=== PATIENT | female | born 2000 | race Caucasian/White ===

== ENCOUNTER → 2020-03-26 | Outpatient (CLI) | payer SELFPAY ==
[2020-03-26 10:57] VITALS: BMI 20.5
[2020-03-26 14:07] LABS: Amphetamine Urine VISTA NEGATIVE (<1000 ng/mL); Barbiturate Urine VISTA NEGATIVE (< 200 ng/mL); Benzodiazepine Urine VISTA NEGATIVE (< 200 ng/mL); Cocaine Urine VISTA NEGATIVE (< 300 ng/mL); Ecstacy Urine VISTA NEGATIVE (< 500 ng/mL); Methadone Urine VISTA NEGATIVE (< 300 ng/mL); PCP Urine VISTA NEGATIVE (< 25 ng/mL); THC Urine VISTA NEGATIVE (< 50 ng/mL); Vista UDS pH Range 6
[2020-03-28 04:09] LABS: Chlamydia By Nucleic Acid AMP Negative (Negative)
[2020-03-28 04:40] LABS: Gonococcus By Nucleic Acid AMP Negative (Negative)
== END | disposition home or self-care (01) ==
PROVIDERS: Visit Provider Obstetrics & Gynecology
DX: Z34.90 Encounter for supervision of normal pregnancy, unspecified, unspecified trimester (principal)
CPT/HCPCS: 80307; 87086; 87491; 87591

== ENCOUNTER → 2020-04-27 10:29 | Outpatient (CLI) | payer SELFPAY ==
[2020-04-23 10:18] VITALS: BMI 22.4
[2020-04-27 11:02] LABS: Absolute Lymphocyte Count 1.37 X10^3/uL (0.83-4.51); Absolute Neutrophil Count 6.3 X10^3/uL (2.0-7.7); Basophil# 0.04 X10^3/uL; Basophil% 0.5 % (0-1); Eosinophil# 0.06 X10^3/uL; Eosinophils% 0.7 % (0-5); Hematocrit 38.6 % (37-47); Lymphocyte # 1.37 X10^3/ul (4.0); Lymphocyte % 16.2 % (19-41); Mean Corp Hgb Conc 33.7 g/dL (32-36); Mean Corpuscular Hgb 29.6 pg (27.0-32.0); Mean Corpuscular Volume 87.9 fL (81-99); Mean Platelet Vol. 10.4 fl (6.2-12.0); Monocyte# 0.59 X10^3/uL; NRBC Flagged by Analyzer 0 % (0-5); Neutrophil # 6.34 X10^3/uL (2.7-7.7); Neutrophil % 75.1 % (47-70); Platelet Count 290 K/mm3 (150-450); RBC Distribution Width CV 13.1 % (11.6-14.6); RBC Distribution Width SD 41.9 fl (35.1-43.9); Red Blood Count 4.39 M/mm3 (4.2-5.4); White Blood Count 8.4 K/mm3 (4.4-11.0)
[2020-04-27 11:55] LABS: HIV - WCH Non-Reactive (Nonreactive); Hepatitis B Surface Antigen Non-Reactive (Nonreactive); Hepatitis C Antibody Non-Reactive (Nonreactive)
[2020-05-03 02:50] LABS: Rapid Plasmin Reagin (RPR) NONREACTIVE (NONREACTIVE)
== END ==
PROVIDERS: Referring Provider Obstetrics & Gynecology; Visit Provider Obstetrics & Gynecology
DX: Z34.81 Encounter for supervision of other normal pregnancy, first trimester (principal)
CPT/HCPCS: 36415; 85025; 86592; 86703; 86803; 86850; 86900; 86901; 87340

== ENCOUNTER → 2020-06-22 18:26 | Outpatient (CLI) | payer SELFPAY ==
[2020-05-25 10:14] VITALS: BMI 22.8
[2020-06-20 10:37] VITALS: BMI 23.6
--- NOTE | 2020-06-22 18:27 | US_ITS ---
STUDY: SECOND AND THIRD TRIMESTER OBSTETRICAL ULTRASOUND REASON FOR EXAM: Female, 19 years old ANATOMY LMP: 01/31/2020 TECHNIQUE: Transabdominal TECHNICAL QUALITY: Adequate. PRIOR ULTRASOUND: None. FINDINGS: There is a single intrauterine fetus. The fetus is in a cephalic presentation. There is demonstrated cardiac activity with a heart rate of 173 bpm. There is a normal amniotic fluid volume. The largest amniotic fluid pocket measures 5.3 cm. The amniotic fluid index (TRACY) is cm. The placenta is anterior in location and is not low lying. There are Grade 1 placental changes. The cervix measures 3.8 cm in length. The adnexal regions are not visualized. BIOMETRY: BPD: 4.7 cm: 20 weeks, 2 days HC: 18.2 cm: 20 weeks, 4 days AC: 15.5 cm: 20 weeks, 4 days FL: 3.3 cm: 20 weeks, 2 days CI: FL/BPD: 70.20 FL/HC: 18.22 FL/AC: 21.41 HC/AC: 1.18 age by current US: 20 weeks, 0 days. BRIGIDA by current US: 11/09/2020. Estimated weight: 361 grams, +/- 54 grams, 50 %. Age by LMP: 20 weeks, 3 days. BRIGIDA by LMP: 11/06/2020. ANATOMY: Gender: Female Cranium: Normal lateral ventricles. Normal choroid plexus. Normal cerebellum. Normal cisterna magna. Normal face, nose and lips. Chest: Normal 4-chamber heart. Abdomen/Pelvis: Normal diaphragm. Normal stomach. Normal abdominal wall. Normal cord insertion. Normal 3 vessel cord. Normal kidneys. Normal bladder. Spine: Normal cervical spine. Normal thoracic spine. Normal lumbar spine. Normal sacrum. Extremities: Normal bilateral upper extremities. Normal bilateral lower extremities. US/OB Anatomy Scan IMPRESSION: Living intrauterine of 20 weeks 0 days as described above. Electronically Signed: Brendan Kim MD at 8:37 EST Tel , Service support ,
== END ==
PROVIDERS: Referring Provider Obstetrics & Gynecology; Visit Provider Obstetrics & Gynecology
DX: Z34.00 Encounter for supervision of normal first pregnancy, unspecified trimester (principal)
CPT/HCPCS: 76805

== ENCOUNTER → 2020-08-15 09:17 | Outpatient (CLI) | payer SELFPAY ==
[2020-06-20 10:37] VITALS: BMI 23.6
[2020-08-15 09:29] LABS: Absolute Lymphocyte Count 1.19 X10^3/uL (0.83-4.51); Absolute Neutrophil Count 6.6 X10^3/uL (2.0-7.7); Basophil# 0.06 X10^3/uL; Basophil% 0.7 % (0-1); Eosinophil# 0.03 X10^3/uL; Eosinophils% 0.3 % (0-5); Hematocrit 34.9 % (37-47); Hemoglobin 11.8 g/dL (12.0-15.0); Lymphocyte # 1.19 X10^3/ul (4.0); Lymphocyte % 13.7 % (19-41); Mean Corp Hgb Conc 33.8 g/dL (32-36); Mean Corpuscular Hgb 30.3 pg (27.0-32.0); Mean Corpuscular Volume 89.5 fL (81-99); Mean Platelet Vol. 10.2 fl (6.2-12.0); Monocyte# 0.65 X10^3/uL; Monocyte% 7.5 % (0-10); NRBC Flagged by Analyzer 0 % (0-5); Neutrophil # 6.61 X10^3/uL (2.7-7.7); Neutrophil % 75.8 % (47-70); Platelet Count 254 K/mm3 (150-450); RBC Distribution Width CV 12.2 % (11.6-14.6); RBC Distribution Width SD 39.7 fl (35.1-43.9); White Blood Count 8.7 K/mm3 (4.4-11.0)
[2020-08-15 09:48] LABS: Glucose Challenge Gest 1H 50g 86 mg/dL (70-140)
[2020-08-15 10:01] LABS: Rubella IgG Reactive (Nonreactive)
== END ==
PROVIDERS: Referring Provider Obstetrics & Gynecology; Visit Provider Obstetrics & Gynecology
DX: Z34.90 Encounter for supervision of normal pregnancy, unspecified, unspecified trimester (principal)
CPT/HCPCS: 36415; 82950; 85025; 86762

== ENCOUNTER → 2020-10-10 | Outpatient (CLI) | payer SELFPAY ==
[2020-10-10 09:59] VITALS: BMI 26.2
== END | disposition home or self-care (01) ==
LOC: LABSPEC 12:06
PROVIDERS: Referring Provider Obstetrics & Gynecology; Visit Provider Obstetrics & Gynecology
DX: Z34.03 Encounter for supervision of normal first pregnancy, third trimester (principal)
CPT/HCPCS: 87081

== ENCOUNTER → 2020-10-26 10:28 | Outpatient (CLI) | payer SELFPAY ==
[2020-10-26 09:40] VITALS: BMI 26.2
--- NOTE | 2020-10-26 10:36 | US_ITS ---
STUDY: SECOND AND THIRD TRIMESTER OBSTETRICAL ULTRASOUND REASON FOR EXAM: Female, 20 years old uterine date size discrepancy LMP: 01/31/2020. TECHNIQUE: Transabdominal TECHNICAL QUALITY: Adequate. PRIOR ULTRASOUND: Comparison is made with prior examination dated 06/22/2020. FINDINGS: There is a single intrauterine fetus. The fetus is in a cephalic presentation. There is demonstrated cardiac activity with a heart rate of 138 bpm. There is a normal amniotic fluid volume. The largest amniotic fluid pocket measures 4.5 cm. The amniotic fluid index (TRACY) is 8.1 cm. The placenta is anterior in location and is not low lying. There are Grade 2 placental changes. The cervix was not visualized due to the head position. The adnexal regions are not visualized. BIOMETRY: BPD: 9.28 cm: 37 weeks, 5 days HC: 33.32 cm: 38 weeks, 0 days AC: 34.07 cm: 37 weeks, 6 days FL: 7.4 cm: 37 weeks, 5 days CI: 82% FL/BPD: 80% FL/HC: FL/AC: 22% HC/AC: 0.98 age by current US: 38 weeks, 0 days. BRIGIDA by current US: 11/09/2020. Estimated weight: 3381 grams, +/- 507 grams, 55 %. age by prior US: 38 weeks, 0 days. BRIGIDA by prior US: 11/09/2020. Age by LMP: 38 weeks, 3 days. BRIGIDA by LMP: 11/06/2020. US/OB Limited With Biometrics IMPRESSION: Single live intrauterine gestation with a mean gestational age of 38 weeks. There has been good interval growth since prior study. Electronically Signed: Ethan Ortiz MD at 12:33 EDT , Service support ,
== END ==
PROVIDERS: Referring Provider Obstetrics & Gynecology; Visit Provider Obstetrics & Gynecology
DX: O26.849 Uterine size-date discrepancy, unspecified trimester (principal)
CPT/HCPCS: 76816

== ENCOUNTER → 2020-11-01 | Outpatient (CLI) | payer SELFPAY ==
[2020-11-01 09:15] VITALS: BMI 26.8
[2020-11-01 10:19] LABS: ROM Internal Control Test YES-OK TO RESULT pt. (Internal QC); ROM Patient Test Negative (Negative)
== END | disposition home or self-care (01) ==
PROVIDERS: Referring Provider Obstetrics & Gynecology; Visit Provider Obstetrics & Gynecology
DX: O26.899 Other specified pregnancy related conditions, unspecified trimester (principal); N89.8 Other specified noninflammatory disorders of vagina; Z3A.00 Weeks of gestation of pregnancy not specified
CPT/HCPCS: 84112

== ENCOUNTER 2020-11-13 02:00 | Outpatient (CLI) | payer SELFPAY ==
[2020-11-08 11:29] VITALS: BMI 26.8
[2020-11-13 02:13] VITALS: BMI 26.7
[2020-11-13 02:25] VITALS: BP 129/79; PULSE 83; TEMP 36.7; O2SAT 99
--- NOTE | 2021-01-10 13:02 | OB.TRI.PN ---
Progress Notes Date of Service: 11/13/20 Progress Note: Patient presents for triage evaluation secondary to contractions. Did not make cervical change. Discharged in stable condition FHT: Moderate variability reactive no decelerations category I tracing [place]: Irregular Contractions Assessment and plan: Reactive NST, reassuring maternal and status patient discharged to home to follow-up next scheduled visit. See problem list details for additional plan information. Charges/Coding Procedures Urinary/Genital 52xxx-59xxx: [id number] non-stress test Interp
== END 2020-11-13 04:30 | disposition home health service (06) ==
LOC: WPOUT 02:08 → WP 02:09
PROVIDERS: Referring Provider Obstetrics & Gynecology; Visit Provider Obstetrics & Gynecology
DX: Z34.90 Encounter for supervision of normal pregnancy, unspecified, unspecified trimester (principal)
CPT/HCPCS: 59025; 59050; 99218; G0378

== ENCOUNTER → 2020-11-13 14:01 | Outpatient (CLI) | payer SELFPAY ==
[2020-11-08 09:09] VITALS: BMI 26.8
[2020-11-13 02:13] VITALS: BMI 26.7
--- NOTE | 2020-11-13 14:07 | US_ITS ---
STUDY: SECOND AND THIRD TRIMESTER OBSTETRICAL ULTRASOUND - LIMITED REASON FOR EXAM: Female, 20 years old post dates. Amniotic fluid measurement. LMP: 01/31/2020. PRIOR ULTRASOUND: Comparison is made with prior study dated 10/26/2020. TECHNIQUE: Transabdominal TECHNICAL QUALITY: Adequate. FINDINGS: There is a single intrauterine fetus. The fetus is in a cephalic presentation. There is demonstrated cardiac activity with a heart rate of 144 bpm. There is a normal amniotic fluid volume. The largest amniotic fluid pocket measures 1.9 cm x 4.6 cm. The amniotic fluid index (TRACY) is 6.9 cm. The placenta is anterior in location and is not low lying. There are Grade 2 placental changes. US/OB Limited (No Biometrics) IMPRESSION: The largest amniotic fluid pocket measures 1.9 sinus by 4.6 cm. The amniotic fluid index measures 6.9 cm. Electronically Signed: Ethan Ortiz MD at 15:03 EDT , Service support ,
== END ==
PROVIDERS: Referring Provider Obstetrics & Gynecology; Visit Provider Obstetrics & Gynecology
DX: O48.0 Post-term pregnancy (principal)
CPT/HCPCS: 76815

== ENCOUNTER 2020-11-13 15:10 | Inpatient (IN) | payer SELFPAY ==
[2020-06-20 10:37] VITALS: BMI 23.6
[2020-11-13] VITALS (29 sets, daily range): BP systolic 97–133; BP diastolic 54–89; PULSE 70–124; TEMP 36.6–37; O2SAT 81–100; BMI 26.7; BMI 26.4
[2020-11-13] MEDS: Lactated Ringers 1,000 ML 50 ML IV (15:27)
[2020-11-13 15:59] LABS: Absolute Lymphocyte Count 1.64 X10^3/uL (0.83-4.51); Basophil# 0.04 X10^3/uL; Basophil% 0.4 % (0-1); Eosinophil# 0.03 X10^3/uL; Eosinophils% 0.3 % (0-5); Hematocrit 35.5 % (37-47); Hemoglobin 11.7 g/dL (12.0-15.0); Lymphocyte # 1.64 X10^3/ul (0.83-4.51); Lymphocyte % 16.6 % (19-41); Mean Corpuscular Hgb 27.4 pg (27.0-32.0); Mean Corpuscular Volume 83.1 fL (81-99); Mean Platelet Vol. 12.3 fl (6.2-12.0); Monocyte# 1.03 X10^3/uL; Monocyte% 10.4 % (0-10); NRBC Flagged by Analyzer 0 % (0-5); Neutrophil # 7.01 X10^3/uL (2.7-7.7); Platelet Count 297 K/mm3 (150-450); RBC Distribution Width CV 14.3 % (11.6-14.6); RBC Distribution Width SD 42.7 fl (35.1-43.9); Red Blood Count 4.27 M/mm3 (4.2-5.4); White Blood Count 9.9 K/mm3 (4.4-11.0)
[2020-11-13] MEDS: Lactated Ringers 500 ML 999 ML IV ×3 (16:20→21:40)
--- NOTE | 2020-11-13 16:20 | HP.PCM.OB_ITS ---
HPI - General General Date of Admission: 11/13/20 HPI Narrative KATERINE CH, is a 20 F at 41 weeks who presents for induction of labor for late term. Maternal Data Information BRIGIDA Calculator Estimated Delivery Date Method Current WG Current Estimate 11/06/20 Ultrasound #1 41w 0d Other Estimates 10/28/20 LMP (Certain) 42w 2d [facility] Medical History (Updated 11/13/20 @ 16:[address] Afsaneh Vee MD) Adopted Anxiety No significant medical problems Oligohydramnios Home Medications multivitamin no.47-iron fum 27 mg-folate no.1 1 mg-dha 300 mg capsule 1 cap PO DAILY 03/19/20 [History Last Taken 11/12/20 08:00] Allergy/AdvReac Type Severity Reaction Status Date / Time No Known Allergies Allergy Verified 11/13/20 15:16 Surgical History (Updated 11/13/20 @ 15:52 by Jorge Jasso) History of surgery No significant past surgical history Social History adopted: Yes household members: spouse housing: house number of children: 0 current occupational status: employed current occupation: Smoking Status: Never smoker second hand exposure: No alcohol intake: never substance use type: does not use seatbelt use: always do you feel safe at home: Yes 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 History 1 Elective abortions Hx Para 0 Spontaneous abortions Hx # Term Pregnancies Ectopic pregnancies Hx # Pregnancies Multiple births # of living children Visit Details Expected Delivery Route/Plan IOL by 42 Labor Preferences- CB/BF classes: Did online classes labor support person: Davey labor intervention preferences: none pain management options preferred: epidural cut cord/dad catch: cord : yes PP control planned: IUD discussed possible routes of delivery and associated risks: [] special requests: [] Plans flu vaccine: given tdap vaccine: decline rhogam: na LARC form signed: yes movement and labor precautions reviewed. Problem list reviewed and updated with the most current plan of care details and appropriate orders placed. Relevant counseling for the gestational age provided. Continue routine care and follow up unless otherwise noted in visit notes/problem list details OB Flowsheet Initial Weight: 125 lb Date -?-?-?-?-?-?-?-?-?-?-?-?- EGA Weight BP Urine Prot -?-?-?-?-?-?-?-?-?-?-?-?- Glucose FHR FuHt Pres Dilation -?-?-?-?-?-?-?-?-?-?-?-?- Effaced St Visit Note 03/26/20 -?-?-?-?-?-?-?-?-?-?-?-?- 7w 6d 125 lb (+0 oz) 110/68 -?-?-?-?-?-?-?-?-?-?-?-?- 170 -?-?-?-?-?-?-?-?-?-?-?-?- SM- CRL 14mm not consistent with LMP recommend BRIGIDA change to 11/06/20 04/23/20 -?-?-?-?-?-?-?-?-?-?-?-?- 11w 6d 127 lb (+2 lb) 114/68 Negative -?-?-?-?-?-?-?-?-?-?-?-?- Negative 150 -?-?-?-?-?-?-?-?-?-?-?-?- SM- no vb crampi ng 05/25/20 -?-?-?-?-?-?-?-?-?-?-?-?- 16w 3d 129 lb (+4 lb) -?-?-?-?-?-?-?-?-?-?-?-?- 150 -?-?-?-?-?-?-?-?-?-?-?-?- Sm- no vb crampi ng 06/20/20 -?-?-?-?-?-?-?-?-?-?-?-?- 20w 1d 133 lb 4 oz (+8 lb 4 oz) 122/72 Negative -?-?-?-?-?-?-?-?-?-?-?-?- Negative 150 -?-?-?-?-?-?-?-?-?-?-?-?- GP - no ctx, LOF , VB. +FM. Still feeling nauseous, but phenergan very sedating. Script given for maryjo. 07/20/20 -?-?-?-?-?-?-?-?-?-?-?-?- 24w 3d 122/64 Negative -?-?-?-?-?-?-?-?-?-?-?-?- Negative 145 24 -?-?-?-?-?-?-?-?-?-?--?-?- SM- no vb lof go od fm nor egular ctx better nausea 08/15/20 -?-?-?-?-?-?-?-?-?-?-?-?- 28w 1d 142 lb 2 oz (+17 lb 2 oz) 118/66 Negative -?-?-?-?-?-?-?-?-?-?-?-?- Negative 159 28 -?-?-?-?-?-?-?-?-?-?-?-?- MH-No VB, LOF. G ood FM. 28 wk labs, [facility]. Wants to do tdap next visit. 09/03/20 -?-?-?-?-?-?-?-?-?-?-?-?- 30w 6d 143 lb 6 oz (+18 lb 6 oz) 122/72 Negative -?-?-?-?-?-?-?-?-?-?-?-?- Negative 140 30 -?-?-?-?-?-?-?-?-?-?-?-?- GP -no LOF, VB, DFM, ctx. Doing online CB classes. Painting baby's room with neutrals. 09/12/20 -?-?-?-?-?-?-?-?-?-?-?-?- 32w 1d 147 lb (+22 lb) 124/62 Negative -?-?-?-?-?-?-?-?-?-?-?-?- Negative 145 32 -?-?-?-?-?-?-?-?-?-?-?-?- GP - no LOF, VB, DFM, ctx. Denies complaints. 10/02/20 -?-?-?-?-?-?-?-?-?-?-?-?- 35w 0d 148 lb 6 oz (+23 lb 6 oz) 112/68 Negative -?-?-?-?-?-?-?-?-?-?-?-?- Negative 149 35 -?-?-?-?-?-?-?-?-?-?-?-?- MH-NO VB, LOF. G ood FM. No CTX 10/10/20 -?-?-?-?-?-?-?-?-?-?-?-?- 36w 1d 148 lb 6 oz (+23 lb 6 oz) 118/80 Negative -?-?-?-?-?-?-?-?-?-?-?-?- Negative 135 36 Cephalic 0 .5 -?-?-?-?-?-?-?-?-?-?-?-?- 50 -3 GP - no LO F, VB, DFM, ctx. GBS done today. 10/19/20 -?-?-?-?-?-?-?-?-?-?-?-?- 37w 3d 149 lb (+24 lb) 122/84 Negative -?-?-?-?-?-?-?-?-?-?-?-?- Negative 130 37 Cephalic 0 .5 -?-?-?-?-?-?-?-?-?-?-?-?- SM- no vb lof go od fm no regular ctx discussed delivery options and interventions 10/26/20 -?-?-?-?-?-?-?-?-?-?-?--?- 38w 3d 153 lb (+28 lb) 118/80 Negative -?-?-?-?-?-?-?-?-?-?-?-?- Negative 130 37 36 Cephalic 0.5 -?-?-?-?-?-?-?-?-?-?-?-?- SM- no vb lof go od fm no regular ctx SM- no vb lof good fm no reg ular ctx, low FH recommend growth US 11/01/20 -?-?-?-?-?-?-?-?-?-?-?-?- 39w 2d 151 lb 4 oz (+26 lb 4 oz) 130/82 Negative -?-?-?-?-?-?-?-?-?-?-?-?- Negative 130 37 Cephalic 1 -?-?-?-?-?-?-?-?-?-?-?-?- 40 -3 GP - no VB , DFM, regular ctx. Trickling clear fluid this am. Negative pooling. ROM sent. 11/08/20 -?-?-?-?-?-?-?-?-?-?-?-?- 40w 2d 151 lb 8 oz (+26 lb 8 oz) 138/76 Negative -?-?-?-?-?-?-?-?-?-?-?-?- Negative 130 38 Cephalic 1 -?-?-?-?-?-?-?-?-?-?-?-?- 40 -3 SM- no vb lof good fm no regular ctx, discussed 41-42 week management, patient prefers 42 if reassuring testing. bedside tracy 8 cm 11/13/20 -?-?-?-?-?-?-?-?-?-?-?-?- 41w 0d 151 lb (+26 lb) 120/82 Negative -?-?-?-?-?-?-?-?-?-?-?-?- Negative -?-?-?-?-?-?-?-?-?-?-?-?- Post dates with 1.9cm pocket of fluid. Consult with GP and to WP for induction. 11/13/20 -?-?-?-?-?-?-?-?-?-?-?-?- 41w 0d 149 lb 4.047 oz (+24 lb 4.047 oz) 149 lb 4.047 oz (+24 lb 4.047 oz) 119/59 -?-?-?-?-?-?-?-?-?-?-?-?- -?-?-?-?-?-?-?-?-?-?-?-?- NST FHR Rate Baby A Baseline: 150 Variability:: Moderate Accelerations:: 15 x 15 Decelerations:: Variable (2 variable decels since on monitor) FHR Category:: Category II Uterine Activity:: q2-5min ROS Eyes Eyes: Reports systems reviewed and no addt'l complaints, except as documented ENT HEENT: Reports systems reviewed and no addt'l complaints, except as documented Cardiovascular Cardiovascular: Reports systems reviewed and no addt'l complaints, except as doc umented Respiratory/Chest Respiratory/Chest: Reports systems reviewed and no addt'l complaints, except as documented Gastrointestinal Gastrointestinal: Reports systems reviewed and no addt'l complaints, except as documented Genitourinary Genitourinary: Reports systems reviewed and no addt'l complaints, except as documented Musculoskeletal Musculoskeletal: Reports systems reviewed and no addt'l complaints, except as documented Integumentary Integumentary: Reports systems reviewed and no addt'l complaints, except as documented Neurologic Neurologic: Reports systems reviewed and no addt'l complaints, except as documented Psychiatric Psychiatric: Reports systems reviewed and no addt'l complaints, except as documented Endocrine Endocrinology: Reports systems reviewed and no addt'l complaints, except as documented Hematologic/Lymphatic Hematologic/Lymphatic: Reports systems reviewed and no addt'l complaints, except as documented Allergic/Immunologic Allergic/Immunologic: Reports systems reviewed and no addt'l complaints, except as documented Vital Signs Vital Signs Vital Signs: 11/13/20 15:24 11/13/20 15:29 Temperature 98.5 F Temperature Source Temporal Pulse Rate 88 Blood Pressure 119/59 L BP Systolic 119 BP Diastolic 59 Pulse Ox 98 Weight Weight: 149 lb 4.047 oz Body Mass Index (BMI) 26.4 Physical Exam Const alert, oriented x3, no apparent distress, average body habitus, healthy appearing and well nourished HEENT normocephalic and moist oral mucous membranes Head and Scalp: atraumatic Eyes PERRL and EOMs intact bilaterally Neck full ROM Resp normal respiratory effort, no retractions and no use of accessory muscles Cardio regular rate and regular rhythm GI soft to palpation, non-tender and non-distended Extremity normal to inspection and full ROM Skin no rashes or lesions noted Neuro no focal motor deficits and no sensory deficits noted Psych mental status grossly normal, affect normal, speech normal and activity/motor behavior normal Labs Labs Labs: Blood Type O POSITIVE Antibody Screen NEGATIVE Hct 35.5 % (37-47) L Hgb 11.7 g/dL (12.0-15.0) L Obstetrics US Rubella IgG Antibody Reactive (Nonreactive) Hep Bs Antigen Non-Reactive (Nonreactive) Neisseria gonorrhoeae DNA ([place]) Negative (Negative) HIV 1&2 Antibody Non-Reactive (Nonreactive) Glucose 1 Hr 50 gm 86 mg/dL (70-140) Miscellaneous Test Assessment & Plan (1) Encounter for induction of labor: PLAN: Patient presents IOL, plan management for with castellanos bulb/pitocin. Pain management: plans epidural. GBS negative. Management of any complications: none I have reviewed the [facility] and made any clinically relevant updates. (2) Post term over 40 weeks: COMMENT: nl growth 10/29, tracy 11/08 8 cm, repeat tracy thursday/nst, visit/nst 11/16. plan IOL 42 PLAN: Repeat TRACY 6.8 (previously 8) with no 2x2cm pocket Recommended IOL for late term (3) Supervision of normal first : QUALIFIERS: Trimester: third trimester Qualified Code(s): Z34.03 - Encounter for supervision of normal first , third trimester COMMENT: PRR BRIGIDA 11/06/2020, girl, [place] Spouse: Davey (4) : QUALIFIERS: Weeks of gestation: 41 weeks Qualified Code(s): Z3A.41 - 41 weeks gestation of COMMENT: declines carrier and NTD, genetics low risk; NL anatomy; negative GBS. plan covid test at delivery US 10/26/20 - nl growth, borderline TRACY - recomend bedside TRACY at next visit
--- NOTE | 2020-11-13 16:20 | PCM.HP.OB ---
HPI - General General Date of Admission: 11/13/20 HPI Narrative KATERINE CH, is a 20 F at 41 weeks who presents for induction of labor for late term. Maternal Data Information BRIGIDA Calculator Estimated Delivery Date Method Current WG Current Estimate 11/06/20 Ultrasound #1 41w 0d Other Estimates 10/28/20 LMP (Certain) 42w 2d [facility] Medical History (Updated 11/13/20 @ 16:[address] Afsaneh Vee MD) Adopted Anxiety No significant medical problems Oligohydramnios Home Medications multivitamin no.47-iron fum 27 mg-folate no.1 1 mg-dha 300 mg capsule 1 cap PO DAILY 03/19/20 [History Last Taken 11/12/20 08:00] Allergy/AdvReac Type Severity Reaction Status Date / Time No Known Allergies Allergy Verified 11/13/20 15:16 Surgical History (Updated 11/13/20 @ 15:52 by Jorge Jasso) History of surgery No significant past surgical history Social History adopted: Yes household members: spouse housing: house number of children: 0 current occupational status: employed current occupation: Smoking Status: Never smoker second hand exposure: No alcohol intake: never substance use type: does not use seatbelt use: always do you feel safe at home: Yes 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 History 1 Elective abortions Hx Para 0 Spontaneous abortions Hx # Term Pregnancies Ectopic pregnancies Hx # Pregnancies Multiple births # of living children Visit Details Expected Delivery Route/Plan IOL by 42 Labor Preferences- CB/BF classes: Did online classes labor support person: Davey labor intervention preferences: none pain management options preferred: epidural cut cord/dad catch: cord : yes PP control planned: IUD discussed possible routes of delivery and associated risks: [] special requests: [] Plans flu vaccine: given tdap vaccine: decline rhogam: na LARC form signed: yes movement and labor precautions reviewed. Problem list reviewed and updated with the most current plan of care details and appropriate orders placed. Relevant counseling for the gestational age provided. Continue routine care and follow up unless otherwise noted in visit notes/problem list details OB Flowsheet Initial Weight: 125 lb Date <del>?</del> EGA Weight BP Urine Prot <del>?</del> Glucose FHR FuHt Pres Dilation <del>?</del> Effaced St Visit Note 03/26/20 <del>?</del> 7w 6d 125 lb (+0 oz) 110/68 <del>?</del> 170 <del>?</del> SM- CRL 14mm not consistent with LMP recommend BRIGIDA change to 11/06/20 04/23/20 <del>?</del> 11w 6d 127 lb (+2 lb) 114/68 Negative <del>?</del> Negative 150 <del>?</del> SM- no vb cramping 05/25/20 <del>?</del> 16w 3d 129 lb (+4 lb) <del>?</del> 150 <del>?</del> Sm- no vb cramping 06/20/20 <del>?</del> 20w 1d 133 lb 4 oz (+8 lb 4 oz) 122/72 Negative <del>?</del> Negative 150 <del>?</del> GP - no ctx, LOF, VB. +FM. Still feeling nauseous, but phenergan very sedating. Script given for zofran. 07/20/20 <del>?</del> 24w 3d 122/64 Negative <del>?</del> Negative 145 24 <del>?</del> SM- no vb lof good fm nor egular ctx better nausea 08/15/20 <del>?</del> 28w 1d 142 lb 2 oz (+17 lb 2 oz) 118/66 Negative <del>?</del> Negative 159 28 <del>?</del> MH-No VB, LOF. Good FM. 28 wk labs, [facility]. Wants to do tdap next visit. 09/03/20 <del>?</del> 30w 6d 143 lb 6 oz (+18 lb 6 oz) 122/72 Negative <del>?</del> Negative 140 30 <del>?</del> GP -no LOF, VB, DFM, ctx. Doing online CB classes. Painting baby's room with neutrals. 09/12/20 <del>?</del> 32w 1d 147 lb (+22 lb) 124/62 Negative <del>?</del> Negative 145 32 <del>?</del> GP - no LOF, VB, DFM, ctx. Denies complaints. 10/02/20 <del>?</del> 35w 0d 148 lb 6 oz (+23 lb 6 oz) 112/68 Negative <del>?</del> Negative 149 35 <del>?</del> MH-NO VB, LOF. Good FM. No CTX 10/10/20 <del>?</del> 36w 1d 148 lb 6 oz (+23 lb 6 oz) 118/80 Negative <del>?</del> Negative 135 36 Cephalic 0.5 <del>?</del> 50 -3 GP - no LOF, VB, DFM, ctx. GBS done today. 10/19/20 <del>?</del> 37w 3d 149 lb (+24 lb) 122/84 Negative <del>?</del> Negative 130 37 Cephalic 0.5 <del>?</del> SM- no vb lof good fm no regular ctx discussed delivery options and interventions 10/26/20 <del>?</del> 38w 3d 153 lb (+28 lb) 118/80 Negative <del>?</del> Negative 130 37 36 Cephalic 0.5 <del>?</del> SM- no vb lof good fm no regular ctx SM- no vb lof good fm no regular ctx, low FH recommend growth US 11/01/20 <del>?</del> 39w 2d 151 lb 4 oz (+26 lb 4 oz) 130/82 Negative <del>?</del> Negative 130 37 Cephalic 1 <del>?</del> 40 -3 GP - no VB, DFM, regular ctx. Trickling clear fluid this am. Negative pooling. ROM sent. 11/08/20 <del>?</del> 40w 2d 151 lb 8 oz (+26 lb 8 oz) 138/76 Negative <del>?</del> Negative 130 38 Cephalic 1 <del>?</del> 40 -3 SM- no vb lof good fm no regular ctx, discussed 41-42 week management, patient prefers 42 if reassuring testing. bedside tracy 8 cm 11/13/20 <del>?</del> 41w 0d 151 lb (+26 lb) 120/82 Negative <del>?</del> Negative <del>?</del> Post dates with 1.9cm pocket of fluid. Consult with GP and to WP for induction. 11/13/20 <del>?</del> 41w 0d 149 lb 4.047 oz (+24 lb 4.047 oz) 149 lb 4.047 oz (+24 lb 4.047 oz) 119/59 <del>?</del> <del>?</del> NST FHR Rate Baby A Baseline: 150 Variability:: Moderate Accelerations:: 15 x 15 Decelerations:: Variable (2 variable decels since on monitor) FHR Category:: Category II Uterine Activity:: q2-5min ROS Eyes Eyes: Reports systems reviewed and no addt'l complaints, except as documented ENT HEENT: Reports systems reviewed and no addt'l complaints, except as documented Cardiovascular Cardiovascular: Reports systems reviewed and no addt'l complaints, except as documented Respiratory/Chest Respiratory/Chest: Reports systems reviewed and no addt'l complaints, except as documented Gastrointestinal Gastrointestinal: Reports systems reviewed and no addt'l complaints, except as documented Genitourinary Genitourinary: Reports systems reviewed and no addt'l complaints, except as documented Musculoskeletal Musculoskeletal: Reports systems reviewed and no addt'l complaints, except as documented Integumentary Integumentary: Reports systems reviewed and no addt'l complaints, except as documented Neurologic Neurologic: Reports systems reviewed and no addt'l complaints, except as documented Psychiatric Psychiatric: Reports systems reviewed and no addt'l complaints, except as documented Endocrine Endocrinology: Reports systems reviewed and no addt'l complaints, except as documented Hematologic/Lymphatic Hematologic/Lymphatic: Reports systems reviewed and no addt'l complaints, except as documented Allergic/Immunologic Allergic/Immunologic: Reports systems reviewed and no addt'l complaints, except as documented Vital Signs Vital Signs Vital Signs: 11/13/20 15:24 11/13/20 15:29 Temperature 98.5 F Temperature Source Temporal Pulse Rate 88 Blood Pressure 119/59 L BP Systolic 119 BP Diastolic 59 Pulse Ox 98 Weight Weight: 149 lb 4.047 oz Body Mass Index (BMI) 26.4 Physical Exam Const alert, oriented x3, no apparent distress, average body habitus, healthy appearing and well nourished HEENT normocephalic and moist oral mucous membranes Head and Scalp: atraumatic Eyes PERRL and EOMs intact bilaterally Neck full ROM Resp normal respiratory effort, no retractions and no use of accessory muscles Cardio regular rate and regular rhythm GI soft to palpation, non-tender and non-distended Extremity normal to inspection and full ROM Skin no rashes or lesions noted Neuro no focal motor deficits and no sensory deficits noted Psych mental status grossly normal, affect normal, speech normal and activity/motor behavior normal Labs Labs Labs: Blood Type O POSITIVE Antibody Screen NEGATIVE Hct 35.5 % (37-47) L Hgb 11.7 g/dL (12.0-15.0) L Obstetrics US Rubella IgG Antibody Reactive (Nonreactive) Hep Bs Antigen Non-Reactive (Nonreactive) Neisseria gonorrhoeae DNA ([place]) Negative (Negative) HIV 1&2 Antibody Non-Reactive (Nonreactive) Glucose 1 Hr 50 gm 86 mg/dL (70-140) Miscellaneous Test Assessment & Plan (1) Encounter for induction of labor: PLAN: Patient presents IOL, plan management for with castellanos bulb/pitocin. Pain management: plans epidural. GBS negative. Management of any complications: none I have reviewed the [facility] and made any clinically relevant updates. (2) Post term over 40 weeks: COMMENT: nl growth 10/29, tracy 11/08 8 cm, repeat tracy thursday/nst, visit/nst 11/16. plan IOL 42 PLAN: Repeat TRACY 6.8 (previously 8) with no 2x2cm pocket Recommended IOL for late term (3) Supervision of normal first : QUALIFIERS: Trimester: third trimester Qualified Code(s): Z34.03 - Encounter for supervision of normal first , third trimester COMMENT: PRR BRIGIDA 11/06/2020, girl, [place] Spouse: Davey (4) : QUALIFIERS: Weeks of gestation: 41 weeks Qualified Code(s): Z3A.41 - 41 weeks gestation of COMMENT: declines carrier and NTD, genetics low risk; NL anatomy; negative GBS. plan covid test at delivery 10/26/20 - nl growth, borderline TRACY - recomend bedside TRACY at next visit
[2020-11-13] MEDS: 0.9% Normal Saline Single 100 ML IV.SOLN. INTRA-UTER (16:23)
[2020-11-13] MEDS: fentaNYL-bupivacaine (epidural) 100 ML BAG EPIDURAL ×2 (18:52→23:37)
[2020-11-13] MEDS: Ondansetron 4 MG/2 ML Vial IV (20:09)
[2020-11-13] MEDS: 0.9% Saline Lock 10 ML Syringe IV (20:09)
[2020-11-13] MEDS: Lactated Ringers 1,000 ML 200 ML IV (21:41)
[2020-11-14] VITALS (20 sets, daily range): BP systolic 101–140; BP diastolic 50–101; PULSE 66–123; RESP 12–23; TEMP 36.1–37.7; O2SAT 96–99
[2020-11-14] MEDS: Lactated Ringers 500 ML 999 ML IV (01:46)
[2020-11-14] MEDS: Lactated Ringers 1,000 ML 200 ML IV (02:06)
[2020-11-14] MEDS: Sodium Citrate/Citric Acid 30 ML UDC PO (02:25)
--- NOTE | 2020-11-14 02:32 | PCM.PN.BLA ---
Progress Note Notified by RN of persistent minimal variability for the past 45 minutes with intermittent late decelerations. On attempt to obtain scalp stim, baby had had a 3-minute deceleration. Cervix remains unchanged. Have not been able to start Pitocin for augmentation. Discussed with patient that given that she is remote and unable to obtain scalp stim, unable to reliably determine wellbeing and recommend proceeding with a primary . The risks, benefits, indications, and alternatives to the procedure were discussed with the patient being bleeding, infection, and visceral or vascular injury. Patient was understanding and agreed to proceed.
[2020-11-14] MEDS: Cefazolin 2 GM in 0.9% Normal Saline 100 ML IV (02:35)
--- NOTE | 2020-11-14 03:33 | OP.PCM_ITS ---
Assessment & Plan (1) delivery delivered: (2) Encounter for induction of labor: (3) : QUALIFIERS: Weeks of gestation: 41 weeks Qualified Code(s): Z3A.41 - 41 weeks gestation of COMMENT: declines carrier and NTD, genetics low risk; NL anatomy; negative GBS. plan covid test at delivery US 10/26/20 - nl growth, borderline TRACY - recomend bedside TRACY at next visit (4) Supervision of normal first : QUALIFIERS: Trimester: third trimester Qualified Code(s): Z34.03 - Encounter for supervision of normal first , third trimester COMMENT: PRR BRIGIDA 11/06/2020, girl, [place] Spouse: Davey (5) Post term over 40 weeks: COMMENT: nl growth 10/29, tracy 11/08 8 cm, repeat tracy thursday/nst, visit/nst 11/16. plan IOL 42 Maternal Data Information BRIGIDA Calculator Estimated Delivery Date Method Current WG Current Estimate 11/06/20 Ultrasound #1 41w 1d Other Estimates 10/28/20 LMP (Certain) 42w 3d Details Operative Information Date of Procedure: 11/14/20 Pre-Operative Diagnosis: Term , induction for late term, category 2 heart rate tracing remote from delivery, unable to augment Post-Operative Diagnosis: Same Indications for : Distress (No scalp stim) Indications Narrative: 20-year-old G1, P0 at 41 weeks gestation admitted for induction of labor for late term after TRACY was found to decrease from 8 to 6. On arrival, patient had a period of recurrent late decelerations that resolved with conservative interventions. She was induced with Spencer bulb followed by AROM. Pitocin was never able to be started due to intermittent category 2 heart rate tracing. Patient may change to 6 cm at midnight. At approximately 0115 patient began having persistent minimal variability that was not responsive to conservative measures with intermittent late decelerations. An attempt was made to obtain scalp stim, however patient had a 3-minute deceleration following scalp stim. Patient remained 6 cm at that time. Pitocin was never able to be started due to category 2 heart rate tracing. Decision was made to proceed with primary for category 2 heart rate tracing remote from delivery and inability to augment. Classification: KAYLENE Procedure Type: low transverse slot machine key person #1: Harsh Fofana Type of Anesthesia: Epidural Antibiotic Given: Ancef 2 grams IV x1 and Zithromax 500 mg/5 mL X1 Drain: Spencer to straight drain Estimated Blood Loss: 500 Fluids Replaced: 1000 Findings Description of Procedure: The patient is a G1, P0 at 41 weeks gestation who presented for primary . Spinal anesthesia was placed without difficulty. Spencer catheter was placed. The patient was placed in the dorsal supine position with leftward tilt. Patient was prepped and draped in the normal sterile fashion. Pfannenstiel skin incision was made with the scalpel and carried through to the underlying layer of fascia with the scalpel. Fascia was nicked in the midline and the incision extended laterally. The rectus bellies were dissected off superiorly and inferiorly with out complication both sharply and bluntly. The peritoneum was entered digitally. The incision was stretched and a low transverse uterine incision was made with the scalpel. The infant's head was delivered atraumatically followed by the anterior and posterio r shoulders without complication the rest of the infant delivered. The cord was clamped and cut and the was handed off to awaiting nurse. The placenta was delivered spontaneously immediately following and was noted to be intact and have a three-vessel cord. The uterus was exteriorized cleared of all clots and debris, and the incision was closed in a double layer closure using #1 Monocryl. The ovaries and fallopian tubes were noted to be within normal limits. The uterus was returned to the maternal abdomen and gutters were cleared of all clots and debris. The peritoneum was closed with 3-0 Monocryl in a running fashion. Gloves were changed prior to fascial closure. Fascia was closed with 0 PDS in a running fashion. Subcutaneous tissue was copiously irrigated and the skin was closed with 3-0 Monocryl in a subcuticular fashion. Mepilex dressing was applied without complication. Patient was taken to recovery in stable condition. It was discussed with the patient that based on the clinical information obtained during this encounter, combined with her history, at this time I feel that she would be a candidate for a vaginal delivery in the future if further pregnancies are desired. Presentation: Positive for Vertex Amniotic Membrane Rupture Type: Artificial Amniotic Fluid Description: Moderate meconium Placental Delivery Description: Expressed Placenta Disposition: [facility] Cord Vessel Description: 3 Vessels Cord Entanglement: None Cord Gases: ABG and VBG Infant A Gender: Female (1 minute): 2 (5 minute): 5 Delayed Cord Clamping: No Complications Risks of Surgery Discussed w/Patient: Bleeding, Anesthesia Risks, Infection and Injury to surrounding structure(s) including bowel and bladder Complications: None apparent Procedures Urinary/Genital [id number]: [id number] Delivery [facility]
--- NOTE | 2020-11-14 03:39 | PCM.DC ---
Discharge Instructions Diet Discharge Diet: No restrictions Activity Discharge Activity: May Not Drive (for 2 weeks or while taking narcotic pain meds.), May Shower and May Take a Tub Bath (in 7 days) May resume sexual activity in: 4-6 weeks Lifting Restrictions: 20 lbs Additional Activity Instructions:: Nothing in the vagina for 4-6 weeks. You may return to work/school in 6 weeks. Dressing / Incision Call your doctor if your incision/area has: Continuous Slow Oozing, Sudden Increased Bleeding, Increased Pain/ Swelling, Increased Redness and Foul Smelling Discharge Call your doctor if you observe: Fever of 101 or Higher Suture Line Care: Avoid Pulling/Pushing and Avoid Pinching/Bending Follow Up Care When: Call to make an appointment with your doctor for an incision check in 1-2 weeks. You will also need a 6 week post- follow up appointment. Test Results: Test results from this visit will be discussed in further detail at your follow-up appointment, if applicable. Discharge Plan Admission Admit Date/Time: 11/13/20 15:10 Attending Provider: Afsaneh Vee Primary Care Provider: Care Physician,Aleksandra Primary Discharge Orders/Prescriptions Prescriptions: No Action PNV-DHA 27 mg iron-1 mg -300 mg capsule 1 cap PO DAILY RF: 0
[2020-11-14] MEDS: Ketorolac 30 MG/ML Syringe IV ×4 (03:44→21:05)
[2020-11-14] MEDS: Ondansetron 4 MG/2 ML Vial IV (03:46)
[2020-11-14] MEDS: 0.9% Saline Lock 10 ML Syringe IV ×3 (03:48→21:05)
[2020-11-14] MEDS: Acetaminophen 500 MG Tablet 1000 MG PO ×4 (04:19→21:05)
[2020-11-14] MEDS: Oxytocin 30 units/NS 500 ml 30 UNITS/500 ML IV.SOLN 167 UNITS IV (04:30)
--- NOTE | 2020-11-14 05:34 | NURSING ---
epidural catheter removed per this RN. Blue tip intact.
[2020-11-14] MEDS: Lactated Ringers 1,000 ML 100 ML IV (07:31)
[2020-11-14] MEDS: Senna/Docusate Sodium 1 Tablet PO (14:54)
[2020-11-15 00:55] VITALS: BP 116/65; PULSE 81; RESP 16; TEMP 36.2
[2020-11-15 04:06] VITALS: BP 108/68; PULSE 84; RESP 16
[2020-11-15] MEDS: Naproxen 250 MG Tablet 500 MG PO ×2 (04:10→13:30)
[2020-11-15] MEDS: Acetaminophen 500 MG Tablet 1000 MG PO ×2 (04:11→10:34)
[2020-11-15 04:23] LABS: Hemoglobin 9.1 g/dL (12.0-15.0); Mean Corp Hgb Conc 31.4 g/dL (32-36); Mean Corpuscular Hgb 26.5 pg (27.0-32.0); Mean Corpuscular Volume 84.3 fL (81-99); Mean Platelet Vol. 11.3 fl (6.2-12.0); Platelet Count 222 K/mm3 (150-450); RBC Distribution Width CV 14.4 % (11.6-14.6); RBC Distribution Width SD 43.8 fl (35.1-43.9); Red Blood Count 3.44 M/mm3 (4.2-5.4); White Blood Count 15.9 K/mm3 (4.4-11.0)
--- NOTE | 2020-11-15 07:12 | PCM.PN.OB ---
Subjective Subjective Patient doing well without complaints. Tolerating PO. Ambulating and voiding without difficulty. Breast feeding well. Denies chest pain, shortness of breath, calf pain/swelling, fevers, chills, lightheadedness. Objective Data Objective Data Vital Signs: Vital Signs Temp Pulse Resp BP Pulse Ox 97.2 F L 84 16 108/68 96 11/15/20 00:55 11/15/20 04:06 11/15/20 04:06 11/15/20 04:06 11/14/20 20:59 Oxygen Delivery Method Room Air Weight: 149 lb 4.047 oz Body Mass Index (BMI) 26.4 Intake & Output: Intake and Output for Last 24 Hours 11/13/20 11/14/20 11/15/20 23:59 23:59 23:59 Intake Total 2337.00 / 2337.00 3245 / 3245 Output Total 100 / 100 2650 / 2650 Balance 2237.00 / 2237.00 595 / 595 Lab / Micro Data Result Diagrams: 11/15/20 04:15 Labs: Laboratory Results - last 24 hr 11/15/20 04:15 WBC 15.9 H RBC 3.44 L Hgb 9.1 L Hct 29.0 L MCV 84.3 MCH 26.5 L MCHC 31.4 L RDW Std Deviation 43.8 RDW Coeff of April 14.4 Plt Count 222 MPV 11.3 Micro: Microbiology 11/13/20 15:25 Mucosa - Nose SARS-CoV-2 Antigen (Rapid) - Final ROS Constitutional Constitutional: Denies fever(s) Cardiovascular Cardiovascular: Denies chest pain, dyspnea or lightheadedness Gastrointestinal Gastrointestinal: Reports abdominal pain; Denies constipation or diarrhea Neurologic Neurologic: Denies dizziness or headache(s) Physical Exam Const alert, oriented x3, no apparent distress, average body habitus, healthy appearing and well nourished HEENT normocephalic Head and Scalp: atraumatic Eyes PERRL and EOMs intact bilaterally Neck full ROM Lymph Lymphatic: no lymphadenopathy noted Resp normal respiratory effort, no retractions and no use of accessory muscles Cardio regular rate GI soft to palpation, non-tender and non-distended Inspection: incision intact and other (dressing in place) Palpation: other Other Details: fundus firm Extremity normal to inspection and no clubbing, cyanosis or edema Skin no rashes or lesions noted Neuro no focal motor deficits and no sensory deficits noted Psych mental status grossly normal, affect normal and speech normal Assessment & Plan (1) Delivery by section: COMMENT: primary for category 2 FHT PLAN: s/p LTCS PPD # 1 1. routine post care 2. breast feeding- support given 3. rh positive 4. rubella immune
[2020-11-15 08:09] VITALS: BP 109/58; PULSE 88; RESP 16; TEMP 36.4
[2020-11-15 12:00] VITALS: BP 108/62; PULSE 82; RESP 18; TEMP 36.6
[2020-11-15] MEDS: Senna/Docusate Sodium 1 Tablet PO (13:30)
== END 2020-11-15 13:55 | disposition home or self-care (01) | DRG 788 ==
PROVIDERS: Admitting Provider Obstetrics & Gynecology; Visit Provider Obstetrics & Gynecology
DX: O76 Abnormality in fetal heart rate and rhythm complicating labor and delivery (principal); O61.1 Failed instrumental induction of labor; O48.0 Post-term pregnancy; Z3A.41 41 weeks gestation of pregnancy; O77.0 Labor and delivery complicated by meconium in amniotic fluid; Z37.0 Single live birth
CPT/HCPCS: 59025; 59050; 85025; 85027; 86850; 86900; 86901; 87426; 99218; J7120; A4216; G0378; J2405

== ENCOUNTER → 2020-12-26 | Outpatient (CLI) | payer SELFPAY ==
[2020-12-26 11:11] VITALS: BMI 26.4
[2021-01-01 16:10] LABS: HPV Reflexed? NOT INDICATED
== END | disposition home or self-care (01) ==
LOC: LABSPEC 12:46
PROVIDERS: Visit Provider Obstetrics & Gynecology
DX: Z12.4 Encounter for screening for malignant neoplasm of cervix (principal)
CPT/HCPCS: 88175; G0145

== ENCOUNTER → 2021-12-27 | Outpatient (CLI) | payer SELFPAY ==
[2021-12-27 16:39] LABS: Absolute Lymphocyte Count 1.99 X10^3/uL (0.83-4.51); Absolute Neutrophil Count 6.1 X10^3/uL (2.0-7.7); Basophil# 0.02 X10^3/uL; Basophil% 0.2 % (0-1); Eosinophils% 1.1 % (0-5); Hematocrit 37.5 % (37-47); Hemoglobin 12.6 g/dL (12.0-15.0); Lymphocyte # 1.99 X10^3/ul (0.83-4.51); Lymphocyte % 22.4 % (19-41); Mean Corp Hgb Conc 33.6 g/dL (32-36); Mean Corpuscular Hgb 29.1 pg (27.0-32.0); Mean Corpuscular Volume 86.6 fL (81-99); Mean Platelet Vol. 10.4 fl (6.2-12.0); Monocyte# 0.59 X10^3/uL; Monocyte% 6.6 % (0-10); NRBC Flagged by Analyzer 0 % (0-5); Neutrophil # 6.14 X10^3/uL (2.7-7.7); Neutrophil % 69.2 % (47-70); Platelet Count 313 K/mm3 (150-450); RBC Distribution Width CV 12.8 % (11.6-14.6); RBC Distribution Width SD 39.7 fl (35.1-43.9); Red Blood Count 4.33 M/mm3 (4.2-5.4); White Blood Count 8.9 K/mm3 (4.4-11.0)
[2021-12-27 16:52] LABS: NATERA MAILED SPECIMEN
[2021-12-27 18:04] LABS: Amphetamine Urine VISTA NEGATIVE (<1000 ng/mL); Barbiturate Urine VISTA NEGATIVE (< 200 ng/mL); Benzodiazepine Urine VISTA NEGATIVE (< 200 ng/mL); Cocaine Urine VISTA NEGATIVE (< 300 ng/mL); Ecstacy Urine VISTA NEGATIVE (< 500 ng/mL); HIV - WCH Non-Reactive (Nonreactive); Hepatitis B Surface Antigen Non-Reactive (Nonreactive); Hepatitis C Antibody Non-Reactive (Nonreactive); Methadone Urine VISTA NEGATIVE (< 300 ng/mL); PCP Urine VISTA NEGATIVE (< 25 ng/mL); Rubella IgG Reactive (Nonreactive); Syphilis Antibodies Non-reactive; THC Urine VISTA NEGATIVE (< 50 ng/mL); Vista UDS pH Range 6
[2021-12-30 21:07] LABS: Chlamydia By Nucleic Acid AMP Negative (Negative)
[2021-12-31 13:54] LABS: Gonococcus By Nucleic Acid AMP Negative (Negative)
== END | disposition home or self-care (01) ==
PROVIDERS: Referring Provider Obstetrics & Gynecology; Visit Provider Obstetrics & Gynecology
DX: Z34.90 Encounter for supervision of normal pregnancy, unspecified, unspecified trimester (principal)
CPT/HCPCS: 36415; 80307; 85025; 86703; 86762; 86780; 86803; 86850; 86900; 86901; 87086; 87340; 87491; 87591

== ENCOUNTER → 2022-03-04 | Outpatient (CLI) | payer SELFPAY ==
--- NOTE | 2022-03-04 13:32 | US_ITS ---
STUDY: SECOND AND THIRD TRIMESTER OBSTETRICAL ULTRASOUND REASON FOR EXAM: Female, 21 years old. Anatomy LMP: Provided BRIGIDA of 07/20/2022. TECHNIQUE: Transabdominal and Transvaginal TECHNICAL QUALITY: Adequate. PRIOR ULTRASOUND: None. FINDINGS: There is a single intrauterine fetus. The fetus is in a breech presentation. There is demonstrated cardiac activity with a heart rate of 150 bpm. There is a normal amniotic fluid volume. The largest amniotic fluid pocket measures 3.38 cm. The placenta is anterior in location and is not low lying. There are Grade 0 placental changes. The cervix measures 4.32 cm in length. The adnexal regions are not visualized. BIOMETRY: BPD: 4.57 cm: 19 weeks, 6 days HC: 18.38 cm: 20 weeks, 5 days AC: 16.21 cm: 21 weeks, 2 days FL: 3.36 cm: 20 weeks, 4 days CI: 71.81 FL/BPD: 73.56 FL/HC: 18.3 FL/AC: 20.76 HC/AC: 1.13 age by current US: 20 weeks, 3 days. BRIGIDA by current US: 07/19/2022. Estimated weight: 381 grams, +/- 57 grams, 74 %. Age by LMP: 20 weeks, 2 days. BRIGIDA by LMP: 07/20/2022. ANATOMY: Gender: Female Cranium: Normal lateral ventricles. Normal choroid plexus. Normal cerebellum. Normal cisterna magna. Normal face, nose and lips. Chest: Normal 4-chamber heart. Abdomen/Pelvis: Normal diaphragm. Normal stomach. Normal abdominal wall. Normal cord insertion. Normal 3 vessel cord. Normal kidneys. Normal bladder. Spine: Normal cervical spine. Normal thoracic spine. Normal lumbar spine. Normal sacrum. Extremities: Normal bilateral upper extremities. Normal bilateral lower extremities. US/OB Anatomy Scan IMPRESSION: 1. Live single intrauterine at 20 weeks, 3 days. BRIGIDA is 07/19/2022. 2. EFW of 381 g. 3. Adequate fluid. 4. Anterior grade 0 placenta. 5. Breech presentation. 6. No visualized anatomic abnormality. Electronically Signed: Ac Ames DO at 15:52 EDT Reading Location ID and State: [address] [place] [address] Tel [phone], Service support ,
== END | disposition home or self-care (01) ==
PROVIDERS: Visit Provider Obstetrics & Gynecology
DX: Z34.92 Encounter for supervision of normal pregnancy, unspecified, second trimester (principal); Z3A.20 20 weeks gestation of pregnancy
CPT/HCPCS: 76805; 76817

== ENCOUNTER → 2022-04-14 | Outpatient (CLI) | payer SELFPAY ==
[2022-04-14 09:40] LABS: Absolute Lymphocyte Count 2.09 X10^3/uL (0.83-4.51); Absolute Neutrophil Count 7.2 X10^3/uL (2.0-7.7); Basophil# 0.04 X10^3/uL; Basophil% 0.4 % (0-1); Eosinophil# 0.07 X10^3/uL; Eosinophils% 0.7 % (0-5); Hematocrit 33.9 % (37-47); Hemoglobin 11.7 g/dL (12.0-15.0); Lymphocyte # 2.09 X10^3/ul (0.83-4.51); Lymphocyte % 20.5 % (19-41); Mean Corp Hgb Conc 34.5 g/dL (32-36); Mean Corpuscular Hgb 31.8 pg (27.0-32.0); Mean Corpuscular Volume 92.1 fL (81-99); Mean Platelet Vol. 10.3 fl (6.2-12.0); Monocyte# 0.68 X10^3/uL; Monocyte% 6.7 % (0-10); NRBC Flagged by Analyzer 0 % (0-5); Neutrophil # 7.22 X10^3/uL (2.7-7.7); Neutrophil % 70.8 % (47-70); Platelet Count 243 K/mm3 (150-450); RBC Distribution Width SD 43.6 fl (35.1-43.9); Red Blood Count 3.68 M/mm3 (4.2-5.4); White Blood Count 10.2 K/mm3 (4.4-11.0)
[2022-04-14 09:49] LABS: Glucose Challenge Gest 1H 50g 106 mg/dL (70-140)
== END | disposition home or self-care (01) ==
LOC: PAVLAB 09:24
PROVIDERS: Referring Provider Obstetrics & Gynecology; Visit Provider Obstetrics & Gynecology
DX: Z34.90 Encounter for supervision of normal pregnancy, unspecified, unspecified trimester (principal)
CPT/HCPCS: 36415; 82950; 85025

== ENCOUNTER → 2022-06-24 | Outpatient (CLI) | payer OTHER, SELFPAY | END | disposition home or self-care (01) | LOC: LABSPEC 13:15 | PROVIDERS: Visit Provider Obstetrics & Gynecology | DX: Z34.90 Encounter for supervision of normal pregnancy, unspecified, unspecified trimester (principal) | CPT/HCPCS: 87081 ==

== ENCOUNTER → 2022-06-26 | Outpatient (CLI) | payer OTHER, SELFPAY ==
--- NOTE | 2022-06-26 16:52 | US_ITS ---
STUDY: SECOND AND THIRD TRIMESTER OBSTETRICAL ULTRASOUND - LIMITED REASON FOR EXAM: Female, 21 years old growth LMP: Unknown. PRIOR ULTRASOUND: March 04, 2022 TECHNIQUE: Transabdominal TECHNICAL QUALITY: Adequate. FINDINGS: There is a single intrauterine fetus. The fetus is in a cephalic presentation. There is demonstrated cardiac activity with a heart rate of 135 bpm. There is a normal amniotic fluid volume. The largest amniotic fluid pocket measures 4.6 cm. The amniotic fluid index (TRACY) is 10.4 cm. The placenta is anterior in location and is not low lying. There are Grade 2 placental changes. The cervix measures 3.0 cm cm in length. BIOMETRY: BPD: 8.7 cm: 35 weeks, 1 days HC: 33.8 cm: 38 weeks, 6 days AC: 33.7 cm: 37 weeks, 4 days FL: 7.1 cm: 36 weeks, 2 days age by prior US: 36 weeks, 4 days. BRIGIDA by prior US: July 20, 2022. age by current US: 36 weeks, 6 days. BRIGIDA by current US: July 18, 2022. Estimated weight: 3066 grams, +/- 60 grams US/OB Limited With Biometrics IMPRESSION: Single intrauterine gestation 36 weeks 6 days with estimated due date July 18, 2022. Estimated weight 3066 g. Electronically Signed: Elmer Short MD at 18:13 [facility] ,
== END | disposition home or self-care (01) ==
LOC: US 16:52
PROVIDERS: Referring Provider Obstetrics & Gynecology; Visit Provider Obstetrics & Gynecology
DX: Z87.59 Personal history of other complications of pregnancy, childbirth and the puerperium (principal); Z3A.36 36 weeks gestation of pregnancy
CPT/HCPCS: 76816

== ENCOUNTER 2022-07-16 05:07 | Inpatient (IN) | payer OTHER, SELFPAY ==
--- NOTE | 2022-07-15 23:14 | HP.PCM.OB_ITS ---
HPI - General General Date of Admission: 07/16/22 HPI Narrative KATERINE CH, is a 21 y/o @ 39 weeks 3 days who presents to L&D for a repeat section Maternal Data Information BRIGIDA Calculator Estimated Delivery Date Method Current WG Current Estimate 07/20/22 LMP (Certain) 39w 2d PFSH PFS Medical History Adopted Anxiety delivery delivered No significant medical problems Oligohydramnios Supervision of normal Home Medications multivitamin no.47-iron fum 27 mg-folate no.1 1 mg-dha 300 mg capsule (PNV-DHA) 1 cap PO DAILY 03/19/20 [History Last Taken 11/12/20 08:00] Allergy/AdvReac Type Severity Reaction Status Date / Time No Known Allergies Allergy Verified 07/08/22 11:53 Surgical History delivery delivered History of surgery No significant past surgical history Social History adopted: Yes household members: spouse housing: house number of children: 1 current occupational status: employed Smoking Status: Never smoker second hand exposure: No alcohol intake: never substance use type: does not use seatbelt use: always do you feel safe at home: Yes 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 Date Name GA/Weeks Outcome Route Bth Weight Gen Labor Lgth Anesthesia Del Locatn Provider FOB 11/14/20 [place] 41 live - full term Female [facility] Mariusz Delivery Date: 11/14/20 Last Updated by: Chloé Lovelace primary c=section for catagory 2 FHT Visit Details Expected Delivery Route/Plan RLTCS possible TOLAC cs schedule 07/16 Labor Preferences- CB/BF classes:no labor support person: Davey labor intervention preferences: [] pain management options preferred: epidural if needed cut cord/dad catch: yes : yes PP control planned: discussed discussed possible routes of delivery and associated risks: [] special requests: if needs a c/s please provided antiemetic medications, got really sick during first c/s. Plans Covid status: discussed Flu vaccine: discussed Tdap vaccine: [] Rhogam: na LARC form signed: yes Problem list reviewed and updated with the most current plan of care details and appropriate orders placed. Relevant counseling for the gestational age provided. Continue routine care and follow up unless otherwise noted in visit notes/problem list details OB Flowsheet Initial Weight: Not Recorded Date -?-?-?-?-?-?-?-?-?-?-?-?- EGA Weight BP Urine Prot -?-?-?-?-?-?-?-?-?-?-?-?- Glucose FHR FuHt Pres Dilation -?-?-?-?-?-?-?-?-?-?-?-?- Effaced St Visit Note 12/27/21 -?-?-?-?-?-?-?-?-?-?-?-?- 10w 5d 112 lb 102/80 -?-?-?-?-?-?-?-?-?-?-?-?- 170 -?-?-?-?-?-?-?-?-?-?-?-?- SM- CRL cons wit h LMP SM- CRL 4.3cm cons with LMP 01/20/22 -?-?-?-?-?-?-?-?-?-?-?-?- 14w 1d 113 lb 4 oz 108/60 Nega tive -?-?-?-?-?-?-?-?-?-?-?-?- Negative 154 -?-?-?-?-?-?-?-?-?-?-?-?- MH-No VB or cram ping. Nausea much improved. Brief US to confirm FHT 02/19/22 -?-?-?-?-?-?-?-?-?-?-?-?- 18w 3d 121 lb 8 oz 128/73 Nega tive -?-?-?-?-?-?-?-?-?-?-?-?- Negative 145 -?-?-?-?-?-?-?-?-?-?-?-?- JV- no lod, vagi nal bleeding, or cramping. needs follow up us on 03/04 wc. 03/21/22 -?-?-?-?-?-?-?-?-?-?-?-?- 22w 5d 128 lb 6 oz 106/69 Nega tive -?-?-?-?-?-?-?-?-?-?-?-?- Negative 144 20 -?-?-?-?-?-?-?-?-?-?-?-?- JV-pt is worried about placenta calcifications at end of and does not want to if there are calcifications in the placenta or low fluid based on what happened with her recent last . 04/14/22 -?-?-?-?-?-?-?-?-?-?-?--?- 26w 1d 133 lb 4 oz 110/76 Nega tive -?-?-?-?-?-?-?-?-?-?-?-?- Negative 142 26 -?-?-?-?-?-?-?-?-?-?-?-?- MH-No VB, LOF. G ood FM. Nl 28 wk labs. Declines tdap. Larc. 04/30/22 -?-?-?-?-?-?-?-?-?-?-?-?- 28w 3d 139 lb 8 oz 106/68 Nega tive -?-?-?-?-?-?-?-?-?-?-?-?- Negative 144 28 -?-?-?-?-?-?-?-?-?-?-?-?- JV- no complaint s today. wants to try water labor () if possible. will check with hosptial policy. 05/26/22 -?-?-?-?-?-?-?-?-?-?-?-?- 32w 1d 139 lb 102/62 Negative -?-?-?-?-?-?-?-?-?-?-?-?- Negative 140 33 -?-?-?-?-?-?-?-?-?-?-?-?- SM- no vb lof go od fm no regular ctx 06/17/22 -?-?-?-?-?-?-?-?-?-?-?-?- 35w 2d 137 lb 4 oz 113/67 Nega tive -?-?-?-?-?-?-?-?-?-?-?-?- Negative 135 35 -?-?-?-?-?-?-?-?-?-?-?-?- JV- no lof, vagi nal bleeding, or dec fm. consent signed. plan for induction only if gets passed 40 weeks. growth scan in next 1-2 weeks to determine size. pt does not want to if baby will be larger or same size as last baby. 06/24/22 -?-?-?-?-?-?-?-?-?-?-?-?- 36w 2d 138 lb 8 oz 135/83 Nega tive -?-?-?-?-?-?-?-?-?-?-?-?- Negative 140 35 Cephalic 0 .5 -?-?-?-?-?-?-?-?-?-?-?-?- 30 -2 JV- no lof , vaginal bleeding, or dec fm. gbs collected. growth scan ordered. 06/30/22 -?-?-?-?-?-?-?-?-?-?-?-?- 37w 1d 139 lb 12.8 oz 122/73 N egative -?-?-?-?-?-?-?-?-?-?-?-?- Negative 130 36 Cephalic -?-?-?-?-?-?-?-?-?-?-?-?- LC- no lof/vb/ct x. good fm. normal growth scan. 07/08/22 -?-?-?-?-?-?-?-?-?-?-?-?- 38w 2d 141 lb 8 oz 133/83 Nega tive -?-?-?-?-?-?-?-?-?-?-?-?- Negative 145 37 Cephalic 1 -?-?-?-?-?-?-?-?-?-?-?-?- 50 -2 JV- pt now wants rpt section on07/17/22 if no labor by that time. if membranes rupture but no labor she wants a repeat. does not want to have to use pitocin. 07/14/22 -?-?-?-?-?-?-?-?-?-?-?-?- 39w 1d 141 lb 3 oz 120/76 Nega tive -?-?-?-?-?-?-?-?-?-?-?-?- Negative 145 39 Cephalic -?-?-?-?-?-?-?-?-?-?-?-?- SM- no vb lof go od fm no regular ctx cs scheduled thursday ROS Constitutional Constitutional: Denies change in weight, fatigue, fever(s), headache(s), poor appetite or weakness Eyes Eyes: Denies blurry vision, change in vision, seeing flashes or spots in vision ENT HEENT: Denies dizziness, headache(s), loss taste/smell or sore throat Cardiovascular Cardiovascular: Denies chest pain, dizziness, dyspnea, irregular heart rhythm, leg edema, palpitations, rapid heart rate or vomiting Respiratory/Chest Respiratory/Chest: Denies chest tightness, cough, dyspnea or breast pain Gastrointestinal Gastrointestinal: Denies abdominal pain, anorexia, constipation, cramping, diarrhea, hemorrhoids, vomiting or weight changes Genitourinary Genitourinary: Denies dysuria, flank pain, genital lesions, genital pain, urinary frequency or urinary urgency Musculoskeletal Musculoskeletal: Denies back pain, difficulty walking, joint pain, limited range of motion, muscle cramps or numbness Integumentary Integumentary: Denies lesions or unusual bruising Neurologic Neurologic: Denies abnormal movements, abnormal speech, dizziness, numbness, seizure-like activity or syncope Psychiatric Psychiatric: Denies anxiety, behavioral changes, change in appetite, change in libido, cognitive impairment, confusion, depression, difficulty concentrating, hallucinations or suicidal thoughts Endocrine Endocrinology: Denies excessive sweating, polydipsia or polyuria Hematologic/Lymphatic Hematologic/Lymphatic: Denies easy bleeding, easy bruising or lymphadenopathy Allergic/Immunologic Allergic/Immunologic: Denies itchy eyes, lip swelling, seasonal rhinorrhea, rhinitis, throat swelling, tongue swelling, eczemia, wheezing or asthma Physical Exam Const alert, oriented x3, no apparent distress and healthy appearing General Appearance: cooperative; Negative for anxious HEENT normocephalic Face and Sinus: normal facial exam Eyes EOMs intact bilaterally and no scleral icterus General Eye: normal appearance of both eyes Neck full ROM and supple Lymph Lymphatic: no lymphadenopathy noted Chest Chest: abnormal inspection of the chest Resp normal respiratory effort Effort and Inspection: able to speak in complete sentences Cardio regular rate GI soft to palpation and non-tender Inspection: gravid Palpation: soft; Negative for tender external exam normal Amniotic Fluid: ROM+plus Back/Spine no CVA tenderness Extremity normal to inspection, full ROM and no clubbing, cyanosis or edema General Extremity: Negative for calf tenderness or edema Skin Lesions: no lesions Rashes: no rashes Psych mental status grossly normal Labs Labs Labs: Blood Type O POSITIVE Antibody Screen NEGATIVE Hct 33.9 % (37-47) L Hgb 11.7 g/dL (12.0-15.0) L Obstetrics US Syphilis Total Ab Non-reactive Rubella IgG Antibody Reactive (Nonreactive) Hep Bs Antigen Non-Reactive (Nonreactive) Chlamydia DNA ([place]) Negative (Negative) Neisseria gonorrhoeae DNA ([place]) Negative (Negative) HIV 1&2 Antibody Non-Reactive (Nonreactive) Glucose 1 Hr 50 gm 106 mg/dL (70-140) Rhogam given: No Miscellaneous Test Assessment & Plan (1) History of oligohydramnios: COMMENT: growth us at 36 weeks. TRACY 10, normal fluid volume.06/30 nl growth EFW 3066+/- 60gms (2) History of section: COMMENT: previous for NRFHTs, considering TOLAC- consent signed 06/17/22 GBS negative plan rpt section 07/16/22 @ 7:10 with JV if no active labor by then. (3) Supervision of normal : COMMENT: PRR BRIGIDA 07/14/22 surpise PC [place] Davey (4) : QUALIFIERS: Weeks of gestation: 39 weeks Qualified Code(s): Z3A.39 - 39 weeks gestation of COMMENT: NIPT low risk, carrier and genetic screening discussed. PLAN: Plan plan for repeat section ERAS protocol ordered
[2022-07-16] VITALS (19 sets, daily range): BP systolic 92–114; BP diastolic 53–68; PULSE 66–97; RESP 16–18; TEMP 36.1–36.7; O2SAT 97–99; BMI 24.8
[2022-07-16] MEDS: Lactated Ringers 1,000 ML 999 ML IV (05:33)
[2022-07-16 05:45] LABS: Absolute Lymphocyte Count 1.58 X10^3/uL (0.83-4.51); Absolute Neutrophil Count 8.8 X10^3/uL (2.0-7.7); Basophil# 0.05 X10^3/uL; Basophil% 0.4 % (0-1); Eosinophil# 0.05 X10^3/uL; Eosinophils% 0.4 % (0-5); Hematocrit 36.2 % (37-47); Hemoglobin 11.5 g/dL (12.0-15.0); Lymphocyte # 1.58 X10^3/ul (0.83-4.51); Mean Corp Hgb Conc 31.8 g/dL (32-36); Mean Corpuscular Hgb 27.9 pg (27.0-32.0); Mean Corpuscular Volume 87.9 fL (81-99); Mean Platelet Vol. 12.3 fl (6.2-12.0); Monocyte# 0.66 X10^3/uL; Monocyte% 5.9 % (0-10); NRBC Flagged by Analyzer 0 % (0-5); Neutrophil # 8.84 X10^3/uL (2.7-7.7); Neutrophil % 78.5 % (47-70); Platelet Count 225 K/mm3 (150-450); RBC Distribution Width CV 15.5 % (11.6-14.6); RBC Distribution Width SD 49.3 fl (35.1-43.9); Red Blood Count 4.12 M/mm3 (4.2-5.4); White Blood Count 11.3 K/mm3 (4.4-11.0)
[2022-07-16] MEDS: Acetaminophen 500 MG Tablet 1000 MG PO ×3 (06:24→18:26)
[2022-07-16] MEDS: Sodium Citrate/Citric Acid 30 ML UDC PO (06:24)
[2022-07-16] MEDS: Lactated Ringers 1,000 ML 150 ML IV (06:47)
--- NOTE | 2022-07-16 07:15 | DCINST_ITS ---
Discharge Instructions Diet Discharge Diet: No restrictions Activity Discharge Activity: May Not Drive (for 2 weeks or while taking narcotic pain medications.), May Shower and May Take a Tub Bath (in 7 days.) May resume sexual activity in: 4-6 weeks Weight Bearing Status: Full weight bearing Lifting Restrictions: 20 pounds Dressing / Incision Call your doctor if your incision/area has: Continuous Slow Oozing, Sudden Increased Bleeding, Increased Pain/ Swelling, Increased Redness and Foul Smelling Discharge Call your doctor if you observe: Fever of 101 or Higher and Using more than 1 pad per hour Suture Line Care: Avoid Pulling/Pushing and Avoid Pinching/Bending Cleanse incision/area with: Soap & Water and Keep Dressing Clean & Dry Follow Up Care Please Follow Up With: Sejal Romero DO When: Call [phone] to make an appointment for an incision check in 1-2 weeks. Test Results: Test results from this visit will be discussed in further detail at your follow- up appointment, if applicable. Discharge Plan Admission Admit Date/Time: 07/16/22 05:07 Primary Reason for Your Visit: section Attending Provider: Sejal Romero Primary Care Provider: Aleksandra Boykin Primary Discharge Orders/Prescriptions Prescriptions: New oxycodone-acetaminophen [Percocet] 5-325 mg tablet 1 tab PO Q4H PRN (Reason: pain) 7 Days Qty: 30 0RF Rx Instructions: 1-2 tabs q 4 hrs as needed for pain naproxen 500 mg tablet 500 mg PO BID PRN (Reason: pain) Qty: 30 0RF Continued PNV-DHA 27 mg iron-1 mg -300 mg capsule 1 cap PO DAILY Referrals / Follow Up: Care PhysicianAleksandra Primary [Primary Care Provider] - Disposition Disposition (needs filled in before D/C Order can be placed): Home, Self Care
--- NOTE | 2022-07-16 07:19 | OP.PCM_ITS ---
Assessment & Plan (1) History of oligohydramnios: COMMENT: growth us at 36 weeks. TRACY 10, normal fluid volume.06/30 nl growth EFW 3066+/- 60gms (2) History of section: COMMENT: previous for NRFHTs, considering TOLAC- consent signed 06/17/22 GBS negative plan rpt section 07/16/22 @ 7:10 with JV if no active labor by then. (3) Supervision of normal : COMMENT: PRR BRIGIDA 07/14/22 surpise PC Haven Davey (4) : QUALIFIERS: Weeks of gestation: 39 weeks Qualified Code(s): Z3A.39 - 39 weeks gestation of COMMENT: NIPT low risk, carrier and genetic screening discussed. Maternal Data Information BRIGIDA Calculator Estimated Delivery Date Method Current WG Current Estimate 07/20/22 LMP (Certain) 39w 3d Final BRIGIDA: 07/20/22 Final BRIGIDA Source: LMP Gestational age: 39 weeks 3 days Details Operative Information Date of Procedure: 07/16/22 Pre-Operative Diagnosis: @ 39 weeks 3 days, prior section, declines Post-Operative Diagnosis: @ 39 weeks 3 days, prior section, declines Indications for : Repeat Elective Classification: Scheduled Procedure Type: low transverse barge engineer #1: Nichole Rowley Type of Anesthesia: Spinal Antibiotic Given: Ancef 2 grams IV x1 Estimated Blood Loss: 300cc Findings Description of Procedure: The patient is a 21 y/o @ 39 weeks 3 days presented for repeat . Spinal anesthesia was placed without difficulty. Spencer catheter was placed. The patient was placed in the dorsal supine position with leftward tilt. Patient was prepped and draped in the normal sterile fashion. Pfannenstiel skin incision was made with the scalpel and carried through to the underlying layer of fascia with the scalpel. Fascia was nicked in the midline and the incision extended laterally. The rectus bellies were dissected off superiorly and inferiorly with out complication both sharply and bluntly. The peritoneum was entered digitally. The incision was stretched and a low transverse uterine incision was made with the scalpel. The infant's head was delivered atraumatically followed by the anterior and posterior shoulders without complication the rest of the delivered. The cord was clamped and cut and the infant was handed off to awaiting nurse. The placenta was delivered spontaneously immediately following and was noted to be intact and have a three- vessel cord. The uterus was exteriorized cleared of all clots and debris, and the incision was closed in a double layer closure using #1 Vicryl. The ovaries and fallopian tubes were noted to be within normal limits. The uterus was returned to the maternal abdomen and gutters were cleared of all clots and debris. The peritoneum was closed with 3-0 Monocryl in a running fashion. Fascia was closed with 0 PDS in a running fashion. Subcutaneous tissue was copiously irrigated and the skin was closed with 3-0 Monocryl in a subcuticular fashion. Mepilex dressing was applied without complication. Patient was taken to recovery in stable condition. It was discussed with the patient that based on the clinical information obtained during this encounter, combined with her history, at this time I would recommend either or repeat for future deliveries if further pregnancies are desired. baby girl Pattie wt: 8lbs 3 oz Presentation: Positive for Vertex Amniotic Membrane Rupture Type: Artificial Amniotic Fluid Description: Clear and Lightly stained meconium Placental Delivery Description: Manual Removal Placenta Disposition: [facility] Cord Vessel Description: 3 Vessels Cord Entanglement: None Infant A Gender: Female (1 minute): 8 (5 minute): 9 Delayed Cord Clamping: Yes Complications Risks of Surgery Discussed w/Patient: Bleeding, Anesthesia Risks, Need for Future C-Sections and Injury to surrounding structure(s) including bowel and bladder Multi Select Codes Urinary/Genital Urinary/Genital CPT Codes: 52838 Delivery [facility]
[2022-07-16] MEDS: Cefazolin 2 GM in 0.9% Normal Saline 100 ML IV (07:20)
[2022-07-16] MEDS: Triamcinolone Acetonide 40 MG/ML Vial IM (07:50)
[2022-07-16] MEDS: Oxytocin 15 Units/NS 250ml 15 UNITS/250 ML IV.SOLN 83 UNITS IV (08:25)
[2022-07-16] MEDS: Ketorolac 30 MG/ML Syringe IV ×3 (08:59→20:47)
[2022-07-16] MEDS: Lactated Ringers 1,000 ML 100 ML IV (11:36)
[2022-07-16] MEDS: Prenatal Vits Tablet 1 TABLET PO (13:14)
[2022-07-16] MEDS: Senna/Docusate Sodium 1 Tablet PO (13:15)
[2022-07-16] MEDS: 0.9% Saline Lock 10 ML Syringe IV (20:48)
[2022-07-17] MEDS: Acetaminophen 500 MG Tablet 1000 MG PO ×2 (00:34→06:49)
[2022-07-17] MEDS: Ketorolac 30 MG/ML Syringe IV (02:59)
[2022-07-17] MEDS: 0.9% Saline Lock 10 ML Syringe IV (02:59)
[2022-07-17 03:05] VITALS: BP 105/63; PULSE 74; RESP 16; TEMP 36.6
[2022-07-17 06:26] LABS: Hematocrit 31.6 % (37-47); Hemoglobin 10.1 g/dL (12.0-15.0); Mean Corpuscular Hgb 28.5 pg (27.0-32.0); Mean Platelet Vol. 11.3 fl (6.2-12.0); Platelet Count 187 K/mm3 (150-450); RBC Distribution Width CV 15.6 % (11.6-14.6); RBC Distribution Width SD 51.1 fl (35.1-43.9); Red Blood Count 3.55 M/mm3 (4.2-5.4); White Blood Count 9.9 K/mm3 (4.4-11.0)
--- NOTE | 2022-07-17 07:45 | PCM.PN.OB ---
Subjective Subjective Patient doing well without complaints. Tolerating PO. Ambulating and voiding without difficulty. feeding well. Denies chest pain, shortness of breath, calf pain/swelling, fevers, chills, lightheadedness. Objective Data Objective Data Vital Signs: Vital Signs Temp Pulse Resp BP Pulse Ox O2 Del Method 97.8 F 74 16 105/63 99 Room Air 07/17/22 03:05 07/17/22 03:05 07/17/22 03:05 07/17/22 03:05 07/16/22 18:40 07/16/22 18:40 Oxygen Delivery Method Room Air Weight: 140 lb 6 oz Body Mass Index (BMI) 24.8 Intake & Output: Intake and Output for Last 24 Hours 07/15/22 07/16/22 07/17/22 23:59 23:59 23:59 Intake Total 1920 / 1920 Output Total 2575 / 2575 Balance -655 / -655 Lab / Micro Data Result Diagrams: 07/17/22 06:20 Labs: Laboratory Results - last 24 hr 07/17/22 06:20: WBC 9.9, RBC 3.55 L, Hgb 10.1 L, Hct 31.6 L, MCV 89.0, MCH 28.5, MCHC 32.0, RDW Std Deviation 51.1 H, RDW Coeff of April 15.6 H, Plt Count 187, MPV 11.3 ROS Constitutional Constitutional: Reports systems reviewed and no addt'l complaints, except as documented Cardiovascular Cardiovascular: Reports systems reviewed and no addt'l complaints, except as documented Respiratory/Chest Respiratory/Chest: Reports systems reviewed and no addt'l complaints, except as documented Gastrointestinal Gastrointestinal: Reports systems reviewed and no addt'l complaints, except as documented Physical Exam Const alert, oriented x3 and no apparent distress HEENT Head and Scalp: atraumatic Resp normal respiratory effort GI soft to palpation and non-tender Inspection: incision intact, healing well and drainage (none) Bimanual Exam - Vag & Uterus: uterus non-tender Uterus Palpation: uterus fundus firm (below Umbilicus) Assessment & Plan (1) Status post section: COMMENT: repeat c/s 07/16/22-JV PLAN: Plan s/p LTCS PPD # 1 1. routine post care 2. breast feeding- support given 3. rh positive 4. rubella immune
[2022-07-17 08:30] VITALS: BP 110/74; PULSE 68; RESP 18
[2022-07-17 08:35] VITALS: PULSE 68; RESP 14; O2SAT 99
[2022-07-17 08:36] VITALS: BP 110/74; PULSE 68; RESP 14; TEMP 36.4; O2SAT 99
[2022-07-17] MEDS: Prenatal Vits Tablet 1 TABLET PO (10:24)
[2022-07-17] MEDS: Naproxen 500 MG Tablet PO (10:24)
[2022-07-17] MEDS: Senna/Docusate Sodium 1 Tablet PO (10:25)
[2022-07-17 12:13] VITALS: BP 111/70; PULSE 80; RESP 16; TEMP 36.6; O2SAT 98
--- NOTE | 2022-07-17 12:24 | NURSING ---
This nursing clinical director reviewed the documentation completed by Neftaly Wright student nurse and was present for medication administration.
--- NOTE | 2022-07-21 15:35 | NURSING ---
07/21/22 @ 6674: Follow up phone call. Pt. is feeling well, lochia minimal, no s+s to report. has been going good. Pt. satisfied with hospital stay and denies questions or concerns.
== END 2022-07-17 12:55 | disposition home or self-care (01) | DRG 788 ==
PROVIDERS: Admitting Provider Obstetrics & Gynecology; Visit Provider Obstetrics & Gynecology
PROC: 10D00Z1 Extraction of Products of Conception, Low, Open Approach (ICD-10-PCS; CPT 59514; principal; 2022-07-16 06:55)
DX: O34.219 Maternal care for unspecified type scar from previous cesarean delivery (principal); O77.0 Labor and delivery complicated by meconium in amniotic fluid; Z3A.39 39 weeks gestation of pregnancy; Z37.0 Single live birth
CPT/HCPCS: 59050; 85025; 85027; 86850; 86900; 86901; 99221; 99252; J7120; A4216; G0378; G0463; J2405

== ENCOUNTER → 2024-10-25 | Outpatient (CLI) | payer SELFPAY ==
[2024-10-28 06:08] LABS: Chlamydia By Nucleic Acid AMP Negative (Negative); Gonococcus By Nucleic Acid AMP Negative (Negative)
== END | disposition home or self-care (01) ==
LOC: LABSPEC 15:39
PROVIDERS: Referring Provider Advanced Practice Midwife; Visit Provider Advanced Practice Midwife
DX: O09.90 Supervision of high risk pregnancy, unspecified, unspecified trimester (principal); Z82.79 Family history of other congenital malformations, deformations and chromosomal abnormalities; Z3A.00 Weeks of gestation of pregnancy not specified
CPT/HCPCS: 87086; 87491; 87591; 88175; G0145

== ENCOUNTER → 2024-11-21 | Outpatient (CLI) | payer SELFPAY ==
[2024-11-21 12:14] LABS: Absolute Lymphocyte Count 1.67 X10^3/uL (0.83-4.51); Absolute Neutrophil Count 6.8 X10^3/uL (2.0-7.7); Basophil# 0.05 X10^3/uL; Basophil% 0.5 % (0-1); Eosinophils% 1.1 % (0-5); Hematocrit 40.2 % (37-47); Hemoglobin 13.7 g/dL (12.0-15.0); Lymphocyte # 1.67 X10^3/ul (0.83-4.51); Lymphocyte % 18.2 % (19-41); Mean Corp Hgb Conc 34.1 g/dL (32-36); Mean Platelet Vol. 10.7 fl (6.2-12.0); Monocyte# 0.44 X10^3/uL; Monocyte% 4.8 % (0-10); NRBC Flagged by Analyzer 0 % (0-5); Neutrophil # 6.84 X10^3/uL (2.7-7.7); Neutrophil % 74.7 % (47-70); Platelet Count 283 K/mm3 (150-450); RBC Distribution Width CV 12.7 % (11.6-14.6); RBC Distribution Width SD 39.9 fl (35.1-43.9); Red Blood Count 4.57 M/mm3 (4.2-5.4); White Blood Count 9.2 K/mm3 (4.4-11.0)
[2024-11-21 13:09] LABS: HIV Nonreactive (Nonreactive); Hepatitis B Surface Antigen Nonreactive (Nonreactive); Hepatitis C Antibody Nonreactive (Nonreactive); Rubella IgG REAC (Nonreactive); Syphilis Antibodies Nonreactive (Nonreactive)
--- OUTSIDE RECORDS SUMMARY | 2024-11-21 22:18 | XMS RPT_ITS | CCD ---
Author Organization [facility] Care Team Providers Care Anesthesiology Physician Assistant Name Role Phone KARIME HOLLOWAY (FULL TIME) Unavailable Unavailable LINDSEY VALDES Unavailable Unavailable LINDSEY VALDES Unavailable Unavailable Care Physician, No Primary Primary Care Provider Unavailable Care Physician, No Primary Referring Provider Un available Dr. Pricilla Alfaro Attending Provider [phone] Marie CLINICAL OPERATIONS CONSULTANT, CLINICAL OPERATIONS CONSULTANT-C Brenda Attending Provider [phone] Dr. Sejal Romero Attending Provider [phone] Care Physician, No Primary Primary Care Provider Unavailable Care Physician, No Primary Referring Provider Un available Dr. Pricilla Alfaro Attending Provider [phone] Marie CLINICAL OPERATIONS CONSULTANT, JOSHUA-Micaela Gutierrez Attending Provider [phone] Sejal Romero Attending Provider [phone] Care Physician, No Primary Primary Care Provider Unavailable Care Physician, No Primary Referring Provider Un available Dr. Sejal Romero Attending Provider [phone] Marie CLINICAL OPERATIONS CONSULTANT, CLINICAL OPERATIONS CONSULTANT-C Brenda Attending Provider [phone] Dr. Pricilla Alfaro Attending Provider [phone] VICKIE Richey Attending Provider [phone] HOMERO SMALL, HIREN Iraheta Consulting Va GORDON MD, MELINDA Attending Marisa LEON MD, DR CHUY Clemons Admitting Renata CABRAL MD, DR HEMALATHA Cordova Consulting Unavailable EWA SMALL, DR INGRID ROSS Consulting Sherice SHELTON MD, DR ALEXANDER Attending Va LEON MD, DR CHUY Clemons Consulting Unavailable Care Physician, No Primary Primary Care Provider Unavailable Care Physician, No Primary Referring Provider Un available Dr. Sejal Romero DO Attending Provider Irma Quinn CNM Attending Provider [phone] Irma Quinn CNM Referring Provider [phone] Care Physician, No Primary Primary Care Unava ilable Care Physician, No Primary Referring Unava ilable Sejal Romero Attending Unavailabl e Care Physician, No Primary Primary Care Unava ilable Care Physician, No Primary Referring Unava ilable Irma Quinn Attending Unavailable Care Physician, No Primary Primary Care Unava ilable Irma Quinn Attending Unavailable Irma Quinn Referring Unavailable Care Physician, No Primary Primary Care Provider Unavailable Care Physician, No Primary Referring Provider Un available Allergies Allergy Classification Reported Allergen(s) Allergy Type Date of Onset Reaction(s) Facility (1 source) OTHER; Translations: [OTHER] Propensity to adverse reactions (disorder) 6 [facility] Repository Medications Current Medications Medication Drug Class(es) Dates Sig (Normalized) Sig (Original) Iron (3 sources) Start: 10-13-2024 [id number]- Abq-Ahd-Gwru (Natavi Pnv) 13.5 mg iron- 0.5 mg-150 mg capsule Active NMA PO October 13, 2024 12:00am ondansetron 4 mg oral tablet (3 sources) Serotonin-3 Receptor Antagonist Start: 10-07-2024 take 1 tablet by mouth every six hours as needed for nausea and vomiting Ondansetron Hcl 4 mg tablet Active 4 mg PO EVERY 6 HOURS as needed for nausea and vomiting 60 October 07, 2024 12:00am Completed/Discontinued Medications Medication Drug Class(es) Dates Sig (Normalized) Sig (Original) acetaminophen 325 mg / oxyCODONE hydrochloride 5 mg oral tablet (3 sources) Opioid Agonist Start: 07-16-2022 End: 07-29-2022 take 1-2 tablets by mouth every four hours as needed for pain Oxycodone-Acetamino phen (Percocet) 5-325 mg tablet Discontinued 1 {tbl} PO Q4H as needed for pain 11 01July 16, 2022 July 29, 2022 4:08pm 1-2 tabs q 4 hrs as needed for pain ascorbic acid 500 mg oral capsule (3 sources) Vitamin C Start: 07-15-2024 End: 10-13-2024 Ascorbic Acid (Vitamin C) 500 mg capsule Discontinued mg PO July 15, 2024 1:00am October 13, 2024 8:22am Multivit 27-Jbzu-Rgqsfn 1-Dha (Pnv-Dha) 27 mg iron-1 mg -300 mg capsule (8 sources) Start: 03-19-2020 End: 07-15-2024 Multivit 28-Xawk-Dyzdje 1-Dha (Pnv-Dha) 27 mg iron-1 mg -300 mg capsule Discontinued 1 NMA PO DAILY March 19, 2020 12:00am July 15, 2024 9:52am Start: 03-19-2020 take 1 capsule by [facility] once daily Multivit 70-Tqqw-Sqtexs 1-Dha (Pnv-Dha) 27 mg iron-1 mg -300 mg capsule Active 1 CAP PO DAILY March 18, 2020 11:00pm Start: 03-19-2020 take 1 capsule by [facility] once daily Multivit 26-Lcca-Pinadk 1-Dha (Pnv-Dha) 27 mg iron-1 mg -300 mg capsule Active 1 CAP PO DAILY March 19, 2020 12:00am Multivitamin tablet (3 sources) Start: 07-15-2024 End: 10-13-2024 Multivitamin tablet Discontinued 1 {tbl} PO daily July 15, 2024 1:00am October 13, 2024 8:22am naproxen 500 mg oral tablet (11 sources) Nonsteroidal Anti-inflammatory Drug Start: 07-16-2022 End: 07-29-2022 take 1 tablet by mouth twice daily as needed for pain Naproxen 500 mg tablet Discontinued 500 mg PO TWICE A DAY as needed for pain July 16, 2022 1:00am July 29, 2022 4:08pm Start: 11-14-2020 End: 11-28-2020 take 250-500 mg by mouth every eight hours as needed for pain Naproxen 250 MG tablet Discontinued 250 - 500 mg PO EVERY 8 HOURS NEEDED as needed for MILD PAIN November 14, 2020 12:00am November 28, 2020 11:24am oxyCODONE hydrochloride 5 mg oral capsule (8 sources) Opioid Agonist Start: 11-14-2020 End: 11-28-2020 take 1 capsule by mouth every six hours as needed for pain Oxycodone 5 mg capsule Discontinued 5 mg PO EVERY 6 HOURS as needed for pain 15 7 Renee 2nd, 2021 Renee 16th, 2021 11:24am promethazine hydrochloride 12.5 mg oral tablet (8 sources) Phenothiazine Start: 03-21-2020 End: 05-07-2020 take 1 tablet by mouth three times daily Promethazine 12.5 mg tablet Discontinued 12.5 mg PO THREE TIMES A DAY 60 March 21, 2020 12:00am May 07, 2020 11:39am Problems Active Problems Problem Classification Problem Date Documented Date Episodic/Chronic Administrative/social admission (1 source) Encounter for adoption services; Translations: [Encounter for adoption services] Onset: 10-25-2024 Episodic Contraceptive and procreative management (11 sources) Intrauterine contraceptive device in situ; Translations: [Encounter for routine checking of intrauterine contraceptive device] 10-13-2024 Episodic Comment on above: No PA needed. Ref#23 [id number]/06/06-strings present Other complications of (8 sources) Uterine size for dates discrepancy; Translations: [Uterine size-date discrepancy, third trimester] 11-08-2020 Episodic Comment on above: growth us ordered Other complications of (7 sources) High risk ; Translations: [Supervision of high risk , unspecified, unspecified trimester] 10-13-2024 Episodic Comment on above: , BRIGIDA 05/29 PC: Pattie Suarez : Davey Other complications of (1 source) Supervision of high risk , unspecified, unspecified trimester; Translations: [Supervision of high risk , unspecified, unspecified trimester] Onset: 11-02-2024 Episodic Other and delivery including normal (20 sources) Normal ; Translations: [Encounter for supervision of normal , unspecified, unspecified trimester] Onset: 10-25-2024 Episodic Comment on above: PRR BRIGIDA 07/14/22 surpise PC [facility] Davey NIPT w/ gender & car rier- elects NIPT low risk, george er and genetic screening discussed. Other skin disorders (5 sources) Peeling of skin; Translations: [Changes in skin texture] 10-13-2024 Episodic Previous (8 sources) Maternal request for obstetric intervention; Translations: [Maternal care for unspecified type scar from previous delivery] Onset: 10-25-2024 10-13-2024 Episodic Residual codes; unclassified (8 sources) H/O: Disorder; Translations: [Personal history of other complications of , childbirth and the puerperium] 06-30-2022 Episodic Comment on above: growth us at 36 week s. TRACY 10, normal fluid volume.06/30 nl growth EFW 3066+/- 60gms Residual codes; unclassified (8 sources) Tetanus diphtheria and acellular pertussis vaccination declined; Translations: [Immunization not carried out because of patient refusal] 10-26-2020 Episodic Residual codes; unclassified (20 sources) History of uterine scar from previous surgery; Translations: [Other postprocedural status] Onset: 10-25-2024 Episodic Residual codes; unclassified (20 sources) Personal history of other complications of , childbirth and the puerperium; Translations: [Personal history of other genital system and obstetric disorders] Episodic Residual codes; unclassified (7 sources) Adopted; Translations: [Other specified health status] 10-13-2024 Episodic Residual codes; unclassified (7 sources) Family history of cleft palate; Translations: [Family history of other congenital malformations, deformations and chromosomal abnormalities] 10-13-2024 Episodic Comment on above: Pt's niece- club jim t, cleft palate Residual codes; unclassified (1 source) Family history of other congenital malformations, deformations and chromosomal abnormalities; Translations: [Family history of other congenital malformations, deformations and chromosomal abnormalities] Onset: 10-25-2024 Episodic Residual codes; unclassified (1 source) 9 weeks gestation of ; Translations: [9 weeks gestation of ] Onset: 10-25-2024 Episodic Unclassified (1 source) Unknown / UNK(Unknown) Onset: 08-24-2017 Unclassified (4 sources) Abnormal desquamation of epithelium; Translations: [R23.4 - Changes in skin texture] Past or Other Problems Problem Classification Problem Date Documented Date Episodic/Chronic Intestinal infection (2 sources) Infectious gastroenteritis and colitis, unspecified; Translations: [Infectious gastroenteritis and colitis, unspecified] Onset: 01-05-2023 Episodic Mycoses (1 source) Candidal stomatitis; Translations: [Candidal stomatitis] Onset: 01-04-2018 Episodic Results Test Name Value Interpretation Reference Range Facility PAP I-G w/rfx hrHPV-Aptimaon 11-01-2024 ADEQ Comment Normal . [facility] Comment on above: Order Comment: Speci men Comment: [id number] Specimen Comment: No. of containers..01 ThinPrep Vial Result Comment: Sati sfactory for evaluation. No endocervical component is identified. Performed By: #### L 7400.0353, L7000.1800, M100.2200 #### [facility] [address] [place], [address] COMM . Normal . [facility] Comment on above: Order Comment: Speci men Comment: [id number] Specimen Comment: No. of containers..01 ThinPrep Vial Performed By: #### L 7400.0353, L7000.1800, M100.2200 #### [facility] [address] [place], [address] COMMENT Comment Normal . [facility] Comment on above: Order Comment: Speci men Comment: [id number] Specimen Comment: No. of containers..01 ThinPrep Vial Result Comment: This liquid based ThinPrep(R) pap test was screened with the use of an image guided system. Performed By: #### L 7400.0353, L7000.1800, M100.2200 #### [facility] [address] [place], [address] DIAG Comment Normal . [facility] Comment on above: Order Comment: Speci men Comment: [id number] Specimen Comment: No. of containers..01 ThinPrep Vial Result Comment: NEGA TIVE FOR INTRAEPITHELIAL LESION OR MALIGNANCY. Performed By: #### L 7400.0353, L7000.1800, M100.2200 #### [facility] [address] [place], [address] HPV RFLX Comment Normal . [facility] Comment on above: Order Comment: Speci men Comment: [id number] Specimen Comment: No. of containers..01 ThinPrep Vial Result Comment: The HPV DNA reflex criteria were not met with this specimen result therefore, no HPV testing was performed. Performed at: [address] [id number] Job Change Crew Member: Melba Britton PhD, Phone: [phone] Performed at: [facility] [id number] Job Change Crew Member: Beth España MD, Phone: [phone] Performed By: #### L 7400.0353, L7000.1800, M100.2200 #### [facility] [address] [place], [address] PAPSMR Comment Normal . [facility] Comment on above: Order Comment: Speci men Comment: [id number] Specimen Comment: No. of containers..01 ThinPrep Vial Result Comment: The Pap smear is a screening test designed to aid in the detection of premalignant and malignant conditions of the uterine cervix. It is not a diagnostic procedure and should not be used as the sole means of detecting cervical cancer. Both false-positive and false-negative reports do occur. Performed By: #### L 7400.0353, L7000.1800, M100.2200 #### [facility] [address] [place], [address] PERFORM Comment Normal . [facility] Comment on above: Order Comment: Speci men Comment: [id number] Specimen Comment: No. of containers..01 ThinPrep Vial Result Comment: Josy Leavitt, Editor Managing Newspaper (ASCP) Performed By: #### L 7400.0353, L7000.1800, M100.2200 #### [facility] [address] [place], [address] Chlamydia/GC KY aptimaon CHLAMY,NUC ACID Negative Normal Negative [facility] Comment on above: Performed By: #### L 7400.0353, L7000.1800, M100.2200 #### [facility] [address] [place], [address] GC BY NUC ACID Negative Normal Negative [facility] Comment on above: Result Comment: Perf ormed at: =G - [facility] [address] [place] [id number] Job Change Crew Member: Beth España MD, Phone: [phone] Performed By: #### L 7400.0353, L7000.1800, M100.2200 #### [facility] [address] [place], [address] Urine Cultureon 10-26-2024 URC Culture exhibits no growth. Normal [facility] Comment on above: Performed By: #### L 7400.0353, L7000.1800, M100.2200 #### [facility] [address] [place], [address] Cervical or vagninal specime n microscopic examination by cytology stain (reported asOrdered By: Irma Quinn on 10-25-2024 Cytology report Cyto stain Doc (Cvx/Vag) Comment . [facility] Comment on above: The Pap smear is a s creening test designed to aid in thedetection of premalignant and malignant conditions of theuterine cervix. It is not a diagnostic procedure andshould not be used as the sole means of detecting cervicalcancer. Both false-positive and false-negative reports dooccur. Chlamydia trachomatis rRNA d etection by probe and target amplification methodOrdered By: Irma Quinn on 10-25-2024 C. trachomatis rRNA KY+probe Ql (Unsp spec) Negative Negative [facility] - CytologyOrdered By: Irma Quinn on 10-25-2024 Editor Managing Newspaper Cyto stain Nom (Cvx/Vag) [ID] Comment . [facility] Comment on above: Sarah Leavitt, Editor Managing Newspaper (ASCP) Laboratory - Miscellaneous t estsOrdered By: Irma Quinn on 10-25-2024 Service comment (Unsp spec) [Interp] . . [facility] Neisseria gonorrhoeae nuclei c acid detection by amplified probe techniqueOrdered By: Irma Quinn on 05-13-2025 N. gonorrhoeae DNA KY+probe Ql (Unsp spec) Negative Negative [facility] Comment on above: Performed at: =[facility] [address] [id number] Director: Beth España MD, Phone: [phone] No Panel InformationOrdered By: Irma Quinn on 10-25-2024 Pap Smear Specimen Adequacy Comment . [facility] Comment on above: Satisfactory for melba luation. No endocervical component is identified. Dye Weigher Office Visit Reporton 10-25-2024 Dye Weigher Office Visit Report [facility] [address], [address] [place] [address] OFFICE VISIT Date of Service: 10/25/24 MR#: [id number] Acct: [id number] Name: PEYTON DEVINE Rep #: [id number] : 2000 Provider: VICKIE Tavares ams Age/Sex: 24/F [place] [facility] [place]: [place]igned Intake Vital Signs 07/15/24 08:50 10/25/24 13:03 Height 5 ft 3 in 5 ft 3 in Weight: 119 lb 8 oz BMI 21.2 BP 135/75 H Intake Visit Reasons: NOB: LMP 08/22, BRIGIDA 05/29 Chief Complaint: New OB Dials Supervisor Required: No Is patient in pain?: No Allergies No Known Allergies Allergy (Verified 10/25/24 13:05) Medications ???Medication ???Instructions ???Recorded ???Confirmed ???Type ondansetron HCl 4 mg tablet 4 mg PO Q6H PRN nausea and 10/07/2 5 10/25/24 Rx vomiting #60 tabs PNV 158-iron 13.5 mg-folic 0.5 cap PO 10/13/24 10/25/24 History mg-omega 3-dha 150 mg-epa-fish capsule (Natavi PNV) Last Menstrual Period: 08/22/24 : No PFSH PFSH Medical History Desquamated skin IUD check up Encounter for IUD removal Contraceptive management Supervision of normal delivery delivered Oligohydramnios Anxiety Adopted No significant medical problems Surgical History delivery delivered History of surgery No significant past surgical history Social History adopted: Yes household members: spouse and children housing: house number of children: 2 service: No current occupational status: previously employed current occupation: [employer] current occupational exposures/hazards: No pets and animals: Yes pets and animals: dog(s) history of recent travel: Yes ([place] in August) out of state: Yes out of country: No sexually active: Yes Smoking Status: Never smoker second hand exposure: No alcohol intake: never substance use type: does not use caffeine: No what type of physical activity do you participate in: walking How many days of moderate to strenuous exercise, like a brisk walk, did you do in the last 7 days: 3 carmen/baptism: None seatbelt use: always do you feel safe at home: Yes 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 Date Name GA/Weeks Outcome Route Bth Weight Gen Labor Lgth Anesthesia Del Locatn Provider FOB 11/14/20 Haven 41 live - full term Female [facility] Pr okop 07/16/22 Pattie 39 live - full term 8lbs 3oz Female spinal [facility] Dr. Jewell Delivery Date: 11/14/20 Last Updated by: Chloé Lovelace primary c=section for catagory 2 FHT HPI NOB: LMP 08/22, BRIGIDA 05/29 Details: PEYTON CH is a 24 year old who presents for New OB visit. OB Visit BRIGIDA Calculator Estimated Delivery Date Method Current WG Current Estimate 05/29/25 LMP (Certain) 9w 1d Other Estimates 05/28/25 Ultrasound #1 9w 2d Comments: HIV: Urine Culture: Sequential Screen: NIPT Screen: Estimated Due Date: 05/29/25 Expected Delivery Route/Plan patient counseled regarding risks/benefits of trial of labor versus repeat . ACOG/uptodate education given to patient. 75.7 % likelihood of success per calculator TOLAC consent form signed: [] Labor Preferences- CB/BF classes: [] labor support person: [] labor intervention preferences: [] pain management options preferred: [] cut cord/dad catch: [] : [] PP control planned: [] discussed possible routes of delivery and associated risks: [] special requests: [] Specific Issue/Plans Covid status: [] Flu vaccine: [] Tdap vaccine: [] Rhogam: [] LARC form signed: [] Problem list reviewed and updated with the most current plan of care details and appropriate orders placed. Relevant counseling for the gestational age provided. Continue routine care and follow up unless otherwise noted in visit notes/problem list details Initial Weight: 119 lb Date -???-???-???-???-???-??? -???-???-???-???-???-??? - EGA Weight BP Urine Prot -???-???-???-???-???-??? -???-???-???-???-???-??? - Glucose FHR FuHt Pres Dilation -???-???-???-???-???-??? -???-???-???-???-???-??? - Effaced St Visit Note 10/25/24 -???-???-???-???-???-??? -???-???-???-???-???-??? - 9w 1d 119 lb 8 oz (+8 oz) 135/75 -???-???-???-???-???-??? -???-???-???-???-???-??? - 179 -???-???-???-???-???-??? -???-???-???-???-???-??? - (more content not included)... Normal [facility] Urine cultureOrdered By: Capo Quinn on 10-25-2024 Bacteria identified Cx Nom (U) Culture exhibits no growth. [facility] Dye Weigher Office Visit Reporton 07-15-2024 Dye Weigher Office Visit Report [facility] [address], [address] [place] [address] OFFICE VISIT Date of Service: 07/15/24 MR#: [id number] Acct: [id number] Name: PEYTON CH GLENROY Rep #: [id number] : 2000 Provider: Dr. Sejal Rascon DO Age/Sex: 23/F [place] [facility] [place]: Signed Intake Vital Signs 09/24/22 12:06 07/15/24 08:48 07/15/24 08:50 Height 5 ft 3 in 5 ft 3 in 5 ft 3 in Weight: 122 lb 4 oz BMI 21.7 BP 126/81 H Intake Visit Reasons: IUD REMOVAL Dials Supervisor Required: No Is patient in pain?: No Allergies No Known Allergies Allergy (Verified 07/15/24 08:48) Medications ???Medication ???Instructions ???Recorded ???Confirmed ???Type ascorbic acid (vitamin C) 500 mg mg PO 07/15/24 07/15/24 History capsule multivitamin 1 tab PO QDAY 07/15/24 07/15/24 Hi story Post menopausal: No Patient : No : No PFSH Medical History Contraceptive management Supervision of normal delivery delivered Oligohydramnios Anxiety Adopted No significant medical problems Surgical History delivery delivered History of surgery No significant past surgical history Social History adopted: Yes household members: spouse housing: house number of children: 2 current occupational status: employed Smoking Status: Never smoker second hand exposure: No alcohol intake: never substance use type: does not use seatbelt use: always do you feel safe at home: Yes 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 She thinks this is due to the progesterone in the IUD because it happened when she was on control in the past. Her teller head was not helpful to her. History 2 Elective abortions Hx Para 2 Spontaneous abortions Hx # Term Pregnancies 2 Ectopic pregnancies Hx # Pregnancies Multiple births # of living children 2 Past Pregnancies Del. Date Name GA/Weeks Outcome Route Bth Weight Infant Gen Labor Lgth Anesthesia Del Locatn Provider FOB 11/14/20 Haven 41 live - full term Female [facility] Pr okop 07/16/22 Pattie 39 live - full term 8lbs 3oz Female spinal [facility] Dr. Jewell Delivery Date: 11/14/20 Last Updated by: Chloé Lovelace primary c=section for catagory 2 FHT ROS Const ROS Unobtainable: All systems reviewed are unremarkable except as noted in H Resp Resp: Reports system reviewed and no additional complaints, except as documented; Denies cough GI GI: Reports as per HPI Psych Psych: Reports system reviewed and no additional complaints, except as documented Exam Const General: cooperative, healthy appearing, comfortable and no acute distress Resp Effort Inspection: normal respiratory effort General: bimanual renal exam normal bilaterally External Female Exam: normal appearance of the urethra Urethra: normal appearance of the urethra Speculum Exam - Vagina: normal appearance of the vagina Speculum Exam - Cervix: normal appearance of the cervix Bimanual Exam- Adnexa, other: normal adnexae and normal Pelvic Support: normal Other: The IUD strings appear normal and adequately placed IUD is suspected based on the exam today. Skin General: no rashes or lesions noted Psych Appearance: grossly normal Speech and Movement: speech and movement normal Coding Level of Care Code Attention Charge Lpn Diagnoses Encounter for IUD removal Z30.432 Desquamated skin R23.4 Assessment and Plan Assessment and Plan (1) Encounter for IUD removal: Status: Acute (2) Desquamated skin: Status: Acute Orders: Orders IUD Removal Today Z30.432 - Encounter for removal of intrauterine contraceptive device Plan IUD removed. referring to dermatology for abnormal skin of palms. Patient believe is a side effect of brith control. Will consult with [place] [facility] 07/15/24 0916 Date Sejal Cornellmontez Kenneth Mares Signature: Date (if applicable) CC: Normal [facility] .Auto Diffon 01-06-2023 Basophil, Absolute 0.1 10 3/mcL Normal 0.0-0.3 [facility] [facility] ([place]) Comment on above: Performed By: #### A DIFF, CBC, ANEU ####[address] [address] Basophils/100 WBC (Bld) 1.2 % Normal 0.0-2.5 [facility] ([place]) Comment on above: Performed By: #### A DIFF, CBC, ANEU ####[address] [address] Eosinophil, Absolute 0.2 10 3/mcL Normal 0.0-0.7 [facility] ([place]) Comment on above: Performed By: #### A DIFF, CBC, ANEU ####[address] [address] Eosinophils/100 WBC (Bld) 5.0 % Normal 0.0-6.0 [facility] ([place]) Comment on above: Performed By: #### A DIFF, CBC, ANEU ####[address] [address] Lymphocyte, Absolute 2.0 10 3/mcL Normal 0.9-4.3 [facility] ([place]) Comment on above: Performed By: #### A DIFF, CBC, ANEU ####[address] [address] Lymphocytes/100 WBC (Bld) 40.4 % High 20.0-40.0 [facility] ([place] Comment on above: Performed By: #### A DIFF, CBC, ANEU ####[address] [address] Monocyte, Absolute 0.5 10 3/mcL Normal 0.1-1.4 [facility] ([place]) Comment on above: Performed By: #### A DIFF, CBC, ANEU ####[address] [address] Monocytes/100 WBC (Bld) 9.5 % Normal 2.0-13.0 [facility] ([place] Comment on above: Performed By: #### A DIFF, CBC, ANEU ####[address] [address] Neutrophils/100 WBC (Bld) 43.9 % Low 50.0-75.0 [facility] ([place] Comment on above: Performed By: #### A DIFF, CBC, ANEU ####[address] [address] Basophil, Absolute 0.0 10 3/mcL Normal 0.0-0.3 [facility] ([place] Comment on above: Performed By: #### C BC, ANEU, ADIFF #### [address] [address] Basophils/100 WBC (Bld) 0.7 % Normal 0.0-2.5 [facility] ([place]) Comment on above: Performed By: #### C BC, ANEU, ADIFF #### [address] [address] Eosinophil, Absolute 0.2 10 3/mcL Normal 0.0-0.7 [facility] ([place] Comment on above: Performed By: #### C BC, ANEU, ADIFF #### [address] [address] Eosinophils/100 WBC (Bld) 4.1 % Normal 0.0-6.0 [facility] ([place]) Comment on above: Performed By: #### C BC, ANEU, ADIFF #### [address] [address] Lymphocyte, Absolute 1.7 10 3/mcL Normal 0.9-4.3 [facility] ([place] Comment on above: Performed By: #### C BC, ANEU, ADIFF #### [address] [address] Lymphocytes/100 WBC (Bld) 36.6 % Normal 20.0-40.0 [facility] ([place]) Comment on above: Performed By: #### C ELMIRA DUDLEY, ADIFF #### [address] [address] Monocyte, Absolute 0.6 10 3/mcL Normal 0.1-1.4 [facility] ([place] Comment on above: Performed By: #### C ELMIRA DUDLEY, ADIFF #### [address] [address] Monocytes/100 WBC (Bld) 12.5 % Normal 2.0-13.0 [facility] ([place]) Comment on above: Performed By: #### C ELMIRA DUDLEY, ADIFF #### [address] [address] Neutrophils/100 WBC (Bld) 46.1 % Low 50.0-75.0 [facility] ([place]) Comment on above: Performed By: #### C ELMIRA DUDLEY, ADIFF #### [address] [address] .GFRon 01-06-2023 GFR >60 Normal [facility] ([place]) Comment on above: Result Comment: GFR Population mean for , Non- Americans Ages 20-29 = 116 mL/min/1.73 sq.m. Ages 30-39 = 107 mL/min/1.73 sq.m. Ages 40-49 = 99 mL/min/1.73 sq.m. Ages 50-59 = 93 mL/min/1.73 sq.m. Ages 60-69 = 85 mL/min/1.73 sq.m. Ages 70+ = 75 mL/min/1.73 sq.m. Chronic Kidney Disease: Less than 60 mL/min/1.73 square meters End Stage Renal Disease: Less than 15 mL/min/1.73 square meters Performed By: #### C BC, ANEU, ADIFF #### [address] [address] GFR Non- >60 Normal [facility] ([place]) Comment on above: Result Comment: GFR Population mean for , Non- Americans Ages 20-29 = 116 mL/min/1.73 sq.m. Ages 30-39 = 107 mL/min/1.73 sq.m. Ages 40-49 = 99 mL/min/1.73 sq.m. Ages 50-59 = 93 mL/min/1.73 sq.m. Ages 60-69 = 85 mL/min/1.73 sq.m. Ages 70+ = 75 mL/min/1.73 sq.m. Chronic Kidney Disease: Less than 60 mL/min/1.73 square meters End Stage Renal Disease: Less than 15 mL/min/1.73 square meters Performed By: #### C BC ANEU, ADIFF #### [address] [address] .NEUABSon 01-06-2023 Neutrophil, Absolute 2.1 10 3/mcL Low 2.3-8.1 [facility] ([place] Comment [place] above: Performed By: #### A DIFF, CBC, ANEU ####[place] [address] Neutrophil, Absolute 2.2 10 3/mcL Low 2.3-8.1 [facility] ([place] Comment on above: Performed By: #### C BC ANEU, ADIFF #### [place] [address] CBCon 01-06-2023 Erythrocyte distribution width (RBC) [Ratio] 12.6 % Normal 11.5-15.5 [facility] ([place] Comment on above: Performed By: #### A DIFF, CBC, ANEU ####[place] [address] Hematocrit (Bld) [Volume fraction] 37.3 % Normal 34.0-46.0 [facility] ([place] Comment on above: Performed By: #### A DIFF, CBC, ANEU ####[place] [address] Hgb 12.5 G/dL Normal 12.0-16.0 [facility] ([place] Comment on above: Performed By: #### A DIFF, CBC, ANEU ####[address] [place], [place] [address] MCH (RBC) [Entitic mass] 29.3 pg Normal 27.0-33.0 [facility] ([place] Comment on above: Performed By: #### A DIFF, CBC, ANEU ####[place] [address] MCHC 33.4 G/dL Normal 32.0-36.0 [facility] ([place] Comment on above: Performed By: #### A DIFF, CBC, ANEU ####[place] [address] MCV (RBC) [Entitic vol] 87.8 fL Normal 80.0-99.0 [facility] ([place] Comment on above: Performed By: #### A DIFF, CBC, ANEU ####[place] [address] Platelet 298 10 3/mcL Normal 150-450 [facility] ([place] Comment on above: Performed By: #### A DIFF, CBC, ANEU ####[place] [address] Platelet mean volume (Bld) [Entitic vol] 8.0 fL Normal 6.6-10.5 [facility] ([place] Comment on above: Performed By: #### A DIFF, CBC, ANEU ####[place] [address] RBC 4.25 10 6/mcL Normal 4.10-5.30 [facility] ([place] Comment on above: Performed By: #### A DIFF, CBC, ANEU ####[place] [address] WBC 4.8 10 3/mcL Normal 4.5-10.8 [facility] ([place] Comment on above: Performed By: #### A DIFF, CBC, ANEU ####[place] [address] Erythrocyte distribution width (RBC) [Ratio] 12.9 % Normal 11.5-15.5 [facility] ([place] Comment on above: Performed By: #### C BC, ANEU, ADIFF #### [facility] [address] [place], [place] [address] Hematocrit (Bld) [Volume fraction] 35.5 % Normal 34.0-46.0 [facility] ([place] Comment on above: Performed By: #### C ELMIRA DUDLEY ADIFF #### [place] [address] Hgb 11.8 G/dL Low 12.0-16.0 [facility] ([place] Comment on above: Performed By: #### C ELMIRA DUDLEY, ADIFF #### [place] [address] MCH (RBC) [Entitic mass] 29.3 pg Normal 27.0-33.0 [facility] ([place] Comment on above: Performed By: #### C ELMIRA DUDLEY ADIFF #### [place] [address] MCHC 33.2 G/dL Normal 32.0-36.0 [facility] ([place] Comment on above: Performed By: #### C ELMIRA DUDLEY ADIFF #### [place] [address] MCV (RBC) [Entitic vol] 88.4 fL Normal 80.0-99.0 [facility] ([place] Comment on above: Performed By: #### C ELMIRA DUDLEY ADIFF #### [place] [address] Platelet 282 10 3/mcL Normal 150-450 [facility] ([place] Comment on above: Performed By: #### C ELMIRA DUDLEY, ADIFF #### [place] [id number] Platelet mean volume (Bld) [Entitic vol] 7.9 fL Normal 6.6-10.5 [facility] ([place] Comment on above: Performed By: #### C ELMIRA DUDLEY, ADIFF #### [place] [phone] RBC 4.02 10 6/mcL Low 4.10-5.30 [facility] ([place] Comment on above: Performed By: #### C ELMIRA DUDLEY, ADIFF #### [address] [address] WBC 4.8 10 3/mcL Normal 4.5-10.8 [facility] ([place] Comment on above: Performed By: #### C ELMIRA DUDLEY, ADIFF #### [address] [address] CMPon 01-06-2023 BUN/Creatinine Ratio Unable to Calculate Normal 10.0-2 2.0 [facility] ([place] Comment on above: Result Comment: Unab le to calculate this test result accurately. Results used to calculate this test are outside the reportable range. Performed By: #### C ELMIRA DUDLEY, ADIFF #### [address] [address] Urea nitrogen [Mass/Vol] mg/dL Low 8.0-22.0 [facility] ([place] Comment on above: Performed By: #### C ELMIRA DUDLEY, ADIFF #### [place] [address] Albumin Level 2.9 G/dL Low 3.2-4.8 [facility] ([place] Comment on above: Performed By: #### C ELMIRA DUDLEY, ADIFF #### [place] [address] Albumin/Globulin [Mass ratio] 1.1 {ratio} Normal 0.9-1.6 [facility] ([place] Comment on above: Performed By: #### C OCTAVIA ANEU, ADIFF #### [place] [phone] ALP [Catalytic activity/Vol] 60 U/L Normal 38-126 [facility] ([place]) Comment on above: Performed By: #### C OCTAVIA ANEU, ADIFF #### [address] [address] ALT [Catalytic activity/Vol] 11 U/L Normal 10-49 [facility] ([place]) Comment on above: Performed By: #### C BC, ANEU, ADIFF #### [address] [address] AST [Catalytic activity/Vol] 13 U/L Normal 8-34 [facility] ([place]) Comment on above: Performed By: #### C ELMIRA DUDLEY, ADIFF #### [address] [address] Bili Total 0.30 mg/dL Normal 0.20-1.20 [facility] ([place] Comment on above: Result Comment: Use of this assay is not recommended for patients undergoing treatment with eltrombopag due to the potential for falsely elevated results. Performed By: #### C ELMIRA DUDLEY, ADIFF #### [address] [address] Calcium [Mass/Vol] 8.4 mg/dL Low 8.7-10.4 [facility] ([place]) Comment on above: Performed By: #### C ELMIRA DUDLEY, ADIFF #### [address] [address] Chloride [Moles/Vol] 106 mmol/L Normal 98-110 [facility] ([place] Comment on above: Performed By: #### C ELMIRA DUDLEY, ADIFF #### [place] [phone] CO2 [Moles/Vol] 23 mmol/L Normal 22-32 [facility] ([place] Comment on above: Performed By: #### C ELMIRA DUDLEY, ADIFF #### [address] [address] Creatinine [Mass/Vol] 0.46 mg/dL Low 0.50-1.20 [facility] ([place] Comment on above: Performed By: #### C ELMIRA DUDLEY, ADIFF #### [address] [address] Electrolyte Balance 12.0 mEq/L Normal 4.0-15.0 [facility] ([place] Comment on above: Performed By: #### C ELMIRA DUDLEY, ADIFF #### [address] [address] Globulin 2.7 G/dL Normal 1.5-3.8 [facility] ([place] Comment on above: Performed By: #### C ELMIRA DUDLEY, ADIFF #### [place] [phone] Glucose [Mass/Vol] 65 mg/dL Low 70-110 [facility] ([place] Comment on above: Performed By: #### C ELMIRA DUDLEY, ADIFF #### [address] [address] Potassium [Moles/Vol] 3.5 mmol/L Normal 3.5-5.0 [facility] ([place] Comment on above: Result Comment: Spec imen slightly hemolyzed. Performed By: #### C ELMIRA DUDLEY, ADIFF #### [address] [address] Sodium [Moles/Vol] 141 mmol/L Normal 136-145 [facility] ([place] Comment on above: Performed By: #### C ELMIRA DUDLEY, ADIFF #### [address] [address] Total Protein 5.6 G/dL Low 5.7-8.2 [facility] ([place] Comment on above: Result Comment: No te - New Reference Range in effect 20 Performed By: #### C ELMIRA DUDLEY, ADIFF #### [address] [address] .Auto Diffon 01-05-2023 Basophil, Absolute 0.0 10 3/mcL Normal 0.0-0.3 [facility] ([place] Comment on above: Performed By: #### C ELMIRA DUDLEY, ADIFF #### [address] [address] Basophils/100 WBC (Bld) 0.6 % Normal 0.0-2.5 [facility] ([place] Comment on above: Performed By: #### C ELMIRA DUDLEY, ADIFF #### [address] [address] Eosinophil, Absolute 0.1 10 3/mcL Normal 0.0-0.7 [facility] ([place] Comment on above: Performed By: #### C ELMIRA DUDLEY, ADIFF #### [address] [address] Eosinophils/100 WBC (Bld) 1.0 % Normal 0.0-6.0 [facility] ([place] Comment on above: Performed By: #### C BC, ANEU, ADIFF #### [address] [address] Lymphocyte, Absolute 1.6 10 3/mcL Normal 0.9-4.3 [facility] ([place] Comment on above: Performed By: #### C BC, ANEU, ADIFF #### [address] [address] Lymphocytes/100 WBC (Bld) 21.2 % Normal 20.0-40.0 [facility] ([place]) Comment on above: Performed By: #### C BC, ANEU, ADIFF #### [address] [address] Monocyte, Absolute 0.7 10 3/mcL Normal 0.1-1.4 [facility] ([place] Comment on above: Performed By: #### C BC, ANEU, ADIFF #### [address] [address] Monocytes/100 WBC (Bld) 9.9 % Normal 2.0-13.0 [facility] ([place] Comment on above: Performed By: #### C BC, ANEU, ADIFF #### [address] [address] Neutrophils/100 WBC (Bld) 67.3 % Normal 50.0-75.0 [facility] ([place] Comment on above: Performed By: #### C BC, ANEU, ADIFF #### [address] [address] Basophil, Absolute 0.1 10 3/mcL Normal 0.0-0.2 [facility] ([place] Comment on above: Performed By: #### C BC, ADIFF, ANEU, CMP, LIP, GFR, MDW #### [address] [address] Basophils/100 WBC (Bld) 0.8 % Normal 0.0-2.5 [facility] ([place] Comment on above: Performed By: #### C BC, ADIFF, ANEU, CMP, LIP, GFR, MDW #### [address] [address] Eosinophil, Absolute 0.1 10 3/mcL Normal 0.0-0.4 [facility] ([place] Comment on above: Performed By: #### C BC, ADIFF, ANEU, CMP, LIP, GFR, MDW #### [address] [address] Eosinophils/100 WBC (Bld) 1.3 % Normal 0.0-7.0 [facility] ([place] Comment on above: Performed By: #### C BC, ADIFF, ANEU, CMP, LIP, GFR, MDW #### [address] [address] Lymphocyte, Absolute 1.8 10 3/mcL Normal 0.8-3.9 [facility] ([place] Comment on above: Performed By: #### C BC, ADIFF, ANEU, CMP, LIP, GFR, MDW #### [address] [address] Lymphocytes/100 WBC (Bld) 23.3 % Normal 10.0-50.0 [facility] ([place] Comment on above: Performed By: #### C BC, ADIFF, ANEU, CMP, LIP, GFR, MDW #### [address] [address] Monocyte, Absolute 1.1 10 3/mcL High 0.2-1.0 [facility] ([place] Comment on above: Performed By: #### C BC, ADIFF, ANEU, CMP, LIP, GFR, MDW #### [address] [address] Monocytes/100 WBC (Bld) 15.0 % High 1.7-13.0 [facility] ([place] Comment on above: Performed By: #### C BC, ADIFF, ANEU, CMP, LIP, GFR, MDW #### [address] [address] Neutrophils/100 WBC (Bld) 59.6 % Normal 37.0-80.0 [facility] ([place] Comment on above: Performed By: #### C BC, ADIFF, ANEU, CMP, LIP, GFR, MDW #### [address] [address] .GFRon 01-05-2023 GFR >60 Normal [facility] ([place] Comment on above: Result Comment: GFR Population mean for , Non- Americans Ages 20-29 = 116 mL/min/1.73 sq.m. Ages 30-39 = 107 mL/min/1.73 sq.m. Ages 40-49 = 99 mL/min/1.73 sq.m. Ages 50-59 = 93 mL/min/1.73 sq.m. Ages 60-69 = 85 mL/min/1.73 sq.m. Ages 70+ = 75 mL/min/1.73 sq.m. Chronic Kidney Disease: Less than 60 mL/min/1.73 square meters End Stage Renal Disease: Less than 15 mL/min/1.73 square meters Performed By: #### C BC, ANEU, ADIFF #### [place] [address] GFR Non- >60 Normal [facility] ([place] Comment on above: Result Comment: GFR Population mean for , Non- Americans Ages 20-29 = 116 mL/min/1.73 sq.m. Ages 30-39 = 107 mL/min/1.73 sq.m. Ages 40-49 = 99 mL/min/1.73 sq.m. Ages 50-59 = 93 mL/min/1.73 sq.m. Ages 60-69 = 85 mL/min/1.73 sq.m. Ages 70+ = 75 mL/min/1.73 sq.m. Chronic Kidney Disease: Less than 60 mL/min/1.73 square meters End Stage Renal Disease: Less than 15 mL/min/1.73 square meters Performed By: #### C BC, ANEU, ADIFF #### [address] [address] GFR 135 ml/min/1.73sqm Normal [facility] ([place] Comment on above: Result Comment: GFR Population mean for , Non- Americans Ages 20-29 = 116 mL/min/1.73 sq.m. Ages 30-39 = 107 mL/min/1.73 sq.m. Ages 40-49 = 99 mL/min/1.73 sq.m. Ages 50-59 = 93 mL/min/1.73 sq.m. Ages 60-69 = 85 mL/min/1.73 sq.m. Ages 70+ = 75 mL/min/1.73 sq.m. Chronic Kidney Disease: Less than 60 mL/min/1.73 square meters End Stage Renal Disease: Less than 15 mL/min/1.73 square meters Performed By: #### C BC, ADIFF, ANEU, CMP, LIP, GFR, W ####[address] [place], [place] [address] GFR Non- 111 ml/min/1.73sqm Normal [facility] ([place] Comment on above: Result Comment: GFR Population mean for , Non- Americans Ages 20-29 = 116 mL/min/1.73 sq.m. Ages 30-39 = 107 mL/min/1.73 sq.m. Ages 40-49 = 99 mL/min/1.73 sq.m. Ages 50-59 = 93 mL/min/1.73 sq.m. Ages 60-69 = 85 mL/min/1.73 sq.m. Ages 70+ = 75 mL/min/1.73 sq.m. Chronic Kidney Disease: Less than 60 mL/min/1.73 square meters End Stage Renal Disease: Less than 15 mL/min/1.73 square meters Performed By: #### C BC, ADIFF, ANEU, CMP, LIP, GFR, W ####[address] [place], [place] [address] .MDWon 01-05-2023 Monocyte Distribution Width 22.41 High 0.00-20.00 [facility] ([place] Comment on above: Result Comment: For adults in ED, MDW>20.0 may be associated with a higher risk of sepsis during the first 12hrs of hospital admission Performed By: #### C BC, ADIFF, ANEU, CMP, LIP, GFR, W #### [address] [place] [id number] [place], [place] [address] .NEUABSon 01-05-2023 Neutrophil, Absolute 5.0 10 3/mcL Normal 2.3-8.1 [facility] ([place] Comment on above: Performed By: #### C BC, ANEU, ADIFF #### [facility] [address] [place] [address] Neutrophil, Absolute 4.6 10 3/mcL Normal 2.9-6.2 [facility] ([place] Comment on above: Performed By: #### C BC, ADIFF, ANEU, CMP, LIP, GFR, MDW #### [address] [place], [place] [address] .Urinalysis Microscopic (AO) on 01-05-2023 UA Bacteria 2+ /hpf Abnormal [facility] ([place] Comment on above: Performed By: #### P REGU, UA, UAMICAO ####[address] [place], [place] [address] UA Mucous 3+ /hpf Normal [facility] ([place] Comment on above: Performed By: #### P REGU, UA, UAMICAO ####[address] [place], [place] [address] UA RBC 0-5 Abnormal None Seen [facility] ([place] Comment on above: Performed By: #### P REGU, UA, UAMICAO ####[address] [place], [place] [address] UA Squam Epithelial 5-10 Abnormal None Seen [facility] ([place] Comment on above: Performed By: #### P REGU, UA, UAMICAO ####[address] [place], [place] [address] UA WBC 0-5 Abnormal None Seen [facility] ([place] Comment on above: Performed By: #### P REGU, UA, UAMICAO ####[address] [place], [place] [address] APTTon 01-05-2023 aPTT Coag (Bld) [Time] 29.0 s Normal 25.0-35.0 [facility] ([place] Comment on above: Result Comment: For Heparin anticoagulation therapy, the recommended therapeutic range is: 54-77 seconds (APTT Correlation with Anti-Xa therapeutic range of 0.3-0.7 units/ml). PLEASE REFERENCE THE PHARMACY PROTOCOL FOR DOSING. Performed By: #### C ELMIRA DUDLEY ADIFF #### [place] [address] Heparin dose (APTT) Unknown Normal [facility] ([place] Comment on above: Performed By: #### C ELMIRA DUDLEY ADIFF #### [place] [phone] CBCon 01-05-2023 Erythrocyte distribution width (RBC) [Ratio] 12.7 % Normal 11.5-15.5 [facility] ([place] Comment on above: Performed By: #### C ELMIRA DUDLEY ADIFF #### [place] [address] Hematocrit (Bld) [Volume fraction] 34.9 % Normal 34.0-46.0 [facility] ([place] Comment on above: Performed By: #### C ELMIRA DUDLEY, ADIFF #### [place] [phone] Hgb 11.5 G/dL Low 12.0-16.0 [facility] ([place]) Comment on above: Performed By: #### C ELMIRA DUDLEY, ADIFF #### [place] [phone] MCH (RBC) [Entitic mass] 29.3 pg Normal 27.0-33.0 [facility] ([place] Comment on above: Performed By: #### C ELMIRA DUDLEY, ADIFF #### [place] [id number] MCHC 33.1 G/dL Normal 32.0-36.0 [facility] ([place] Comment on above: Performed By: #### C ELMIRA DUDLEY, ADIFF #### [place] [address] MCV (RBC) [Entitic vol] 88.5 fL Normal 80.0-99.0 [facility] ([place] Comment on above: Performed By: #### C ELMIRA DUDLEY, ADIFF #### [address] [address] Platelet 287 10 3/mcL Normal 150-450 [facility] ([place] Comment on above: Performed By: #### C BCELMIRA, ADIFF #### [address] [address] Platelet mean volume (Bld) [Entitic vol] 8.2 fL Normal 6.6-10.5 [facility] ([place] Comment on above: Performed By: #### C BCELMIRA, ADIFF #### [address] [address] RBC 3.94 10 6/mcL Low 4.10-5.30 [facility] ([place] Comment on above: Performed By: #### C ELMIRA DUDLEY, ADIFF #### [address] [address] WBC 7.4 10 3/mcL Normal 4.5-10.8 [facility] ([place] Comment on above: Performed By: #### C ELMIRA DUDLEY, ADIFF #### [address] [address] Erythrocyte distribution width (RBC) [Ratio] 12.3 % Normal 11.5-14.5 [facility] ([place] Comment on above: Performed By: #### C BC, ADIFF, ANEU, CMP, LIP, GFR, MDW #### [address] [address] Hematocrit (Bld) [Volume fraction] 37.4 % Normal 37.0-47.0 [facility] ([place] Comment on above: Performed By: #### C BC, ADIFF, ANEU, CMP, LIP, GFR, MDW #### [address] [address] Hgb 12.4 G/dL Normal 12.0-16.0 [facility] ([place] Comment on above: Performed By: #### C BC, ADIFF, ANEU, CMP, LIP, GFR, MDW #### [address] [address] MCH (RBC) [Entitic mass] 28.7 pg Normal 27.0-31.2 [facility] ([place] Comment on above: Performed By: #### C BC, ADIFF, ANEU, CMP, LIP, GFR, W #### [address] [address] MCHC 33.2 G/dL Normal 33.0-37.0 [facility] ([place] Comment on above: Performed By: #### C BC, ADIFF, ANEU, CMP, LIP, GFR, MDW #### [address] [address] MCV (RBC) [Entitic vol] 86.4 fL Normal 80.0-94.0 [facility] ([place] Comment on above: Performed By: #### C BC, ADIFF, ANEU, CMP, LIP, GFR, MDW #### [address] [address] Platelet 261 10 3/mcL Normal 130-400 [facility] ([place] Comment on above: Performed By: #### C BC, ADIFF, ANEU, CMP, LIP, GFR, MDW #### [address] [address] Platelet mean volume (Bld) [Entitic vol] 8.2 fL Normal 7.4-10.4 [facility] ([place] Comment on above: Performed By: #### C BC, ADIFF, ANEU, CMP, LIP, GFR, MDW #### [place] [address] RBC 4.32 10 6/mcL Normal 4.20-5.40 [facility] ([place] Comment on above: Performed By: #### C BC, ADIFF, ANEU, CMP, LIP, GFR, W #### [address] [address] WBC 7.7 10 3/mcL Normal 4.6-10.8 [facility] ([place]) Comment on above: Performed By: #### C BC, ADIFF, ANEU, CMP, LIP, GFR, W #### [place] [id number] [facility] 01-05-2023 Albumin Level 2.9 G/dL Low 3.2-4.8 [facility] ([place]) Comment on above: Performed By: #### C ELMIRA DUDLEY, ADIFF #### [facility] [address] [place] [address] Albumin/Globulin [Mass ratio] 1.1 {ratio} Normal 0.9-1.6 [facility] ([place]) Comment on above: Performed By: #### C ELMIRA DUDLEY, ADIFF #### [facility] [address] [place] [address] ALP [Catalytic activity/Vol] 61 U/L Normal 38-126 [facility] ([place]) Comment on above: Performed By: #### C ELMIRA DUDLEY, ADIFF #### [facility] [address] [place] [address] ALT [Catalytic activity/Vol] 11 U/L Normal 10-49 [facility] ([place]) Comment on above: Performed By: #### C ELMIRA DUDLEY, ADIFF #### [facility] [address] [place] [address] AST [Catalytic activity/Vol] 11 U/L Normal 8-34 [facility] ([place]) Comment on above: Performed By: #### C ELMIRA DUDLEY, ADIFF #### [facility] [address] [place] [address] Bili Total 0.30 mg/dL Normal 0.20-1.20 [facility] ([place]) Comment on above: Result Comment: Use of this assay is not recommended for patients undergoing treatment with eltrombopag due to the potential for falsely elevated results. Performed By: #### C ELMIRA DUDLEY, ADIFF #### [facility] [address] [place] [address] BUN/Creatinine Ratio 13.7 ratio Normal 10.0-22.0 [facility] ([place]) Comment on above: Performed By: #### C ELMIRA DUDLEY, ADIFF #### [facility] [address] [place] [address] Calcium [Mass/Vol] 7.9 mg/dL Low 8.7-10.4 [facility] ([place]) Comment on above: Performed By: #### C BC, ANEU, ADIFF #### [address] [address] Chloride [Moles/Vol] 108 mmol/L Normal 98-110 [facility] ([place]) Comment on above: Performed By: #### C BC, ANEU, ADIFF #### [address] [address] CO2 [Moles/Vol] 23 mmol/L Normal 22-32 [facility] ([place] Comment on above: Performed By: #### C BC, ANEU, ADIFF #### [address] [address] Creatinine [Mass/Vol] 0.51 mg/dL Normal 0.50-1.20 [facility] ([place] Comment on above: Performed By: #### C BC, ANEU, ADIFF #### [address] [address] Electrolyte Balance 12.0 mEq/L Normal 4.0-15.0 [facility] ([place]) Comment on above: Performed By: #### C BC, ANEU, ADIFF #### [address] [address] Globulin 2.7 G/dL Normal 1.5-3.8 [facility] ([place] Comment on above: Performed By: #### C BC, ANEU, ADIFF #### [address] [address] Glucose [Mass/Vol] 150 mg/dL High 70-110 [facility] ([place] Comment on above: Performed By: #### C BC, ANEU, ADIFF #### [address] [address] Potassium [Moles/Vol] 3.4 mmol/L Low 3.5-5.0 [facility] ([place] Comment on above: Performed By: #### C BC, ANEU, ADIFF #### [address] [address] Sodium [Moles/Vol] 143 mmol/L Normal 136-145 [facility] ([place] Comment on above: Performed By: #### C BC, ANEU, ADIFF #### [address] [address] Total Protein 5.6 G/dL Low 5.7-8.2 [facility] ([place] Comment on above: Result Comment: No te - New Reference Range in effect 20 Performed By: #### C BC, ANEU, ADIFF #### [address] [address] Urea nitrogen [Mass/Vol] 7.0 mg/dL Low 8.0-22.0 [facility] ([place] Comment on above: Performed By: #### C BC, ANEU, ADIFF #### [address] [address] Albumin Level 3.2 G/dL Low 3.5-5.0 [facility] ([place] Comment on above: Performed By: #### C BC, ADIFF, ANEU, CMP, LIP, GFR, MDW ####[address] [place], [place] [address] Albumin/Globulin [Mass ratio] 1.0 {ratio} Low 1.1-2.5 [facility] ([place] Comment on above: Performed By: #### C BC, ADIFF, ANEU, CMP, LIP, GFR, MDW ####[address] [place], [place] [address] ALP [Catalytic activity/Vol] 73 U/L Normal 40-135 [facility] ([place] Comment on above: Performed By: #### C BC, ADIFF, ANEU, CMP, LIP, GFR, MDW ####[address] [place], [place] [address] ALT [Catalytic activity/Vol] 16 U/L Normal 14-59 [facility] ([place] Comment on above: Performed By: #### C BC, ADIFF, ANEU, CMP, LIP, GFR, MDW ####[address] [place], [place] [address] AST [Catalytic activity/Vol] 15 U/L Normal 10-40 [facility] ([place]) Comment on above: Performed By: #### C BC, ADIFF, ANEU, CMP, LIP, GFR, MDW ####[address] [place], [place] [address] Bili Total 0.2 mg/dL Normal 0.2-1.0 [facility] ([place] Comment on above: Result Comment: Use of this assay is not recommended for patients undergoing treatment with eltrombopag due to the potential for falsely elevated results. Performed By: #### C BC, ADIFF, ANEU, CMP, LIP, GFR, MDW ####[address] [place], [place] [address] BUN/Creatinine Ratio 18 ratio Normal 7-27 [facility] ([place] Comment on above: Performed By: #### C BC, ADIFF, ANEU, CMP, LIP, GFR, MDW ####[address] [place], [place] [address] Calcium [Mass/Vol] 8.6 mg/dL Normal 8.4-10.2 [facility] ([place] Comment on above: Performed By: #### C BC, ADIFF, ANEU, CMP, LIP, GFR, W ####[address] [place], [place] [address] Chloride [Moles/Vol] 106 mmol/L Normal 98-107 [facility] ([place] Comment on above: Performed By: #### C BC, ADIFF, ANEU, CMP, LIP, GFR, MDW ####[address] [place], [place] [address] CO2 [Moles/Vol] 27 mmol/L Normal 22-29 [facility] ([place] Comment on above: Performed By: #### C BC, ADIFF, ANEU, CMP, LIP, GFR, W ####[address] [place], [place] [address] Creatinine [Mass/Vol] 0.66 mg/dL Normal 0.55-1.02 [facility] ([place] Comment on above: Performed By: #### C BC, ADIFF, ANEU, CMP, LIP, GFR, MDW ####[address] [place], [place] [address] Electrolyte Balance 9.0 mEq/L Normal 4.0-15.0 [facility] ([place]) Comment on above: Performed By: #### C BC, ADIFF, ANEU, CMP, LIP, GFR, W ####[address] [place], [place] [address] Globulin 3.2 G/dL Normal [facility] ([place] Comment on above: Performed By: #### C BC, ADIFF, ANEU, CMP, LIP, GFR, W ####[address] [place], [place] [address] Glucose [Mass/Vol] 91 mg/dL Normal 70-105 [facility] ([place] Comment on above: Performed By: #### C BC, ADIFF, ANEU, CMP, LIP, GFR, W ####[address] [place], [place] [address] Potassium [Moles/Vol] 3.7 mmol/L Normal 3.5-5.1 [facility] ([place] Comment on above: Performed By: #### C BC, ADIFF, ANEU, CMP, LIP, GFR, W ####[address] [place], [place] [address] Sodium [Moles/Vol] 142 mmol/L Normal 136-145 [facility] ([place] Comment on above: Performed By: #### C BC, ADIFF, ANEU, CMP, LIP, GFR, W ####[address] [place], [place] [address] Total Protein 6.4 G/dL Normal 6.4-8.2 [facility] ([place] Comment on above: Performed By: #### C BC, ADIFF, ANEU, CMP, LIP, GFR, W ####[address] [place], [place] [address] Urea nitrogen [Mass/Vol] 12 mg/dL Normal 7-18 [facility] ([place] Comment on above: Performed By: #### C BC, ADIFF, ANEU, CMP, LIP, GFR, W ####[address] [place], [place] [address] CT ABD/PELVIS W/ IV CONTRAST ONLYon 01-05-2023 CT ABD/PELVIS W/ IV CONTRAST ONLY ORIGINAL EXAMINATION: CT OF THE ABDOMEN AND PELVIS WITH CONTRAST01/04/2023 11:14 pm TECHNIQUE: CT of the abdomen and pelvis was performed with the administration of intravenous contrast. Multiplanar reformatted images are provided for review. Automated exposure control, iterative reconstruction, and/or weight based adjustment of the mA/kV was utilized to reduce the radiation dose to as low as reasonably achievable. COMPARISON: None HISTORY: ORDERING SYSTEM PROVIDED HISTORY: Reason for Exam: pain FINDINGS: The liver is unremarkable in contour. No suspicious hepatic lesions. Prominent periportal edema. No intrahepatic biliary duct dilation. Enhancement of the gallbladder wall with adjacent free fluid. The pancreas, spleen, and bilateral adrenal glands are unremarkable. The kidneys enhance symmetrically without evidence of hydronephrosis or suspicious lesions. The urinary bladder is without wall thickening or focal mass. Intrauterine device is in place. No suspicious uterine or adnexal lesions. Small volume free fluid within the pelvis, likely physiologic given patient age. Edema and thickening of the colonic wall, ascending through descending colon; this is most pronounced of the ascending colon. No dilated loops of small bowel or small bowel wall thickening. Unremarkable appearance of stomach. No pathologically enlarged or aggressive appearing lymph nodes. Nonaneurysmal aortoiliac arteries. 2 left renal veins. Inferior-most left renal vein is retroaortic No acute osseous abnormality. No aggressive appearing osseous lesions. No acute abnormality within the partially visualized lower thorax. IMPRESSION: Edema and thickening of the ascending through descending colonic wall, most pronounced of the ascending colon. Findings are compatible with infectious or inflammatory colitis, at least moderate in degree. Enhancement of the gallbladder wall with nonspecific adjacent free fluid. If there is clinical concern for cholecystitis, right upper quadrant ultrasound can be obtained. Nonspecific periportal edema and hazy mesenteric infiltrate, presumably systemic in etiology. I have personally reviewed the images of this examination and agree with the resident's findings and interpretation. Interpreted by: Allen Ramirez Preliminary Report By: Dylon Reddy Electronically signed By Allen Ramirez Dictated Date: 01/04/2023 11:18:53 PM Prelim Date: 01/04/2023 11:33:01 PM Sign Date: 01/04/2023 11:49:43 PM Ordering Provider: BENJAMIN SHELTON [facility] ([place]) HGBon 01-05-2023 Hgb 10.6 G/dL Low 12.0-16.0 [facility] ([place]) Comment on above: Performed By: #### H GB #### [address] [address] LIPon 01-05-2023 Lipase Level 35 U/L Normal 16-77 [facility] ([place] Comment on above: Performed By: #### C BC, ADIFF, ANEU, CMP, LIP, GFR, MDW ####[address] [place], [place] [address] MGon 01-05-2023 Magnesium [Mass/Vol] 1.5 mg/dL Low 1.6-2.4 [facility] ([place]) Comment on above: Performed By: #### C BC, ANEU, ADIFF #### [address] [address] PHOSon 01-05-2023 Phosphate [Mass/Vol] 3.1 mg/dL Normal 2.4-5.1 [facility] ([place]) Comment on above: Result Comment: No te - New Reference Range in effect 20 Performed By: #### C BC, ANEU, ADIFF #### [address] [address] PREGUon 01-05-2023 HCG ( test) Ql (U) Negative Normal [facility] ([place]) Comment on above: Performed By: #### P REGU, UA, UAMICAO ####[address] [place], [place] [address] test (u) int Not detected Invalid Interpretation Code [facility] ([place]) Comment on above: Performed By: #### P REGU, UA, UAMICAO ####[address] [place], [place] [address] PROon 01-05-2023 INR Coag (PPP) [Relative time] 1.0 {INR} Normal [facility] ([place]) Comment on above: Result Comment: The [employer] (CHEST, 1991, 102:312S-[id number]) recommended therapeutic range for oral anticoagulant therapy is: LOW RISK: Prophylaxis of venous thrombosis INR: 2.0-3.0 Treatment of pulmonary embolism 2.0-3.0 Prevention of systemic embolism 2.0-3.0 HIGH RISK: Mechanical prosthetic valves 2.5-3.5 Performed By: #### C OCTAVIA, ANEU, ADIFF #### [address] [address] PT Coag (PPP) [Time] 12.2 s Normal 9.0-14.8 [facility] ([place]) Comment on above: Result Comment: Effe ctive 12/28/07, Protime results may be affected by some antibiotics (i.e. Ciprofloxacin, Azithromycin, Bactrim) which may potentiate the action of oral anticoagulants, with further increases in Protime/INR. Performed By: #### C OCTAVIA, ANEU, ADIFF #### [address] [address] UAon 01-05-2023 Color (U) Yellow Normal [facility] ([place] Comment on above: Performed By: #### U A ####[place] [address] Glucose (U) [Mass/Vol] Negative Normal Negative [facility] ([place] Comment on above: Performed By: #### U A ####[place] [address] Ketones Ql (U) 80 mg/dL Abnormal Neg-Trace [facility] ([place] Comment on above: Performed By: #### U A ####[place] [address] UA Appear Clear Normal Clear [facility] ([place] Comment on above: Performed By: #### U A ####[place] [id number] UA Blood Negative Normal Neg-Trace [facility] ([place] Comment on above: Performed By: #### U A ####[address] [address] UA Leuk Est Negative Normal Negative [facility] ([place] Comment on above: Performed By: #### U A ####[place] [address] UA Nitrite Negative Normal Negative [facility] ([place] Comment on above: Performed By: #### U A ####[place] [address] UA pH 5.5 Normal 5.0 - 8.0 [facility] ([place] Comment on above: Performed By: #### U A ####[place] [address] UA Protein Trace Normal Negative [facility] ([place] Comment on above: Performed By: #### U A ####[place] [address] UA Spec Grav 1.020 Normal 1.006-1.029 [facility] ([place] Comment on above: Performed By: #### U A ####[place] [address] UA Specimen Type Clean Catch Normal [facility] ([place] Comment on above: Performed By: #### U A ####[place] [address] UA Urobilinogen 0.2 E.U./dL Normal 0.2-1.0 [facility] ([place] Comment on above: Performed By: #### U A ####[place] [address] Urobilinogen (U) [Mass/Vol] Negative Normal Neg-Trace [facility] ([place] Comment on above: Performed By: #### U A ####[place] [address] Color (U) Yellow Normal [facility] ([place] Comment on above: Performed By: #### P REGU, UA, UAMICAO ####[address] [place], [place] [address] Glucose (U) [Mass/Vol] Negative Normal Negative [facility] ([place] Comment on above: Performed By: #### P REGU, UA, UAMICAO ####[address] [place], [place] [address] Ketones Ql (U) 15 mg/dL Abnormal Negative [facility] ([place] Comment on above: Performed By: #### P REGU, UA, UAMICAO ####[address] [place] [address] UA Appear Slightly Cloudy Abnormal Clear [facility] ([place] Comment on above: Performed By: #### P REGU, UA, UAMICAO ####[address] [place] [address] UA Bili Small Abnormal Negative [facility] ([place] Comment on above: Performed By: #### P REGU, UA, UAMICAO ####[address] [place] [address] UA Blood Negative Normal Negative [facility] ([place] Comment on above: Performed By: #### P REGU, UA, UAMICAO ####[address] [place] [address] UA Leuk Est Negative Normal Negative [facility] ([place] Comment on above: Performed By: #### P REGU, UA, UAMICAO ####[address] [place] [address] UA Nitrite Negative Normal Negative [facility] ([place] Comment on above: Performed By: #### P REGU, UA, UAMICAO ####[address] [place] [address] UA pH 6.0 Normal 5.0 - 8.0 [facility] ([place] Comment on above: Performed By: #### P REGU, UA, UAMICAO ####[address] [place] [address] UA Protein 30 mg/dL Normal Negative [facility] ([place] Comment on above: Performed By: #### P REGU, UA, UAMICAO ####[address] [place] [address] UA Spec Grav >=1.030 Abnormal 1.015-1.025 [facility] ([place] Comment on above: Performed By: #### P REGU, UA, UAMICAO ####[address] [place] [id number] UA Specimen Type Clean Catch Normal [facility] ([place] Comment on above: Performed By: #### P REGU, UA, UAMICAO ####[address] [place], [place] [address] UA Urobilinogen 0.2 E.U./dL Normal 0.2-1.0 [facility] ([place] Comment on above: Performed By: #### P REGU, UA, UAMICAO ####[address] [place], [place] [address] US ABDOMEN LIMITEDon 023 US ABDOMEN LIMITED ORIGINAL EXAMINATION: RIGHT UPPER QUADRANT ULTRASOUND 01/05/2023 1:48 am COMPARISON: None. HISTORY: ORDERING SYSTEM PROVIDED HISTORY: Reason for Exam: RUQ Pain, eval biliary FINDINGS: LIVER: The liver demonstrates normal echogenicity without evidence of intrahepatic biliary ductal dilatation. There is mild periportal edema noted. BILIARY SYSTEM: Gallbladder wall is thickened measuring up to 10 mm in diameter, there is edema within the gallbladder wall. Small quantity of pericholecystic edema is suspected. Common bile duct is within normal limits measuring 4 mm. RIGHT KIDNEY: The right kidney is grossly unremarkable without evidence of hydronephrosis. PANCREAS: Visualized portions of the pancreas are unremarkable. OTHER: No evidence of right upper quadrant ascites. IMPRESSION: Significant gallbladder wall thickening with edema within the gallbladder wall. Findings are suggestive of acute cholecystitis, no gallbladder wall calculus is identified. No intra or extrahepatic biliary ductal dilatation. Periportal edema. Interpreted by: Colby Crenshaw MD Preliminary Report By: Colby Crenshaw MD Electronically signed By Colby Crenshaw MD Dictated Date: 01/05/2023 2:04:56 AM Prelim Date: 01/05/2023 2:13:15 AM Sign Date: 01/05/2023 2:13:15 AM Ordering Provider: BENJAMIN SHELTON Normal [facility] ([place] Laboratory - Chemistry and C hemistry - challengeon 06-30-2022 Glucose Ql (U) Negative [facility] Laboratory - Urinalysison Protein Ql (U) Negative [facility] No Panel InformationOrdered By: Dr. Cooper on 06-26-2022 Group B Streptococcus Culture Group B Beta Streptococcus is not isolated. [facility] Laboratory - Chemistry and C hemistry - challengeon 06-24-2022 Glucose Ql (U) Negative [facility] Laboratory - Urinalysison Protein Ql (U) Negative [facility] Laboratory - Chemistry and C hemistry - challengeon 06-17-2022 Glucose Ql (U) Negative [facility] Laboratory - Urinalysison Protein Ql (U) Negative [facility] Laboratory - Chemistry and C hemistry - challengeon 05-26-2022 Glucose Ql (U) Negative [facility] Laboratory - Urinalysison Protein Ql (U) Negative [facility] Laboratory - Chemistry and C hemistry - challengeon 04-30-2022 Glucose Ql (U) Negative [facility] Laboratory - Urinalysison Protein Ql (U) Negative [facility] Absolute lymphocyte countOrd ered By: Dr. Cooper on 04-14-2022 Lymphocytes Auto (Unsp spec) [#/Vol] 2.09 10*3/uL 0.83-4.51 [facility] Basophil percentageOrdered B y: Dr. Cooper on 04-14-2022 Basophils/100 WBC (Bld) 0.4 % 0-1 [facility] Eosinophils/100 WBC (Bld) 0.7 % 0-5 [facility] Neutrophils (Bld) [#/Vol] 7.2 10*3/uL 2.0-7.7 [facility] Neutrophils/100 WBC (Bld) 70.8 % 47-70 [facility] WBC (Bld) [#/Vol] 10.2 10*3/uL 4.4-11.0 [facility] Blood erythrocytes count (nu mber/volume)Ordered By: Dr. Cooper on 04-14-2022 RBC (Bld) [#/Vol] 3.68 10*6/uL 4.2-5.4 [facility] Blood hemoglobin measurement (mass/volume)Ordered By: Dr. Cooper on 04-14-2022 Hemoglobin (Bld) [Mass/Vol] 11.7 g/dL 12.0-15.0 [facility] Blood lymphocytes/100 leukoc ytesOrdered By: Dr. Cooper on 04-14-2022 Lymphocytes/100 WBC (Bld) 20.5 % 19-41 [facility] Blood monocytes/100 leukocyt esOrdered By: Dr. Cooper on 04-14-2022 Monocytes/100 WBC (Bld) 6.7 % 0-10 [facility] Blood platelet mean volumeOr dered By: Dr. Cooper on 04-14-2022 Platelet mean volume (Bld) [Entitic vol] 10.3 fL 6.2-12.0 [facility] Determination of erythrocyte mean corpuscular volume (MCV)Ordered By: Dr. Cooper on 04-14-2022 MCV (RBC) [Entitic vol] 92.1 fL 81-99 [facility] Gestational diabetes screen 1-hour screen with 50g oral glucose loadOrdered By: Dr. Cooper on 04-14-2022 Glucose 1 Hr post 50 g glucose PO [Mass/Vol] 106 mg/dL 70-140 [facility] Hematocrit Auto (Bld) [Volum e fraction]Ordered By: Dr. Cooper on 04-14-2022 Hematocrit (Bld) [Volume fraction] 33.9 % 37-47 [facility] Laboratory - Chemistry and C hemistry - challengeon 04-14-2022 Glucose Ql (U) Negative [facility] Laboratory - Hematology and Cell countsOrdered By: Dr. Cooper on 04-14-2022 Erythrocyte distribution width (RBC) [Entitic vol] 43.6 fL 35.1-43.9 [facility] Erythrocyte distribution width (RBC) [Ratio] 13.0 % 11.6-14.6 [facility] Immature granulocytes/100 WBC (Bld) 0.900 % 0.0-0.9 [facility] Comment on above: IG% - Immature Granu locytes (promyelocytes, myelocytes and metamyelocytes) > 1% indicates that a LEFT SHIFT is Present. MCH (RBC) [Entitic mass] 31.8 pg 27.0-32.0 [facility] Nucleated RBC/100 WBC (Bld) [Ratio] 0 % 0-5 [facility] Laboratory - Urinalysison Protein Ql (U) Negative [facility] MCHC Auto (RBC) [Mass/Vol]Or dered By: Dr. Cooper on 04-14-2022 MCHC (RBC) [Mass/Vol] 34.5 g/dL 32-36 [facility] Platelets bldOrdered By: Dr. Cooper on 04-14-2022 Platelets (Bld) [#/Vol] 243 10*3/uL 150-450 [facility] Laboratory - Chemistry and C hemistry - challengeon 03-21-2022 Glucose Ql (U) Negative [facility] Laboratory - Urinalysison Protein Ql (U) Negative [facility] Laboratory - Chemistry and C hemistry - challengeon 02-19-2022 Glucose Ql (U) Negative [facility] Work Phone: Laboratory - Urinalysison Protein Ql (U) Negative [facility] Work Phone: Laboratory - Chemistry and C hemistry - challengeon 01-20-2022 Glucose Ql (U) Negative [facility] Work Phone: Laboratory - Urinalysison Protein Ql (U) Negative [facility] Work Phone: Absolute lymphocyte counton 12-27-2021 Lymphocytes Auto (Unsp spec) [#/Vol] 1.99 10*3/uL 0.83-4.51 [facility] Work Phone: Basophil percentageon 2021 Basophils/100 WBC (Bld) 0.2 % 0-1 [facility] Work Phone: Eosinophils/100 WBC (Bld) 1.1 % 0-5 [facility] Work Phone: Neutrophils (Bld) [#/Vol] 6.1 10*3/uL 2.0-7.7 [facility] Work Phone: Neutrophils/100 WBC (Bld) 69.2 % 47-70 [facility] [facility] Work Phone: WBC (Bld) [#/Vol] 8.9 10*3/uL 4.4-11.0 [facility] Work Phone: Blood erythrocytes count (nu mber/volume)on 12-27-2021 RBC (Bld) [#/Vol] 4.33 10*6/uL 4.2-5.4 [facility] Work Phone: [phone] Blood hemoglobin measurement (mass/volume)on 12-27-2021 Hemoglobin (Bld) [Mass/Vol] 12.6 g/dL 12.0-15.0 [facility] Work Phone: [phone] Blood lymphocytes/100 leukoc yteson 12-27-2021 Lymphocytes/100 WBC (Bld) 22.4 % 19-41 [facility] Work Phone: [phone] Blood monocytes/100 leukocyt eson 12-27-2021 Monocytes/100 WBC (Bld) 6.6 % 0-10 [facility] Work Phone: [phone] Blood platelet mean volumeon 12-27-2021 Platelet mean volume (Bld) [Entitic vol] 10.4 fL 6.2-12.0 [facility] Work Phone: [phone] Chlamydia trachomatis rRNA d etection by probe and target amplification methodon 12-27-2021 C. trachomatis rRNA KY+probe Ql (Unsp spec) Negative Negative [facility] Work Phone: [phone] Determination of erythrocyte mean corpuscular volume (MCV)on 12-27-2021 MCV (RBC) [Entitic vol] 86.6 fL 81-99 [facility] Work Phone: [phone] HIV 1 and HIV-2 antibody ass ay with HIV-1 p24 antigen detectionon 12-27-2021 HIV 1+2 Ab+HIV1 p24 Ag IA Ql Non-Reactive Nonreactive [facility] Work Phone: [phone] Hematocrit Auto (Bld) [Volum e fraction]on 12-27-2021 Hematocrit (Bld) [Volume fraction] 37.5 % 37-47 [facility] Work Phone: [phone] Laboratory - Drug toxicology on 12-27-2021 Amphetamines Ql (U) Negative <1000 ng/mL [facility] Work Phone: [phone] Benzodiazepines Ql (U) Negative < 200 ng/mL [facility] Work Phone: [phone] Cannabinoids Screen Ql (U) Negative < 50 ng/mL [facility] Work Phone: [phone] Cocaine Ql (U) Negative < 300 ng/mL [facility] Work Phone: [phone] Opiates Ql (U) Negative < 300 ng/mL [facility] Work Phone: [phone] Laboratory - Hematology and Cell countson 12-27-2021 Erythrocyte distribution width (RBC) [Entitic vol] 39.7 fL 35.1-43.9 [facility] Work Phone: [phone] Erythrocyte distribution width (RBC) [Ratio] 12.8 % 11.6-14.6 [facility] Work Phone: [phone] Immature granulocytes/100 WBC (Bld) 0.500 % 0.0-0.9 [facility] Work Phone: [phone] Comment on above: IG% - Immature Granu locytes (promyelocytes, myelocytes and metamyelocytes) > 1% indicates that a LEFT SHIFT is Present. MCH (RBC) [Entitic mass] 29.1 pg 27.0-32.0 [facility] Work Phone: [phone] Nucleated RBC/100 WBC (Bld) [Ratio] 0 % 0-5 [facility] Work Phone: [phone] Laboratory - Microbiology an d Antimicrobial susceptibilityon 12-27-2021 N. gonorrhoeae DNA KY+probe Ql (Unsp spec) Negative Negative [facility] Work Phone: [phone] Comment on above: Performed at: =G - [facility] [address] [id number] Director: Beth España MD, Phone: [phone] MCHC Auto (RBC) [Mass/Vol]on 12-27-2021 MCHC (RBC) [Mass/Vol] 33.6 g/dL 32-36 [facility] Work Phone: [phone] No Panel Informationon 12-27 Hepatitis B Surface Antigen Non-Reactive Nonreactive [facility] Work Phone: [phone] Hepatitis C Antibody Non-Reactive Nonreactive [facility] Work Phone: [phone] Comment on above: Non Reactive: < 0.8 Equivocal: >/= 0.8 to < 1.0 Reactive: >/= 1.0The [facility] recommends that a reactive/equivocal HCV antibody result be followed up by the HCV Nucleic Acid Amplificationtest (319025) MDMA (Ecstasy) Screen Negative < 500 ng/mL [facility] Work Phone: [phone] Miscellaneous Test Comment MAILED SPECIMEN [facility] Work Phone: [phone] Rubella IgG Antibody Reactive Nonreactive [facility] Work Phone: [phone] Comment on above: Antibody Results Int erpretation of Immune Status Non Reactive Presumed Non-Immune Equivocal Equivocal Reactive Presumed Immune Urine Barbiturates Screen Negative < 200 ng/mL [facility] Work Phone: [phone] Urine Drug Screen Comment [facility] Work Phone: [phone] Comment on above: CONFIRMATORY TESTING FOR ALL POSITIVE URINE DRUG SCREENRESULTS WILL ONLY BE SENT OUT UPON PHYSICIAN ORDER. VISTA Urine Drug Screen methods provide only preliminaryanalytical test results. A more specific alternate chemicalmethod must be used in order to obtain a confirmedanalytical result. Gas chromatography/mass spectrometery(GC/MS) is the preferred confirmatory method. Clinicalconsideration and professional judgement should be appliedto any drug of abuse test result, particularly whenpreliminary positive results are used. URINE TCA TESTING MUST BE ORDERED SEPARATELY. USE TESTMNEMONIC: UTCA Urine Methadone Screen Negative < 300 ng/mL [facility] Work Phone: [phone] Platelets bldon 12-27-2021 Platelets (Bld) [#/Vol] 313 10*3/uL 150-450 [facility] Work Phone: [phone] Serum Treponema species anti body detectionon 12-27-2021 Treponema sp Ab Ql (S) Non-Reactive [facility] Work Phone: [phone] Urine phencyclidine (PCP) de tectionon 12-27-2021 Phencyclidine Ql (U) Negative < 25 ng/mL [facility] Work Phone: Joseluis 03-22-2018 CNOV Office Visit (UCWSTR) OLESYA CH ([id number]) 89 FDate Time Provider Fglvruatmg10/8/18 12:15 PM YAAKOV MOSNON) [facility] During your visit today, we recorded the following information about you: Temperature Pulse Respiration Weight 98.9 degrees 83/minute 16/minute 55 kgBerboo Monson PA-C 03/22/2018 1:40 PM Cnkrfe5203/22/2018Patient presents with:itcht painful rash on arms and legs: x 2 weeksSUBJECTIVE: This is a 17 year old that is here today for Complaint(s) ofitching rash on arms/legs x 2 days. Patient states she has had poison molly thatstarted on in her inner thighs after taking care of a barn kitten. Was holdinghim between her legs feeding him. Has since had a rash spread to her arms.Overall not resolving. She has had some burning pain. Seems to haveunderlying hives at times as well. She does have a hx of allergy to cats.Taking benadryl. Denies fever/chills. Has tried OTC cortisone cream andbenadryl cream.PAST MEDICAL HISTORYDiagnosis Date- NEGATIVE MEDICAL HISTORY 10/18/11 normal color visionALLERGIES Enviromental [Other]MEDICATIONSCurren t Outpatient Prescriptions:fluticason e (FLONASE) 50 mcg/actuation nasal spray Use 1 Bath in each nostrildaily at bedtime.norgestimate 0.25 mg-ethinyl estradiol 35 mcg (SPRINTEC) 0.25-35 mg-mcg pertablet Take 1 tablet by mouth once daily.No current facility-administered medications for this visit.SOCIAL HISTORYSocial History Marital status: Single Spouse name: Years of education: Number of children:Social History Main Topics Smoking status: Never Smoker Smokeless tobacco: Never UsedREVIEW OF SYSTEMSAll other reviewed and negative other than HPI.OBJECTIVE:Pulse 83 Temp 37.2 ?C (98.9 ?F) (Tympanic) Resp 16 Wt 55 kg (121 lb3.2 oz)APPEARANCE Well appearing, alert, in no acute distress, well-hydrated, wellnourished.SKIN Skin: linear streaks of erythematous papules with/without pruritic smallvesicles located medial thighs BISMARK, and forearms. No underlying induration,warmth. Noted.ASSESSMENT/PLAN:1. Contact dermatitis, unspecified contact dermatitis type, unspecified trigger- ICD9: 692.9, ICD10: L25.9- discussed skin care of rash- follow up if symptoms persist or worsen.No obvious secondary bacterial infection at this time. Reviewed red flags andwhen to seek care sooner.- PREDNISONE 10 MG TABLETThe patient indicates understanding of these issues and agrees with the plan.Referring Provider: SELF [[id number]]Allergies As of Date: 03/22/2018 Noted Allergy Reactionenviromental [Other] 07/14/2005Date Reviewed: 03/22/2018Reviewed by: Noa Jain LPN - Fully AssessedReason for Visit: itcht painful rash on arms and legs [Other] Cmt: x 2 weeksPrimary Visit Diagnosis:Contact dermatitis, unspecified contact dermatitis type, unspecified trigger [L25.9]Order(s):predniSO NE (DELTASONE) 10 mg tabletTake 4 tabs daily x 3 days, then 3 tabs x 3 days, 2 tabs x 3 days, then 1 tab x3 days with food.Disp: 30 tabletRfl: 0 fluconazole (DIFLUCAN) 150 mg tabletTake 1 tablet by mouth once daily for 1 day.Disp: 1 tabletRfl: 0 nystatin (MYCOSTATIN) 100,000 unit/mL suspensionTake 5 mL by mouth four times daily. 1tsp swish in mouth for several minutes, then swallow (or expectorate) 4 times daily until gone.Disp: 200 mLRfl: 0Prescriptions as of 03/22/2018 Sig: FLUTICASONE 50 MCG/ACTUATION * Use 1 Bath in each nostril d* NORGESTIMATE 0.25 MG-ETHINYL * Take 1 tablet by mouth once d* PREDNISONE 10 MG TABLET Take 4 tabs daily x 3 days, t* FLUCONAZOLE 150 MG TABLET Take 1 tablet by mouth once d* NYSTATIN 100,000 UNIT/ML ORAL* Take 5 mL by mouth four times*Problem List As Of Date 03/22/2018 Noted Resolved ADD (attention deficit disorder) [F98.8] INVALID FOR* Pain in joint of right shoulder [M25.511] INVALID FOR* Chronic pain of right knee [M25.561, G89.29] INVALID FOR*Prescriptions ordered this encounter Disp Refills Start End PREDNISONE 10 MG TABLET 30 t* 0 03/22/2018 Sig: Take 4 tabs daily x 3 days, then 3 tabs x 3 days, 2 tabs x 3 days, then 1 tab x3 days with food. FLUCONAZOLE 150 MG TABLET 1 ta* 0 03/22/2018 03/23/2018 Class: Print RX Route: ORAL Sig: Take 1 tablet by mouth once daily for 1 day. NYSTATIN 100,000 UNIT/ML ORAL SUSPEN* 200 * 0 03/22/2018 Class: Print RX Route: ORAL Sig: Take 5 mL by mouth four times daily. 1tsp swish in mouth for several minutes, then swallow (or expectorate) 4 times daily until gone.Letter Keven Monson PA-C Urgent [address] [facility] [address]: [phone]/8/2018Jes dez Kaci ChPjmx[address] [facility] [address]Xu Whom it May Concern:This is to certify that Peyton Kaci Ch was seen at our office for medicalcare.If you have any questions please feel free to call.Sincerely:JAY JAY ZamoraCEncounter Number: [id number] Status:Closed by YAAKOV MONSON PA-C on 03/22/18 Normal [facility] PROGRESSon 03-22-2018 Protein mass conc HNO ID: [id number]: Yaakov Andrew) Salinaervice: (none)Author Type: Physician AssistantType: Progress NotesFiled: 03/22/2018 1:40 PMNote Text:03/22/2018Patient presents with:itcht painful rash on arms and legs: x 2 weeksSUBJECTIVE: This is a 17 year old that is here today for Complaint(s) ofitching rash on arms/legs x 2 days. Patient states she has had poison ivythat started on in her inner thighs after taking care of a barn kitten.Was holding him between her legs feeding him. Has since had a rash spreadto her arms. Overall not resolving. She has had some burning pain.Seems to have underlying hives at times as well. She does have a hx ofallergy to cats. Taking benadryl. Denies fever/chills. Has tried OTCcortisone cream and benadryl cream.PAST MEDICAL HISTORYDiagnosis Date- NEGATIVE MEDICAL HISTORY 10/18/11 normal color visionALLERGIES Enviromental [Other]MEDICATIONSCurren t Outpatient Prescriptions:fluticason e (FLONASE) 50 mcg/actuation nasal spray Use 1 Bath in eachnostril daily at bedtime.norgestimate 0.25 mg-ethinyl estradiol 35 mcg (SPRINTEC) 0.25-35 mg-mcgper tablet Take 1 tablet by mouth once daily.No current facility-administered medications for this visit.SOCIAL HISTORYSocial History Marital status: Single Spouse name: Years of education: Number of children:Social History Main Topics Smoking status: Never Smoker Smokeless tobacco: Never UsedREVIEW OF SYSTEMSAll other reviewed and negative other than HPI.OBJECTIVE:Pulse 83 Temp 37.2 ?C (98.9 ?F) (Tympanic) Resp 16 Wt 55 kg (121lb 3.2 oz)APPEARANCE Well appearing, alert, in no acute distress, well-hydrated,well nourished.SKIN Skin: linear streaks of erythematous papules with/without pruriticsmall vesicles located medial thighs BISMARK, and forearms. No underlyinginduration, warmth. Noted.ASSESSMENT/PLAN:1. Contact dermatitis, unspecified contact dermatitis type, unspecifiedtrigger - ICD9: 692.9, ICD10: L25.9- discussed skin care of rash- follow up if symptoms persist or worsen.No obvious secondary bacterial infection at this time. Reviewed red flagsand when to seek care sooner.- PREDNISONE 10 MG TABLETThe patient indicates understanding of these issues and agrees with theplan. Normal [facility] CBC and Differentialon 01-04 Abs Baso 0.07 k/uL Normal <0.11 [facility] Comment on above: Performed By: #### C BCDIF ####[address] Abs Wise 0.61 k/uL Normal <0.87 [facility] Comment on above: Performed By: #### C BCDIF ####[address] Abs Neut 4.83 k/uL Normal 1.45-7.50 [facility] Comment on above: Performed By: #### C BCDIF ####[address] Basophils/100 WBC Auto (Bld) 0.9 % Normal [facility] Comment on above: Performed By: #### C BCDIF ####[place] [address] Eosinophils Auto #/vol (Bld) 0.14 10*3/uL Normal <0.46 [facility] Comment on above: Performed By: #### C BCDIF ####[address] Eosinophils/100 WBC Auto (Bld) 1.8 % Normal [facility] Comment on above: Performed By: #### C BCDIF ####[place] [address] Erythrocyte distribution width Auto Ratio (RBC) 13.0 % Normal 11.5-15.0 [facility] Comment on above: Performed By: #### C BCDIF ####[address] Hematocrit Auto Volume Fraction (Bld) 41.5 % Normal 36.0-46.0 [facility] Comment on above: Performed By: #### C BCDIF ####[address] Hemoglobin mass conc (Bld) 14.0 g/dL Normal 11.5-15.5 [facility] Comment on above: Performed By: #### C BCDIF ####[address] Lymphocytes Auto #/vol (Bld) 2.01 10*3/uL Normal 1.00-4.00 [facility] Comment on above: Performed By: #### C BCDIF ####[address] Lymphocytes/100 WBC Auto (Bld) 26.2 % Normal [facility] Comment on above: Performed By: #### C BCDIF ####[address] MCH Auto Entitic mass (RBC) 29.9 pG Normal 26.0-34.0 [facility] Comment on above: Performed By: #### C BCDIF ####[place] [address] MCHC Auto mass conc (RBC) 33.7 g/dL Normal 30.5-36.0 [facility] Comment on above: Performed By: #### C BCDIF ####[address] MCV Auto Entitic volume (RBC) 88.5 fL Normal 80.0-100.0 [facility] Comment on above: Performed By: #### C BCDIF ####[address] Monocytes/100 WBC Auto (Bld) 8.0 % Normal [facility] Comment on above: Performed By: #### C BCDIF ####[place] [address] Neutrophils/100 WBC Auto (Bld) 63.1 % Normal [facility] Comment on above: Performed By: #### C BCDIF ####[address] Platelet mean volume Auto Entitic volume (Bld) 10.4 fL Normal 9.0-12.7 [facility] Comment on above: Performed By: #### C BCDIF ####[place] [address] Platelets Auto #/vol (Bld) 305 10*3/uL Normal 150-400 [facility] Comment on above: Performed By: #### C BCDIF ####[facility] [address] [place] [address] RBC Auto #/vol (Bld) 4.69 10*6/uL Normal 3.90-5.20 [facility] Comment on above: Performed By: #### C BCDIF ####[facility] [address] [place] [address] WBC Auto #/vol (Bld) 7.66 10*3/uL Normal 3.70-11.00 [facility] Comment on above: Performed By: #### C BCDIF ####[facility] [address] [place], [place] [id number] CNOVon 01-04-2018 CNOV Office Visit (PEMDNA) OLESYA CH ([id number]) [facility] Department01/04/18 9:15 AM LINDSEY VALDES PEMDNA During your visit today, we recorded the following information about you: Temperature Pulse Respiration Blood pressure 97.9 degrees 63/minute 20/minute 108/72 Weight Height Last Period 52.2 kg 1.575 m 01/04/18Lindsey Valdes DO 01/04/2018 10:15 AM Rcrjaj21 year old female presents for a routine 12+ year check-up. [] GENERAL QUESTIONS color enhancedsectionPatient concerns: Issues: recurrent thrush, yeast infections since being onprednisone 08/2016. Allergies, headaches( from allergies)Diet: milk: 2%; balanced diet; specific issues: NONEStools: NORMAL (soft and appropriately sized)Urine: NO PROBLEMSFluorideWater: uses significant amount of well waterOngoing subspecialty care: NONEOngoing ancillary care: NONESchool/etc: graduate school, doing well,Significant stresses: No [] SPORTS QUESTIONS color enhancedsectionHistory of seizures: NoHistory of concussion: NoHistory of syncope: NoHistory of heart problems: NoHistory of hypertension: NoHistory of asthma: YesHistory of single kidney: NoHistory of skeletal problems: NoHistory of any significant injury: NoFamily history of either heart problems or sudden Normal [facility] HISTORY PHYSICALon HISTORY PHYSICAL HNO ID: [id number]: Lindsey Obregon: (none)Author Type: PhysicianType: HANDPFiled: 01/04/2018 10:15 AMNote Text:17 year old female presents for a routine 12+ year check-up. [] GENERAL QUESTIONS colorenhanced sectionPatient concerns: Issues: recurrent thrush, yeast infections since beingon prednisone 08/2016. Allergies, headaches( from allergies)Diet: milk: 2%; balanced diet; specific issues: NONEStools: NORMAL (soft and appropriately sized)Urine: NO PROBLEMSFluorideWater: uses significant amount of well waterOngoing subspecialty care: NONEOngoing ancillary care: NONESchool/etc: graduate school, doing well,Significant stresses: No [] SPORTS QUESTIONS colorenhanced sectionHistory of seizures: NoHistory of concussion: NoHistory of syncope: NoHistory of heart problems: NoHistory of hypertension: NoHistory of asthma: YesHistory of single kidney: NoHistory of skeletal problems: NoHistory of any significant injury: NoFamily history of either heart problems or sudden Normal [facility] CNPTOUTREACHon 10-30-2017 [facility] (PEMDNA) OLESYA CH ([id number]) 89 FDate Time Provider Department10/30/17 [facility] VALDES [facility] During your visit today, we recorded the following information about you:Juliana Mackenzie Ma 03/26/2018 6:49 AM SignedPEDIATRIC OUTREACHSCHEDULE APPOINTMENTPeyton is overdue for her Well Visit.Please call patient and scheduleOffice Visit with Lindsey Valdes DO. Please verify PCP and change if needed.Ok to Override Doctors Schedule: Grey Contact info:[phone] (home) [phone] (cell)Please message me directly if there are any issues with scheduling.Thank you!SIGNATURE: Juliana Mackenzie Ma PATIENT NAME: Peyton AmezcuaATE: October 30, 2017 : 3:06 PMAllergies As of Date: 10/30/2017 Noted Allergy Reactionenviromental [Other] 07/14/2005Date Reviewed: 08/24/2017Reviewed by: Juliana Carbajal MA - Fully AssessedReason for Visit: [facility] [Other]Prescriptions as of 10/30/2017 Sig:X NORGESTIMATE 0.25 MG-ETHINYL * Take 1 tablet by mouth once d*X NYSTATIN 100,000 UNIT/ML ORAL* Take 5 mL by mouth four times*X AMOXICILLIN 875 MG TABLET Take 1 tablet by mouth twice *X PREDNISOLONE 15 MG/5 ML ORAL * Take 15 mL orally once daily *X FLUTICASONE 50 MCG/ACTUATION * Use 1 Bath in each nostril d*X ALBUTEROL SULFATE HFA 90 MCG/* Inhale 2 Puffs as instructed *X CLARITIN ORAL Take by mouth.Problem List As Of Date 10/30/2017 Noted Resolved ADD (attention deficit disorder) [F98.8] INVALID FOR* Pain in joint of right shoulder [M25.511] INVALID FOR* Chronic pain of right knee [M25.561, G89.29] INVALID FOR* Status:Closed by AVG TechnologiesUSER on 03/26/18 Normal [facility] PROGRESSon 10-30-2017 Protein mass conc HNO ID: [id number]: Juliana Mackenzie MaService: (none)Author Type: (none)Type: Progress NotesFiled: 03/26/2018 6:49 AMNote Text:PEDIATRIC OUTREACHSCHEDULE APPOINTMENTPeyton is overdue for her Well Visit.Please call patient and scheduleOffice Visit with Lindsey Valdes DO. Please verify PCP and change ifneeded.Ok to Override Doctors Schedule: Grey Contact info:[phone] (home) [phone] (cell)Please message me directly if there are any issues with scheduling.Thank you!SIGNATURE: Juliana Mackenzie Ma PATIENT NAME: Peyton AmezcuaATE: October 30, 2017 : 3:06 PM [facility] CNOVon 08-24-2017 CNOV Office Visit (PEMDNA) OLESYA CH ([id number]) 89 FDate Time Provider Department08/24/17 9:00 AM KARIME HOLLOWAY (FULL TIME) PEMDNA During your visit today, we recorded the following information about you: Temperature Blood pressure Weight Last Period 97.6 degrees 112/64 51.6 kg 08/19/17Karime Holloway CNP, CHIEF DRAFTER.GUZMAN 08/24/2017 9:46 AM Addendum5 to Go!TMHealthy Kids Inside ANDamp; Out5 Eat FIVE fruits and veggies a day4 Give and get FOUR compliments a day3 Consume THREE calcium products a day2 Limit media time to TWO hours a day1 Get at least ONE hour of exercise a day0 Consume ZERO sugar-sweetened drinksGo! Be healthy, inside and out!www.Lexim. org/5toGo5 to Go!TMHealthy Kids Inside ANDamp; Out5 Eat FIVE fruits and veggies a day4 Give and get FOUR compliments a day3 Consume THREE calcium products a day2 Limit media time to TWO hours a day1 Get at least ONE hour of exercise a day0 Consume ZERO sugar-sweetened drinksGo! Be healthy, inside and out!www.Lexim. org/5toGoOral Contraceptives: The PillPill Benefits The pill is the most popular method of reversible control being usedtoday. Nearly 10 million women rely on oral contraceptives as their birthcontrol method. It is important to have an examination by your physician todetermine if the pill is safe foe you. There are several advantages associatedwith the pill: it is 97-98% effective; may improve acne; periods are moreregular and less painful; there is less iron deficiency anemia in pill users.penitentiary use is associated with a decreased incidence of ovarian and uterinecancer; and there is less risk of pelvic infection. There is also no evidencethat the pill increases the incidence of any cancer.Normal Reproduction The pituitary gland, which lies at the base of the brain, secretes a hormonethat effects the ovaries and stimulates the ovaries to release a ripened egg -a process known as ovulation. This process occurs 10-18 days after the start ofmenstruation. This is the time when can occur. The egg travels downthe fallopian tube where, if it meets the male sperm it may be fertilized(conception). Whether or not conception occurs, the egg continues to travelthrough the fallopian tube to the uterus. If the egg is not fertilized it willnot implant in the lining of the uterus and then pass out of the uterus withthe lining at the time of menstruation. An average menstural cycle is 28 daysand is calculated by counting the first day of your period as day 1 andcounting until you start your next period. During the normal menstural cycle two hormones are produced by the ovaries.The first is estrogen, which is produced in the first part of the cycle-peakingwith ovulation, and the second is progesterone which starts after ovulation isresponsible for preparing the lining of the uterus for a fertilized egg.How Oral Contraceptives Work Oral contraceptives come in two varieties. One is the combination pill whichcontains both estrogen and progesterone. combination pills are bwtjkagghv66-85% effective in preventing . This pill comes in either monophasic-which delivers the same amount of estrogen and progesterone throughout thecycle; and triphasic- which try tries to mimic the normal hormone cycle bychanging the levels of the hormones in the pills during the month. There is noreal advantage to taking the one over the other. the other type of pill onlycontains progesterone. it is best used for women who can?t take estrogen. Thistype of pill is considered 96% effective in preventing . Oralcontraceptives prevent ovulation from occurring by suppressing the pituitarygland?s action.Obtaining a Prescription It is important to see your doctor before starting oral contraceptives so thatyou can have a full medical history taken and a physical examination given.During your physical examination you will have the following:? Blood pressure check? Pelvic and breast examination? Pap test? Other laboratory tests if indicated Certain medical conditions may make the pill inappropriate for you, thereforeit is very important to be honest and as complete as possible with theinformation you share with your doctor. The types of predisposing factors which would make the pill a poor choice ofbirth control would include:? History of blood clots? Stroke? Serious liver disease or impaired liver function? Unexplained vaginal bleeding or ? Cancer of the reproductive system? Active gall bladder disease? HypertensionBeginning the Pill Pills come in either a 21 day pack or a 28 day pack. With the 21 day pack youwill take one pill for 21 days then no pill for 7 days, during which time youwill have what is known as withdrawal bleeding. The 28 day pack allows you to take a pill every day of the cycle with nointerruptions. The first 21 pills are the pills with the active ingredients andthe last 7 are the nonmedical pills (placebo) or they may contain iron. Therewill be bleeding during the week you are taking the nonmedical pills. Theadvantage to the 28 day pack is that you don?t have to keep track of when youstopped the pill.? Your physician will instruct you when to begin taking the pill.? Use another form of control along with the pills for 1 month.? Read your information packet that comes with the pills.Possible Side Effects It can take up to three months for your body to become adjusted to the pill.The more common side effects experienced at this time are: break throughspotting or bleeding, which is bleeding at any other time other than when youshould be having a period; nausea or vomiting; breast tenderness; and mildfluid retention. There is no oysterman eight gain with the use of the pill.Breakthrough bleeding is the most common complaint of new pill users. There isno way to predict who will have it and there is no way of preventing it.Breakthrough bleeding usually subsides on its own with no further treatmentafter the first three months of taking the pill. If these symptoms continue tooccur after the first three months you should check with your physician to seeif there is any physical cause and possibly change to another controlpill. Occasionally you can miss a period while you are taking oral contraceptives.If you have not missed taking any pills in your packet, then begin the nextpacket of pills when you normally would. If you have stopped taking the pillsin the middle of the pack, notify your doctor and use another form of birthcontrol.Problems:1. Missed 1 pill: Take 2 pills the next day.2. Missed 2 pills: Take 2 pills the next day and 2 pills the following day.Also use another form of control along with the pill for the rest of themonth.3. Missed 3 or more pills: You have two choices. You can take two pills eachday until you are on schedule, plus use an additional form of controlalong with the pill for the rest of the month. Or you can stop the pill andstart a completely new pack of pills the next Thursday. You must use another formof control with the pill for at least the first two weeks of the new pack.4. You?re ill and you have been vomiting or have diarrhea: You must use anotherform of control with the pill since the pill may not be fully absorbedduring your illness. Continue to use the added control until the end ofthe cycle.5. Desire to become : Stop using the pill for one month before tryingto become , use another form of control during this time.6. Taking other medications: The control pill is less effective when youtake- Ampicillin, Penicillin, Tetracycline, Rifampin, antieleptic drugs such asDilantin, Bactrim and Septra. This medication encourage rapid metabolism of thehormone components of the pill.Symptoms to Notify Your Doctor with Immediately:1. Pain- head, chest or legs2. Continuos blurred vision3. Severe headaches4. Slurred speech5. Tingling or weakness on one side of your body6. Shortness of breath7. Swelling of one leg8. Any change that concerns youRefills of Control Pills You need to see a doctor every year for a refill of your prescription. This isnecessary in order that your health can be monitored closely while you aretaking control pills. If your prescription should before your nextscheduled appointment you can usually get a one month extension from yourdoctors office if you call during regular business hours about one week beforeyou need to start the new package of pills. This allows the physician to referto your chart for necessary health information.Karime Holloway CNPDepartment of PediatricsBarberton Citizens [phone] Holloway CNP, CHIEF DRAFTER.GUZMAN 08/24/2017 10:57 AM SignedPEDIATRIC CONTRACEPTION INITIAL VISITSERVICE DATE: 08/24/2017SERVICE TIME: 1000Jessjoy Ch is a 16 year old female who presents today with mother withdesire to start hormonal contraception. Has problems with dysmenorrhea and isalso in a relationship with a steady boyfriend but has never been sexuallyactive.Also has issue with repeated occurrences of thrush. Feels like it is startingagain in her mouth behind bottom teeth. Mom would like Rx. For nystatinrefilled.LMP: 08/20/2017Cycles are regular at times, irregular other times. May get periods regularlyfor several months in a row then become irregular.Dysmenorrhea: Moderate-severeChanges pad/tampon 8 times per day.Pregnancies: none.Sexual History:Sexually Active: NoPAST MEDICAL HISTORYDiagnosis Date- NEGATIVE MEDICAL HISTORY 10/18/11 normal color visionHistory of PE or DVT? NoFMH:Hypercoagulable disorder? NoPE or DVT? NoHeart disease prior to age 50 Y/O? NoStroke prior to age 50 Y/O? NoSOCIAL HISTORY:Tobacco use? NoROS:Headaches? Yes-occasionally. Not migraines. Per dentist likely due to wisdomteethAbdominal pain? NoDysuria? NoLeukorrhea? NoEpistaxis, easy bruising or gingival bleeding with brushing? NoENT: c/o pain on back of right gums and in throat-is concerned thrush may berecurring.PHYSICAL EXAM:BP 112/64 (BP Site: Right Arm, BP Position: Sitting, BP Cuff Size: Small Adult) Temp 36.4 ?C (97.6 ?F) (Oral) Wt 51.6 kg (113 lb 12.8 oz) LMP 08/19/2017No height and weight on file for this encounter.GENERAL: Well developed, No acute distressNECK: supple and no adenopathyRESP: clear to auscultation bilaterally, good air exchange, no retractionsHEART: Normal rate, regular rhythm, no murmurABDOMEN: Soft, nontender, nondistended, no palpable organomegaly or masses,normal bowel soundsGU: DeferredSKIN: Normal color, texture and turgor. No rashes.ENT: no s/s oral thrush noted at this time.ASSESSMENT/PLAN:Enc ounter Diagnosis ICD-10-CM1. Oral contraception initial prescription Z30.011 norgestimate 0.25 mg-ethinylestradiol 35 mcg (SPRINTEC) 0.25-35 mg-mcg per tablet2. Primary dysmenorrhea N94.4 norgestimate 0.25 mg-ethinyl estradiol 35 mcg(SPRINTEC) 0.25-35 mg-mcg per tablet3. Oral thrush B37.0 nystatin (MYCOSTATIN) 100,000 unit/mL suspensionDiscussed various methods of contraception available. After discussion ptwould like to start with OCP at this time.-Risks, benefits, usual side effects of hormonal contraception discussed.Discussed red flags that immediately need to be seen.-Discussed importance of condoms to prevent STIs and as second method of birthcontrol, importance of taking OCP at same time everyday (set alarm on mobilephone) and importance of healthly eating habits-Follow up in 3 months-No evidence of oral thrush noted at this time. Can use the Nystatin ifneeded.SIGNATURE: Karime Holloway CNP PATIENT NAME: Peyton FallyDATE: August 24, 2017 : 9:16 AMReferring Provider: SELF [[id number]]Allergies As of Date: 08/24/2017 Noted Allergy Reactionenviromental [Other] 07/14/2005Date Reviewed: 08/24/2017Reviewed by: Juliana Oconnell) DANIEL Carbajal - Fully AssessedReason for Visit: Irregular Menstrual Cycle [278] Cmt: abdominal cramping, nausea at the beginning - getting heavierPrimary Visit Diagnosis:Oral contraception initial prescription [Z30.011] Other Visit Diagnoses:Primary dysmenorrhea [N94.4] Oral thrush [B37.0]Order(s):norgesti mate 0.25 mg-ethinyl estradiol 35 mcg (SPRINTEC) 0.25-35 mg-mcg per tabletTake 1 tablet by mouth once daily for 28 days.Disp: 28 tabletRfl: 0 nystatin (MYCOSTATIN) 100,000 unit/mL suspensionTake 5 mL by mouth four times daily. 1tsp swish in mouth for several minutes, then swallow (or expectorate) 4 times daily until gone.Disp: 200 mLRfl: 0Prescriptions as of 08/24/2017 Sig: NORGESTIMATE 0.25 MG-ETHINYL * Take 1 tablet by mouth once d* NYSTATIN 100,000 UNIT/ML ORAL* Take 5 mL by mouth four times* PREDNISOLONE 15 MG/5 ML ORAL * Take 15 mL orally once daily * FLUTICASONE 50 MCG/ACTUATION * Use 1 Bath in each nostril d* ALBUTEROL SULFATE HFA 90 MCG/* Inhale 2 Puffs as instructed * CLARITIN ORAL Take by mouth.Problem List As Of Date 08/24/2017 Noted Resolved ADD (attention deficit disorder) [F98.8] INVALID FOR* Pain in joint of right shoulder [M25.511] INVALID FOR* Chronic pain of right knee [M25.561, G89.29] INVALID FOR* Other instructions from your clinician: 5 to Go!TM Healthy Kids Inside AND Out 5 Eat FIVE fruits and veggies a day 4 Give and get FOUR compliments a day 3 Consume THREE calcium products a day 2 Limit media time to TWO hours a day 1 Get at least ONE hour of exercise a day 0 Consume ZERO sugar-sweetened drinks Go! Be healthy, inside and out! www.[employer]/ 5toGo 5 to Go!TM Healthy Kids Inside AND Out 5 Eat FIVE fruits and veggies a day 4 Give and get FOUR compliments a day 3 Consume THREE calcium products a day 2 Limit media time to TWO hours a day 1 Get at least ONE hour of exercise a day 0 Consume ZERO sugar-sweetened drinks Go! Be healthy, inside and out! www.[employer]/ [employer] Oral Contraceptives: The Pill Pill Benefits The pill is the most popular method of reversible control being used today. Nearly 10 million women rely on oral contraceptives as their control method. It is important to have an examination by your physician to determine if the pill is safe foe you. There are several advantages associated with the pill: it is 97-98% effective; may improve acne; periods are more regular and less painful; there is less iron deficiency anemia in pill users. penitentiary use is associated with a decreased incidence of ovarian and uterine cancer; and there is less risk of pelvic infection. There is also no evidence that the pill increases the incidence of any cancer. Normal Reproduction The pituitary gland, which lies at the base of the brain, secretes a hormone that effects the ovaries and stimulates the ovaries to release a ripened egg - a process known as ovulation. This process occurs 10-18 days after the start of menstruation. This is the time when can occur. The egg travels down the fallopian tube where, if it meets the male sperm it may be fertilized (conception). Whether or not conception occurs, the egg continues to travel through the fallopian tube to the uterus. If the egg is not fertilized it will not implant in the lining of the uterus and then pass out of the uterus with the lining at the time of menstruation. An average menstural cycle is 28 days and is calculated by counting the first day of your period as day 1 and counting until you start your next period. During the normal menstural cycle two hormones are produced by the ovaries. The first is estrogen, which is produced in the first part of the cycle-peaking with ovulation, and the second is progesterone which starts after ovulation is responsible for preparing the lining of the uterus for a fertilized egg. How Oral Contraceptives Work Oral contraceptives come in two varieties. One is the combination pill which contains both estrogen and progesterone. combination pills are considered 98-99% effective in preventing . This pill comes in either monophasic- which delivers the same amount of estrogen and progesterone throughout the cycle; and triphasic- which try tries to mimic the normal hormone cycle by changing the levels of the hormones in the pills during the month. There is no real advantage to taking the one over the other. the other type of pill only contains progesterone. it is best used for women who can?t take estrogen. This type of pill is considered 96% effective in preventing . Oral contraceptives prevent ovulation from occurring by suppressing the pituitary gland?s action. Obtaining a Prescription It is important to see your doctor before starting oral contraceptives so that you can have a full medical history taken and a physical examination given. During your physical examination you will have the following: ? Blood pressure check ? Pelvic and breast examination ? Pap test ? Other laboratory tests if indicated Certain medical conditions may make the pill inappropriate for you, therefore it is very important to be honest and as complete as possible with the information you share with your doctor. The types of predisposing factors which would make the pill a poor choice of control would include: ? History of blood clots ? Stroke ? Serious liver disease or impaired liver function ? Unexplained vaginal bleeding or ? Cancer of the reproductive system ? Active gall bladder disease ? Hypertension Beginning the Pill Pills come in either a 21 day pack or a 28 day pack. With the 21 day pack you will take one pill for 21 days then no pill for 7 days, during which time you will have what is known as withdrawal bleeding. The 28 day pack allows you to take a pill every day of the cycle with no interruptions. The first 21 pills are the pills with the active ingredients and the last 7 are the nonmedical pills (placebo) or they may contain iron. There will be bleeding during the week you are taking the nonmedical pills. The advantage to the 28 day pack is that you don?t have to keep track of when you stopped the pill. ? Your physician will instruct you when to begin taking the pill. ? Use another form of control along with the pills for 1 month. ? Read your information packet that comes with the pills. Possible Side Effects It can take up to three months for your body to become adjusted to the pill. The more common side effects experienced at this time are: break through spotting or bleeding, which is bleeding at any other time other than when you should be having a period; nausea or vomiting; breast tenderness; and mild fluid retention. There is no residential eight gain with the use of the pill. Breakthrough bleeding is the most common complaint of new pill users. There is no way to predict who will have it and there is no way of preventing it. Breakthrough bleeding usually subsides on its own with no further treatment after the first three months of taking the pill. If these symptoms continue to occur after the first three months you should check with your physician to see if there is any physical cause and possibly change to another control pill. Occasionally you can miss a period while you are taking oral contraceptives. If you have not missed taking any pills in your packet, then begin the next packet of pills when you normally would. If you have stopped taking the pills in the middle of the pack, notify your doctor and use another form of control. Problems: 1. Missed 1 pill: Take 2 pills the next day. 2. Missed 2 pills: Take 2 pills the next day and 2 pills the following day. Also use another form of control along with the pill for the rest of the month. 3. Missed 3 or more pills: You have two choices. You can take two pills each day until you are on schedule, plus use an additional form of control along with the pill for the rest of the month. Or you can stop the pill and start a completely new pack of pills the next Thursday. You must use another form of control with the pill for at least the first two weeks of the new pack. 4. You?re ill and you have been vomiting or have diarrhea: You must use another form of control with the pill since the pill may not be fully absorbed during your illness. Continue to use the added control until the end of the cycle. 5. Desire to become : Stop using the pill for one month before trying to become , use another form of control during this time. 6. Taking other medications: The control pill is less effective when you take- Ampicillin, Penicillin, Tetracycline, Rifampin, antieleptic drugs such as Dilantin, Bactrim and Septra. This medication encourage rapid metabolism of the hormone components of the pill. Symptoms to Notify Your Doctor with Immediately: 1. Pain- head, chest or legs 2. Continuos blurred vision 3. Severe headaches 4. Slurred speech 5. Tingling or weakness on one side of your body 6. Shortness of breath 7. Swelling of one leg 8. Any change that concerns you Refills of Control Pills You need to see a doctor every year for a refill of your prescription. This is necessary in order that your health can be monitored closely while you are taking control pills. If your prescription should before your next scheduled appointment you can usually get a one month extension from your doctors office if you call during regular business hours about one week before you need to start the new package of pills. This allows the physician to refer to your chart for necessary health information. Karime Holloway CNP Department of Pediatrics [facility] Prescriptions ordered this encounter Disp Refills Start End NORGESTIMATE 0.25 MG-ETHINYL ESTRADI* 28 t* 0 08/24/2017 09/21/2017 Route: ORAL Sig: Take 1 tablet by mouth once daily for 28 days. NYSTATIN 100,000 UNIT/ML ORAL SUSPEN* 200 * 0 08/24/2017 Route: ORAL Sig: Take 5 mL by mouth four times daily. 1tsp swish in mouth for several minutes, then swallow (or expectorate) 4 times daily until gone.Medications Discontinued During This Encounter nystatin (MYCOSTATIN) 100,000 unit/m* 200 * 0 08/20/2016 08/24/2017 Route: ORAL Sig: Take 5 mL by mouth four times daily. 1tsp swish in mouth for several minutes, then swallow (or expectorate) 4 times daily until gone. Disc: Reason for discontinue is not on file. Status:Closed by KARIME HOLLOWAY CNP on 08/24/17 [facility] PROGRESSon 08-24-2017 Protein mass conc HNO ID: [id number]: Karime Monaco) GIA Holloway.CNPService: (none)Author Type: Nurse PractitionerType: Progress NotesFiled: 08/24/2017 10:57 AMNote Text:PEDIATRIC CONTRACEPTION INITIAL VISITSERVICE DATE: 08/24/2017SERVICE TIME: AppleJekate Ch is a 16 year old female who presents today with mother withdesire to start hormonal contraception. Has problems with dysmenorrheaand is also in a relationship with a steady boyfriend but has never beensexually active.Also has issue with repeated occurrences of thrush. Feels like it isstarting again in her mouth behind bottom teeth. Mom would like Rx. Fornystatin refilled.LMP: 08/20/2017Cycles are regular at times, irregular other times. May get periodsregularly for several months in a row then become irregular.Dysmenorrhea: Moderate-severeChanges pad/tampon 8 times per day.Pregnancies: none.Sexual History:Sexually Active: NoPAST MEDICAL HISTORYDiagnosis Date- NEGATIVE MEDICAL HISTORY 10/18/11 normal color visionHistory of PE or DVT? NoFMH:Hypercoagulable disorder? NoPE or DVT? NoHeart disease prior to age 50 Y/O? NoStroke prior to age 50 Y/O? NoSOCIAL HISTORY:Tobacco use? NoROS:Headaches? Yes-occasionally. Not migraines. Per dentist likely due towisdom teethAbdominal pain? NoDysuria? NoLeukorrhea? NoEpistaxis, easy bruising or gingival bleeding with brushing? NoENT: c/o pain on back of right gums and in throat-is concerned thrush maybe recurring.PHYSICAL EXAM:BP 112/64 (BP Site: Right Arm, BP Position: Sitting, BP Cuff Size: SmallAdult) Temp 36.4 ?C (97.6 ?F) (Oral) Wt 51.6 kg (113 lb 12.8 oz) LMP08/19/2017No height and weight on file for this encounter.GENERAL: Well developed, No acute distressNECK: supple and no adenopathyRESP: clear to auscultation bilaterally, good air exchange, noretractionsHEART: Normal rate, regular rhythm, no murmurABDOMEN: Soft, nontender, nondistended, no palpable organomegaly ormasses, normal bowel soundsGU: DeferredSKIN: Normal color, texture and turgor. No rashes.ENT: no s/s oral thrush noted at this time.ASSESSMENT/PLAN:Enc ounter Diagnosis ICD-10-CM1. Oral contraception initial prescription Z30.011 norgestimate 0.25mg-ethinyl estradiol 35 mcg (SPRINTEC) 0.25-35 mg-mcg per tablet2. Primary dysmenorrhea N94.4 norgestimate 0.25 mg-ethinyl estradiol 35mcg (SPRINTEC) 0.25-35 mg-mcg per tablet3. Oral thrush B37.0 nystatin (MYCOSTATIN) 100,000 unit/mL suspensionDiscussed various methods of contraception available. After discussion ptwould like to start with OCP at this time.-Risks, benefits, usual side effects of hormonal contraception discussed.Discussed red flags that immediately need to be seen.-Discussed importance of condoms to prevent STIs and as second method ofbirth control, importance of taking OCP at same time everyday (set TheDig[employer]elon mobile phone) and importance of healthly eating habits-Follow up in 3 months-No evidence of oral thrush noted at this time. Can use the Nystatin ifneeded.SIGNATURE: Karime Holloway CNP PATIENT NAME: Peyton FallyDATE: August 24, 2017 : 9:16 AM [facility] Culture, urine Bacteria identified Cx Nom (U) Culture exhibits no growth. [facility] Work Phone: Vital Signs Date Time Vital Sign Value Performing Clinician Aayush hayes 11-21-2024 10:16040 Body height 160.02 cm No Primary Care Physician [facility] 11-21-2024 10:16-040 Body mass index (BMI) [Ratio] 22 kg/m2 No Primary Care Physician [facility] 11-21-2024 10:16040 Body weight 56.35 kg No Primary Care Physician [facility] 11-21-2024 10:16-0400 Diastolic blood pressure 86 mm[Hg] No Primary Care Physician [facility] 11-21-2024 10:160400 Systolic blood pressure 135 mm[Hg] No Primary Care Physician [facility] 10-25-2024 13:03-0400 Body height 160.02 cm No Primary Care Physician [facility] 10-25-2024 13:03-0400 Body mass index (BMI) [Ratio] 21.2 kg/m2 No Primary Care Physician [facility] 10-25-2024 13:03-0400 Body weight 54.2 kg No Primary Care Physician [facility] 10-25-2024 13:03-0400 Diastolic blood pressure 75 mm[Hg] No Primary Care Physician [facility] 10-25-2024 13:03-0400 Systolic blood pressure 135 mm[Hg] No Primary Care Physician [facility] 07-15-2024 08:48-0500 Body mass index (BMI) [Ratio] 21.7 kg/m2 No Primary Care Physician [facility] 07-15-2024 08:48-0500 Body weight 55.45 kg No Primary Care Physician [facility] 07-15-2024 08:48-0500 Diastolic blood pressure 81 mm[Hg] No Primary Care Physician [facility] 07-15-2024 08:48-0500 Systolic blood pressure 126 mm[Hg] No Primary Care Physician [facility] 07-08-2022 11:54-0500 Body height 160.02 cm No Primary Care Physician [facility] 07-08-2022 11:54-0500 Body mass index (BMI) [Ratio] 25 kg/m2 No Primary Care Physician [facility] 07-08-2022 11:54-0500 Body weight 64.18 kg No Primary Care Physician [facility] 07-08-2022 11:54-0500 Diastolic blood pressure 83 mm[Hg] No Primary Care Physician [facility] 07-08-2022 11:54-0500 Systolic blood pressure 133 mm[Hg] No Primary Care Physician [facility] 06-30-2022 09:32-0500 Body weight 63.41 kg No Primary Care Physician [facility] 06-30-2022 09:32-0500 Diastolic blood pressure 73 mm[Hg] No Primary Care Physician [facility] 06-30-2022 09:32-0500 Systolic blood pressure 122 mm[Hg] No Primary Care Physician [facility] 06-30-2022 08:57-0500 Body height 160.02 cm No Primary Care Physician [facility] 06-24-2022 09:03-0500 Body mass index (BMI) [Ratio] 24.5 kg/m2 No Primary Care Physician [facility] 06-24-2022 09:03-0500 Body weight 62.82 kg No Primary Care Physician [facility] 06-24-2022 09:03-0500 Diastolic blood pressure 83 mm[Hg] No Primary Care Physician [facility] 06-24-2022 09:03-0500 Systolic blood pressure 135 mm[Hg] No Primary Care Physician [facility] 06-17-2022 16:01-0500 Body mass index (BMI) [Ratio] 24.3 kg/m2 No Primary Care Physician [facility] 06-17-2022 16:01-0500 Body weight 62.25 kg No Primary Care Physician [facility] 06-17-2022 16:01-0500 Diastolic blood pressure 67 mm[Hg] No Primary Care Physician [facility] 06-17-2022 16:01-0500 Systolic blood pressure 113 mm[Hg] No Primary Care Physician [facility] 05-26-2022 09:06-0500 Body mass index (BMI) [Ratio] 24.6 kg/m2 No Primary Care Physician [facility] 05-26-2022 09:06-0500 Body weight 63.04 kg No Primary Care Physician [facility] 05-26-2022 09:06-0500 Diastolic blood pressure 62 mm[Hg] No Primary Care Physician [facility] 05-26-2022 09:06-0500 Systolic blood pressure 102 mm[Hg] No Primary Care Physician [facility] 04-30-2022 10:33-0500 Body mass index (BMI) [Ratio] 24.7 kg/m2 No Primary Care Physician [facility] 04-30-2022 10:33-0500 Body weight 63.27 kg No Primary Care Physician [facility] 04-30-2022 10:33-0500 Diastolic blood pressure 68 mm[Hg] No Primary Care Physician [facility] 04-30-2022 10:33-0500 Systolic blood pressure 106 mm[Hg] No Primary Care Physician [facility] 04-14-2022 09:42-0400 Body mass index (BMI) [Ratio] 23.6 kg/m2 No Primary Care Physician [facility] 04-14-2022 09:42-0400 Body weight 60.44 kg No Primary Care Physician [facility] 04-14-2022 09:42-0400 Diastolic blood pressure 76 mm[Hg] No Primary Care Physician [facility] 04-14-2022 09:42-0400 Systolic blood pressure 110 mm[Hg] No Primary Care Physician [facility] 03-21-2022 11:24-0400 Body mass index (BMI) [Ratio] 22.7 kg/m2 No Primary Care Physician [facility] 03-21-2022 11:24-0400 Body weight 58.22 kg No Primary Care Physician [facility] 03-21-2022 11:24-0400 Diastolic blood pressure 69 mm[Hg] No Primary Care Physician [facility] 03-21-2022 11:24-0400 Systolic blood pressure 106 mm[Hg] No Primary Care Physician [facility] 02-19-2022 10:32-0400 Body height 160.02 cm No Primary Care Physician [facility] Work Phone: 02-19-2022 10:32-0400 Body mass index (BMI) [Ratio] 21.5 kg/m2 No Primary Care Physician [facility] Work Phone: 02-19-2022 10:32-0400 Body weight 55.11 kg No Primary Care Physician [facility] Work Phone: 02-19-2022 10:32-0400 Diastolic blood pressure 73 mm[Hg] No Primary Care Physician [facility] Work Phone: 02-19-2022 10:32-0400 Systolic blood pressure 128 mm[Hg] No Primary Care Physician [facility] Work Phone: 01-20-2022 11:48-0400 Body mass index (BMI) [Ratio] 20 kg/m2 No Primary Care Physician [facility] Work Phone: 01-20-2022 11:48-0400 Body weight 51.36 kg No Primary Care Physician [facility] Work Phone: 01-20-2022 11:48-0400 Diastolic blood pressure 60 mm[Hg] No Primary Care Physician [facility] Work Phone: 01-20-2022 11:48-0400 Systolic blood pressure 108 mm[Hg] No Primary Care Physician [facility] Work Phone: 12-27-2021 15:23-0400 Diastolic blood pressure 80 mm[Hg] No Primary Care Physician [facility] Work Phone: 12-27-2021 15:23-0400 Systolic blood pressure 102 mm[Hg] No Primary Care Physician [facility] Work Phone: 12-27-2021 14:25-0400 Body height 160.02 cm No Primary Care Physician [facility] Work Phone: 12-27-2021 14:25-0400 Body mass index (BMI) [Ratio] 19.8 kg/m2 No Primary Care Physician [facility] Work Phone: 12-27-2021 14:25-0400 Body weight 50.8 kg No Primary Care Physician [facility] Work Phone: Encounters Encounter Date Encounter Type Care Provider Facility Start: 11-21-2024 End: 11-21-2024 ambulatory No Primary Care Physician [facility] Work Phone: Start: 11-21-2024 End: 11-21-2024 Patient encounter procedure Irma Quinn CNM -[facility] Work Phone: Start: 10-25-2024 End: 10-25-2024 ambulatory No Primary Care Physician [facility] Work Phone: Start: 10-25-2024 End: 10-25-2024 Patient encounter procedure Irma Quinn CNM -[facility] Work Phone: Start: 10-25-2024 End: 10-25-2024 Patient encounter procedure Irma Quinn CNM -[facility] Work Phone: Start: 10-25-2024 End: 10-25-2024 ambulatory No Primary Care Physician [facility] Work Phone: Start: 10-25-2024 End: 10-25-2024 ambulatory No Primary Care Physician Facility:[facility] Start: 07-15-2024 End: 07-15-[address] Sejal Romero DO [facility] Work Phone: Start: 07-15-2024 End: 07-15-2024 ambulatory No Primary Care Physician Facility:[facility] Start: 01-05-2023 End: 01-06-2023 ambulatory HIREN VALENTIN MD Facility:A Start: 01-04-2023 End: 01-05-2023 Emergency department patient visit DR BENJAMIN SHELTON MD Facility:B Start: 07-08-2022 End: 07-08-2022 Patient encounter procedure No Primary Care Physician [facility] Start: 06-30-2022 End: 06-30-2022 Patient encounter procedure No Primary Care Physician [facility] Start: 06-26-2022 End: 06-26-2022 ambulatory No Primary Care Physician [facility] Work Phone: Start: 06-26-2022 End: 06-26-2022 Patient encounter procedure No Primary Care Physician [facility]Ultras[facility] Start: 06-24-2022 End: 06-24-2022 ambulatory No Primary Care Physician [facility] Work Phone: Start: 06-24-2022 End: 06-24-2022 Patient encounter procedure No Primary Care Physician [facility]-Laboratory, Specimen Start: 06-24-2022 End: 06-24-2022 Patient encounter procedure No Primary Care Physician [facility] Start: 06-17-2022 End: 06-17-2022 Patient encounter procedure No Primary Care Physician [facility] Start: 05-26-2022 End: 05-26-2022 Patient encounter procedure No Primary Care Physician [facility] Start: 04-30-2022 End: 04-30-2022 Patient encounter procedure No Primary Care Physician [facility] Start: 04-14-2022 End: 04-14-2022 ambulatory No Primary Care Physician [facility] Work Phone: Start: 04-14-2022 End: 04-14-2022 Patient encounter procedure No Primary Care Physician [facility] Start: 03-21-2022 End: 03-21-2022 Patient encounter procedure No Primary Care Physician [facility] Start: 03-04-2022 End: 03-04-2022 ambulatory No Primary Care Physician [facility] Work Phone: Start: 03-04-2022 End: 03-04-2022 Patient encounter procedure No Primary Care Physician [facility] Start: 02-19-2022 End: 02-19-2022 Patient encounter procedure No Primary Care Physician [facility] Start: 01-20-2022 End: 01-20-2022 Patient encounter procedure No Primary Care Physician [facility] Start: 12-27-2021 End: 12-27-2021 Patient encounter procedure No Primary Care Physician [facility] Start: 03-22-2018 End: 03-23-2018 Patient encounter KARIME HOLLOWAY [facility] Start: 01-04-2018 End: 01-06-2018 Patient encounter LINDSEY VALDES [facility] Start: 08-24-2017 End: 08-25-2017 Patient encounter KARIME MONACO) KING [facility] Procedures Date Procedure Procedure Detail Performing Clinician Start: 10-25-2024 Liquid based cervica l cytology screening No Primary Care Physician Comment on above: NEGATIVE FOR INTRAEP ITHELIAL LESION OR MALIGNANCY. This liquid based Th inPrep(R) pap test was screened withthe use of an image guided system. The HPV DNA reflex c riteria were not met with this specimenresult therefore, no HPV testing was performed.Performed at: [facility] [place], [place] [id number] Director: Melba Britton PhD, Phone: [phone] at: [facility] [id number] Director: Beth España MD, Phone: [phone] Start: 10-25-2024 Urine culture No Primar y Care Physician Start: 06-26-2022 Ultrasound scan for growth No Primary Care Physician Start: 03-04-2022 anatomy study No Primary Care Physician Group B Streptococcu s Culture No Primary Care Physician H/O: section History of section No Primary Care Physician Comment on above: previous for NRFHTs, considering TOLAC- H/O: section Status pos t section No Primary Care Physician H/O: section History of section Irma Quinn CNM H/O: section History of section Irma Quinn CNMyrtle Urine culture No Primary Car e Physician Plan of Treatment Date Care Activity Detail Author Start: 11-21-2024 CBC W Auto Differential panel - Blood [facility] Start: 11-21-2024 Hepatitis C antibody measurement [facility] Start: 11-21-2024 Procedure [facility] Start: 11-21-2024 Rubella IgG measurement [facility] Start: 11-21-2024 Serologic test for syphilis [facility] Start: 11-21-2024 [facility] Start: 10-25-2024 Liquid based cervical cytology screening [facility] Start: 07-15-2024 Patient referral [facility] Work Phone: Start: 03-04-2022 Transvaginal obstetric ultrasonography Transvaginal w/Preg US [facility] Work Phone: Start: 12-27-2021 [facility] Work Phone: Start: 12-27-2021 Chlamydia deoxyribonucleic acid detection [facility] Work Phone: CBC W Auto Different ial panel - Blood [facility] Chlamydia deoxyribon ucleic acid detection [facility] Erythrocyte mean corpuscular volume determination [facility] Hematocrit [Volume Fraction] of Blood [facility] Hemoglobin [Mass/vol ume] in Blood [facility] Hepatitis B virus centeno rface Ag [Presence] in Serum [facility] Hepatitis C antibody measurement [facility] Leukocytes [#/volume ] in Blood [facility] Liquid based cervica l cytology screening [facility] Mean corpuscular hem oglobin concentration determination [facility] Mean corpuscular hem oglobin determination [facility] Neisseria gonorrhoea e rRNA [Presence] in Unspecified specimen by [place] with probe detection [facility] Work Phone: Neutrophil count [facility] Neutrophil percent differential count [facility] Patient referral [facility] Work Phone: PCR test for Chlamyd ia trachomatis [facility] Work Phone: Platelets [#/volume] in Blood [facility] Procedure [facility] Red blood cell count [facility] Red cell distributio n width determination [facility] Rubella IgG measurement [facility] Serologic test for syphilis [facility] Urine culture Urine Culture [facility] Work Phone: [facility] Immunizations Immunization Date Immunization Notes Care Provider Fa [facility] 04-23-2020 influenza, injectable,quadrivalent , preservative free, pediatric No Primary Care Physician [facility] Payers Date Payer Category Payer Unknown [id number] 2024 Self-pay [id number] 2023 Unknown [id number] 1999 Unknown [id number] [id number] 1999 Unknown [id number] 2.16.8 [id number] Unknown [id number] Unknown [id number] Unknown [facility] PACKAGE PLAN [id number] Unknown [id number] [id number] [id number] Unknown [id number] [id number] [id number] Unknown [id number] [id number] [id number] Social History Date Type Detail Facility Start: 12-27-2021 End: 07-08-2022 Tobacco smoking status NHIS Unknown if ever smoked [facility] Start: 2000 Sex Assigned At Female [facility] Start: 10-13-2024 Tobacco smoking stat us NHIS Never smoked tobacco (finding) [facility] Clinical Notes 07-15-2024 to 11-21-2024 Note Date & Type Note Facility 11-21-2024 Progress note [facility] 10-25-2024 Evaluation note Diagnosis Onset Date Resolution Adopted acute October 25, 2024 12:59pm Desires (vaginal after ) trial acute October 25, 2024 12:59pm Family history of cleft palate acute October 25, 2024 12:59pm History of section acute October 25, 2024 12:59pm acute October 25, 2024 12:59pm Supervision of high-risk acute October 25 12:59pm Adopted acute November 21, 2024 10:14am Desires (vaginal after ) trial acute November 21, 2024 10:14am Family history of cleft palate acute November 21, 2024 10:14am History of section acute November 21, 2024 10:14am acute November 21, 2024 10:14am Status post section acute November 21, 2024 10:14am Supervision of high-risk acute November 21 10:14am [facility] Work Phone: [phone]) 380-516805-13-2025 Progress [facility] [address] [place] [address], [address] [place] [address] OFFICE VISIT Date of Service: 10/25/24 MR#: [id number] Acct: [id number] Name: PEYTON DEVINE GELNROY Rep #: [id number] : 2000 Provider: VICKIE Quinn Age/Sex: 24/F [place] [facility] [place]: Signed Intake Vital Signs 07/15/24 08:50 10/25/24 13:03 Height 5 ft 3 in 5 ft 3 in Weight: 119 lb 8 oz BMI 21.2 BP 135/75 H Intake Visit Reasons: NOB: LMP 08/22, BRIGIDA 05/29 Chief Complaint: New OB Dials Supervisor Required: No Is patient in pain?: No Allergies No Known Allergies Allergy (Verified 10/25/24 13:05) Medications ?Medication ?Instructions ?Recorded ?Confirmed ?Type ondansetron HCl 4 mg tablet 4 mg PO Q6H PRN nausea and 10/07/24 10/25/24 Rx vomiting #60 tabs PNV 158-iron 13.5 mg-folic 0.5 cap PO 10/13/24 5 History mg-omega 3-dha 150 mg-epa-fish capsule (Natavi PNV) Last Menstrual Period: 08/22/24 : No PFSH PFSH Medical History Desquamated skin IUD check up Encounter for IUD removal Contraceptive management Supervision of normal delivery delivered Oligohydramnios Anxiety Adopted No significant medical problems Surgical History delivery delivered History of surgery No significant past surgical history Social History adopted: Yes household members: spouse and children housing: house number of children: 2 service: No current occupational status: previously employed current occupation: [employer] current occupational exposures/hazards: No pets and animals: Yes pets and animals: dog(s) history of recent travel: Yes ([place] in August) out of state: Yes out of country: No sexually active: Yes Smoking Status: Never smoker second hand exposure: No alcohol intake: never substance use type: does not use caffeine: No what type of physical activity do you participate in: walking How many days of moderate to strenuous exercise, like a brisk walk, did you do in the last 7 days: 3 carmen/baptism: None seatbelt use: always do you feel safe at home: Yes 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 Date Name GA/Weeks Outcome Route Bth Weight Infant Gen Labor Lgth Anesthesia Del Locatn Provider FOB 11/14/20 [place] 41 live - full term Female [facility] Mariusz 07/16/22 Pattie 39 live - full term 8lbs 3oz Female spinal [facility] Dr. Romero Davey Delivery Date: 11/14/20 Last Updated by: Chloé Lovelace primary c=section for catagory 2 FHT HPI NOB: LMP 08/22, BRIGIDA 05/29 Details: PEYTON CH is a 24 year old who presents for New OB visit. OB Visit BRIGIDA Calculator Estimated Delivery Date Method Current WG Current Estimate 05/29/25 LMP (Certain) 9w 1d Other Estimates 05/28/25 Ultrasound #1 9w 2d Comments: HIV: Urine Culture: Sequential Screen: NIPT Screen: Estimated Due Date: 05/29/25 Expected Delivery Route/Plan patient counseled regarding risks/benefits of trial of labor versus repeat . ACOG/uptodate education given to patient. 75.7 % likelihood of success per calculator TOLAC consent form signed: [] Labor Preferences- CB/BF classes: [] labor support person: [] labor intervention preferences: [] pain management options preferred: [] cut cord/dad catch: [] : [] PP control planned: [] discussed possible routes of delivery and associated risks: [] special requests: [] Specific Issue/Plans Covid status: [] Flu vaccine: [] Tdap vaccine: [] Rhogam: [] LARC form signed: [] Problem list reviewed and updated with the most current plan of care details and appropriate ordersplaced. Relevant counseling for the gestational age provided. Continue routine care and follow up unless otherwise noted in visit notes/problem list details Initial Weight: 119 lb Date -?-?-?-?-?-?-?-?-?--?-?-?- EGA Weight BP Urine Prot -?-?-?-?-?-?-?-?-?-?-?-?- Glucose FHR FuHt Pres Dilation -?-?-?-?-?-?-?-?-?-?-?-?- Effaced St Visit Note 10/25/24 -?-?-?-?-?-?-?-?-?-?-?-?- 9w 1d 119 lb 8 oz (+8 oz) 135/75 -?-?-?-?-?-?-?-?-?-?-?-?- 179 -?-?-?-?-?-?-?-?-?-?-?-?- KW- CRL cons wit h dates. accepts NIPT. Menstrual History Last Menstrual Period: 08/22/24 Reported LMP: definite Normal amount/duration: Yes On hormonal BC at conception: No hCG+: 09/29/24 Antepartum Record Genetic Screening: Congenital Heart Defect: Other, Neural Tube Defect: Other, Hemoglobinopathy Or Carrier: Other, Cystic Fibrosis: Other, Chromosome Abnormality: Other, Jl-Sachs: Other, Hemophilia: Other, Intellectual Disability/Autism: Patient (Pt's nephew - 21yo), Recurrent Loss/Stillbirth: Other, Other Structural Defect: Patient (Pt's niece - cleft palate, club foot), Other Genetic Disease: Other and Maternal Metabolic Disorder: Other Infection History: Live with someone with TB or Exposed to TB: No, Patient or Partner has history of Genital Herpes: No, Rash or Viral illness since last mentrual period: No, Prior GBS-Infected child: No, History of STD: No, HIV Infection: No, History of Hepatitis: No, Recent travel outside of [place]: Yes ([place] in August ), Concern for hepatitis exposure: No, Varicella immune: Yes and Covid Vaccinated: No Medical History Medical History: Positive: Operations/hospitalizations (prev C sections) and Negative: Diabetes, Hypertension, Heart disease, Auto-immune disorder, Kidney disease/UTI, Neurologic/epilepsy, Psychiatric, Depression/ depression, Hepatitis/liver disease, Varicosities/phlebitis, Thyroid dysfunction, Trauma/domestic violence, History of blood transfusions, D (Rh) Sensitized, Pulmonary (e.g.,TB,Asthma), Seasonal allergies, Drug/latex allergies/reactions, Breast, Engineer System Administrator surgery, Anesthetic complications, History of abnormal pap, Uterine anomaly/olga lidia, Infertility, Anti-retroviral treatment and Relevant family history ACOG First Trimester First Trimester: Desire for , Alcohol, Tobacco Cessation, Illicit/Recreational Drug/Substance Use, Intimate Partner Violence, Barriers to care, Unstable Housing, Communication Barriers, Environmental/Work Hazards, Anticipated Course of Care, Toxoplasmosis Precations, Use of Any med ications, Sexual activity, Exercise, Dental Care, Sauna/Hot tub use, Seat Belt use, Childbirth classes/Hospital facilities, Travel, Indications for Ultrasound and Screening for Aneuploidy; Discussed Second Trimester Second Trimester: Signs and Symptoms of Labor, Selecting a care provider, Reproductive Life Planning & Contreception, Care Planning, Depression/Anxiety and Intimate Partner Violence; Discussed Tobacco Cessation Third Trimester Third Trimester: Pain Management Plans, Labor support person(s), Immediate Larc, Movement Monitoring, Signs and Symptoms of Preeclampsia, Labor Signs, Postterm Counseling, Infant Feeding No and Family Medical Leave or Disability Forms; Discussed Trial of Labor after Counseling and Discussed Circumcision preference ROS Const Reports system reviewed and no additional complaints, except as documented, Denies fatigue, Denies headache(s) and Denies lethargy ENT Denies headache(s) Card Reports system reviewed and no additional complaints, except as documented Resp Reports system reviewed and no additional complaints, except as documented GI Reports system reviewed and no additional complaints, except as documented, Denies abdominal pain, Denies constipation, Denies cramping, Denies diarrhea and Denies dyspepsia Reports system reviewed and no additional complaints, except as documented, Denies abnormal vaginalbleeding, Denies difficulty voiding, Denies dyspareunia and Denies dysuria Musc Reports system reviewed and no additional complaints, except as documented Skin/Breast Reports system reviewed and no additional complaints, except as documented Neuro Yes system reviewed and no additional complaints, except as documented and No headache(s) Psych Reports system reviewed and no additional complaints, except as documented, Denies anhedonia and Denies anxiety Endo Reports system reviewed and no additional complaints, except as documented and Denies fatigue Exam Const General: cooperative, healthy appearing and comfortable Neck Neck: normal visual inspection and full ROM Chest Chest palpation & inspection: normal inspection of the chest Breast inspection: normal inspection of the breasts and normal inspection of the axillae Breast palpation: normal palpation of the breasts and normal palpation of the axillae Resp Effort & Inspection: normal respiratory effort and able to speak in complete sentences GI Inspection: normal to inspection Palpation: soft External Female Exam: normal external appearance and normal appearance of the urethra Urethra: normal appearance of the urethra Skin General: no rashes or lesions noted Neuro General: patient alert, patient awake and patient oriented x3 Extrem General: normal to inspection and full ROM Psych Appearance: grossly normal and well kempt Mental Status: mental status grossly normal Mood: congruent mood Affect: normal affect Speech and Movement: speech and movement normal Thought Process: normal Thought Content: normal Coding Level of Care Code OB Routine Diagnoses History of section Z98.891 Desires (vaginal after ) trial O34.219 Family history of cleft palate Z82.79 Adopted Z02.82 9 weeks gestation of Z3A.09 Weeks of gestation: 9 weeks Supervision of high-risk O09.90 Assessment and Plan Assessment and Plan (1) History of section: Status: Acute Comment: previous for NRFHTs, considering TOLAC- (2) Desires (vaginal after ) trial: Status: Acute (3) Family history of cleft palate: Status: Acute Comment: Pt's niece- club foot, cleft palate (4) Adopted: Status: Acute (5) : Status: Acute Qualifiers: Weeks of gestation: 9 weeks Qualified Code(s): Z3A.09 - 9 weeks gestation of Comment: NIPT w/ gender & carrier- elects (6) Supervision of high-risk : Status: Acute Comment: , BRIGIDA 05/29 PC: Pattie Suarez : Davey Orders: Orders CBC W/Diff, Automated 10/13/24 O09.90 - Supervision of high risk , unspecified, unspecified trimester, Z34.90 - Encounter for supervision of normal , unspecified, unspecified trimester, Z82.79 - Family history of other congenital malformations, deformations and chromosomal abnormalities Type & Screen 10/13/24 O09.90 - Supervision of high risk , unspecified, unspecified trimester, Z34.90 - Encounter for supervision of normal , unspecified, unspecified trimester,Z82.79 - Family history of other congenital malformations, deformations and chromosomal abnormalities Rubella IgG 10/13/24 O09.90 - Supervision of high risk , unspecified, unspecified trimester, Z34.90 - Encounter for supervision of normal , unspecified, unspecified trimester, Z82.79 - Family history of other congenital malformations, deformations and chromosomal abnormalities Hepatitis C Antibody 10/13/24 O09.90 - Supervision of high risk , unspecified, unspecifiedtrimester, Z34.90 - Encounter for supervision of normal , unspecified, unspecified trimester, Z82.79 - Family history of other congenital malformations, deformations and chromosomal abnormalities Hepatitis B Surface Antigen 10/13/24 O09.90 - Supervision of high risk , unspecified, unspecified trimester, Z34.90 - Encounter for supervision of normal , unspecified, unspecified trimester, Z82.79 - Family history of other congenital malformations, deformations and chromosomal abnormalities Culture, Urine 10/13/24 O09.90 - Supervision of high risk , unspecified, unspecified trimester, Z34.90 - Encounter for supervision of normal , unspecified, unspecified trimester, Z82.79 - Family history of other congenital malformations, deformations and chromosomal abnormalities Syphilis Antibodies 10/13/24 O09.90 - Supervision of high risk , unspecified, unspecified trimester, Z34.90 - Encounter for supervision of normal , unspecified, unspecified trimester, Z82.79 - Family history of other congenital malformations, deformations and chromosomal abnormalities Chlamydia/GC [place] aptima 10/13/24 O09.90 - Supervision of high risk , unspecified, unspecified trimester, Z34.90 - Encounter for supervision of normal , unspecified, unspecified trimester, Z82.79 - Family history of other congenital malformations, deformations and chromosomal abnormalities HIV 10/13/24 O09.90 - Supervision of high risk , unspecified, unspecified trimester, Z34.90 - Encounter for supervision of normal , unspecified, unspecified trimester, Z82.79 - Family history of other congenital malformations, deformations and chromosomal abnormalities EDU 10/13/24 O09.90 - Supervision of high risk , unspecified, unspecified trimester, Z34.90 - Encounter for supervision of normal , unspecified, unspecified trimester, Z82.79 - Family history of other congenital malformations, deformations and chromosomal abnormalities PAP I-G w/rfx hrHPV-Aptima 10/13/24 O09.90 - Supervision of high risk , unspecified, unspecified trimester, Z34.90 - Encounter for supervision of normal , unspecified, unspecified trimester, Z82.79 - Family history of other congenital malformations, deformations and chromosomal abnormalities Comments Comments: Patient oriented to practice and discussed care expectations and screenings. ACOG book offered to patient. Discussed routine and specially indicated labs if needed- patient consents to testing. See problem list details for plan information. Optional screening including maternal carrier screenings, neural tube defect screening, genetic screening options including quad screen, nuchal translucency, sequential screening, and NIPT screening offered to patient and patient chose: NIPT and carrier 10/25/24 1341 s CNM> Date _ Irma Quinn CNM Cosigner Signature: Date (if applicable) CC: ~ [facility]01-31-2025 Evaluation note* Diagnosis Onset Date Resolution Status Admit Date Desquamated skin inactive July 15, 2024 8:38am Encounter for IUD removal inactive July 15, 2024 8:38am Adopted acute October 25, 2024 12:59pm Desires (vaginal after ) trial acute October 25, 2024 12:59pm Family history of cleft palate acute October 25, 2024 1 2:59pm History of section acute October 25, 2024 12:59pm acute October 25, 2024 12:59pm Supervision of high-risk acute October 25, 2024 1 2:59pm [facility] Work Phone: Evaluation note* Diagnosis Onset Date Resolution Status History of section acute History of oligohydramnios a cute acute Supervision of normal [facility] Work Phone: Evaluation note* Diagnosis Onset Date Resolution Status History of section acute History of oligohydramnios a cute acute Supervision of normal acute History of section acute History of oligohydramnios a cute acute Supervision of normal acute History of section acute History of oligohydramnios a cute acute Supervision of normal [facility] Work Phone: Evaluation note* Diagnosis Onset Date Resolution Status History of section acute History of oligohydramnios a cute acute Supervision of normal acute History of section acute History of oligohydramnios a cute acute Supervision of normal acute History of section acute History of oligohydramnios a cute acute Supervision of normal acute History of section acute History of oligohydramnios a cute acute Supervision of normal acute History of section acute History of oligohydramnios a cute acute Supervision of normal acute [facility] Work Phone: Evaluation note* Diagnosis Onset Date Resolution Status History of section acute History of oligohydramnios a cute acute Supervision of normal acute History of section acute History of oligohydramnios a cute acute Supervision of normal acute History of section acute History of oligohydramnios a cute acute Supervision of normal acute History of section acute History of oligohydramnios a cute acute Supervision of normal acute History of section acute History of oligohydramnios a cute acute Supervision of normal acute History of section acute History of oligohydramnios a cute acute Supervision of normal acute History of section acute History of oligohydramnios a cute acute Supervision of normal acute [facility] Work Phone: Evaluation note* Diagnosis Onset Date Resolution Status History of section acute History of oligohydramnios a cute acute Supervision of normal acute History of section acute History of oligohydramnios a cute acute Supervision of normal acute History of section acute History of oligohydramnios a cute acute Supervision of normal acute History of section acute History of oligohydramnios a cute acute Supervision of normal acute History of section acute History of oligohydramnios a cute acute Supervision of normal acute History of section acute History of oligohydramnios a cute acute Supervision of normal acute History of section acute History of oligohydramnios a cute acute Supervision of normal acute History of section acute History of oligohydramnios a cute acute Supervision of normal acute [facility] Work Phone: Progress note Author Irma Quinn [facility] Services Note Date/Time October 25, 2024 1:41p m [facility] [address] [place] [address], [address] [place] [address] OFFICE VISIT Date of Service: 10/25/24 MR#: [id number] Acct: [id number] Name: PEYTON DEVINE Rep #: [id number] : 2000 Provider: VICKIE Quinn Age/Sex: 24/F [place] [facility] [place] Signed Intake Vital Signs 07/15/24 08:50 10/25/24 13:03 Height 5 ft 3 in 5 ft 3 in Weight: 119 lb 8 oz BMI 21.2 BP 135/75 H Intake Visit Reasons: NOB: LMP 08/22, BRIGIDA 05/29 Chief Complaint: New OB Dials Supervisor Required: No Is patient in pain?: No Allergies No Known Allergies Allergy (Verified 10/25/24 13:05) Medications ?Medication ?Instructions ?Recorded ?Confirmed ?Type ondansetron HCl 4 mg tablet 4 mg PO Q6H PRN nausea and 10/07/24 10/25/24 Rx vomiting #60 tabs PNV 158-iron 13.5 mg-folic 0.5 cap PO 10/13/24 5 History mg-omega 3-dha 150 mg-epa-fish capsule (Natavi PNV) Last Menstrual Period: 08/22/24 : No PFSH PFSH Medical History Desquamated skin IUD check up Encounter for IUD removal Contraceptive management Supervision of normal delivery delivered Oligohydramnios Anxiety Adopted No significant medical problems Surgical History delivery delivered History of surgery No significant past surgical history Social History adopted: Yes household members: spouse and children housing: house number of children: 2 service: No current occupational status: previously employed current occupation: [employer] current occupational exposures/hazards: No pets and animals: Yes pets and animals: dog(s) history of recent travel: Yes ([place] in August) out of state: Yes out of country: No sexually active: Yes Smoking Status: Never smoker second hand exposure: No alcohol intake: never substance use type: does not use caffeine: No what type of physical activity do you participate in: walking How many days of moderate to strenuous exercise, like a brisk walk, did you do in the last 7 days: 3 carmen/baptism: None seatbelt use: always do you feel safe at home: Yes 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 Date Name GA/Weeks Outcome Route Bth Weight Infant Gen Labor Lgth Anesthesia Del Locatn Provider FOB 11/14/20 [place] 41 live - full term Female [facility] Mariusz 07/16/22 Pattie 39 live - full term 8lbs 3oz Female spinal [facility] Dr. Jewell Delivery Date: 11/14/20 Last Updated by: Chloé Lovelace primary c=section for catagory 2 FHT HPI NOB: LMP 08/22, BRIGIDA 05/29 Details: PEYTON CH is a 24 year old who presents for New OB visit. OB Visit BRIGIDA Calculator Estimated Delivery Date Method Current WG Current Estimate 05/29/25 LMP (Certain) 9w 1d Other Estimates 05/28/25 Ultrasound #1 9w 2d Comments: HIV: Urine Culture: Sequential Screen: NIPT Screen: Estimated Due Date: 05/29/25 Expected Delivery Route/Plan patient counseled regarding risks/benefits of trial of labor versus repeat . ACOG/uptodate education given to patient. 75.7 % likelihood of success per calculator TOLAC consent form signed: [] Labor Preferences- CB/BF classes: [] labor support person: [] labor intervention preferences: [] pain management options preferred: [] cut cord/dad catch: [] : [] PP control planned: [] discussed possible routes of delivery and associated risks: [] special requests: [] Specific Issue/Plans Covid status: [] Flu vaccine: [] Tdap vaccine: [] Rhogam: [] LARC form signed: [] Problem list reviewed and updated with the most current plan of care details and appropriate orders placed. Relevant counseling for the gestational age provided. Continue routine care and follow up unless otherwise noted in visit notes/problem list details Initial Weight: 119 lb Date -?-?-?-?-?-?-?-?-?--?-?-?- EGA Weight BP Urine Prot -?-?-?-?-?-?-?-?-?-?-?-?- Glucose FHR FuHt Pres Dilation -?-?-?-?-?-?-?-?-?-?-?-?- Effaced St Visit Note 10/25/24 -?-?-?-?-?-?-?-?-?-?-?-?- 9w 1d 119 lb 8 oz (+8 oz) 135/75 -?-?-?-?-?-?-?-?-?-?-?-?- 179 -?-?-?-?-?-?-?-?-?-?-?-?- KW- CRL cons wit h dates. accepts NIPT. Menstrual History Last Menstrual Period: 08/22/24 Reported LMP: definite Normal amount/duration: Yes On hormonal BC at conception: No hCG+: 09/29/24 Antepartum Record Genetic Screening: Congenital Heart Defect: Other, Neural Tube Defect: Other, Hemoglobinopathy Or Carrier: Other, Cystic Fibrosis: Other, Chromosome Abnormality: Other, Jl-Sachs: Other, Hemophilia: Other, Intellectual Disability/Autism: Patient (Pt's nephew - 21yo), Recurrent Loss/Stillbirth: Other, Other Structural Defect: Patient (Pt's niece - cleft palate, club foot), Other Genetic Disease: Other and Maternal Metabolic Disorder: Other Infection History: Live with someone with TB or Exposed to TB: No, Patient or Partner has history of Genital Herpes: No, Rash or Viral illness since last mentrual period: No, Prior GBS-Infected child: No, History of STD: No, HIV Infection: No, History of Hepatitis: No, Recent travel outside of [place]: Yes ([place] in August ), Concern for hepatitis exposure: No, Varicella immune: Yes and Covid Vaccinated: No Medical History Medical History: Positive: Operations/hospitalizations (prev C sections) and Negative: Diabetes, Hypertension, Heart disease, Auto-immune disorder, Kidney disease/UTI, Neurologic/epilepsy, Psychiatric, Depression/ depression, Hepatitis/liver disease, Varicosities/phlebitis, Thyroid dysfunction, Trauma/domestic violence, History of blood transfusions, D (Rh) Sensitized, Pulmonary (e.g.,TB,Asthma), Seasonal allergies, Drug/latex allergies/reactions, Breast, Engineer System Administrator surgery, Anesthetic complications, History of abnormal pap, Uterine anomaly/olga lidia, Infertility, Anti-retroviral treatment and Relevant family history ACOG First Trimester First Trimester: Desire for , Alcohol, Tobacco Cessation, Illicit/Recreational Drug/Substance Use, Intimate Partner Violence, Barriers to care, Unstable Housing, Communication Barriers, Environmental/Work Hazards, Anticipated Course of Care, Toxoplasmosis Precations, Use of Any medications, Sexual activity, Exercise, Dental Care, Sauna/Hot tub use, Seat Belt use, Childbirth classes/Hospital facilities, Travel, Indications for Ultrasound and Screening for Aneuploidy; Discussed Second Trimester Second Trimester: Signs and Symptoms of Labor, Selecting a care provider, Reproductive Life Planning & Contreception, Care Planning, Depression/Anxiety and Intimate Partner Violence; Discussed Tobacco Cessation Third Trimester Third Trimester: Pain Management Plans, Labor support person(s), Immediate Larc, Movement Monitoring, Signs and Symptoms of Preeclampsia, Labor Signs, Postterm Counseling, Infant Feeding No and Family Medical Leave or Disability Forms; Discussed Trial of Labor after Counseling and Discussed Circumcision preference ROS Const Reports system reviewed and no additional complaints, except as documented, Denies fatigue, Denies headache(s) and Denies lethargy ENT Denies headache(s) Card Reports system reviewed and no additional complaints, except as documented Resp Reports system reviewed and no additional complaints, except as documented GI Reports system reviewed and no additional complaints, except as documented, Denies abdominal pain, Denies constipation, Denies cramping, Denies diarrhea and Denies dyspepsia Reports system reviewed and no additional complaints, except as documented, Denies abnormal vaginal bleeding, Denies difficulty voiding, Denies dyspareunia and Denies dysuria Musc Reports system reviewed and no additional complaints, except as documented Skin/Breast Reports system reviewed and no additional complaints, except as documented Neuro Yes system reviewed and no additional complaints, except as documented and No headache(s) Psych Reports system reviewed and no additional complaints, except as documented, Denies anhedonia and Denies anxiety Endo Reports system reviewed and no additional complaints, except as documented and Denies fatigue Exam Const General: cooperative, healthy appearing and comfortable Neck Neck: normal visual inspection and full ROM Chest Chest palpation & inspection: normal inspection of the chest Breast inspection: normal inspection of the breasts and normal inspection of the axillae Breast palpation: normal palpation of the breasts and normal palpation of the axillae Resp Effort & Inspection: normal respiratory effort and able to speak in complete sentences GI Inspection: normal to inspection Palpation: soft External Female Exam: normal external appearance and normal appearance of the urethra Urethra: normal appearance of the urethra Skin General: no rashes or lesions noted Neuro General: patient alert, patient awake and patient oriented x3 Extrem General: normal to inspection and full ROM Psych Appearance: grossly normal and well kempt Mental Status: mental status grossly normal Mood: congruent mood Affect: normal affect Speech and Movement: speech and movement normal Thought Process: normal Thought Content: normal Coding Level of Care Code OB Routine Diagnoses History of section Z98.891 Desires (vaginal after ) trial O34.219 Family history of cleft palate Z82.79 Adopted Z02.82 9 weeks gestation of Z3A.09 Weeks of gestation: 9 weeks Supervision of high-risk O09.90 Assessment and Plan Assessment and Plan (1) History of section: Status: Acute Comment: previous for NRFHTs, considering TOLAC- (2) Desires (vaginal after ) trial: Status: Acute (3) Family history of cleft palate: Status: Acute Comment: Pt's niece- club foot, cleft palate (4) Adopted: Status: Acute (5) : Status: Acute Qualifiers: Weeks of gestation: 9 weeks Qualified Code(s): Z3A.09 - 9 weeks gestation of Comment: NIPT w/ gender & carrier- elects (6) Supervision of high-risk : Status: Acute Comment: , BRIGIDA 05/29 PC: Pattie Suarez : Davey Orders: Orders CBC W/Diff, Automated 10/13/24 O09.90 - Supervision of high risk , unspecified, unspecified trimester, Z34.90 - Encounter for supervision of normal , unspecified, unspecified trimester, Z82.79 - Family history of other congenital malformations, deformations and chromosomal abnormalities Type & Screen 10/13/24 O09.90 - Supervision of high risk , unspecified, unspecified trimester, Z34.90 - Encounter for supervision of normal , unspecified, unspecified trimester, Z82.79 - Family history of other congenital malformations, deformations and chromosomal abnormalities Rubella IgG 10/13/24 O09.90 - Supervision of high risk , unspecified, unspecified trimester, Z34.90 - Encounter for supervision of normal , unspecified, unspecified trimester, Z82.79 - Family history of other congenital malformations, deformations and chromosomal abnormalities Hepatitis C Antibody 10/13/24 O09.90 - Supervision of high risk , unspecified, unspecified trimester, Z34.90 - Encounter for supervision of normal , unspecified, unspecified trimester, Z82.79 - Family history of other congenital malformations, deformations and chromosomal abnormalities Hepatitis B Surface Antigen 10/13/24 O09.90 - Supervision of high risk , unspecified, unspecified trimester, Z34.90 - Encounter for supervision of normal , unspecified, unspecified trimester, Z82.79 - Family history of other congenital malformations, deformations and chromosomal abnormalities Culture, Urine 10/13/24 O09.90 - Supervision of high risk , unspecified, unspecified trimester, Z34.90 - Encounter for supervision of normal , unspecified, unspecified trimester, Z82.79 - Family history of other congenital malformations, deformations and chromosomal abnormalities Syphilis Antibodies 10/13/24 O09.90 - Supervision of high risk , unspecified, unspecified trimester, Z34.90 - Encounter for supervision of normal , unspecified, unspecified trimester, Z82.79 - Family history of other congenital malformations, deformations and chromosomal abnormalities Chlamydia/GC [place] aptima 10/13/24 O09.90 - Supervision of high risk , unspecified, unspecified trimester, Z34.90 - Encounter for supervision of normal , unspecified, unspecified trimester, Z82.79 - Family history of other congenital malformations, deformations and chromosomal abnormalities HIV 10/13/24 O09.90 - Supervision of high risk , unspecified, unspecified trimester, Z34.90 - Encounter for supervision of normal , unspecified, unspecified trimester, Z82.79 - Family history of other congenital malformations, deformations and chromosomal abnormalities EDU 10/13/24 O09.90 - Supervision of high risk , unspecified, unspecified trimester, Z34.90 - Encounter for supervision of normal , unspecified, unspecified trimester, Z82.79 - Family history of other congenital malformations, deformations and chromosomal abnormalities PAP I-G w/rfx hrHPV-Aptima 10/13/24 O09.90 - Supervision of high risk , unspecified, unspecified trimester, Z34.90 - Encounter for supervision of normal , unspecified, unspecified trimester, Z82.79 - Family history of other congenital malformations, deformations and chromosomal abnormalities Comments Comments: Patient oriented to practice and discussed care expectations and screenings. ACOG book offered to patient. Discussed routine and specially indicated labs if needed- patient consents to testing. See problem list details for plan information. Optional screening including maternal carrier screenings, neural tube defect screening, genetic screening options including quad screen, nuchal translucency, sequential screening, and NIPT screening offered to patient and patient chose: NIPT and carrier 10/25/24 1341 <Electronically signed by Irma cordova CNM> Date _ Irma Quinn CNM Cosigner Signature: Date (if applicable) CC: ~ [facility] Work Phone: Progress note Author Irma Quinn [facility] Services Note Date/Time November 21, 2024 10:41 am [facility] [address] [place] [address], [address] [place] [address] OFFICE VISIT Date of Service: 11/21/24 MR#: [id number] Acct: [id number] Name: PEYTON DEVINE GLENROY Rep #: [id number] : 2000 Provider: VICKIE Quinn Age/Sex: 24/F [place] [facility] [place]: Signed Intake Vital Signs 07/15/24 08:50 10/25/24 13:03 11/21/24 10:16 Height 5 ft 3 in 5 ft 3 in 5 ft 3 in Weight: 124 lb 4 oz BMI 22.0 BP 135/86 H Intake Visit Reasons: 13wk OB Dials Supervisor Required: No Is patient in pain?: No Allergies No Known Allergies Allergy (Verified 11/21/24 10:16) Medications ?Medication ?Instructions ?Recorded ?Confirmed ?Type ondansetron HCl 4 mg tablet 4 mg PO Q6H PRN nausea and 10/07/24 11/21/24 Rx vomiting #60 tabs PNV 158-iron 13.5 mg-folic 0.5 cap PO 10/13/24 5 History mg-omega 3-dha 150 mg-epa-fish capsule (Natavi PNV) Last Menstrual Period: 08/22/24 Zika: Zika virus screening: Negative : No PFSH PFSH Medical History Desquamated skin IUD check up Encounter for IUD removal Contraceptive management Supervision of normal delivery delivered Oligohydramnios Anxiety Adopted No significant medical problems Surgical History delivery delivered History of surgery No significant past surgical history Social History adopted: Yes household members: spouse and children housing: house number of children: 2 current occupational status: previously employed current occupation: [employer] current occupational exposures/hazards: No pets and animals: Yes pets and animals: dog(s) history of recent travel: Yes ([place] in August) out of state: Yes out of country: No sexually active: Yes Smoking Status: Never smoker second hand exposure: No alcohol intake: never substance use type: does not use caffeine: No what type of physical activity do you participate in: walking carmen/baptism: None seatbelt use: always do you feel safe at home: Yes 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 Date Name GA/Weeks Outcome Route Bth Weight Gen Labor Lgth Anesthesia Del Locatn Provider FOB 11/14/20 [place] 41 live - full term Female [facility] Mariusz 07/16/22 Pattie 39 live - full term 8lbs 3oz Female spinal [facility] Dr. Romero Davey Delivery Date: 11/14/20 Last Updated by: Chloé Lovelace primary c=section for catagory 2 FHT HPI 13wk OB Details: PEYTON DEVINE is a 24 year old who presents for routine OB visit. OB Visit BRIGIDA Calculator Estimated Delivery Date Method Current WG Current Estimate 05/29/25 LMP (Certain) 13w 0d Other Estimates 05/28/25 Ultrasound #1 13w 1d Expected Delivery Route/Plan patient counseled regarding risks/benefits of trial of labor versus repeat . ACOG/uptodate education given to patient. 75.7 % likelihood of success per calculator TOLAC consent form signed: [] Labor Preferences- CB/BF classes: [] labor support person: [] labor intervention preferences: [] pain management options preferred: [] cut cord/dad catch: [] : [] PP control planned: [] discussed possible routes of delivery and associated risks: [] special requests: [] Specific Issue/Plans Covid status: [] Flu vaccine: [] Tdap vaccine: [] Rhogam: [] LARC form signed: [] Problem list reviewed and updated with the most current plan of care details and appropriate orders placed. Relevant counseling for the gestational age provided. Continue routine care and follow up unless otherwise noted in visit notes/problem list details Initial Weight: 119 lb Date -?-?-?-?-?-?-?-?-?-?-?-?- EGA Weight BP Urine Prot -?-?-?-?-?-?-?-?-?-?-?-?- Glucose FHR FuHt Pres Dilation -?-?-?-?-?-?-?-?-?-?-?-?- Effaced St Visit Note 10/25/24 -?-?-?-?-?-?-?-?-?-?-?-?- 9w 1d 119 lb 8 oz (+8 oz) 135/75 -?-?-?-?-?-?-?-?-?-?-?-?- 179 -?-?-?-?-?-?-?-?-?-?-?-?- KW- CRL cons wit h dates. accepts NIPT. 11/21/24 -?-?-?-?-?-?-?-?-?-?-?-?- 13w 0d 124 lb 4 oz (+5 lb 4 oz) 135/86 Negative -?-?-?-?-?-?-?-?-?-?-?-?- Negative 155 -?-?-?-?-?-?-?-?-?-?-?-?- KW- no vb/crampi ng. feeling better. MFM anatomy ordered, labs today. ACOG First Trimester First Trimester: Desire for , Alcohol, Tobacco Cessation, Illicit/Recreational Drug/Substance Use, Intimate Partner Violence, Barriers to care, Unstable Housing, Communication Barriers, Environmental/Work Hazards, Anticipated Course of Care, Toxoplasmosis Precations, Use of Any medications, Sexual activity, Exercise, Dental Care, Sauna/Hot tub use, Seat Belt use, Childbirth classes/Hospital facilities, Travel, Indications for Ultrasound and Screening for Aneuploidy; Discussed Second Trimester Second Trimester: Signs and Symptoms of Labor, Selecting a care provider, Reproductive Life Planning & Contreception, Care Planning, Depression/Anxiety and Intimate Partner Violence; Discussed Tobacco Cessation Third Trimester Third Trimester: Pain Management Plans, Labor support person(s), Immediate Larc, Movement Monitoring, Signs and Symptoms of Preeclampsia, Labor Signs, Postterm Counseling, Feeding No and Family Medical Leave or Disability Forms; Discussed Trial of Labor after Counseling and Discussed Circumcision preference ROS Const Reports system reviewed and no additional complaints, except as documented Eyes Reports system reviewed and no additional complaints, except as documented ENT Reports system reviewed and no additional complaints, except as documented Card Reports system reviewed and no additional complaints, except as documented Resp Reports system reviewed and no additional complaints, except as documented GI Reports system reviewed and no additional complaints, except as documented, Denies nausea and Denies vomiting Reports system reviewed and no additional complaints, except as documented Musc Reports system reviewed and no additional complaints, except as documented Skin/Breast Reports system reviewed and no additional complaints, except as documented Neuro Yes system reviewed and no additional complaints, except as documented Psych Reports system reviewed and no additional complaints, except as documented Endo Reports system reviewed and no additional complaints, except as documented Jose/Lymph Reports system reviewed and no additional complaints, except as documented Aller/Immun Reports system reviewed and no additional complaints, except as documented Exam Const General: cooperative, healthy appearing and no acute distress Orientation: alert, awake and oriented x3 Neck Neck: normal visual inspection and full ROM Resp Effort & Inspection: normal respiratory effort, able to speak in complete sentences and symmetric chest movement GI Inspection: normal to inspection Palpation: soft and other Other: gravid Skin General: no rashes or lesions noted Neuro General: patient alert, patient awake and patient oriented x3 Cognition: normal cognition Speech: speech normal Gait: normal gait Motor: muscle tone normal throughout Extrem General: normal to inspection and full ROM Psych Appearance: grossly normal Mental Status: mental status grossly normal Mood: congruent mood Affect: normal affect Speech and Movement: speech and movement normal Attitude: cooperative Thought Process: normal Thought Content: normal Judgment: judgment good Results POC Urinalysis 2 Dip (Clinic) Office Urine Glucose Negative Last Edit by Brenda Gilbert on 11/21/24 10:21 Office Urine Protein Negative Last Edit by Brenda Gilbert on 11/21/24 10:21 Coding Level of Care Code OB Routine Diagnoses Supervision of high-risk O09.90 13 weeks gestation of Z3A.13 Weeks of gestation: 13 weeks Adopted Z02.82 Family history of cleft palate Z82.79 Desires (vaginal after ) trial O34.219 Status post section Z98.891 History of section Z98.891 Assessment and Plan Assessment and Plan (1) Supervision of high-risk : Status: Acute Comment: , BRIGIDA 05/29 PC: Pattie Suarez : Davey (2) : Status: Acute Qualifiers: Weeks of gestation: 13 weeks Qualified Code(s): Z3A.13 - 13 weeks gestation of Comment: NIPT w/ gender & carrier- elects (3) Adopted: Status: Acute (4) Family history of cleft palate: Status: Acute Comment: Pt's niece- club foot, cleft palate (5) Desires (vaginal after ) trial: Status: Acute (6) Status post section: Status: Acute (7) History of section: Status: Acute Comment: previous for NRFHTs, considering TOLAC- Orders: Orders POC Urinalysis 2 Dip (Clinic) Today Plan Details Additional Comments: ACOG trimester education reviewed and updated. see problem list details for updated plan management information and see below for orders placed at this visit. GA appropriate handout given. 11/21/24 1041 <Electronically signed by Irma cordova CNM> Date _ Irma Quinn CNM Cosigner Signature: Date (if applicable) CC: ~ [facility] Work Phone: Reason for referral (narrative)No reason for referral information availableBlK[facility] Work Phone: Summary Purpose Family History No Family History Records FoundNo Family History Records FoundNo Family History Records Found Advance Directives Advance Directive Response Recorded Date/ Time Living Will No November 13, 2020 3 :38pm Power of Export Specialist No November 13, 2020 3:38pm Advance Directive Response Recorded Date/ Time Living Will No April 14 9:09am Power of Export Specialist No April 14, 2022 9:09am Chief Complaint and Reason for Visit Chief Complaint NOB LMP 5/1 E-ORDER Reason for Visit History of section History of oligohydramnios Supervision of normal Chief Complaint NOB LMP 5/1 E-ORDER 15wk ob 19wk ob GROWTH 20 WEEKS Reason for Visit History of section History of oligohydramnios Supervision of normal History of section History of oligohydramnios Supervision of normal History of section History of oligohydramnios Supervision of normal Chief Complaint NOB LMP 5/1 E-ORDER 15wk ob 19wk ob GROWTH 20 WEEKS 23 WK OB 26 WK OB/GLUCOSE Reason for Visit History of section History of oligohydramnios Supervision of normal History of section History of oligohydramnios Supervision of normal History of section History of oligohydramnios Supervision of normal History of section History of oligohydramnios Supervision of normal History of section History of oligohydramnios Supervision of normal Chief Complaint 23 WK OB 26 WK OB/GLUCOSE 28 WK OB 32 WK OB 34 WK OB 36 WK OB GROWTH 37 WK OB Reason for Visit History of section History of oligohydramnios Supervision of normal History of section History of oligohydramnios Supervision of normal History of section History of oligohydramnios Supervision of normal History of section History of oligohydramnios Supervision of normal History of section History of oligohydramnios Supervision of normal History of section History of oligohydramnios Supervision of normal History of section History of oligohydramnios Supervision of normal Chief Complaint 23 WK OB 26 WK OB/GLUCOSE 28 WK OB 32 WK OB 34 WK OB 36 WK OB GROWTH 37 WK OB 38 WK OB Reason for Visit History of section History of oligohydramnios Supervision of normal History of section History of oligohydramnios Supervision of normal History of section History of oligohydramnios Supervision of normal History of section History of oligohydramnios Supervision of normal History of section History of oligohydramnios Supervision of normal History of section History of oligohydramnios Supervision of normal History of section History of oligohydramnios Supervision of normal History of section History of oligohydramnios Supervision of normal Chief Complaint Admit Date IUD REMOVAL July 15, 2024 8 :38am NOB: LMP 3, BRIGIDA 05/29October 25, 2024 12:59pm Reason for Visit Admit Date Desquamated skin July 15, 2024 8 :38am Encounter for IUD removal July 15, 2024 8:38am Adopted October 25, 2024 12:59 pm Desires (vaginal after michael an) trial October 25, 2024 12:59pm Family history of cleft palate October 25, 2024 12:59pm History of section October 25 12:59pm October 25, 2024 12:59 pm Supervision of high-risk October 132024 12:59pm Chief Complaint Admit Date NOB: LMP 310, BRIGIDA 05/29October 25, 2024 12:59pm 13wk OB November 21, 2024 10:14 am Reason for Visit Admit Date Adopted October 25, 2024 12:59 pm Desires (vaginal after michael an) trial October 25, 2024 12:59pm Family history of cleft palate October 25, 2024 12:59pm History of section October 25 12:59pm October 25, 2024 12:59 pm Supervision of high-risk October 132024 12:59pm Adopted November 21, 2024 10:14 am Desires (vaginal after michael an) trial November 21, 2024 10:14am Family history of cleft palate November 21, 2024 10:14am History of section November 21 10:14am November 21, 2024 10:14 am Status post section November 21 10:14am Supervision of high-risk November 21, 2024 10:14am Additional Source Comments INFORMATION SOURCE (unrecogn ized section and content) DATE CREATED AUTHOR 04/28/2018 [facility] DATE CREATED AUTHOR AUTHOR'S ORGANIZ ATION 06/02/2023 [facility] ([place]) DATE CREATED AUTHOR AUTHOR'S ORGANIZ ATION [facility] Goals (unrecognized section and content) Goals may be documented in a n alternate sectionGoals may be documented in an alternate sectionGoals may be documented in an alternate sectionGoals may be documented in an alternate sectionGoals may be documented in an alternate sectionGoals may be documented in an alternate sectionGoals may be documented in an alternate sectionGoals may be documented in an alternate section Care Teams (unrecognized sec tion and content) Team Status: Active Member Role Status Dates Dr. Lindsey Valdes DO Family Provider Active No Primary Care Physician Primary Care Provider Active Team Status: Inactive Member Role Status Dates No Primary Care Physician Primary Care Provider, Refer ring Provider Active Dr. Sejal Romero DO Attending Provider Activ e Team Status: Inactive Member Role Status Dates No Primary Care Physician Primary Care Provider, Refer ring Provider Active Brenda Salazar CLINICAL OPERATIONS CONSULTANT, CLINICAL OPERATIONS CONSULTANT-C Attending Provider Active Team Status: Inactive Member Role Status Dates No Primary Care Physician Primary Care Provider, Refer ring Provider Active Dr. Pricilla Alfaro MD Attending Provider Active Team Status: Inactive Member Role Status Dates No Primary Care Physician Primary Care Provider, Refer ring Provider Active Leticia Richey CNM Attending Provider Active Team Status: Inactive Member Role Status Dates No Primary Care Physician Primary Care Provider Active Dr. Sejal Romero , Attending Provider, Refe rring Provider Active Team Status: Active Member Role Status Dates No Primary Care Physician Primary Care Provider Active Dr. Sejal Romero DO Attending Provider, Refe rring Provider Active Team Status: Inactive Member Role Status Dates No Primary Care Physician Primary Care Provider Active Dr. Sejal Romero DO Attending Provider Activ e Team Status: Inactive Member Role Status Dates No Primary Care Physician Primary Care Provider Active Start: July 15, 2024 End: July 15, 2024 No Primary Care Physician Referring Provider Active Start: July 15, 2024 End: July 15, 2024 Dr. Sejal Romero DO Attending Provider Activ e Start: July 15, 2024 End: July 15, 2024 Team Status: Inactive Member Role Status Dates No Primary Care Physician Primary Care Provider Active Start: October 25, 2024 End: October 25, 2024 No Primary Care Physician Referring Provider Active Start: October 25, 2024 End: October 25, 2024 Irma Quinn CNM Attending Provider Active S tart: October 25, 2024 End: October 25, 2024 Team Status: Active Member Role Status Dates No Primary Care Physician Primary Care Provider Active Team Status: Inactive Member Role Status Dates No Primary Care Physician Primary Care Provider Active Start: October 25, 2024 End: October 25, 2024 Irma Quinn CNM Attending Provider Active S tart: October 25, 2024 End: October 25, 2024 Irma Quinn CNM Referring Provider Active S tart: October 25, 2024 End: October 25, 2024 Team Status: Inactive Member Role Status Dates No Primary Care Physician Primary Care Provider Active Start: November 21, 2024 End: November 21, 2024 No Primary Care Physician Referring Provider Active Start: November 21, 2024 End: November 21, 2024 Irma Quinn CNM Attending Provider Active S tart: November 21, 2024 End: November 21, 2024 Team Status: Active Member Role Status Dates No Primary Care Physician Primary Care Provider Active Start: November 21, 2024 Irma Quinn CNM Attending Provider Active S tart: November 21, 2024 Irma Quinn CNM Referring Provider Active S tart: November 21, 2024 FOR RECORDS PERTAINING TO PATIENTS WHO ARE OR HAVE BEEN ENROLLED IN A CHEMICAL DEPENDENCY/SUBSTANCEABUSE PROGRAM, SOME INFORMATION MAY BE OMITTED. This clinical summary was aggregated from multiple sources. Caution should be exercised in using it in the provision of clinical care. This summary normalizes information from multiple sources, and as a consequence, information in this document may materially change the coding, format and clinical context of patient data. In addition, data may be omitted in some cases. CLINICAL DECISIONS SHOULD BE BASED ON THE PRIMARY CLINICAL RECORDS. [facility]. provides no warranty or guarantee of the accuracy or completeness of information in this document.
== END | disposition home or self-care (01) ==
PROVIDERS: Referring Provider Advanced Practice Midwife; Visit Provider Advanced Practice Midwife
DX: O09.91 Supervision of high risk pregnancy, unspecified, first trimester (principal); Z82.79 Family history of other congenital malformations, deformations and chromosomal abnormalities; Z3A.00 Weeks of gestation of pregnancy not specified
CPT/HCPCS: 36415; 85025; 86703; 86762; 86780; 86803; 86850; 86900; 86901; 87340

== ENCOUNTER → 2025-03-07 | Outpatient (CLI) | payer SELFPAY ==
[2025-03-07 12:27] LABS: Hematocrit 36.3 % (37-47); Hemoglobin 12.0 g/dL (12.0-15.0); Immature Granulocytes Count 0.160 X10^3/uL (0.0-0.0); Mean Corp Hgb Conc 33.1 g/dL (32-36); Mean Corpuscular Volume 91.4 fL (81-99); Mean Platelet Vol. 11.5 fl (6.2-12.0); NRBC Flagged by Analyzer 0 % (0-5); Platelet Count 226 K/mm3 (150-450); RBC Distribution Width CV 11.9 % (11.6-14.6); RBC Distribution Width SD 40.0 fl (35.1-43.9); Red Blood Count 3.97 M/mm3 (4.2-5.4); White Blood Count 9.4 K/mm3 (4.4-11.0)
[2025-03-07 13:42] LABS: HIV Nonreactive (Nonreactive); Syphilis Antibodies Nonreactive (Nonreactive)
[2025-03-07 13:49] LABS: Glucose Challenge Gest 1H 50g 117 mg/dL (70-140)
== END | disposition home or self-care (01) ==
LOC: BWCLAB 09:50
PROVIDERS: Referring Provider Obstetrics & Gynecology; Visit Provider Obstetrics & Gynecology
DX: O09.92 Supervision of high risk pregnancy, unspecified, second trimester (principal); Z3A.00 Weeks of gestation of pregnancy not specified; Z13.1 Encounter for screening for diabetes mellitus
CPT/HCPCS: 36415; 82950; 85025; 86703; 86780

== ENCOUNTER → 2025-04-03 | Outpatient (CLI) | payer OTHER, SELFPAY ==
--- NOTE | 2025-04-03 08:53 | US_ITS ---
PROCEDURE: OB LIMITED WITH BIOMETRICS 04/03/2025 REASON FOR EXAM: GROWTH TECHNIQUE: Procedure Code: USOBGROWTH Modality: US Procedure: OB LIMITED WITH BIOMETRICS COMPARISON: None FINDINGS Number: 1 Position: Vertex Placental Position: Anterior and not low-lying Placental Abnormalities: No evidence of previa. DIMENSIONS: Biparietal Diameter: 8.4 cm: 34 weeks and 0 days: 91st percentile/ Head Circumference: 30.5 cm: 34 weeks and 0 days: 67 percentile/ Abdominal Circumference: 29.3 cm: 33 weeks and 2 days: 83rd percentile Femur Length: 5.9 cm: 31 weeks and 0 days: 14 percentile/ ESTIMATED WEIGHT: 2058 g plus/-309 g ESTIMATED WEIGHT PERCENTILE (24+ weeks): 66 ESTIMATED GESTATIONAL AGE: Baseline: 32 weeks By Ultrasound: 33 weeks and 2 days ESTIMATED DATE OF DELIVERY: Baseline: May 29, 2025 By Ultrasound: May 20, 2025 BIOPHYSICAL ASSESSMENT: Amniotic Fluid Volume: 4.5 cm Amniotic Fluid Index: 11.7 (8-24 cm normal range) Cardiac Motion: 147 beats per minute (average) Trunk and Limb Motion: Present. MATERNAL ANATOMY: Adnexa: Neither maternal ovary is successfully identified. US/OB Limited With Biometrics IMPRESSION: Single live intrauterine gestation with a mean gestational age of 33 weeks and 2 days. Reading Location: [facility]
== END | disposition home or self-care (01) ==
PROVIDERS: Referring Provider Nurse Practitioner Women's Health; Visit Provider Nurse Practitioner Women's Health
DX: O43.113 Circumvallate placenta, third trimester (principal); Z3A.32 32 weeks gestation of pregnancy
CPT/HCPCS: 76816

== ENCOUNTER → 2025-05-01 | Outpatient (CLI) | payer OTHER, SELFPAY ==
--- NOTE | 2025-05-01 12:24 | US_ITS ---
PROCEDURE: OB LIMITED WITH BIOMETRICS 05/01/2025 REASON FOR EXAM: GROWTH TECHNIQUE: Procedure Code: USOBGROWTH Modality: US Procedure: OB LIMITED WITH BIOMETRICS COMPARISON: None FINDINGS Cephalic position with cardiac activity of 160 bpm. Maximum vertical pocket of 3.9 cm and TRACY of 7.4 cm. Placenta is anterior position with grade 2. BPD of 9.2, OFD of the 11.3, HC of 32.7, AC of 32.7, and FL of 6.8 cm corresponding with average gestational age of 36 weeks and 4 day with BRIGIDA of 05/25/2025. Biometric measurement are within normal limits. Estimated weight of 2917g (61 percentile). US/OB Limited With Biometrics IMPRESSION: Average sonographic gestational age of 36 weeks and 4 days with BRIGIDA of 05/25/20 25. Biometric measurements are grossly within normal limits. Reading Location: [id number]
== END | disposition home or self-care (01) ==
LOC: OPUS 12:22
PROVIDERS: Referring Provider Nurse Practitioner Women's Health; Visit Provider Nurse Practitioner Women's Health
DX: O43.113 Circumvallate placenta, third trimester (principal); Z3A.36 36 weeks gestation of pregnancy
CPT/HCPCS: 76816

== ENCOUNTER → 2025-05-03 | Outpatient (CLI) | payer OTHER, SELFPAY | END | disposition home or self-care (01) | LOC: LABSPEC 10:37 | PROVIDERS: Visit Provider Advanced Practice Midwife | DX: O09.93 Supervision of high risk pregnancy, unspecified, third trimester (principal); Z3A.36 36 weeks gestation of pregnancy | CPT/HCPCS: 87081 ==

== ENCOUNTER 2025-05-22 05:29 | Inpatient (IN) | payer OTHER, SELFPAY ==
[2025-05-22] VITALS (19 sets, daily range): BP systolic 99–125; BP diastolic 56–93; PULSE 76–104; RESP 14–18; TEMP 36.1–37; O2SAT 94–100; BMI 26.0
--- OUTSIDE RECORDS SUMMARY | 2025-05-22 05:30 | XMS RPT_ITS | CCD ---
Author Organization [facility] Providers Care Horse Racing Manager Name Role Phone KARIME HOLLOWAY (BROOM HANDLE DIPPER) Unavailable Unavailable LINDSEY PIZARRO Unavailable Unavailable LINDSEY PIZARRO Unavailable Unavailable Care Physician, No Primary Primary Care Provider Unavailable Care Physician, No Primary Referring Provider Un available Dr. Pricilla Alfaro Attending Provider [phone] Marie SANITATION WORKER HOSING MACHINERY, SANITATION WORKER HOSING MACHINERY-C Brenda Attending Provider [phone] Dr. Sejal Romero Attending Provider [phone]) Care Physician, No Primary Primary Care Provider Unavailable Care Physician, No Primary Referring Provider Un available Dr. Pricilla Alfaro Attending Provider [phone] Marie SANITATION WORKER HOSING MACHINERYAL Attending Provider 1(330 Dr. Sejal Romero Attending Provider 1( 30) Care Physician, No Primary Primary Care Provider Unavailable Care Physician, No Primary Referring Provider Un available Dr. Sejal Romero Attending Provider 1( 30) Marie SANITATION WORKER HOSING MACHINERY, SANITATION WORKER HOSING MACHINERY-C Brenda Attending Provider 1(330 Dr. Pricilla Alfaro Attending Provider [phone] VICKIE Richey Attending Provider [phone] HOMERO SMALL, HIREN Iraheta Consulting Unavailabbi GORDON MD, MELINDA Attending Marisa LEON MD, DR CHUY Clemons Admitting Unavailable MISHA SMALL, DR HEMALATHA Cordova Consulting Unavailable EWA SMALL, DR INGRID ROSS Consulting Sherice SHELTON MD, DR ALEXANDER Attending Unavailabbi LEON MD, DR CHUY Clemons Consulting Unavailable Care Physician, No Primary Primary Care Provider Unavailable Care Physician, No Primary Referring Provider Un available Dr. Sejal Romero DO Attending Provider Ninfa Bautista CNM Attending Provider [phone] Kai ESCOTOM, Ninfa Referring Provider 1(330) Care Physician, No Primary Primary Care Provider Unavailable Care Physician, No Primary Referring Provider Un available Dr. Sejal Romero DO Attending Provider NO PRIMARY CARE, MD Primary Care Unavailable MARITZA JEFFERY Attending Unavailable NINFA BAUTISTA Referring Unavailable Marie SANITATION WORKER HOSING MACHINERY-C, Brenda Attending Provider [phone] Angelina SMALL, Dr. Pleitez Attending Provider Care Physician, No Primary Primary Care Physicia n Unavailable Care Physician, No Primary Referring Provider Un available Ninfa Bautista CNM Attending Physician [phone] Kai JOHNSTON, Ninfa Referring Provider [phone]) Brandon Cooper DO, Dr. Post Attending Physician Marie SANITATION WORKER HOSING MACHINERY-C, Brenda Attending Physician [phone] Angelina SMALL, Dr. Pleitez Attending Physician Dr. Pricilla Alfaro MD Referring Provider Care Physician, No Primary Primary Care Physicia n Unavailable Care Physician, No Primary Referring Provider Un available Ninfa Bautista CNM Attending Physician [phone] [place] SANITATION WORKER HOSING MACHINERY-C, Brenda Referring Provider [phone] Care Physician, No Primary Primary Care Unava ilable Ninfa Bautista Referring Unavailable Ninfa Bautista Attending Unavailable Care Physician, No Primary Primary Care Unava ilable Care Physician, No Primary Referring Unava ilable Sejal Romero Attending Unavailabl e Care Physician, No Primary Primary Care Unava ilable [place] SANITATION WORKER HOSING MACHINERY, Brenda Referring Unavailable Marie SANITATION WORKER HOSING MACHINERY, Brenda Attending Unavailable Care Physician, No Primary Primary Care Unava ilable Pricilla Alfaro Referring Unavailable Pricilla Alfaro Attending Unavailable Care Physician, No Primary Primary Care Unava ilable Marie SANITATION WORKER HOSING MACHINERY, Brenda Referring Unavailable [place] SANITATION WORKER HOSING MACHINERY, Brenda Attending Unavailable Sejal Romero Attending Unavailabl e Sejal Romero Admitting Unavailabl e Care Physician, No Primary Primary Care Unava ilable Care Physician, No Primary Primary Care Unava ilable Pricilla Alfaro Attending Unavailable MarcanthPricilla fulton Admitting Unavailable Care Physician, No Primary Primary Care Unava ilable Care Physician, No Primary Referring Unava ilable Pricilla Alfaro Attending Unavailable Vande VelSejal deluna Attending Unavailabl e Care Physician, No Primary Primary Care Unava ilable Care Physician, No Primary Referring Unava ilable Care Physician, No Primary Primary Care Unava ilable Pricilla Alfaro Attending Unavailable Care Physician, No Primary Referring Unava ilable Care Physician, No Primary Primary Care Unava ilable [place] SANITATION WORKER HOSING MACHINERY, Brenda Attending Unavailable Care Physician, No Primary Referring Unava ilable Care Physician, No Primary Referring Unava ilable Care Physician, No Primary Primary Care Unava ilable Ninfa Bautista Attending Unavailable Care Physician, No Primary Referring Unava ilable Care Physician, No Primary Primary Care Unava ilable Marie SANITATION WORKER HOSING MACHINERY, Brenda Attending Unavailable Brandon VelSejal deluna Attending Unavailabl e Care Physician, No Primary Primary Care Unava ilable Care Physician, No Primary Referring Unava ilable Care Physician, No Primary Primary Care Unava ilable Care Physician, No Primary Referring Unava ilable Ninfa Bautista Attending Unavailable Care Physician, No Primary Primary Care Unava ilable Care Physician, No Primary Referring Unava ilable Ninfa Bautista Attending Unavailable Care Physician, No Primary Primary Care Unava ilable Care Physician, No Primary Referring Unava ilable Marie SANITATION WORKER HOSING MACHINERY, Brenda Attending Unavailable Care Physician, No Primary Primary Care Unava ilable Ninfa Bautista Attending Unavailable Ninfa Bautista Referring Unavailable Care Physician, No Primary Primary Care Physicia n Unavailable Care Physician, No Primary Referring Provider Un available Dr. Sejal Romero DO Attending Physician Marie SANITATION WORKER HOSING MACHINERY-CBrenda Attending Physician [phone] Dr. Pricilla Alfaro MD Attending Physician Dr. Pricilla Alfaro MD Referring Provider [phone] Ninfa Bautista CNM Attending Physician [phone] Marie SANITATION WORKER HOSING MACHINERY-CBrenda Referring Provider [phone]) Allergies Allergy Classification Reported Allergen(s) Allergy Type Date of Onset Reaction(s) Facility (1 source) OTHER; Translations: [OTHER] Propensity to adverse reactions (disorder) 6 [facility] Repository Medications Current Medications Medication Drug Class(es) Dates Sig (Normalized) Sig (Original) Iron (12 sources) Start: 10-13-2024 [id number]-Ds -O3-Dha -Epa-Fish (Natavi Pnv) 13.5 mg iron- 0.5 mg-150 mg capsule Active NMA PO October 12, 2024 11:00pm Complies with drug therapy Start: 10-13-2024 [id number]-Omyl-Sy -O7-Fbu-Ldr-Fish (Natavi Pnv) 13.5 mg iron- 0.5 mg-150 mg capsule Active NMA PO October 13, 2024 12:00am Complies with drug therapy Start: 10-13-2024 Start: 10-13-2024 Lsg781-Ncnp-Rw -S0-Xbo-Xhe-Fish (Natavi Pnv) 13.5 mg iron- 0.5 mg-150 mg capsule Active NMA PO October 13, 2024 12:00am ondansetron 4 mg oral tablet (12 sources) Serotonin-3 Receptor Antagonist Start: 10-07-2024 take 1 tablet by mouth every six hours as needed for nausea and vomiting Ondansetron Hcl 4 mg tablet Active 4 mg PO EVERY 6 HOURS as needed for nausea and vomiting 60 3 October 06, 2024 11:00pm Complies with drug therapy Completed/Discontinued Medications Medication Drug Class(es) Dates Sig (Normalized) Sig (Original) acetaminophen 325 mg / oxyCODONE hydrochloride 5 mg oral tablet (12 sources) Opioid Agonist Start: 07-16-2022 End: 07-29-2022 take 1-2 tablets by mouth every four hours as needed for pain Oxycodone-Acetamino phen (Percocet) 5-325 mg tablet Discontinued 1 {tbl} PO Q4H as needed for pain 30 7 0 July 16, 2022 July 29, 2022 3:08pm Status post delivery History of uterine scar from previous surgery 1-2 tabs q 4 hrs as needed for pain ascorbic acid 500 mg oral capsule (12 sources) Vitamin C Start: 07-15-2024 End: 10-13-2024 Ascorbic Acid (Vitamin C) 500 mg capsule Discontinued mg PO July 15, 2024 12:00am October 13, 2024 7:22am Multivit 14-Ujwv-Skeruu 1-Dha (Pnv-Dha) 27 mg iron-1 mg -300 mg capsule (17 sources) Start: 03-19-2020 End: 07-15-2024 Multivit 60-Sfbj-Wanklm 1-Dha (Pnv-Dha) 27 mg iron-1 mg -300 mg capsule Discontinued 1 NMA PO DAILY March 18, 2020 11:00pm July 15, 2024 8:52am Start: 03-19-2020 End: 07-15-2024 Multivit 12-Cxkc-Oqypws 1-Dh a (Pnv-Dha) 27 mg iron-1 mg -300 mg capsule Discontinued 1 NMA PO DAILY March 19, 2020 12:00am July 15, 2024 9:52am Start: 03-19-2020 End: 07-15-2024 Multivit 38-Ajkm-Caybtu 1-Dh a (Pnv-Dha) 27 mg iron-1 mg -300 mg capsule Discontinued 1 NMA PO DAILY March 19, 2020 12:00am July 15, 2024 9:52am Start: 03-19-2020 take 1 capsule by mo ut once daily Multivit 17-Gwjx-Aneckl 1-Dha (Pnv-Dha) 27 mg iron-1 mg -300 mg capsule Active 1 CAP PO DAILY March 18, 2020 11:00pm Start: 03-19-2020 take 1 capsule by mo uth once daily Multivit 81-Mbdw-Ojanfn 1-Dha (Pnv-Dha) 27 mg iron-1 mg -300 mg capsule Active 1 CAP PO DAILY March 19, 2020 12:00am Multivitamin tablet (12 sources) Start: 07-15-2024 End: 10-13-2024 Multivitamin tablet Disconti nued 1 {tbl} PO daily July 15, 2024 12:00am October 13, 2024 7:22am Start: 07-15-2024 End: 10-13-2024 Multivitamin tablet Disconti nued 1 {tbl} PO daily July 15, 2024 1:00am October 13, 2024 8:22am naproxen 500 mg oral tablet (20 sources) Nonsteroidal Anti-inflammatory Drug Start: 07-16-2022 End: 07-29-2022 take 1 tablet by mouth twice daily as needed for pain Naproxen 500 mg tablet Discontinued 500 mg PO TWICE A DAY as needed for pain 30 0 July 16, 2022 12:00am July 29, 2022 3:08pm Start: 11-14-2020 End: 11-28-2020 take 250-500 mg by mouth every eight hours as needed for pain Naproxen 250 MG tablet Discontinued 250 - 500 mg PO EVERY 8 HOURS NEEDED as needed for MILD PAIN 30 1 November 13, 2020 11:00pm November 28, 2020 10:24am oxyCODONE hydrochloride 5 mg oral capsule (17 sources) Opioid Agonist Start: 11-14-2020 End: 11-28-2020 take 1 capsule by mouth every six hours as needed for pain Oxycodone 5 mg capsule Discontinued 5 mg PO EVERY 6 HOURS as needed for pain 15 7 0 November 14, 2020 November 28, 2020 10:24am delivery delivered Encounter for delivery without indication promethazine hydrochloride 12.5 mg oral tablet (17 sources) Phenothiazine Start: 03-21-2020 End: 05-07-2020 take 1 tablet by mouth three times daily Promethazine 12.5 mg tablet Discontinued 12.5 mg PO THREE TIMES A DAY 60 1 March 20, 2020 11:00pm May 07, 2020 10:39am Problems Active Problems Problem Classification Problem Date Documented Date Episodic/Chronic Administrative/social admission (1 source) Encounter for adoption services; Translations: [Encounter for adoption services] Onset: 04-19-2025 Episodic Contraceptive and procreative management (20 sources) Intrauterine contraceptive device in situ; Translations: [Encounter for routine checking of intrauterine contraceptive device] 10-13-2024 Episodic Comment on above: No PA needed. Ref#23 [id number]/06/06-strings present Other complications of (17 sources) Uterine size for dates discrepancy; Translations: [Uterine size-date discrepancy, third trimester] 11-08-2020 Episodic Comment on above: growth us ordered Other complications of (20 sources) High risk ; Translations: [Supervision of high risk , unspecified, unspecified trimester] 10-13-2024 Episodic Comment on above: , BRIGIDA 05/29 PC: Pattie Suarez : Davey BRANDT (waiting on [facility]) , BRIGIDA 05/29 PC: Pattie Suarez : Davey PRR , BRIGIDA 05/29 PC: Pattie Suarez : Davey PRR , BRIGIDA 05/29 kassy Moreira PC: Pattie Suarez : Davey Other complications of (20 sources) Placenta circumvallata; Translations: [Circumvallate placenta, unspecified trimester] 01-17-2025 Episodic Comment on above: 36 wk growth US MFM growth US q 4 weeks in third trimester growth US q 4 weeks in third trimester; 33wk EFW 66%, AC 83% Other complications of (2 sources) Circumvallate placenta, second trimester; Translations: [Circumvallate placenta, second trimester] Onset: 04-19-2025 Episodic Other complications of (1 source) Supervision of high risk , unspecified, third trimester; Translations: [Supervision of high risk , unspecified, third trimester] Onset: 04-19-2025 Episodic Other complications of (1 source) Circumvallate placenta, third trimester; Translations: [Circumvallate placenta, third trimester] Onset: 04-11-2025 Episodic Other complications of (1 source) Supervision of high risk , unspecified, second trimester; Translations: [Supervision of high risk , unspecified, second trimester] Onset: 03-13-2025 Episodic Other skin disorders (14 sources) Peeling of skin; Translations: [Changes in skin texture] 10-13-2024 Episodic Previous (20 sources) Maternal request for obstetric intervention; Translations: [Maternal care for unspecified type scar from previous delivery] Onset: 04-19-2025 10-13-2024 Episodic Residual codes; unclassified (17 sources) H/O: Disorder; Translations: [Personal history of other complications of , childbirth and the puerperium] 06-30-2022 Episodic Comment on above: growth us at 36 week s. TRACY 10, normal fluid volume.06/30 nl growth EFW 3066+/- 60gms Residual codes; unclassified (17 sources) Tetanus diphtheria and acellular pertussis vaccination declined; Translations: [Immunization not carried out because of patient refusal] 10-26-2020 Episodic Residual codes; unclassified (20 sources) History of uterine scar from previous surgery; Translations: [Other postprocedural status] Onset: 04-19-2025 Episodic Residual codes; unclassified (20 sources) Personal history of other complications of , childbirth and the puerperium; Translations: [Personal history of other genital system and obstetric disorders] Episodic Residual codes; unclassified (20 sources) Adopted; Translations: [Other specified health status] 10-13-2024 Episodic Residual codes; unclassified (20 sources) Family history of cleft palate; Translations: [Family history of other congenital malformations, deformations and chromosomal abnormalities] 10-13-2024 Episodic Comment on above: Pt's niece- club jim t, cleft palate Residual codes; unclassified (1 source) 34 weeks gestation of ; Translations: [34 weeks gestation of ] Onset: 04-19-2025 Episodic Residual codes; unclassified (1 source) Family history of other congenital malformations, deformations and chromosomal abnormalities; Translations: [Family history of other congenital malformations, deformations and chromosomal abnormalities] Onset: 04-19-2025 Episodic Residual codes; unclassified (1 source) 30 weeks gestation of ; Translations: [30 weeks gestation of ] Onset: 03-20-2025 Episodic Residual codes; unclassified (1 source) 25 weeks gestation of ; Translations: [25 weeks gestation of ] Onset: 02-16-2025 Episodic Unclassified (1 source) Unknown / UNK(Unknown) Onset: 08-24-2017 Unclassified (4 sources) Abnormal desquamation of epithelium; Translations: [R23.4 - Changes in skin texture] Past or Other Problems Problem Classification Problem Date Documented Date Episodic/Chronic Intestinal infection (2 sources) Infectious gastroenteritis and colitis, unspecified; Translations: [Infectious gastroenteritis and colitis, unspecified] Onset: 01-05-2023 Episodic Mycoses (1 source) Candidal stomatitis; Translations: [Candidal stomatitis] Onset: 01-04-2018 Episodic Other complications of (1 source) Supervision of high risk , unspecified, unspecified trimester; Translations: [Supervision of high risk , unspecified, unspecified trimester] Onset: 11-21-2024 Episodic Other and delivery including normal (20 sources) Normal ; Translations: [Encounter for supervision of normal , unspecified, unspecified trimester] Onset: 10-25-2024 Episodic Comment on above: PRR BRIGIDA 07/14/22 surpise PC Haven Davey NIPT w/ gender & car rier- elects NIPT low risk, george er and genetic screening discussed. NIPT w/ gender & car rier- low risk,female( pt does not want to know gender) NIPT w/ gender & car rier- low risk,female( pt does not want to know gender, nl anatomy NIPT w/ gender & car rier- low risk, nl anatomy Residual codes; unclassified (1 source) 13 weeks gestation of ; Translations: [13 weeks gestation of ] Onset: 11-21-2024 Episodic Residual codes; unclassified (1 source) 9 weeks gestation of ; Translations: [9 weeks gestation of ] Onset: 10-25-2024 Episodic Results Test Name Value Interpretation Reference Range Facility Laboratory - Chemistry and C hemistry - challengeOrdered By: Pricilla Alfaro on 04-19-2025 Glucose Ql (U) Negative [facility] - UrinalysisOrder ed By: Pricilla Alfaro on 04-19-2025 Protein Ql (U) Negative [facility] Pattern Illustrator Office Visit Reporton 04-19-2025 Pattern Illustrator Office Visit Report [facility] [address], [address] [place] [address] OFFICE VISIT Date of Service: 04/19/25 MR#: [id number] Acct: [id number] Name: PEYTON DEVINE GLENROY Rep #: [id number] : 2000 Provider: Dr. Pricilla santana MD Age/Sex: 24/F Location: [facility] [place] Status: Signed Intake Vital Signs 03/07/25 09:43 04/04/25 14:55 04/19/25 14:29 Height 5 ft 3 in 5 ft 3 in 5 ft 3 in Weight: 143 lb 8 oz BMI 25.4 BP 123/83 H Intake Visit Reasons: 34wk ob Manager Of Environmental Services Required: No Is patient in pain?: No Allergies No Known Allergies Allergy (Verified 04/19/25 14:28) Medications ???Medication ???Instructions ???Recorded ???Confirmed ???Type ondansetron HCl 4 mg tablet 4 mg PO Q6H PRN nausea and 10/07/2 5 04/19/25 Rx vomiting #60 tabs PNV 158-iron 13.5 mg-folic 0.5 cap PO 10/13/24 04/19/25 History mg-omega 3-dha 150 mg-epa-fish capsule (Natavi PNV) Last Menstrual Period: 08/22/24 Zika: Zika virus screening: Negative : No PFSH PFSH Medical History Desquamated skin Anxiety Adopted Surgical History delivery delivered History of surgery No significant past surgical history Social History adopted: Yes household members: spouse and children housing: house number of children: 2 current occupational status: previously employed current occupation: [employer] current occupational exposures/hazards: No pets and animals: Yes pets and animals: dog(s) history of recent travel: Yes ([place] in August) out of state: Yes out of country: No sexually active: Yes Smoking Status: Never smoker second hand exposure: No alcohol intake: never substance use type: does not use caffeine: No what type of physical activity do you participate in: walking carmen/sabianist: None seatbelt use: always do you feel [...] 41 live - full term Female [facility] Pr okop 07/16/22 Pattie 39 live - full term 8lbs 3oz Female spinal [facility] Dr. Jewell Delivery Date: 11/14/20 Last Updated by: Chloé Lovelace primary c=section for catagory 2 FHT HPI 34wk ob Details: PEYTON DEVINE is a 24 year old who presents for routine OB visit. OB Visit BRIGIDA Calculator Estimated Delivery Date Method Current WG Current Estimate 05/29/25 LMP (Certain) 34w 2d Other Estimates 05/28/25 Ultrasound #1 34w 3d Expected Delivery Route/Plan plan TOLAC patient counseled regarding risks/benefits of trial of labor versus repeat . ACOG/uptodate education given to patient. 75.7 % likelihood of success per calculator TOLAC consent form signed: 04/19 Labor Preferences- CB/BF classes: no labor support person: [] labor intervention preferences: [] pain management options preferred: not opposed to epidural cut cord/dad catch: cord : yes PP control planned: discussed discussed possible routes of delivery and associated risks: [] special requests: [] Specific Issue/Plans Covid status: [] Flu vaccine: declined Tdap vaccine: declines Rhogam: na LARC form signed: yes movement and labor precautions reviewed. Problem list reviewed and updated with the [...] -???-???-???-???-???-??? -???-???-???-???-???-??? - 179 -???-???-???-???-???-??? -???-???-???-???-???-??? - KW- CRL cons with dates. accepts NIPT. 11/21/24 -???-???-???-???-???-??? -???-???-???-???-???-??? - 13w 0d 124 lb 4 oz (+5 lb 4 oz) 135/86 Negative -???-???-???-???-???-??? -???-???-???-???-???-??? - Negative 155 -???-???-???-???-???-??? -???-???-???-???-???-??? - KW- no vb/cr amping. feelin (more content not included)... Normal [facility] - Chemistry and C hemistry - challengeOrdered By: Sejal Cooper on 04-04-2025 Glucose Ql (U) Negative [facility] - UrinalysisOrder ed By: Sejal Cooper on 04-04-2025 Protein Ql (U) Negative [facility] Pattern Illustrator Office Visit Reporton 04-04-2025 Pattern Illustrator Office Visit Report [facility]'s [address], [address] [place] [address] OFFICE VISIT Date of Service: 04/04/25 MR#: [id number] Acct: [id number] Name: PEYTON DEVINE GLENROY Rep #: [id number] : 2000 Provider: Dr. Sejal Rascon, Age/Sex: 24/F Location: [facility] Status: Signed Intake Vital Signs 03/07/25 09:43 03/28/25 13:41 04/04/25 14:55 04/04/25 14:55 Height 5 ft 3 in 5 ft 3 in 5 ft 3 in 5 ft 3 in Weight: 141 lb 5 oz BMI 25.0 BP 120/70 Intake Visit Reasons: 32wk ob Manager Of Environmental Services Required: No Is patient in pain?: No Allergies No Known Allergies Allergy (Verified 04/04/25 14:55) Medications ???Medication ???Instructions ???Recorded ???Confirmed ???Type ondansetron HCl 4 mg tablet 4 mg PO Q6H PRN nausea and 10/07/ 5 04/04/25 Rx vomiting #60 tabs PNV 158-iron 13.5 mg-folic 0.5 cap PO 10/13/24 04/04/25 History mg-omega 3-dha 150 mg-epa-fish capsule (Natavi PNV) Last Menstrual Period: 08/22/24 Zika: Zika virus screening: Negative : No [facility] Medical History Desquamated skin Anxiety Adopted Surgical History delivery delivered History of surgery No significant past surgical history Social History adopted: Yes household members: spouse and children housing: house number of children: 2 current occupational status: previously employed current occupation: [employer] current occupational exposures/hazards: No pets and animals: Yes pets and animals: dog(s) history of recent travel: Yes ([place] in August) out of state: Yes out of country: No sexually active: Yes Smoking Status: Never smoker second hand exposure: No alcohol intake: never substance use type: does not use caffeine: No what type of physical activity do you participate in: walking carmen/sabianist: None seatbelt use: always do you feel [...] 41 live - full term Female [facility] Pr okop 07/16/22 Pattie 39 live - full term 8lbs 3oz Female spinal [facility] Dr. Jewell Delivery Date: 11/14/20 Last Updated by: Chloé Lovelace primary c=section for catagory 2 FHT HPI 32wk ob Details: PEYTON DEVINE is a 24 year old who presents for routine OB visit. OB Visit BRIGIDA Calculator Estimated Delivery Date Method Current WG Current Estimate 05/29/25 LMP (Certain) 32w 1d Other Estimates 05/28/25 Ultrasound #1 32w 2d Expected Delivery Route/Plan patient counseled regarding risks/benefits of trial of labor versus repeat . ACOG/uptodate education given to patient. 75.7 % likelihood of success per calculator TOLAC consent form signed: [] Labor Preferences- CB/BF classes: no labor support person: [] labor intervention preferences: [] pain management options preferred: not opposed to epidural cut cord/dad catch: cord : yes PP control planned: discussed discussed possible routes of delivery and associated risks: [] special requests: [] Specific Issue/Plans Covid status: [] Flu vaccine: [] Tdap vaccine: declines Rhogam: na LARC form signed: yes Problem list reviewed and updated with the [...] -???-???-???-???-???-??? -???-???-???-???-???-??? - 179 -???-???-???-???-???-??? -???-???-???-???-???-??? - KW- CRL cons with dates. accepts NIPT. 11/21/24 -???-???-???-???-???-??? -???-???-???-???-???-??? - 13w 0d 124 lb 4 oz (+5 lb 4 oz) 135/86 Negative -???-???-???-???-???-??? -???-???-???-???-???-??? - Negative 155 -???-???-???-???-???-??? -???-???-???-???-???-??? - KW- no vb/cr amping. feeling better. MFM anatomy ordered, labs t (more content not included)... 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 DIMENSIONS: Biparietal Diameter: 8.4 cm: 34 weeks and 0 days: 91st percentile/ Head Circumference: 30.5 cm: 34 weeks and 0 days: 67 percentile/ Abdominal Circumference: 29.3 cm: 33 weeks and 2 days: 83rd percentile Femur Length: 5.9 cm: 31 weeks and 0 days: 14 percentile/ ESTIMATED WEIGHT: 2058 g plus/-309 g ESTIMATED WEIGHT PERCENTILE (24+ weeks): 66 ESTIMATED GESTATIONAL AGE: Baseline: 32 weeks By Ultrasound: 33 weeks and 2 days ESTIMATED DATE OF DELIVERY: Baseline: May 29, 2025 By Ultrasound: May 20, 2025 BIOPHYSICAL ASSESSMENT: Amniotic Fluid Volume: 4.5 cm Amniotic Fluid Index: 11.7 (8-24 cm normal range) Cardiac Motion: 147 beats per minute (average) Trunk and Limb Motion: Present. MATERNAL ANATOMY: Adnexa: Neither maternal ovary is successfully identified. US/OB Limited With Biometrics IMPRESSION: Single live intrauterine gestation with a mean gestational age of 33 weeks and 2 days. 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 Normal [facility] - Chemistry and C hemistry - challengeOrdered By: Brenda Salazar on 03-28-2025 Glucose Ql (U) Negative [facility] - UrinalysisOrder ed By: Brenda Salazar on 03-28-2025 Protein Ql (U) Negative [facility] Pattern Illustrator Office Visit Reporton 03-28-2025 Pattern Illustrator Office Visit Report [facility]'s [address], [address] [place] [address] OFFICE VISIT Date of Service: 03/28/25 MR#: [id number] Acct: [id number] Name: TAYLOR DEVINEICA GLENROY Rep #: [id number] : 2000 Provider: AL dickson Age/Sex: 24/F Location: [facility] Status: Signed Intake Vital Signs 03/20/25 09:02 03/28/25 13:32 03/28/25 13:41 Height 5 ft 3 in 5 ft 3 in 5 ft 3 in Weight: 141 lb 9 oz 141 lb BMI 25.0 25.0 BP 121/75 H 119/82 H Intake Visit Reasons: OB, htn, dizzy Chief Complaint: HTN, Dizzy Manager Of Environmental Services Required: No Is patient in pain?: No Allergies No Known Allergies Allergy (Verified 03/28/25 13:31) Medications ???Medication ???Instructions ???Recorded ???Confirmed ???Type ondansetron HCl 4 mg tablet 4 mg PO Q6H PRN nausea and 10/07/ 5 03/28/25 Rx vomiting #60 tabs PNV 158-iron 13.5 mg-folic 0.5 cap PO 10/13/24 03/28/25 History mg-omega 3-dha 150 mg-epa-fish capsule (Natavi PNV) Last Menstrual Period: 08/22/24 Zika: Zika virus screening: Negative : No PFSH PFSH Medical History Desquamated skin Anxiety Adopted Surgical History delivery delivered History of surgery No significant past surgical history Social History adopted: Yes household members: spouse and children housing: house number of children: 2 current occupational status: previously employed current occupation: [employer] current occupational exposures/hazards: No pets and animals: Yes pets and animals: dog(s) history of recent travel: Yes ([place] in August) out of state: Yes out of country: No sexually active: Yes Smoking Status: Never smoker second hand exposure: No alcohol intake: never substance use type: does not use caffeine: No what type of physical activity do you participate in: walking carmen/sabianist: None seatbelt use: always do you feel [...] 41 live - full term Female [facility] Pr okop 07/16/22 Pattie 39 live - full term 8lbs 3oz Female spinal [facility] Dr. Jewell Delivery Date: 11/14/20 Last Updated by: Chloé Lovelace primary c=section for catagory 2 FHT HPI OB, htn, dizzy Details: PEYTON DEVINE is a 24 year old who presents for routine OB visit. OB Visit BRIGIDA Calculator Estimated Delivery Date Method Current WG Current Estimate 05/29/25 LMP (Certain) 31w 1d Other Estimates 05/28/25 Ultrasound #1 31w 2d Expected Delivery Route/Plan patient counseled regarding risks/benefits of trial of labor versus repeat . ACOG/uptodate education given to patient. 75.7 % likelihood of success per calculator TOLAC consent form signed: [] Labor Preferences- CB/BF classes: no labor support person: [] labor intervention preferences: [] pain management options preferred: not opposed to epidural cut cord/dad catch: cord : yes PP control planned: discussed discussed possible routes of delivery and associated risks: [] special requests: [] Specific Issue/Plans Covid status: [] Flu vaccine: [] Tdap vaccine: declines Rhogam: na LARC form signed: yes Problem list reviewed and updated with the [...] -???-???-???-???-???-??? -???-???-???-???-???-??? - 179 -???-???-???-???-???-??? -???-???-???-???-???-??? - KW- CRL cons with dates. accepts NIPT. 11/21/24 -???-???-???-???-???-??? -???-???-???-???-???-??? - 13w 0d 124 lb 4 oz (+5 lb 4 oz) 135/86 Negative -???-???-???-???-???-??? -???-???-???-???-???-??? - Negative 155 -???-???-???-???-???-??? -???-???-???-???-???-??? - KW- no vb/cr amping. feeling b (more content not included)... Normal [facility] - Chemistry and C hemistry - challengeOrdered By: Ninfa Bautista on 03-20-2025 Glucose Ql (U) Negative [facility] - UrinalysisOrder ed By: Ninfa Bautista on 03-20-2025 Protein Ql (U) Negative [facility] Pattern Illustrator Office Visit Reporton 03-20-2025 Pattern Illustrator Office Visit Report [facility] [address], [address] [place] [address] OFFICE VISIT Date of Service: 03/20/25 MR#: [id number] Acct: [id number] Name: PEYTON DEVINE Rep #: [id number] : 2000 Provider: VICKIE Tavares ams Age/Sex: 24/F Location: [facility] [facility] Status: Signed Intake Vital Signs 01/17/25 15:34 03/07/25 09:43 03/20/25 09:02 Height 5 ft 3 in 5 ft 3 in 5 ft 3 in Weight: 141 lb 9 oz BMI 25.0 BP 121/75 H Intake Visit Reasons: 30 WK OB Chief Complaint: 30wk OB Manager Of Environmental Services Required: No Is patient in pain?: No Allergies No Known Allergies Allergy (Verified 03/20/25 09:00) Medications ???Medication ???Instructions ???Recorded ???Confirmed ???Type ondansetron HCl 4 mg tablet 4 mg PO Q6H PRN nausea and 10/07/2 5 03/20/25 Rx vomiting #60 tabs PNV 158-iron 13.5 mg-folic 0.5 cap PO 10/13/24 03/20/25 History mg-omega 3-dha 150 mg-epa-fish capsule (Natavi PNV) Last Menstrual Period: 08/22/24 PFSH PFSH Medical History Desquamated skin Anxiety Adopted Surgical History delivery delivered History of surgery No significant past surgical history Social History adopted: Yes household members: spouse and children housing: house number of children: 2 current occupational status: previously employed current occupation: [employer] current occupational exposures/hazards: No pets and animals: Yes pets and animals: dog(s) history of recent travel: Yes ([place] in August) out of state: Yes out of country: No sexually active: Yes Smoking Status: Never smoker second hand exposure: No alcohol intake: never substance use type: does not use caffeine: No what type of physical activity do you participate in: walking carmen/sabianist: None seatbelt use: always do you feel [...] 41 live - full term Female [facility] Pr okop 07/16/22 Pattie 39 live - full term 8lbs 3oz Female spinal [facility] Dr. Jewell Delivery Date: 11/14/20 Last Updated by: Chloé Lovelace primary c=section for catagory 2 FHT HPI 30 WK OB Details: PEYTON DEVINE is a 24 year old who presents for routine OB visit. OB Visit BRIGIDA Calculator Estimated Delivery Date Method Current WG Current Estimate 05/29/25 LMP (Certain) 30w 0d Other Estimates 05/28/25 Ultrasound #1 30w 1d Expected Delivery Route/Plan patient counseled regarding risks/benefits of trial of labor versus repeat . ACOG/uptodate education given to patient. 75.7 % likelihood of success per calculator TOLAC consent form signed: [] Labor Preferences- CB/BF classes: no labor support person: [] labor intervention preferences: [] pain management options preferred: not opposed to epidural cut cord/dad catch: cord : yes PP control planned: discussed discussed possible routes of delivery and associated risks: [] special requests: [] Specific Issue/Plans Covid status: [] Flu vaccine: [] Tdap vaccine: declines Rhogam: na LARC form signed: yes Problem list reviewed and updated with the [...] -???-???-???-???-???-??? -???-???-???-???-???-??? - 179 -???-???-???-???-???-??? -???-???-???-???-???-??? - KW- CRL cons with dates. accepts NIPT. 11/21/24 -???-???-???-???-???-??? -???-???-???-???-???-??? - 13w 0d 124 lb 4 oz (+5 lb 4 oz) 135/86 Negative -???-???-???-???-???-??? -???-???-???-???-???-??? - Negative 155 -???-???-???-???-???-??? -???-???-???-???-???-??? - KW- no vb/cr amping. feeling better. MFM anatomy ordered, labs today. 12/22/24 -???-???-???-???-???-??? -???-???-???-???-???-??? - 17w 3d (more content not included)... Normal [facility] Absolute lymphocyte countOrd ered By: Pricilla Alfaro on 03-07-2025 Lymphocytes Auto (Unsp spec) [#/Vol] 1.59 10*3/uL 0.83-4.51 [facility] Absolute neutrophil countOrd ered By: Pricilla Alfaro on 03-07-2025 Neutrophils (Bld) [#/Vol] 7.0 10*3/uL 2.0-7.7 [facility] Automated lymphocyte count a s percentage of total leukocytesOrdered By: Pricilla Alfaro on 03-07-2025 Lymphocytes/100 WBC Auto (Unsp spec) 17.0 % Low 19-41 [facility] Basophil percentageOrdered B y: Pricilla Alfaro on 03-07-2025 Basophils/100 WBC (Bld) 0.7 % 0-1 [facility] CBC W/Diff, Automatedon 02-14 Absolute Lymph 1.59 X10 3/uL Normal 0.83-4.51 [facility] Comment on above: Performed By: #### L 509.8002, L100.0100, L501.0250, L3890.6006 #### [facility] [address] [place], [address] Absolute Neut 7.0 X10 3/uL Normal 2.0-7.7 [facility] Comment on above: Performed By: #### L 509.8002, L100.0100, L501.0250, L3890.6006 #### [facility] [address] [place], [address] Basophils/100 WBC (Bld) 0.7 % Normal 0-1 [facility] Comment on above: Performed By: #### L 509.8002, L100.0100, L501.0250, L3890.6006 #### [facility] [address] [place], [address] Eosinophils/100 WBC (Bld) 0.3 % Normal 0-5 [facility] Comment on above: Performed By: #### L 509.8002, L100.0100, L501.0250, L3890.6006 #### [facility] [address] [place], [address] Erythrocyte distribution width (RBC) [Ratio] 11.9 % Normal 11.6-14.6 [facility] Comment on above: Performed By: #### L 509.8002, L100.0100, L501.0250, L3890.6006 #### [facility] [address] [place], [address] Hematocrit (Bld) [Volume fraction] 36.3 % Low 37-47 [facility] Comment on above: Performed By: #### L 509.8002, L100.0100, L501.0250, L3890.6006 #### [facility] [address] [place], [address] Hemoglobin (Bld) [Mass/Vol] 12.0 g/dL Normal 12.0-15.0 [facility] Comment on above: Performed By: #### L 509.8002, L100.0100, L501.0250, L3890.6006 #### [facility] [address] [place], [address] IG% 1.700 High 0.0-0.9 [facility] Comment on above: Result Comment: IG% - Immature Granulocytes (promyelocytes, myelocytes and metamyelocytes) > 1% indicates that a LEFT SHIFT is Present. Performed By: #### L 509.8002, L100.0100, L501.0250, L3890.6006 #### [facility] [address] [place], [address] Lymphocytes/100 WBC (Bld) 17.0 % Low 19-41 [facility] Comment on above: Performed By: #### L 509.8002, L100.0100, L501.0250, L3890.6006 #### [facility] [address] [place], [address] MCH (RBC) [Entitic mass] 30.2 pg Normal 27.0-32.0 [facility] Comment on above: Performed By: #### L 509.8002, L100.0100, L501.0250, L3890.6006 #### [facility] [address] [place], [address] MCHC (RBC) [Mass/Vol] 33.1 g/dL Normal 32-36 [facility] Comment on above: Performed By: #### L 509.8002, L100.0100, L501.0250, L3890.6006 #### [facility] [address] [place], [address] MCV (RBC) [Entitic vol] 91.4 fL Normal 81-99 [facility] Comment on above: Performed By: #### L 509.8002, L100.0100, L501.0250, L3890.6006 #### [facility] [address] [place], [address] Monocytes/100 WBC (Bld) 5.9 % Normal 0-10 [facility] Comment on above: Performed By: #### L 509.8002, L100.0100, L501.0250, L3890.6006 #### [facility] [address] [place], [address] Neutrophils/100 WBC (Bld) 74.4 % High 47-70 [facility] Comment on above: Performed By: #### L 509.8002, L100.0100, L501.0250, L3890.6006 #### [facility] [address] [place], [address] Nucleated RBC (Bld) [#/Vol] 0 10*3/uL Normal 0-5 [facility] Comment on above: Performed By: #### L 509.8002, L100.0100, L501.0250, L3890.6006 #### [facility] [address] [place], [address] Platelet mean volume (Bld) [Entitic vol] 11.5 fL Normal 6.2-12.0 [facility] Comment on above: Performed By: #### L 509.8002, L100.0100, L501.0250, L3890.6006 #### [facility] [address] [place], [address] Platelets (Bld) [#/Vol] 226 10*3/uL Normal 150-450 [facility] Comment on above: Performed By: #### L 509.8002, L100.0100, L501.0250, L3890.6006 #### [facility] [address] [place], [address] RBC (Bld) [#/Vol] 3.97 10*6/uL Low 4.2-5.4 [facility] Comment on above: Performed By: #### L 509.8002, L100.0100, L501.0250, L3890.6006 #### [facility] [address] [place], [address] RDW SD 40.0 fl Normal 35.1-43.9 [facility] Comment on above: Performed By: #### L 509.8002, L100.0100, L501.0250, L3890.6006 #### [facility] [address] [place], [address] WBC (Bld) [#/Vol] 9.4 10*3/uL Normal 4.4-11.0 [facility] Comment on above: Performed By: #### L 509.8002, L100.0100, L501.0250, L3890.6006 #### [facility] [address] [place], [place], [address] Eosinophil percentageOrdered By: Pricilla Yedonaldo on 03-07-2025 Eosinophils/100 WBC (Bld) 0.3 % 0-5 [facility] Erythrocyte distribution wid th ratioOrdered By: Pricilla Yedonaldo on 03-07-2025 Erythrocyte distribution width (RBC) [Ratio] 11.9 % 11.6-14.6 [facility] Erythrocyte distribution wid th standard deviationOrdered By: Pricilla Alfaro on 03-07-2025 Erythrocyte distribution width (RBC) [Ratio] 40.0 fl 35.1-43.9 [facility] Glucose Challenge Gest 1H 50 citlalli 03-07-2025 GLU GEST 50g 1H 119 mg/dL Normal 70-140 [facility] Comment on above: Result Comment: AMENDED REPORT 03/07/25 1349 GLU GEST 50g 1H previously reported as: 119 mg/dL Performed By: #### L 509.8002, L100.0100, L501.0250, L3890.6006 #### [facility] [address] [place], [place], [id number] Glucose measurement at 2 matt rs post-dose gestational glucose tolerance testOrdered By: Pricilla Alfaro on 03-07-2025 Glucose [Mass/Vol] 117 mg/dL 70-140 [facility] Comment on above: Previous reported re sult: 119 mg/dLEdited by: AUTOINS on 03/07/25:1349 AMENDED REPORT 03/07/25 1349 GLU GEST 50g 1H previously reported as: 119 mg/dL HIVon 03-07-2025 HIV Non-Reactive Normal Nonreactive [facility] Comment on above: Result Comment: Non- Reactive Reactive Repeatedly reactive samples must be confirmed according to CDC recommended confirmatory algorithms. The subresults for either HIVAG or AHIV can be used as an aid in the selection of the confirmation algorithm for reactive samples. Send out specimens with Reactive results to [facility] for confirmation. Order the HIV antibody detection and differentiation: #[id number] Performed By: #### L 509.8002, L100.0100, L501.0250, L3890.6006 #### [facility] [address] [place], [address] Hematocrit Auto (Bld) [Volum e fraction]Ordered By: Pricilla Alfaro on 03-07-2025 Hematocrit (Bld) [Volume fraction] 36.3 % Low 37-47 [facility] Hemoglobin measurementOrdere d By: Pricilla Alfaro on 03-07-2025 Hemoglobin (Bld) [Mass/Vol] 12.0 g/dL 12.0-15.0 [facility] Immature granulocytes/100 WB C Auto (Bld)Ordered By: Pricilla Alfaro on 03-07-2025 Immature granulocytes/100 WBC (Bld) 1.700 % High 0.0-0.9 [facility] Comment on above: IG% - Immature Granu locytes (promyelocytes, myelocytes and metamyelocytes) > 1% indicates that a LEFT SHIFT is Present. Laboratory - Chemistry and C hemistry - challengeOrdered By: Brenda Salazar on 03-07-2025 Glucose Ql (U) Negative [facility] - UrinalysisOrder ed By: Brenda Salazar on 03-07-2025 Protein Ql (U) Negative [facility] MCV (mean corpuscular volume ) determinationOrdered By: Pricilla Alfaro on 03-07-2025 MCV (RBC) [Entitic vol] 91.4 fL 81-99 [facility] Mean corpuscular hemoglobin (MCH) determinationOrdered By: Pricilla Alfaro on 03-07-2025 MCH (RBC) [Entitic mass] 30.2 pg 27.0-32.0 [facility] Mean corpuscular hemoglobin concentration (MCHC) determinationOrdered By: Pricilla Alfaro on 03-07-2025 MCHC (RBC) [Mass/Vol] 33.1 g/dL 32-36 [facility] Mean platelet volume determi nationOrdered By: Pricilla Alfaro on 03-07-2025 Platelet mean volume (Bld) [Entitic vol] 11.5 fL 6.2-12.0 [facility] Monocyte percentageOrdered B y: Pricilla Alfaro on 03-07-2025 Monocytes/100 WBC (Bld) 5.9 % 0-10 [facility] Neutrophil percentageOrdered By: Pricilla Alfaro on 03-07-2025 Neutrophils/100 WBC (Bld) 74.4 % High 47-70 [facility] No Panel InformationOrdered By: Pricilla Alfaro on 03-07-2025 HIV (1&2) Antibody Non-Reactive Nonreactive [facility] Comment on above: Non-ReactiveReactive Repeatedly reactive samples must be confirmed according to CDC recommended confirmatory algorithms. The subresults for either HIVAG or AHIV can be used as an aid in the selection of the confirmation algorithm for reactive samples.Send out specimens with Reactive results to [facility] for confirmation.Order the HIV antibody detection and differentiation: #[id number] Nucleated red blood cell per centageOrdered By: Pricilla Alfaro on 03-07-2025 Nucleated RBC/100 WBC (Bld) [Ratio] 0 % 0-5 [facility] Pattern Illustrator Office Visit Reporton 03-07-2025 Pattern Illustrator Office Visit Report [facility] [address], [address] [place] [address] OFFICE VISIT Date of Service: 03/07/25 MR#: [id number] Acct: [id number] Name: PEYTON DEVINE GLENROY Rep #: [id number] : 2000 Provider: AL dickson Age/Sex: 24/F Location: [facility] [place] Status: Signed Intake Vital Signs 12/22/24 10:09 01/17/25 15:34 02/16/25 15:28 03/07/25 09:43 Height 5 ft 3 in 5 ft 3 in 5 ft 3 in 5 ft 3 in Weight: 140 lb 1 oz BMI 24.7 BP 118/72 Intake Visit Reasons: 28wk ob/glucose Chief Complaint: 28 Week OB/Glucose Manager Of Environmental Services Required: No Is patient in pain?: No Allergies No Known Allergies Allergy (Verified 03/07/25 09:45) Medications ???Medication ???Instructions ???Recorded ???Confirmed ???Type ondansetron HCl 4 mg tablet 4 mg PO Q6H PRN nausea and 10/07/2 5 03/07/25 Rx vomiting #60 tabs PNV 158-iron 13.5 mg-folic 0.5 cap PO 10/13/24 03/07/25 History mg-omega 3-dha 150 mg-epa-fish capsule (Natavi PNV) Last Menstrual Period: 08/22/24 Zika: Zika virus screening: Negative : Yes PFSH PFSH Medical History Desquamated skin Anxiety Adopted Surgical History delivery delivered History of surgery No significant past surgical history Social History adopted: Yes household members: spouse and children housing: house number of children: 2 current occupational status: previously employed current occupation: [employer] current occupational exposures/hazards: No pets and animals: Yes pets and animals: dog(s) history of recent travel: Yes ([place] in August) out of state: Yes out of country: No sexually active: Yes Smoking Status: Never smoker second hand exposure: No alcohol intake: never substance use type: does not use caffeine: No what type of physical activity do you participate in: walking carmen/sabianist: None seatbelt use: always do you feel [...] 41 live - full term Female [facility] Pr okop 07/16/22 Pattie 39 live - full term 8lbs 3oz Female spinal [facility] Dr. Jewell Delivery Date: 11/14/20 Last Updated by: Chloé Lovelace primary c=section for catagory 2 FHT HPI 28wk ob/glucose Details: PEYTON DEVINE is a 24 year old who presents for routine OB visit. OB Visit BRIGIDA Calculator Estimated Delivery Date Method Current WG Current Estimate 05/29/25 LMP (Certain) 28w 1d Other Estimates 05/28/25 Ultrasound #1 28w 2d Expected Delivery Route/Plan patient counseled regarding risks/benefits of trial of labor versus repeat . ACOG/uptodate education given to patient. 75.7 % likelihood of success per calculator TOLAC consent form signed: [] Labor Preferences- CB/BF classes: no labor support person: [] labor intervention preferences: [] pain management options preferred: not opposed to epidural cut cord/dad catch: cord : yes PP control planned: discussed discussed possible routes of delivery and associated risks: [] special requests: [] Specific Issue/Plans Covid status: [] Flu vaccine: [] Tdap vaccine: declines Rhogam: na LARC form signed: yes Problem list reviewed and updated with the [...] -???-???-???-???-???-??? -???-???-???-???-???-??? - 179 -???-???-???-???-???-??? -???-???-???-???-???-??? - KW- CRL cons with dates. accepts NIPT. 11/21/24 -???-???-???-???-???-??? -???-???-???-???-???-??? - 13w 0d 124 lb 4 oz (+5 lb 4 oz) 135/86 Negative -???-???-???-???-???-??? -???-???-???-???-???-??? - Negative 155 -???-???-???-???-???-??? -???-???-???-???-???-??? - KW- no vb/cr am (more content not included)... Normal [facility] Platelet countOrdered By: Shaq Alfaro on 03-07-2025 Platelets (Bld) [#/Vol] 226 10*3/uL 150-450 [facility] RBC Auto (Bld) [#/Vol]Ordere d By: Pricilla Alfaro on 03-07-2025 RBC (Bld) [#/Vol] 3.97 10*6/uL Low 4.2-5.4 [facility] Syphilis Antibodieson 2024 Syphilis Abs Non-Reactive Normal Nonreactive [facility] Comment on above: Performed By: #### L 509.8002, L100.0100, L501.0250, L3890.6006 #### [facility] [address] [place] [place], [place], [id number] White blood cell (WBC) count Ordered By: Pricilla Alfaro on 03-07-2025 WBC (Bld) [#/Vol] 9.4 10*3/uL 4.4-11.0 [facility] - Chemistry and C hemistry - challengeOrdered By: Pricilla Alfaro on 02-16-2025 Glucose Ql (U) Negative [facility] - UrinalysisOrder ed By: Pricilla Alfaro on 02-16-2025 Protein Ql (U) Negative [facility] Pattern Illustrator Office Visit Reporton 02-16-2025 Pattern Illustrator Office Visit Report [facility]'s [address], [address] [place] [address] OFFICE VISIT Date of Service: 02/16/25 MR#: [id number] Acct: [id number] Name: PEYTON DEVINE Rep #: [id number] : 2000 Provider: Dr. Pricilla santana MD Age/Sex: 24/F Location: [facility] [place] [facility] Status: Signed Intake Vital Signs 12/22/24 10:09 01/17/25 15:34 02/16/25 15:28 Height 5 ft 3 in 5 ft 3 in 5 ft 3 in Weight: 138 lb 9 oz BMI 24.5 BP 123/79 H Intake Visit Reasons: 25wk ob Manager Of Environmental Services Required: No Is patient in pain?: No Allergies No Known Allergies Allergy (Verified 02/16/25 15:31) Medications ???Medication ???Instructions ???Recorded ???Confirmed ???Type ondansetron HCl 4 mg tablet 4 mg PO Q6H PRN nausea and 10/07/ 5 02/16/25 Rx vomiting #60 tabs PNV 158-iron 13.5 mg-folic 0.5 cap PO 10/13/24 02/16/25 History mg-omega 3-dha 150 mg-epa-fish capsule (Natavi PNV) Last Menstrual Period: 08/22/24 Zika: Zika virus screening: Negative : No PFSH PFSH Medical History Desquamated skin Anxiety Adopted Surgical History delivery delivered History of surgery No significant past surgical history Social History adopted: Yes household members: spouse and children housing: house number of children: 2 current occupational status: previously employed current occupation: [employer] current occupational exposures/hazards: No pets and animals: Yes pets and animals: dog(s) history of recent travel: Yes ([place] in August) out of state: Yes out of country: No sexually active: Yes Smoking Status: Never smoker second hand exposure: No alcohol intake: never substance use type: does not use caffeine: No what type of physical activity do you participate in: walking carmen/sabianist: None seatbelt use: always do you feel [...] 41 live - full term Female [facility] Pr okop 07/16/22 Pattie 39 live - full term 8lbs 3oz Female spinal [facility] Dr. Jewell Delivery Date: 11/14/20 Last Updated by: Chloé Lovelace primary c=section for catagory 2 FHT HPI 25wk ob Details: PEYTON DEVINE is a 24 year old who presents for routine OB visit. OB Visit BRIGIDA Calculator Estimated Delivery Date Method Current WG Current Estimate 05/29/25 LMP (Certain) 25w 3d Other Estimates 05/28/25 Ultrasound #1 25w 4d Expected Delivery Route/Plan patient counseled regarding risks/benefits [...] -???-???-???-???-???-??? -???-???-???-???-???-??? - 179 -???-???-???-???-???-??? -???-???-???-???-???-??? - KW- CRL cons with dates. accepts NIPT. 11/21/24 -???-???-???-???-???-??? -???-???-???-???-???-??? - 13w 0d 124 lb 4 oz (+5 lb 4 oz) 135/86 Negative -???-???-???-???-???-??? -???-???-???-???-???-??? - Negative 155 -???-???-???-???-???-??? -???-???-???-???-???-??? - KW- no vb/cr amping. feeling better. MFM anatomy ordered, labs today. 12/22/24 -???-???-???-???-???-??? -???-???-???-???-???-??? - (more content not included)... Normal [facility] - Chemistry and C hemistry - challengeOrdered By: Brenda Salazar on 01-17-2025 Glucose Ql (U) Negative [facility] - UrinalysisOrder ed By: Brenda Salazar on 01-17-2025 Protein Ql (U) Negative [facility] Pattern Illustrator Office Visit Reporton 01-17-2025 Pattern Illustrator Office Visit Report [facility] [address], [address] [place] [address] OFFICE VISIT Date of Service: 01/17/25 MR#: [id number] Acct: [id number] Name: PEYTON DEVINE GLENROY Rep #: [id number] : 2000 Provider: AL dickson Age/Sex: 24/F Location: [facility] [place] Status: Signed Intake Vital Signs 12/22/24 10:09 01/17/25 15:34 Height 5 ft 3 in 5 ft 3 in Weight: 132 lb 8 oz BMI 23.4 BP 113/74 Intake Visit Reasons: 21wk ob Chief Complaint: 21 Week OB Manager Of Environmental Services Required: No Is patient in pain?: No Allergies No Known Allergies Allergy (Verified 01/17/25 15:34) Medications ???Medication ???Instructions ???Recorded ???Confirmed ???Type ondansetron HCl 4 mg tablet 4 mg PO Q6H PRN nausea and 10/07/2 5 01/17/25 Rx vomiting #60 tabs PNV 158-iron 13.5 mg-folic 0.5 cap PO 10/13/24 01/17/25 History mg-omega 3-dha 150 mg-epa-fish capsule (Natavi [...] current occupational status: previously employed current occupation: [employer] current occupational exposures/hazards: No pets and animals: Yes pets and animals: dog(s) history of recent travel: Yes ([place] in August) out of state: Yes out of country: No sexually active: Yes Smoking Status: Never smoker second hand exposure: No alcohol intake: never substance use type: does not use caffeine: No what type of physical activity do you participate in: walking carmen/sabianist: None seatbelt use: always do you feel [...] 41 live - full term Female [facility] Pr okop 07/16/22 Pattie 39 live - full term 8lbs 3oz Female spinal [facility] Dr. Jewell Delivery Date: 11/14/20 Last Updated by: Chloé Lovelace primary c=section for catagory 2 FHT HPI 21wk ob Details: PEYTON DEVINE is a 24 year old who presents for routine OB visit. OB Visit BRIGIDA Calculator Estimated Delivery Date Method Current WG Current Estimate 05/29/25 LMP (Certain) 21w 1d Other Estimates 05/28/25 Ultrasound #1 21w 2d Expected Delivery Route/Plan patient counseled regarding risks/benefits [...] -???-???-???-???-???-??? -???-???-???-???-???-??? - 179 -???-???-???-???-???-??? -???-???-???-???-???-??? - KW- CRL cons with dates. accepts NIPT. 11/21/24 -???-???-???-???-???-??? -???-???-???-???-???-??? - 13w 0d 124 lb 4 oz (+5 lb 4 oz) 135/86 Negative -???-???-???-???-???-??? -???-???-???-???-???-??? - Neg (more content not included)... Normal [facility] - Chemistry and C hemistry - challengeOrdered By: Sejal Cooper on 12-22-2024 Glucose Ql (U) Negative [facility] - UrinalysisOrder ed By: Sejal Cooper on 12-22-2024 Protein Ql (U) Negative [facility] Pattern Illustrator Office Visit Reporton 12-22-2024 Pattern Illustrator Office Visit Report [facility] [address] [place] [address], [address] [place] [address] OFFICE VISIT Date of Service: 12/22/24 MR#: [id number] Acct: [id number] Name: PEYTON DEVINE GLENROY Rep #: [id number] : 2000 Provider: Dr. Sejal Rascon, Age/Sex: 24/F Location: [facility] [place] Status: Signed Intake Vital Signs 10/25/24 13:03 11/21/24 10:16 12/22/24 10:02 12/22/24 10:09 Height 5 ft 3 in 5 ft 3 in 5 ft 3 in 5 ft 3 in Weight: 127 lb 6 oz BMI 22.5 BP 116/71 Intake Visit Reasons: 17 wk ob Manager Of Environmental Services Required: No Is patient in pain?: No Allergies No Known Allergies Allergy (Verified 12/22/24 10:03) Medications ???Medication ???Instructions ???Recorded ???Confirmed ???Type ondansetron HCl 4 mg tablet 4 mg PO Q6H PRN nausea and 5 12/22/24 Rx vomiting #60 tabs PNV 158-iron 13.5 mg-folic 0.5 cap PO 10/13/24 12/22/24 History mg-omega 3-dha 150 mg-epa-fish capsule (Natavi [...] current occupational status: previously employed current occupation: [employer] current occupational exposures/hazards: No pets and animals: Yes pets and animals: dog(s) history of recent travel: Yes ([place] in August) out of state: Yes out of country: No sexually active: Yes Smoking Status: Never smoker second hand exposure: No alcohol intake: never substance use type: does not use caffeine: No what type of physical activity do you participate in: walking carmen/sabianist: None seatbelt use: always do you feel [...] 41 live - full term Female [facility] Pr okop 07/16/22 Pattie 39 live - full term 8lbs 3oz Female spinal [facility] Dr. Jewell Delivery Date: 11/14/20 Last Updated by: Chloé Lovelace primary c=section for catagory 2 FHT HPI 17 wk ob Details: PEYTON DEVINE is a 24 year old who presents for routine OB visit. OB Visit BRIGIDA Calculator Estimated Delivery Date Method Current WG Current Estimate 05/29/25 LMP (Certain) 17w 3d Other Estimates 05/28/25 Ultrasound #1 17w 4d Expected Delivery Route/Plan patient counseled regarding risks/benefits [...] -???-???-???-???-???-??? -???-???-???-???-???-??? - 179 -???-???-???-???-???-??? -???-???-???-???-???-??? - KW- CRL cons with dates. accepts NIPT. 11/21/24 -???-???-???-???-???-??? -???-???-???-???-???-??? - 13w 0d 124 lb 4 oz (+5 lb 4 oz) 135/86 Negative -???-???-???-???-???-??? -???- (more content not included)... Normal [facility] Absolute lymphocyte countOrd ered By: Ninfa Bautista on 11-21-2024 Lymphocytes Auto (Unsp spec) [#/Vol] 1.67 10*3/uL 0.83-4.51 [facility] Absolute neutrophil countOrd ered By: Ninfa Bautista on 11-21-2024 Neutrophils (Bld) [#/Vol] 6.8 10*3/uL 2.0-7.7 [facility] Automated lymphocyte count a s percentage of total leukocytesOrdered By: Ninfa Bautista on 11-21-2024 Lymphocytes/100 WBC Auto (Unsp spec) 18.2 % Low 19-41 [facility] Basophil percentageOrdered B y: Ninfa Bautista on 11-21-2024 Basophils/100 WBC (Bld) 0.5 % 0-1 [facility] CBC W/Diff, Automatedon 06-0 Absolute Lymph 1.67 X10 3/uL Normal 0.83-4.51 [facility] Comment on above: Performed By: #### L 3890.6102, L509.8002, L509.4006, BTS, L3890.6301, L900.0098, L100.0100, L3890.6006 #### [facility] [address] [place] [place], [place], [id number] Absolute Neut 6.8 X10 3/uL Normal 2.0-7.7 [facility] Comment on above: Performed By: #### L 3890.6102, L509.8002, L509.4006, BTS, L3890.6301, L900.0098, L100.0100, L3890.6006 #### [facility] [address] [place], [address] Basophils/100 WBC (Bld) 0.5 % Normal 0-1 [facility] Comment on above: Performed By: #### L 3890.6102, L509.8002, L509.4006, BTS, L3890.6301, L900.0098, L100.0100, L3890.6006 #### [facility] [address] [place], [address] Eosinophils/100 WBC (Bld) 1.1 % Normal 0-5 [facility] Comment on above: Performed By: #### L 3890.6102, L509.8002, L509.4006, BTS, L3890.6301, L900.0098, L100.0100, L3890.6006 #### [facility] [address] [place], [address] Erythrocyte distribution width (RBC) [Ratio] 12.7 % Normal 11.6-14.6 [facility] Comment on above: Performed By: #### L 3890.6102, L509.8002, L509.4006, BTS, L3890.6301, L900.0098, L100.0100, L3890.6006 #### [facility] [address] [place], [address] Hematocrit (Bld) [Volume fraction] 40.2 % Normal 37-47 [facility] Comment on above: Performed By: #### L 3890.6102, L509.8002, L509.4006, BTS, L3890.6301, L900.0098, L100.0100, L3890.6006 #### [facility] [address] [place], [address] Hemoglobin (Bld) [Mass/Vol] 13.7 g/dL Normal 12.0-15.0 [facility] Comment on above: Performed By: #### L 3890.6102, L509.8002, L509.4006, BTS, L3890.6301, L900.0098, L100.0100, L3890.6006 #### [facility] [address] [place], [address] IG% 0.700 Normal 0.0-0.9 [facility] Comment on above: Result Comment: IG% - Immature Granulocytes (promyelocytes, myelocytes and metamyelocytes) > 1% indicates that a LEFT SHIFT is Present. Performed By: #### L 3890.6102, L509.8002, L509.4006, BTS, L3890.6301, L900.0098, L100.0100, L3890.6006 #### [facility] [address] [place], [address] Lymphocytes/100 WBC (Bld) 18.2 % Low 19-41 [facility] Comment on above: Performed By: #### L 3890.6102, L509.8002, L509.4006, BTS, L3890.6301, L900.0098, L100.0100, L3890.6006 #### [facility] [address] [place], [address] MCH (RBC) [Entitic mass] 30.0 pg Normal 27.0-32.0 [facility] Comment on above: Performed By: #### L 3890.6102, L509.8002, L509.4006, BTS, L3890.6301, L900.0098, L100.0100, L3890.6006 #### [facility] [address] [place], [address] MCHC (RBC) [Mass/Vol] 34.1 g/dL Normal 32-36 [facility] Comment on above: Performed By: #### L 3890.6102, L509.8002, L509.4006, BTS, L3890.6301, L900.0098, L100.0100, L3890.6006 #### [facility] [address] [place], [address] MCV (RBC) [Entitic vol] 88.0 fL Normal 81-99 [facility] Comment on above: Performed By: #### L 3890.6102, L509.8002, L509.4006, BTS, L3890.6301, L900.0098, L100.0100, L3890.6006 #### [facility] [address] [place], [address] Monocytes/100 WBC (Bld) 4.8 % Normal 0-10 [facility] Comment on above: Performed By: #### L 3890.6102, L509.8002, L509.4006, BTS, L3890.6301, L900.0098, L100.0100, L3890.6006 #### [facility] [address] [place], [address] Neutrophils/100 WBC (Bld) 74.7 % High 47-70 [facility] Comment on above: Performed By: #### L 3890.6102, L509.8002, L509.4006, BTS, L3890.6301, L900.0098, L100.0100, L3890.6006 #### [facility] [address] [place], [address] Nucleated RBC (Bld) [#/Vol] 0 10*3/uL Normal 0-5 [facility] Comment on above: Performed By: #### L 3890.6102, L509.8002, L509.4006, BTS, L3890.6301, L900.0098, L100.0100, L3890.6006 #### [facility] [address] [place], [address] ( Platelet mean volume (Bld) [Entitic vol] 10.7 fL Normal 6.2-12.0 [facility] Comment on above: Performed By: #### L 3890.6102, L509.8002, L509.4006, BTS, L3890.6301, L900.0098, L100.0100, L3890.6006 #### [facility] [address] [place], [address] (067 Platelets (Bld) [#/Vol] 283 10*3/uL Normal 150-450 [facility] Comment on above: Performed By: #### L 3890.6102, L509.8002, L509.4006, BTS, L3890.6301, L900.0098, L100.0100, L3890.6006 #### [facility] [address] [facility] [place], [address] (169 RBC (Bld) [#/Vol] 4.57 10*6/uL Normal 4.2-5.4 [facility] Comment on above: Performed By: #### L 3890.6102, L509.8002, L509.4006, BTS, L3890.6301, L900.0098, L100.0100, L3890.6006 #### [facility] [address] [place], [address] (621 RDW SD 39.9 fl Normal 35.1-43.9 [facility] Comment on above: Performed By: #### L 3890.6102, L509.8002, L509.4006, BTS, L3890.6301, L900.0098, L100.0100, L3890.6006 #### [facility] [address] [place], [address] WBC (Bld) [#/Vol] 9.2 10*3/uL Normal 4.4-11.0 [facility] Comment on above: Performed By: #### L 3890.6102, L509.8002, L509.4006, BTS, L3890.6301, L900.0098, L100.0100, L3890.6006 #### [facility] [address] [place], [address] Eosinophil percentageOrdered By: Ninfa Bautista on 11-21-2024 Eosinophils/100 WBC (Bld) 1.1 % 0-5 [facility] Erythrocyte distribution wid th ratioOrdered By: Ninfa Bautista on 11-21-2024 Erythrocyte distribution width (RBC) [Ratio] 12.7 % 11.6-14.6 [facility] Erythrocyte distribution wid th standard deviationOrdered By: Ninfa Bautista on 11-21-2024 Erythrocyte distribution width (RBC) [Ratio] 39.9 fl 35.1-43.9 [facility] HIVon 11-21-2024 HIV Non-Reactive Normal Nonreactive [facility] Comment on above: Result Comment: Non- Reactive Reactive Repeatedly reactive samples must be confirmed according to CDC recommended confirmatory algorithms. The subresults for either HIVAG or AHIV can be used as an aid in the selection of the confirmation algorithm for reactive samples. Send out specimens with Reactive results to [facility] for confirmation. Order the HIV antibody detection and differentiation: [id number] Performed By: #### L 509.8002, L100.0100, L501.0250, L3890.6006 #### [facility] [address] [place], [address] Hematocrit Auto (Bld) [Volum e fraction]Ordered By: Ninfa Bautista on 11-21-2024 Hematocrit (Bld) [Volume fraction] 40.2 % 37-47 [facility] Hemoglobin measurementOrdere d By: Ninfa Bautista on 11-21-2024 Hemoglobin (Bld) [Mass/Vol] 13.7 g/dL 12.0-15.0 [facility] Hepatitis C Antibodyon 11-21 Hepatitis C Ab Non-Reactive Normal Nonreactive [facility] Comment on above: Result Comment: Reac tive: Presumptive evidence of antibodies to HCV. Follow CDC recommendations for supplemental testing. Non-Reactive: Antibodies to HCV were not detected; does not exclude the possibility of exposure to HCV Reactive Results are presumptive evidence of antibodies to HCV. Follow CDC recommendations for supplemental testing. Order confirmation testing: HCV Quant by PCR testing - HCVPCR #[id number] Non Reactive: < 0.8 Equivocal: >/= 0.8 to < 1.0 Reactive: >/= 1.0 The [facility] requires that a reactive/equivocal HCV antibody result be sent out for confirmation. HCV Quant by PCR testing. Performed By: #### L 509.8002, L100.0100, L501.0250, L3890.6006 #### [facility] [address] [facility] [place], [place], [id number] Immature granulocytes/100 WB C Auto (Bld)Ordered By: Ninfa Bautista on 11-21-2024 Immature granulocytes/100 WBC (Bld) 0.700 % 0.0-0.9 [facility] Comment on above: IG% - Immature Granu locytes (promyelocytes, myelocytes and metamyelocytes) > 1% indicates that a LEFT SHIFT is Present. L3890.6102on 11-21-2024 HEP B Surf Ag Non-Reactive Normal Nonreactive [facility] Comment on above: Result Comment: Reac tive: Presumptive evidence of HBV. Repeatedly reactive samples must be confirmed using a neutralization test ([employer] HBsAg Confirmatory Test) Non-Reactive: HBsAg not detected; does not exclude the possibility of exposure to HBV Performed By: #### L 509.8002, L100.0100, L501.0250, L3890.6006 #### [facility] [address] [facility] [facility] [place], [place], [id number] L509.4006on 11-21-2024 Rubella IgG REAC Normal Nonreactive [facility] Comment on above: Result Comment: Anti body Result: Interpretation Non-Reactive: Non-Immune Reactive: Immune The following results were obtained with the [employer] Rubella IgG assay. Results from assays of other manufacturers cannot be used interchangeably. Performed By: #### L 3890.6102, L509.8002, L509.4006, BTS, L3890.6301, L900.0098, L100.0100, L3890.6006 #### [facility] [address] [place], [address] Laboratory - Chemistry and C hemistry - challengeOrdered By: Ninfa Bautista on 11-21-2024 Glucose Ql (U) Negative [facility] - Microbiology an d Antimicrobial susceptibilityOrdered By: Ninfa Bautista on 11-21-2024 HBV surface Ag Ql (S) Non-Reactive Nonreactive [facility] Comment on above: Reactive: Presumptiv e evidence of HBV. Repeatedly reactive samples must be confirmed using a neutralization test ([employer] HBsAg Confirmatory Test)Non-Reactive: HBsAg not detected; does not exclude the possibility of exposure to HBV Laboratory - UrinalysisOrder ed By: Ninfa Bautista on 11-21-2024 Protein Ql (U) Negative [facility] MCV (mean corpuscular volume ) determinationOrdered By: Ninfa Bautista on 11-21-2024 MCV (RBC) [Entitic vol] 88.0 fL 81-99 [facility] Mean corpuscular hemoglobin (MCH) determinationOrdered By: Ninfa Bautista on 11-21-2024 MCH (RBC) [Entitic mass] 30.0 pg 27.0-32.0 [facility] Mean corpuscular hemoglobin concentration (MCHC) determinationOrdered By: Ninfa Bautista on 11-21-2024 MCHC (RBC) [Mass/Vol] 34.1 g/dL 32-36 [facility] Mean platelet volume determi nationOrdered By: Ninfa Bautista on 11-21-2024 Platelet mean volume (Bld) [Entitic vol] 10.7 fL 6.2-12.0 [facility] Monocyte percentageOrdered B y: Ninfa Bautista on 11-21-2024 Monocytes/100 WBC (Bld) 4.8 % 0-10 [facility] NATERAon 11-21-2024 NATURA SEE SCANNED REPORT Normal [facility] Comment on above: Performed By: #### L 3890.6102, L509.8002, L509.4006, BTS, L3890.6301, L900.0098, L100.0100, L3890.6006 #### [facility] [address] [place], [address] Neutrophil percentageOrdered By: Ninfa Bautista on 11-21-2024 Neutrophils/100 WBC (Bld) 74.7 % High 47-70 [facility] No Panel InformationOrdered By: Ninfa Bautista on 11-21-2024 HIV (1&2) Antibody Non-Reactive Nonreactive [facility] Comment on above: Non-ReactiveReactive Repeatedly reactive samples must be confirmed according to CDC recommended confirmatory algorithms. The subresults for either HIVAG or AHIV can be used as an aid in the selection of the confirmation algorithm for reactive samples.Send out specimens with Reactive results to [facility] for confirmation.Order the HIV antibody detection and differentiation: #[id number] Nucleated red blood cell per centageOrdered By: Ninfa Bautista on 11-21-2024 Nucleated RBC/100 WBC (Bld) [Ratio] 0 % 0-5 [facility] Pattern Illustrator Office Visit Reporton 11-21-2024 Pattern Illustrator Office Visit Report [facility]'[address], [address] [place] [address] OFFICE VISIT Date of Service: 11/21/24 MR#: [id number] Acct: [id number] Name: PEYTON DEVINE GLENROY Rep #: [id number] : 2000 Provider: VICKIE Tavares ams Age/Sex: 24/F Location: [facility] [place] Status: Signed Intake Vital Signs 07/15/24 08:50 10/25/24 13:03 11/21/24 10:16 Height 5 ft 3 in 5 ft 3 in 5 ft 3 in Weight: 124 lb 4 oz BMI 22.0 BP 135/86 H Intake Visit Reasons: 13wk OB Manager Of Environmental Services Required: No Is patient in pain?: No Allergies No Known Allergies Allergy (Verified 11/21/24 10:16) Medications ???Medication ???Instructions ???Recorded ???Confirmed ???Type ondansetron HCl 4 mg tablet 4 mg PO Q6H PRN nausea and 10/07/2 5 11/21/24 Rx vomiting #60 tabs PNV 158-iron 13.5 mg-folic 0.5 cap PO 10/13/24 11/21/24 History mg-omega 3-dha 150 mg-epa-fish capsule (Natavi [...] current occupational status: previously employed current occupation: [employer] current occupational exposures/hazards: No pets and animals: Yes pets and animals: dog(s) history of recent travel: Yes ([place] in August) out of state: Yes out of country: No sexually active: Yes Smoking Status: Never smoker second hand exposure: No alcohol intake: never substance use type: does not use caffeine: No what type of physical activity do you participate in: walking carmen/sabianist: None seatbelt use: always do you feel [...] 41 live - full term Female [facility] Pr okop 07/16/22 Pattie 39 live - full term 8lbs 3oz Female spinal [facility] Dr. Jewell Delivery Date: 11/14/20 Last Updated [...] -???-???-???-???-???-??? -???-???-???-???-???-??? - 179 -???-???-???-???-???-??? -???-???-???-???-???-??? - KW- CRL cons with dates. accepts NIPT. 11/21/24 -???-???-???-???-???-??? -???-???-???-???-???-??? - 13w 0d 124 lb 4 oz (+5 lb 4 oz) 135/86 Negative -???-???-???-???-???-??? -???-???-???-???-???-??? - Negative 155 (more content not included)... Normal [facility] Platelet countOrdered By: Rickie Bautista on 11-21-2024 Platelets (Bld) [#/Vol] 283 10*3/uL 150-450 [facility] RBC Auto (d) [#/Vol]Ordere d By: Ninfa Bautista on 11-21-2024 RBC (Bld) [#/Vol] 4.57 10*6/uL 4.2-5.4 [facility] Syphilis Antibodieson 2024 Syphilis Abs Non-Reactive Normal Nonreactive [facility] Comment on above: Performed By: #### L 3890.6102, L509.8002, L509.4006, BTS, L3890.6301, L900.0098, L100.0100, L3890.6006 #### [facility] [address] [place], [address] Type AND Screenon 11-21-2024 ABO and Rh group Nom (Bld) Blood group O Rh(D) positive Normal [facility] Comment on above: Order Comment: PN Performed By: #### L 3890.6102, L509.8002, L509.4006, BTS, L3890.6301, L900.0098, L100.0100, L3890.6006 #### [facility] [address] [place], [address] White blood cell (WBC) count Ordered By: Ninfa Bautista on 11-21-2024 WBC (Bld) [#/Vol] 9.2 10*3/uL 4.4-11.0 [facility] PAP I-G w/rfx hrHPV-Aptimaon 11-01-2024 ADEQ Comment Normal . [facility] Comment on above: Order Comment: Speci men Comment: [id number] Comment: No. of containers..01 ThinPrep Vial Result Comment: Sati sfactory for evaluation. No endocervical component is identified. Performed By: #### L 509.8002, L100.0100, L501.0250, L3890.6006 #### [facility] [address] [place], [place], [id number] COMM . Normal . [facility] Comment on above: Order Comment: Kalli huynh Comment: [id number] Comment: No. of containers..01 ThinPrep Vial Performed By: #### L 509.8002, L100.0100, L501.0250, L3890.6006 #### [facility] [address] [place], [address] COMMENT Comment Normal . [facility] Comment on above: Order Comment: Speci men Comment: [id number] Comment: No. of containers..01 ThinPrep Vial Result Comment: This liquid based ThinPrep(R) pap test was screened with the use of an image guided system. Performed By: #### L 509.8002, L100.0100, L501.0250, L3890.6006 #### [facility] [address] [place], [place], [address] DIAG Comment Normal . [facility] Comment on above: Order Comment: Speci men Comment: [id number] Comment: No. of containers..01 ThinPrep Vial Result Comment: NEGA TIVE FOR INTRAEPITHELIAL LESION OR MALIGNANCY. Performed By: #### L 509.8002, L100.0100, L501.0250, L3890.6006 #### [facility] [address] [place], [place], [address] HPV RFLX Comment Normal . [facility] Comment on above: Order Comment: Speci men Comment: [id number] Comment: No. of containers..01 ThinPrep Vial Result Comment: The HPV DNA reflex criteria were not met with this specimen result therefore, no HPV testing was performed. Performed at: [address] [id number] Train Clerk: Melba Britton PhD, Phone: [phone] Performed at: [facility] [id number] Train Clerk: Beth España MD, Phone: [phone] Performed By: #### L 509.8002, L100.0100, L501.0250, L3890.6006 #### [facility] [address] [place], [place], [id number] PAPSMR Comment Normal . [facility] Comment on above: Order Comment: Speci men Comment: [id number] Comment: No. of containers..01 ThinPrep Vial Result Comment: The Pap smear is a screening test designed to aid in the detection of premalignant and malignant conditions of the uterine cervix. It is not a diagnostic procedure and should not be used as the sole means of detecting cervical cancer. Both false-positive and false-negative reports do occur. Performed By: #### L 509.8002, L100.0100, L501.0250, L3890.6006 #### [facility] [address] [place], [address] PERFORM Comment Normal . [facility] Comment on above: Order Comment: Speci men Comment: [id number] Comment: No. of containers..01 ThinPrep Vial Result Comment: Josy Leavitt, [employer] Department Head (ASCP) Performed By: #### L 509.8002, L100.0100, L501.0250, L3890.6006 #### [facility] [address] [place], [address] Chlamydia/GC KY aptimaon CHLAMY,NUC ACID Negative Normal Negative [facility] Comment on above: Performed By: #### L 509.8002, L100.0100, L501.0250, L3890.6006 #### [facility] [address] [place], [address] GC BY NUC ACID Negative Normal Negative [facility] Comment on above: Result Comment: Perf ormed at: =G - [facility] [address] [id number] Train Clerk: Beth España MD, Phone: [phone] Performed By: #### L 509.8002, L100.0100, L501.0250, L3890.6006 #### [facility] [address] [place], [address] Urine Cultureon 10-26-2024 URC Culture exhibits no growth. Normal [facility] Comment on above: Performed By: #### L 509.8002, L100.0100, L501.0250, L3890.6006 #### [facility] [address] [place], [address] Cervical or vagninal specime n microscopic examination by cytology stain (reported asOrdered By: Ninfa Bautista on 10-25-2024 Cytology report Cyto stain Doc (Cvx/Vag) Comment . [facility] Comment on above: The Pap smear is a s creening test designed to aid in thedetection of premalignant and malignant conditions of theuterine cervix. It is not a diagnostic procedure andshould not be used as the sole means of detecting cervicalcancer. Both false-positive and false-negative reports dooccur. Chlamydia trachomatis rRNA d etection by probe and target amplification methodOrdered By: Ninfa Bautista on 10-25-2024 C. trachomatis rRNA KY+probe Ql (Unsp spec) Negative Negative [facility] - CytologyOrdered By: Ninfa Bautista on 10-25-2024 [employer] Department Head Cyto stain Nom (Cvx/Vag) [ID] Comment . [facility] Comment on above: Sarah Leavitt, [employer] Department Head (ASCP) Laboratory - Miscellaneous t estsOrdered By: Ninfa Bautista on 10-25-2024 Service comment (Unsp spec) [Interp] . . [facility] Neisseria gonorrhoeae nuclei c acid detection by amplified probe techniqueOrdered By: Ninfa Bautista on 10-25-2024 N. gonorrhoeae DNA KY+probe Ql (Unsp spec) Negative Negative [facility] Comment on above: Performed at: =[address] [id number] Director: Beth España MD, Phone: [phone] No Panel InformationOrdered By: Ninfa Bautista on 10-25-2024 Pap Smear Specimen Adequacy Comment . [facility] Comment on above: Satisfactory for melba luation. No endocervical component is identified. Pattern Illustrator Office Visit Reporton 10-25-2024 Pattern Illustrator Office Visit Report [facility] [address], [address] [place] [address] OFFICE VISIT Date of Service: 10/25/24 MR#: [id number] Acct: [id number] Name: NIGELJASONPEYTON ANN Rep #: [id number] : 2000 Provider: VICKIE Tavares ams Age/Sex: 24/F Location: [facility] [place] Status: Signed Intake Vital Signs 07/15/24 08:50 10/25/24 13:03 Height 5 ft 3 in 5 ft 3 in Weight: 119 lb 8 oz BMI 21.2 BP 135/75 H Intake Visit Reasons: NOB: LMP 3/10, BRIGIDA 05/29 Chief Complaint: 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 Is patient in pain?: No [...] current occupational status: previously employed current occupation: [employer] current occupational exposures/hazards: No pets and animals: Yes pets and animals: dog(s) history of recent travel: Yes ([place] in August) out of state: Yes out of country: No sexually active: Yes Smoking Status: Never smoker second hand exposure: No alcohol intake: never substance use type: does not use caffeine: No what type of physical activity do you participate in: walking How many days of moderate to strenuous exercise, like a brisk walk, did you do in the last 7 days: 3 carmen/sabianist: None seatbelt use: always do you feel [...] 41 live - full term Female [facility] Pr okop 07/16/22 Pattie 39 live - full term 8lbs 3oz Female spinal [facility] Dr. Romero Davey Delivery Date: 11/14/20 Last [...] -???-???-???-???-???-??? - (more content not included)... Normal [facility] Urine cultureOrdered By: Capo Bautista on 10-25-2024 Bacteria identified Cx Nom (U) Culture exhibits no growth. [facility] Pattern Illustrator Office Visit Reporton 07-15-2024 Pattern Illustrator Office Visit Report [facility] [address], [address] [place] [address] OFFICE VISIT Date of Service: 07/15/24 MR#: [id number] Acct: [id number] Name: PEYTON CH GLENROY Rep #: [id number] : 2000 Provider: Dr. Sejal Rascon DO Age/Sex: 23/F Location: [facility] [place] Status: Signed Intake Vital Signs 09/24/22 12:06 07/15/24 08:48 07/15/24 08:50 Height 5 ft 3 in 5 ft 3 in 5 ft 3 in Weight: 122 lb 4 oz BMI 21.7 BP 126/81 H Intake Visit Reasons: IUD REMOVAL Manager Of Environmental Services Required: No Is patient in pain?: No [...] was on control in the past. 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 History 2 Elective abortions Hx Para 2 Spontaneous abortions Hx # Term Pregnancies 2 Ectopic pregnancies Hx # Pregnancies Multiple births # of living children 2 Past Pregnancies Del. Date Name GA/Weeks Outcome Route Bth Weight Infant Gen Labor Lgth Anesthesia Del Locatn Provider FOB 11/14/20 [place] 41 live - full term Female [facility] Pr okop 07/16/22 Pattie 39 live - full term 8lbs 3oz Female spinal [facility] Dr. Jewell Delivery Date: 11/14/20 Last Updated [...] normal Coding Level of Care Code Attention Post Doc Fellowship Diagnoses Encounter for IUD removal Z30.432 Desquamated [...] effect of brith control. Will consult with [facility] 07/15/24 0916 Date Sejal Romero DO [facility] Signature: Date (if applicable) CC: Normal [facility] .Auto Diffon 01-06-2023 Basophil, Absolute 0.1 10 3/mcL Normal 0.0-0.3 [facility] ([place]) Comment on above: Performed By: #### A DIFF, CBC, ANEU ####[address] [address] Basophils/100 WBC (Bld) 1.2 % Normal 0.0-2.5 A [facility] ([place]) Comment on above: Performed By: #### A DIFF, CBC, ANEU ####[place] [address] [place] [address] Eosinophil, Absolute 0.2 10 3/mcL Normal 0.0-0.7 [facility] ([place]) Comment on above: Performed By: #### A DIFF, CBC, ANEU ####[address] [address] Eosinophils/100 WBC (Bld) 5.0 % Normal 0.0-6.0 [facility] ([place]) Comment on above: Performed By: #### A DIFF, CBC, ANEU ####[address] [address] Lymphocyte, Absolute 2.0 10 3/mcL Normal 0.9-4.3 [facility] ([place]) Comment on above: Performed By: #### A DIFF, CBC, ANEU ####[address] [address] Lymphocytes/100 WBC (Bld) 40.4 % High 20.0-40.0 [facility] ([place]) Comment on above: Performed By: #### A DIFF, CBC, ANEU ####[address] [address] Monocyte, Absolute 0.5 10 3/mcL Normal 0.1-1.4 [facility] ([place]) Comment on above: Performed By: #### A DIFF, CBC, ANEU ####[address] [address] Monocytes/100 WBC (Bld) 9.5 % Normal 2.0-13.0 [facility] ([place]) Comment on above: Performed By: #### A DIFF, CBC, ANEU ####[address] [address] Neutrophils/100 WBC (Bld) 43.9 % Low 50.0-75.0 [facility] ([place]) Comment on above: Performed By: #### A DIFF, CBC, ANEU ####[address] [address] Basophil, Absolute 0.0 10 3/mcL Normal 0.0-0.3 [facility] ([place]) Comment on above: Performed By: #### C BC, ANEU, ADIFF #### [address] [address] Basophils/100 WBC (Bld) 0.7 % Normal 0.0-2.5 [facility] ([place]) Comment on above: Performed By: #### C BC, ANEU, ADIFF #### [address] [address] Eosinophil, Absolute 0.2 10 3/mcL Normal 0.0-0.7 [facility] ([place]) Comment on above: Performed By: #### C BC, ANEU, ADIFF #### [address] [address] Eosinophils/100 WBC (Bld) 4.1 % Normal 0.0-6.0 [facility] ([place]) Comment on above: Performed By: #### C BC, ANEU, ADIFF #### [address] [address] Lymphocyte, Absolute 1.7 10 3/mcL Normal 0.9-4.3 [facility] ([place]) Comment on above: Performed By: #### C BC, ANEU, ADIFF #### [address] [address] Lymphocytes/100 WBC (Bld) 36.6 % Normal 20.0-40.0 [facility] ([place]) Comment on above: Performed By: #### C BC, ANEU, ADIFF #### [address] [address] Monocyte, Absolute 0.6 10 3/mcL Normal 0.1-1.4 [facility] ([place]) Comment on above: Performed By: #### C BC, ANEU, ADIFF #### [address] [address] Monocytes/100 WBC (Bld) 12.5 % Normal 2.0-13.0 [facility] ([place]) Comment on above: Performed By: #### C BC, ANEU, ADIFF #### [address] [address] Neutrophils/100 WBC (Bld) 46.1 % Low 50.0-75.0 [facility] ([place]) Comment on above: Performed By: #### C BC, ANEU, ADIFF #### [address] [address] .GFRon 01-06-2023 GFR >60 Normal [facility] ([place]) Comment on above: Result Comment: GFR Population [...] By: #### C BC, ANEU, ADIFF #### [address] [address] GFR Non- >60 Normal [facility] ([place]) Comment on above: Result Comment: GFR Population [...] By: #### C BC, ANEU, ADIFF #### [address] [address] .NEUABSon 01-06-2023 Neutrophil, Absolute 2.1 10 3/mcL Low 2.3-8.1 [facility] ([place]) Comment on above: Performed By: #### A DIFF, CBC, ANEU ####[address] [address] Neutrophil, Absolute 2.2 10 3/mcL Low 2.3-8.1 [facility] ([place]) Comment on above: Performed By: #### C BC, ANEU, ADIFF #### [address] [address] CBCon 01-06-2023 Erythrocyte distribution width (RBC) [Ratio] 12.6 % Normal 11.5-15.5 [facility] ([place] Comment on above: Performed By: #### A DIFF, CBC, ANEU ####[address] [address] Hematocrit (Bld) [Volume fraction] 37.3 % Normal 34.0-46.0 [facility] ([place] Comment on above: Performed By: #### A DIFF, CBC, ANEU ####[place] [address] Hgb 12.5 G/dL Normal 12.0-16.0 [facility] ([place] Comment on above: Performed By: #### A DIFF, CBC, ANEU ####[address] [address] MCH (RBC) [Entitic mass] 29.3 pg Normal 27.0-33.0 [facility] ([place] Comment on above: Performed By: #### A DIFF, CBC, ANEU ####[place] [address] MCHC 33.4 G/dL Normal 32.0-36.0 [facility] ([place] Comment on above: Performed By: #### A DIFF, CBC, ANEU ####[address] [address] MCV (RBC) [Entitic vol] 87.8 fL Normal 80.0-99.0 [facility] ([place]) Comment on above: Performed By: #### A DIFF, CBC, ANEU ####[address] [address] Platelet 298 10 3/mcL Normal 150-450 [facility] ([place]) Comment on above: Performed By: #### A DIFF, CBC, ANEU ####[address] [address] Platelet mean volume (Bld) [Entitic vol] 8.0 fL Normal 6.6-10.5 [facility] ([place]) Comment on above: Performed By: #### A DIFF, CBC, ANEU ####[facility] [place] [address] RBC 4.25 10 6/mcL Normal 4.10-5.30 [facility] ([place]) Comment on above: Performed By: #### A DIFF, CBC, ANEU ####[facility] [place] [address] WBC 4.8 10 3/mcL Normal 4.5-10.8 [facility] ([place]) Comment on above: Performed By: #### A DIFF, CBC, ANEU ####[facility] [place] [address] Erythrocyte distribution width (RBC) [Ratio] 12.9 % Normal 11.5-15.5 [facility] ([place]) Comment on above: Performed By: #### C BC, ANEU, ADIFF #### [address] [address] Hematocrit (Bld) [Volume fraction] 35.5 % Normal 34.0-46.0 [facility] ([place] Comment on above: Performed By: #### C BC, ANEU, ADIFF #### [address] [address] Hgb 11.8 G/dL Low 12.0-16.0 [facility] ([place] Comment on above: Performed By: #### C BC, ANEU, ADIFF #### [address] [address] MCH (RBC) [Entitic mass] 29.3 pg Normal 27.0-33.0 [facility] ([place] Comment on above: Performed By: #### C BC, ANEU, ADIFF #### [address] [address] MCHC 33.2 G/dL Normal 32.0-36.0 [facility] ([place] Comment on above: Performed By: #### C BC, ANEU, ADIFF #### [address] [address] MCV (RBC) [Entitic vol] 88.4 fL Normal 80.0-99.0 [facility] ([place]) Comment on above: Performed By: #### C ELMIRA DUDLEY, ADIFF #### [address] [address] Platelet 282 10 3/mcL Normal 150-450 [facility] ([place]) Comment on above: Performed By: #### C ELMIRA DUDLEY, ADIFF #### [address] [address] Platelet mean volume (Bld) [Entitic vol] 7.9 fL Normal 6.6-10.5 [facility] ([place]) Comment on above: Performed By: #### C ELMIRA DUDLEY, ADIFF #### [address] [address] RBC 4.02 10 6/mcL Low 4.10-5.30 [facility] ([place] Comment on above: Performed By: #### C ELMIRA DUDLEY, ADIFF #### [address] [address] WBC 4.8 10 3/mcL Normal 4.5-10.8 [facility] ([place]) Comment on above: Performed By: #### C ELMIRA DUDLEY, ADIFF #### [address] [address] CMPon 01-06-2023 BUN/Creatinine Ratio Unable to Calculate Normal 10.0-2 2.0 [facility] ([place]) Comment on above: Result Comment: Unab le to calculate this test result accurately. Results used to calculate this test are outside the reportable range. Performed By: #### C ELMIRA DUDLEY, ADIFF #### [address] [address] Urea nitrogen [Mass/Vol] mg/dL Low 8.0-22.0 [facility] ([place]) Comment on above: Performed By: #### C ELMIRA DUDLEY, ADIFF #### [address] [address] Albumin Level 2.9 G/dL Low 3.2-4.8 [facility] ([place]) Comment on above: Performed By: #### C ELMIRA DUDLEY, ADIFF #### [address] [address] Albumin/Globulin [Mass ratio] 1.1 {ratio} Normal 0.9-1.6 [facility] ([place]) Comment on above: Performed By: #### C ELMIRA DUDLEY, ADIFF #### [address] [address] ALP [Catalytic activity/Vol] 60 U/L Normal 38-126 [facility] ([place]) Comment on above: Performed By: #### C ELMIRA DUDLEY, ADIFF #### [address] [address] ALT [Catalytic activity/Vol] 11 U/L Normal 10-49 [facility] ([place]) Comment on above: Performed By: #### C ELMIRA DUDLEY, ADIFF #### [address] [address] AST [Catalytic activity/Vol] 13 U/L Normal 8-34 [facility] ([place]) Comment on above: Performed By: #### C ELMIRA DUDLEY, ADIFF #### [address] [address] Bili Total 0.30 mg/dL Normal 0.20-1.20 [facility] ([place]) Comment on above: Result Comment: Use of this assay is not recommended for patients undergoing treatment with eltrombopag due to the potential for falsely elevated results. Performed By: #### C ELMIRA DUDLEY, ADIFF #### [address] [address] Calcium [Mass/Vol] 8.4 mg/dL Low 8.7-10.4 [facility] ([place]) Comment on above: Performed By: #### C ELMIRA DUDLEY, ADIFF #### [address] [address] Chloride [Moles/Vol] 106 mmol/L Normal 98-110 [facility] ([place]) Comment on above: Performed By: #### C ELMIRA DUDLEY, ADIFF #### [address] [address] CO2 [Moles/Vol] 23 mmol/L Normal 22-32 [facility] ([place]) Comment on above: Performed By: #### C BC, ANEU, ADIFF #### [address] [address] Creatinine [Mass/Vol] 0.46 mg/dL Low 0.50-1.20 [facility] ([place]) Comment on above: Performed By: #### C BC, ANEU, ADIFF #### [address] [address] Electrolyte Balance 12.0 mEq/L Normal 4.0-15.0 [facility] ([place]) Comment on above: Performed By: #### C BC, ANEU, ADIFF #### [address] [address] Globulin 2.7 G/dL Normal 1.5-3.8 [facility] ([place]) Comment on above: Performed By: #### C BC, ANEU, ADIFF #### [address] [address] Glucose [Mass/Vol] 65 mg/dL Low 70-110 [facility] ([place]) Comment on above: Performed By: #### C BC, ANEU, ADIFF #### [address] [address] Potassium [Moles/Vol] 3.5 mmol/L Normal 3.5-5.0 [facility] ([place]) Comment on above: Result Comment: Spec imen slightly hemolyzed. Performed By: #### C BC, ANEU, ADIFF #### [address] [address] Sodium [Moles/Vol] 141 mmol/L Normal 136-145 [facility] ([place]) Comment on above: Performed By: #### C BC, ANEU, ADIFF #### [address] [address] Total Protein 5.6 G/dL Low 5.7-8.2 [facility] ([place]) Comment on above: Result Comment: No te - New Reference Range in effect 20 Performed By: #### C BC, ANEU, ADIFF #### [address] [address] .Auto Diffon 01-05-2023 Basophil, Absolute 0.0 10 3/mcL Normal 0.0-0.3 [facility] ([place]) Comment on above: Performed By: #### C OCTAVIA, ANEU, ADIFF #### [address] [address] Basophils/100 WBC (Bld) 0.6 % Normal 0.0-2.5 [facility] ([place]) Comment on above: Performed By: #### C OCTAVIA, ANEU, ADIFF #### [address] [address] Eosinophil, Absolute 0.1 10 3/mcL Normal 0.0-0.7 [facility] ([place]) Comment on above: Performed By: #### C OCTAVIA, ANEU, ADIFF #### [address] [address] Eosinophils/100 WBC (Bld) 1.0 % Normal 0.0-6.0 [facility] ([place]) Comment on above: Performed By: #### C OCTAVIA, ANEU, ADIFF #### [address] [address] Lymphocyte, Absolute 1.6 10 3/mcL Normal 0.9-4.3 [facility] ([place] Comment on above: Performed By: #### C OCTAVIA, ANEU, ADIFF #### [address] [address] Lymphocytes/100 WBC (Bld) 21.2 % Normal 20.0-40.0 [facility] ([place] Comment on above: Performed By: #### C BC, ANEU, ADIFF #### [address] [address] Monocyte, Absolute 0.7 10 3/mcL Normal 0.1-1.4 [facility] ([place]) Comment on above: Performed By: #### C BC, ANEU, ADIFF #### [address] [address] Monocytes/100 WBC (Bld) 9.9 % Normal 2.0-13.0 [facility] ([place]) Comment on above: Performed By: #### C BC, ANEU, ADIFF #### [address] [address] Neutrophils/100 WBC (Bld) 67.3 % Normal 50.0-75.0 [facility] ([place]) Comment on above: Performed By: #### C BC, ANEU, ADIFF #### [address] [address] Basophil, Absolute 0.1 10 3/mcL Normal 0.0-0.2 [facility] ([place]) Comment on above: Performed By: #### C BC, ADIFF, ANEU, CMP, LIP, GFR, MDW #### [address] [address] Basophils/100 WBC (Bld) 0.8 % Normal 0.0-2.5 [facility] ([place]) Comment on above: Performed By: #### C BC, ADIFF, ANEU, CMP, LIP, GFR, MDW #### [address] [address] Eosinophil, Absolute 0.1 10 3/mcL Normal 0.0-0.4 [facility] ([place]) Comment on above: Performed By: #### C BC, ADIFF, ANEU, CMP, LIP, GFR, MDW #### [address] [address] Eosinophils/100 WBC (Bld) 1.3 % Normal 0.0-7.0 [facility] ([place]) Comment on above: Performed By: #### C BC, ADIFF, ANEU, CMP, LIP, GFR, MDW #### [address] [address] Lymphocyte, Absolute 1.8 10 3/mcL Normal 0.8-3.9 [facility] ([place]) Comment on above: Performed By: #### C BC, ADIFF, ANEU, CMP, LIP, GFR, MDW #### [address] [address] Lymphocytes/100 WBC (Bld) 23.3 % Normal 10.0-50.0 [facility] ([place] Comment on above: Performed By: #### C BC, ADIFF, ANEU, CMP, LIP, GFR, W #### [address] [address] Monocyte, Absolute 1.1 10 3/mcL High 0.2-1.0 [facility] ([place]) Comment on above: Performed By: #### C BC, ADIFF, ANEU, CMP, LIP, GFR, JW #### [address] [address] Monocytes/100 WBC (Bld) 15.0 % High 1.7-13.0 [facility] ([place]) Comment on above: Performed By: #### C BC, ADIFF, ANEU, CMP, LIP, GFR, JW #### [address] [address] Neutrophils/100 WBC (Bld) 59.6 % Normal 37.0-80.0 [facility] ([place]) Comment on above: Performed By: #### C BC, ADIFF, ANEU, CMP, LIP, GFR, W #### [address] [address] .GFRon 01-05-2023 GFR >60 Normal [facility] ([place]) Comment on above: Result Comment: GFR Population [...] By: #### C BC, ANEU, ADIFF #### [address] [address] GFR Non- >60 Normal [facility] ([place]) Comment on above: Result Comment: GFR Population [...] mL/min/1.73 square meters Performed By: #### C OCTAVIA, BARON KU #### [address] [address] GFR 135 ml/min/1.73sqm Normal [facility] ([place]) Comment on above: Result Comment: GFR Population [...] BC, ADIFF, ANEU, CMP, LIP, GFR, MDW ####[facility] [place], [place] [address] GFR Non- 111 ml/min/1.73sqm Normal [facility] ([place]) Comment on above: Result Comment: GFR Population [...] BC, ADIFF, ANEU, CMP, LIP, GFR, W ####[place] [address] .MDWon 01-05-2023 Monocyte Distribution Width 22.41 High 0.00-20.00 [facility] ([place]) Comment on above: Result Comment: For adults in ED, MDW>20.0 may be associated with a higher risk of sepsis during the first 12hrs of hospital admission Performed By: #### C BC, ADIFF, ANEU, CMP, LIP, GFR, W #### [place] [address] .NEUABSon 01-05-2023 Neutrophil, Absolute 5.0 10 3/mcL Normal 2.3-8.1 [facility] ([place]) Comment on above: Performed By: #### C OCTAVIA ANEU, BARON #### [address] [address] Neutrophil, Absolute 4.6 10 3/mcL Normal 2.9-6.2 [facility] ([place]) Comment on above: Performed By: #### C BC, ADIFF, ANEU, CMP, LIP, GFR, JW #### [place] [id number] .Urinalysis Microscopic (AO) on 01-05-2023 UA Bacteria 2+ /hpf Abnormal [facility] ([place]) Comment on above: Performed By: #### P REGU, UA, UAMICAO ####[place] [address] UA Mucous 3+ /hpf Normal [facility] ([place]) Comment on above: Performed By: #### P REGU, UA, UAMICAO ####[place] [id number] UA RBC 0-5 Abnormal None Seen [facility] ([place]) Comment on above: Performed By: #### P REGU, UA, UAMICAO ####[place] [place], [place] [address] UA Squam Epithelial 5-10 Abnormal None Seen [facility] ([place]) Comment on above: Performed By: #### P REGU, UA, UAMICAO ####[address] [place], [place] [address] UA WBC 0-5 Abnormal None Seen [facility] ([place]) Comment on above: Performed By: #### P REGU, UA, UAMICAO ####Jose Manuel [address] [place], [place] [address] APTTon 01-05-2023 aPTT Coag (Bld) [Time] 29.0 s Normal 25.0-35.0 [facility] ([place]) Comment on above: Result Comment: For Heparin anticoagulation therapy, the recommended therapeutic range is: 54-77 seconds (APTT Correlation with Anti-Xa therapeutic range of 0.3-0.7 units/ml). PLEASE REFERENCE THE PHARMACY PROTOCOL FOR DOSING. Performed By: #### C ELMIRA DUDLEY ADIFF #### [address] [address] Heparin dose (APTT) Unknown Normal [facility] ([place]) Comment on above: Performed By: #### C ELMIRA DUDLEY ADIFF #### [address] [address] CBCon 01-05-2023 Erythrocyte distribution width (RBC) [Ratio] 12.7 % Normal 11.5-15.5 [facility] ([place]) Comment on above: Performed By: #### C ELMIRA DUDLEY ADIFF #### [address] [address] Hematocrit (Bld) [Volume fraction] 34.9 % Normal 34.0-46.0 [facility] ([place]) Comment on above: Performed By: #### C ELMIRA DUDLEY, ADIFF #### [address] [address] Hgb 11.5 G/dL Low 12.0-16.0 [facility] ([place]) Comment on above: Performed By: #### C ELMIRA DUDLEY ADIFF #### [address] [address] MCH (RBC) [Entitic mass] 29.3 pg Normal 27.0-33.0 [facility] ([place]) Comment on above: Performed By: #### C ELMIRA DUDLEY, ADIFF #### [address] [address] MCHC 33.1 G/dL Normal 32.0-36.0 [facility] ([place]) Comment on above: Performed By: #### C ELMIRA DUDLEY ADIFF #### [place] [phone] MCV (RBC) [Entitic vol] 88.5 fL Normal 80.0-99.0 A [facility] ([place]) Comment on above: Performed By: #### C ELMIRA DUDLEY, ADIFF #### [place] [address] Platelet 287 10 3/mcL Normal 150-450 [facility] ([place]) Comment on above: Performed By: #### C ELMIRA DUDLEY ADIFF #### [place] [address] Platelet mean volume (Bld) [Entitic vol] 8.2 fL Normal 6.6-10.5 [facility] ([place]) Comment on above: Performed By: #### C ELMIRA DUDLEY, ADIFF #### [place] [phone] RBC 3.94 10 6/mcL Low 4.10-5.30 [facility] ([place]) Comment on above: Performed By: #### C ELMIRA DUDLEY ADIFF #### [address] [address] WBC 7.4 10 3/mcL Normal 4.5-10.8 [facility] ([place]) Comment on above: Performed By: #### C ELMIRA DUDLEY, ADIFF #### [place] [phone] Erythrocyte distribution width (RBC) [Ratio] 12.3 % Normal 11.5-14.5 [facility] ([place]) Comment on above: Performed By: #### C BC, ADIFF, ANEU, CMP, LIP, GFR, W #### [address] [address] Hematocrit (Bld) [Volume fraction] 37.4 % Normal 37.0-47.0 [facility] ([place]) Comment on above: Performed By: #### C BC, ADIFF, ANEU, CMP, LIP, GFR, MDW #### [address] [address] Hgb 12.4 G/dL Normal 12.0-16.0 [facility] ([place]) Comment on above: Performed By: #### C BC, ADIFF, ANEU, CMP, LIP, GFR, MDW #### [address] [address] MCH (RBC) [Entitic mass] 28.7 pg Normal 27.0-31.2 [facility] ([place]) Comment on above: Performed By: #### C BC, ADIFF, ANEU, CMP, LIP, GFR, JW #### [address] [address] MCHC 33.2 G/dL Normal 33.0-37.0 [facility] ([place]) Comment on above: Performed By: #### C BC, ADIFF, ANEU, CMP, LIP, GFR, W #### [address] [address] MCV (RBC) [Entitic vol] 86.4 fL Normal 80.0-94.0 [facility] ([place]) Comment on above: Performed By: #### C BC, ADIFF, ANEU, CMP, LIP, GFR, W #### [address] [address] Platelet 261 10 3/mcL Normal 130-400 [facility] ([place]) Comment on above: Performed By: #### C BC, ADIFF, ANEU, CMP, LIP, GFR, MDW #### [address] [address] Platelet mean volume (Bld) [Entitic vol] 8.2 fL Normal 7.4-10.4 [facility] ([place]) Comment on above: Performed By: #### C BC, ADIFF, ANEU, CMP, LIP, GFR, W #### [address] [address] RBC 4.32 10 6/mcL Normal 4.20-5.40 [facility] ([place]) Comment on above: Performed By: #### C BC, ADIFF, ANEU, CMP, LIP, GFR, W #### [address] [address] WBC 7.7 10 3/mcL Normal 4.6-10.8 [facility] ([place]) Comment on above: Performed By: #### C BC, ADIFF, ANEU, CMP, LIP, GFR, JW #### [address] [address] CMPon 01-05-2023 Albumin Level 2.9 G/dL Low 3.2-4.8 [facility] ([place]) Comment on above: Performed By: #### C BC ANEU, ADIFF #### [address] [address] Albumin/Globulin [Mass ratio] 1.1 {ratio} Normal 0.9-1.6 [facility] ([place]) Comment on above: Performed By: #### C BC, ANEU, ADIFF #### [address] [address] ALP [Catalytic activity/Vol] 61 U/L Normal 38-126 [facility] ([place]) Comment on above: Performed By: #### C BC, ANEU, ADIFF #### [address] [address] ALT [Catalytic activity/Vol] 11 U/L Normal 10-49 [facility] ([place]) Comment on above: Performed By: #### C BC, ANEU, ADIFF #### [address] [address] AST [Catalytic activity/Vol] 11 U/L Normal 8-34 [facility] ([place]) Comment on above: Performed By: #### C ELMIRA DUDLEY, ADIFF #### [address] [address] Bili Total 0.30 mg/dL Normal 0.20-1.20 [facility] ([place]) Comment on above: Result Comment: Use of this assay is not recommended for patients undergoing treatment with eltrombopag due to the potential for falsely elevated results. Performed By: #### C ELMIRA DUDLEY, ADIFF #### [address] [address] BUN/Creatinine Ratio 13.7 ratio Normal 10.0-22.0 [facility] ([place]) Comment on above: Performed By: #### C ELMIRA DUDLEY, ADIFF #### [place] [address] Calcium [Mass/Vol] 7.9 mg/dL Low 8.7-10.4 [facility] ([place]) Comment on above: Performed By: #### C ELMIRA DUDLEY, ADIFF #### [address] [address] Chloride [Moles/Vol] 108 mmol/L Normal 98-110 [facility] ([place]) Comment on above: Performed By: #### C ELMIRA DUDLEY, ADIFF #### [place] [phone] CO2 [Moles/Vol] 23 mmol/L Normal 22-32 [facility] ([place]) Comment on above: Performed By: #### C OCTAVIA ANEU, ADIFF #### [address] [address] Creatinine [Mass/Vol] 0.51 mg/dL Normal 0.50-1.20 [facility] ([place]) Comment on above: Performed By: #### C OCTAVIA ANEU, ADIFF #### [address] [address] Electrolyte Balance 12.0 mEq/L Normal 4.0-15.0 [facility] ([place]) Comment on above: Performed By: #### C ELMIRA DUDLEY, ADIFF #### [address] [address] Globulin 2.7 G/dL Normal 1.5-3.8 [facility] ([place]) Comment on above: Performed By: #### C BC, ANEU, ADIFF #### [address] [address] Glucose [Mass/Vol] 150 mg/dL High 70-110 [facility] ([place]) Comment on above: Performed By: #### C BC, ANEU, ADIFF #### [address] [address] Potassium [Moles/Vol] 3.4 mmol/L Low 3.5-5.0 [facility] ([place]) Comment on above: Performed By: #### C BC, ANEU, ADIFF #### [address] [address] Sodium [Moles/Vol] 143 mmol/L Normal 136-145 [facility] ([place]) Comment on above: Performed By: #### C BC, ANEU, ADIFF #### [address] [address] Total Protein 5.6 G/dL Low 5.7-8.2 [facility] ([place]) Comment on above: Result Comment: No te - New Reference Range in effect 20 Performed By: #### C BC, ANEU, ADIFF #### [address] [address] Urea nitrogen [Mass/Vol] 7.0 mg/dL Low 8.0-22.0 [facility] ([place]) Comment on above: Performed By: #### C BC, ANEU, ADIFF #### [address] [address] Albumin Level 3.2 G/dL Low 3.5-5.0 [facility] ([place]) Comment on above: Performed By: #### C BC, ADIFF, ANEU, CMP, LIP, GFR, MDW ####[id number] [place], [place] [address] Albumin/Globulin [Mass ratio] 1.0 {ratio} Low 1.1-2.5 [facility] ([place]) Comment on above: Performed By: #### C BC, ADIFF, ANEU, CMP, LIP, GFR, JW ####[address] [place], [place] [address] ALP [Catalytic activity/Vol] 73 U/L Normal 40-135 [facility] ([place]) Comment on above: Performed By: #### C BC, ADIFF, ANEU, CMP, LIP, GFR, JW ####[address] [place], [place] [address] ALT [Catalytic activity/Vol] 16 U/L Normal 14-59 [facility] ([place]) Comment on above: Performed By: #### C BC, ADIFF, ANEU, CMP, LIP, GFRJW ####[address] [place], [place] [address] AST [Catalytic activity/Vol] 15 U/L Normal 10-40 [facility] ([place]) Comment on above: Performed By: #### C BC, ADIFF, ANEU, CMP, LIP, GFRJW ####[address] [place], [place] [address] Bili Total 0.2 mg/dL Normal 0.2-1.0 [facility] ([place]) Comment on above: Result Comment: Use of this assay is not recommended for patients undergoing treatment with eltrombopag due to the potential for falsely elevated results. Performed By: #### C BC, ADIFF, ANEU, CMP, LIP, GFR, JW ####[address] [place], [place] [address] BUN/Creatinine Ratio 18 ratio Normal 7-27 [facility] ([place]) Comment on above: Performed By: #### C BC, ADIFF, ANEU, CMP, LIP, GFRJW ####[address] [place], [place] [address] Calcium [Mass/Vol] 8.6 mg/dL Normal 8.4-10.2 [facility] ([place]) Comment on above: Performed By: #### C BC, ADIFF, ANEU, CMP, LIP, GFR, MDW ####[address] [place], [place] [address] Chloride [Moles/Vol] 106 mmol/L Normal 98-107 [facility] ([place]) Comment on above: Performed By: #### C BC, ADIFF, ANEU, CMP, LIP, GFR, MDW ####[address] [place], [place] [address] CO2 [Moles/Vol] 27 mmol/L Normal 22-29 [facility] ([place]) Comment on above: Performed By: #### C BC, ADIFF, ANEU, CMP, LIP, GFR, MDW ####[address] [place], [place] [address] Creatinine [Mass/Vol] 0.66 mg/dL Normal 0.55-1.02 [facility] ([place]) Comment on above: Performed By: #### C BC, ADIFF, ANEU, CMP, LIP, GFR, W ####[address] [place], [place] [address] Electrolyte Balance 9.0 mEq/L Normal 4.0-15.0 [facility] ([place]) Comment on above: Performed By: #### C BC, ADIFF, ANEU, CMP, LIP, GFR, JW ####[address] [place], [place] [address] Globulin 3.2 G/dL Normal [facility] ([place]) Comment on above: Performed By: #### C BC, ADIFF, ANEU, CMP, LIP, GFR, W ####[address] [place], [place] [address] Glucose [Mass/Vol] 91 mg/dL Normal 70-105 [facility] ([place]) Comment on above: Performed By: #### C BC, ADIFF, ANEU, CMP, LIP, GFR, W ####[address] [place], [place] [address] Potassium [Moles/Vol] 3.7 mmol/L Normal 3.5-5.1 [facility] ([place]) Comment on above: Performed By: #### C BC, ADIFF, ANEU, CMP, LIP, GFR, MDW ####Jose [id number] [place], [place] [address] Sodium [Moles/Vol] 142 mmol/L Normal 136-145 [facility] ([place]) Comment on above: Performed By: #### C BC, ADIFF, ANEU, CMP, LIP, GFR, MDW ####Jose [address] [place], [place] [address] Total Protein 6.4 G/dL Normal 6.4-8.2 [facility] ([place]) Comment on above: Performed By: #### C BC, ADIFF, ANEU, CMP, LIP, GFR, MDW ####[address] [place], [place] [address] Urea nitrogen [Mass/Vol] 12 mg/dL Normal 7-18 [facility] ([place]) Comment on above: Performed By: #### C BC, ADIFF, ANEU, CMP, LIP, GFR, W ####Jose Manuel [address] [place], [place] [address] CT ABD/PELVIS W/ IV CONTRAST ONLYon 01-05-2023 [...] 01/04/2023 11:49:43 PM Ordering Provider: BENJAMIN SHELTON Normal [facility]) HGBon 01-05-2023 Hgb 10.6 G/dL Low 12.0-16.0 [facility]) Comment on above: Performed By: #### H GB #### [address] [address] LIPon 01-05-2023 Lipase Level 35 U/L Normal 16-77 [facility]) Comment on above: Performed By: #### C BARON DUDLEY, ELMIRA, CMP, LIP, GFR, MDW ####[facility] [place], [place] [address] MGon 01-05-2023 Magnesium [Mass/Vol] 1.5 mg/dL Low 1.6-2.4 [facility]) Comment on above: Performed By: #### C ELMIRA DUDLEY ADIFF #### [address] [address] PHOSon 01-05-2023 Phosphate [Mass/Vol] 3.1 mg/dL Normal 2.4-5.1 [facility]) Comment on above: Result Comment: No te - New Reference Range in effect 20 Performed By: #### C ELMIRA DUDLEY ADIFF #### [facility] [address] [place] [address] PREGUon 01-05-2023 HCG ( test) Ql (U) Negative Normal [facility] ([place]) Comment on above: Performed By: #### P REGU, UA, UAMICAO ####Jose [address] [place], [place] [address] test (u) int Not detected Invalid Interpretation Code [facility] ([place]) Comment on above: Performed By: #### P REGU, UA, UAMICAO ####Jose Manuel [id number] [place], [place] [address] PROon 01-05-2023 INR Coag (PPP) [Relative time] 1.0 {INR} Normal [facility] ([place]) Comment on above: Result Comment: The [employer] (CHEST, 1992, 102:[id number]) recommended therapeutic range for oral anticoagulant therapy is: LOW RISK: Prophylaxis of venous thrombosis INR: 2.0-3.0 Treatment of pulmonary embolism 2.0-3.0 Prevention of systemic embolism 2.0-3.0 HIGH RISK: Mechanical prosthetic valves 2.5-3.5 Performed By: #### C ELMIRA DUDLEY, ADIFF #### [facility] [address] [place] [address] PT Coag (PPP) [Time] 12.2 s Normal 9.0-14.8 [facility] ([place]) Comment on above: Result Comment: Effe ctive 12/28/07, Protime results may be affected by some antibiotics (i.e. Ciprofloxacin, Azithromycin, Bactrim) which may potentiate the action of oral anticoagulants, with further increases in Protime/INR. Performed By: #### C ELMIRA DUDLEY, ADIFF #### [facility] [address] [place] [address] UAon 01-05-2023 Color (U) Yellow Normal [facility] ([place]) Comment on above: Performed By: #### U A ####[facility] [place] [address] Glucose (U) [Mass/Vol] Negative Normal Negative [facility] ([place]) Comment on above: Performed By: #### U A ####[place] [address] Ketones Ql (U) 80 mg/dL Abnormal Neg-Trace [facility] ([place]) Comment on above: Performed By: #### U A ####[place] [address] UA Appear Clear Normal Clear [facility] ([place]) Comment on above: Performed By: #### U A ####[place] [address] UA Blood Negative Normal Neg-Trace [facility] ([place]) Comment on above: Performed By: #### U A ####[place] [address] UA Leuk Est Negative Normal Negative [facility] ([place]) Comment on above: Performed By: #### U A ####[place] [address] UA Nitrite Negative Normal Negative [facility] ([place]) Comment on above: Performed By: #### U A ####[place] [address] UA pH 5.5 Normal 5.0 - 8.0 [facility] ([place]) Comment on above: Performed By: #### U A ####[place] [address] UA Protein Trace Normal Negative [facility] ([place]) Comment on above: Performed By: #### U A ####[place] [address] UA Spec Grav 1.020 Normal 1.006-1.029 [facility] ([place]) Comment on above: Performed By: #### U A ####[place] [address] UA Specimen Type Clean Catch Normal [facility] ([place]) Comment on above: Performed By: #### U A ####[place] [address] UA Urobilinogen 0.2 E.U./dL Normal 0.2-1.0 [facility] ([place]) Comment on above: Performed By: #### U A ####[address] [address] Urobilinogen (U) [Mass/Vol] Negative Normal Neg-Trace [facility] ([place]) Comment on above: Performed By: #### U A ####[place] [address] Color (U) Yellow Normal [facility] ([place]) Comment on above: Performed By: #### P REGU, UA, UAMICAO ####[address] [place] [address] Glucose (U) [Mass/Vol] Negative Normal Negative [facility] ([place]) Comment on above: Performed By: #### P REGU, UA, UAMICAO ####[address] [place] [address] Ketones Ql (U) 15 mg/dL Abnormal Negative [facility] ([place]) Comment on above: Performed By: #### P REGU, UA, UAMICAO ####[address] [place], [place] [address] UA Appear Slightly Cloudy Abnormal Clear [facility] ([place]) Comment on above: Performed By: #### P REGU, UA, UAMICAO ####[address] [place], [place] [address] UA Bili Small Abnormal Negative [facility] ([place]) Comment on above: Performed By: #### P REGU, UA, UAMICAO ####[address] [place], [place] [address] UA Blood Negative Normal Negative [facility] ([place]) Comment on above: Performed By: #### P REGU, UA, UAMICAO ####[address] [place], [place] [address] UA Leuk Est Negative Normal Negative [facility] ([place]) Comment on above: Performed By: #### P REGU, UA, UAMICAO ####[address] [place], [place] [address] UA Nitrite Negative Normal Negative [facility] ([place]) Comment on above: Performed By: #### P REGU, UA, UAMICAO ####[address] [place], [place] [address] UA pH 6.0 Normal 5.0 - 8.0 [facility] ([place]) Comment on above: Performed By: #### P REGU, UA, UAMICAO ####Jose [address] [place], [place] [address] UA Protein 30 mg/dL Normal Negative [facility] ([place]) Comment on above: Performed By: #### P REGU, UA, UAMICAO ####Jose [address] [place], [place] [address] UA Spec Grav >=1.030 Abnormal 1.015-1.025 [facility] ([place]) Comment on above: Performed By: #### P REGU, UA, UAMICAO ####Jose [address] [place], [place] [address] UA Specimen Type Clean Catch Normal [facility] ([place]) Comment on above: Performed By: #### P REGU, UA, UAMICAO ####Jose [id number] [place], [place] [address] UA Urobilinogen 0.2 E.U./dL Normal 0.2-1.0 [facility] ([place]) Comment on above: Performed By: #### P REGU, UA, UAMICAO ####[address] [place], [place] [address] US ABDOMEN LIMITEDon 023 US ABDOMEN LIMITED [...] 01/05/2023 2:13:15 AM Ordering Provider: BENJAMIN SHELTON [facility] ([place]) Laboratory - Chemistry and C hemistry - challengeon 06-30-2022 Glucose Ql (U) Negative [facility] - Urinalysison Protein Ql (U) Negative [facility] No Panel InformationOrdered By: Dr. Cooper on 06-26-2022 Group B Streptococcus Culture Group B Beta Streptococcus is not isolated. [facility] - Chemistry and C hemistry - challengeon 06-24-2022 Glucose Ql (U) Negative [facility] - Urinalysison Protein Ql (U) Negative [facility] - Chemistry and C hemistry - challengeon 06-17-2022 Glucose Ql (U) Negative [facility] - Urinalysison Protein Ql (U) Negative [facility] - Chemistry and C hemistry - challengeon 05-26-2022 Glucose Ql (U) Negative [facility] - Urinalysison Protein Ql (U) Negative [facility] - Chemistry and C hemistry - challengeon 04-30-2022 Glucose Ql (U) Negative [facility] - Urinalysison Protein Ql (U) Negative [facility] Absolute lymphocyte countOrd ered By: Dr. Cooper on 04-14-2022 Lymphocytes Auto (Unsp spec) [#/Vol] 2.09 10*3/uL 0.83-4.51 [facility] Basophil percentageOrdered B y: Dr. Cooper on 04-14-2022 Basophils/100 WBC (Bld) 0.4 % 0-1 [facility] Eosinophils/100 WBC (Bld) 0.7 % 0-5 [facility] Neutrophils (Bld) [#/Vol] 7.2 10*3/uL 2.0-7.7 [facility] Neutrophils/100 WBC (Bld) 70.8 % 47-70 [facility] WBC (Bld) [#/Vol] 10.2 10*3/uL 4.4-11.0 [facility] Blood erythrocytes count (nu mber/volume)Ordered By: Dr. Cooper on 04-14-2022 RBC (Bld) [#/Vol] 3.68 10*6/uL 4.2-5.4 [facility] Blood hemoglobin measurement (mass/volume)Ordered By: Dr. Cooper on 04-14-2022 Hemoglobin (Bld) [Mass/Vol] 11.7 g/dL 12.0-15.0 [facility] Blood lymphocytes/100 leukoc ytesOrdered By: Dr. Cooper on 04-14-2022 Lymphocytes/100 WBC (Bld) 20.5 % 19-41 [facility] Blood monocytes/100 leukocyt esOrdered By: Dr. Cooper on 04-14-2022 Monocytes/100 WBC (Bld) 6.7 % 0-10 [facility] Blood platelet mean volumeOr dered By: Dr. Cooper on 04-14-2022 Platelet mean volume (Bld) [Entitic vol] 10.3 fL 6.2-12.0 [facility] Determination of erythrocyte mean corpuscular volume (MCV)Ordered By: Dr. Cooper on 04-14-2022 MCV (RBC) [Entitic vol] 92.1 fL 81-99 [facility] Gestational diabetes screen 1-hour screen with 50g oral glucose loadOrdered By: Dr. Cooper on 04-14-2022 Glucose 1 Hr post 50 g glucose PO [Mass/Vol] 106 mg/dL 70-140 [facility] Hematocrit Auto (Bld) [Volum e fraction]Ordered By: Dr. Cooper on 04-14-2022 Hematocrit (Bld) [Volume fraction] 33.9 % 37-47 [facility] Laboratory - Chemistry and C hemistry - challengeon 04-14-2022 Glucose Ql (U) Negative [facility] - Hematology and Cell countsOrdered By: Dr. Cooper on 04-14-2022 Erythrocyte distribution width (RBC) [Entitic vol] 43.6 fL 35.1-43.9 [facility] Erythrocyte distribution width (RBC) [Ratio] 13.0 % 11.6-14.6 [facility] Immature granulocytes/100 WBC (Bld) 0.900 % 0.0-0.9 [facility] Comment on above: IG% - Immature Granu locytes (promyelocytes, myelocytes and metamyelocytes) > 1% indicates that a LEFT SHIFT is Present. MCH (RBC) [Entitic mass] 31.8 pg 27.0-32.0 [facility] Nucleated RBC/100 WBC (Bld) [Ratio] 0 % 0-5 [facility] - Urinalysison Protein Ql (U) Negative [facility] MCHC Auto (RBC) [Mass/Vol]Or dered By: Dr. Cooper on 04-14-2022 MCHC (RBC) [Mass/Vol] 34.5 g/dL 32-36 [facility] Platelets bldOrdered By: Dr. Cooper on 04-14-2022 Platelets (Bld) [#/Vol] 243 10*3/uL 150-450 [facility] Laboratory - Chemistry and C hemistry - challengeon 03-21-2022 Glucose Ql (U) Negative [facility] - Urinalysison Protein Ql (U) Negative [facility] - Chemistry and C hemistry - challengeon 02-19-2022 Glucose Ql (U) Negative [facility] Work Phone: Laboratory - Urinalysison Protein Ql (U) Negative [facility] Work Phone: Laboratory - Chemistry and C hemistry - challengeon 01-20-2022 Glucose Ql (U) Negative [facility] Work Phone: Laboratory - Urinalysison Protein Ql (U) Negative [facility] Work Phone: Absolute lymphocyte counton 12-27-2021 Lymphocytes Auto (Unsp spec) [#/Vol] 1.99 10*3/uL 0.83-4.51 [facility] Work Phone: Basophil percentageon 2021 Basophils/100 WBC (Bld) 0.2 % 0-1 [facility] Work Phone: Eosinophils/100 WBC (Bld) 1.1 % 0-5 [facility] Work Phone: Neutrophils (Bld) [#/Vol] 6.1 10*3/uL 2.0-7.7 [facility] Work Phone: Neutrophils/100 WBC (Bld) 69.2 % 47-70 [facility] Work Phone: WBC (Bld) [#/Vol] 8.9 10*3/uL 4.4-11.0 [facility] Work [facility]: Blood erythrocytes count (nu mber/volume)on 12-27-2021 RBC (Bld) [#/Vol] 4.33 10*6/uL 4.2-5.4 [facility] Work Phone: Blood hemoglobin measurement (mass/volume)on 12-27-2021 Hemoglobin (Bld) [Mass/Vol] 12.6 g/dL 12.0-15.0 [facility] Work Phone: Blood lymphocytes/100 leukoc yteson 12-27-2021 Lymphocytes/100 WBC (Bld) 22.4 % 19-41 [facility] [facility] Work Phone: Blood monocytes/100 leukocyt eson 12-27-2021 Monocytes/100 WBC (Bld) 6.6 % 0-10 [facility] Work Phone: Blood platelet mean volumeon 12-27-2021 Platelet mean volume (Bld) [Entitic vol] 10.4 fL 6.2-12.0 [facility] Work Phone: Chlamydia trachomatis rRNA d etection by probe and target amplification methodon 12-27-2021 C. trachomatis rRNA [place]+probe Ql (Unsp spec) Negative Negative [facility] Work Phone: Determination of erythrocyte mean corpuscular volume (MCV)on 12-27-2021 MCV (RBC) [Entitic vol] 86.6 fL 81-99 [facility] Work Phone: [phone] HIV 1 and HIV-2 antibody ass ay with HIV-1 p24 antigen detectionon 12-27-2021 HIV 1+2 Ab+HIV1 p24 Ag IA Ql Non-Reactive Nonreactive [facility] Work Phone: Hematocrit Auto (Bld) [Volum e fraction]on 12-27-2021 Hematocrit (Bld) [Volume fraction] 37.5 % 37-47 [facility] Work Phone: Laboratory - Drug toxicology on 12-27-2021 Amphetamines Ql (U) Negative <1000 ng/mL [facility] Work Phone: Benzodiazepines Ql (U) Negative < 200 ng/mL [facility] Work Phone: Cannabinoids Screen Ql (U) Negative < 50 ng/mL [facility] Work Phone: Cocaine Ql (U) Negative < 300 ng/mL [facility] Work Phone: Opiates Ql (U) Negative < 300 ng/mL [facility] Work Phone: Laboratory - Hematology and Cell countson 12-27-2021 Erythrocyte distribution width (RBC) [Entitic vol] 39.7 fL 35.1-43.9 [facility] Work Phone: Erythrocyte distribution width (RBC) [Ratio] 12.8 % 11.6-14.6 [facility] Work Phone: Immature granulocytes/100 WBC (Bld) 0.500 % 0.0-0.9 [facility] Work Phone: Comment on above: IG% - Immature Granu locytes (promyelocytes, myelocytes and metamyelocytes) > 1% indicates that a LEFT SHIFT is Present. MCH (RBC) [Entitic mass] 29.1 pg 27.0-32.0 [facility] Work Phone: Nucleated RBC/100 WBC (Bld) [Ratio] 0 % 0-5 [facility] Work Phone: Laboratory - Microbiology an d Antimicrobial susceptibilityon 12-27-2021 N. gonorrhoeae DNA [place]+probe Ql (Unsp spec) Negative Negative [facility] Work Phone: Comment on above: Performed at: =G - L [address] [id number] Director: Beth España MD, Phone: [phone] MCHC Auto (RBC) [Mass/Vol]on 12-27-2021 MCHC (RBC) [Mass/Vol] 33.6 g/dL 32-36 [facility] Work Phone: No Panel Informationon 12-27 Hepatitis B Surface Antigen Non-Reactive Nonreactive [facility] Work Phone: Hepatitis C Antibody Non-Reactive Nonreactive [facility] Work Phone: Comment on above: Non Reactive: < 0.8 Equivocal: >/= 0.8 to < 1.0 Reactive: >/= 1.0The CDC recommends that a reactive/equivocal HCV antibody result be followed up by the HCV Nucleic Acid Amplificationtest (516697) MDMA (Ecstasy) Screen Negative < 500 ng/mL [facility] Work Phone: Miscellaneous Test Comment MAILED SPECIMEN [facility] Work Phone: Rubella IgG Antibody Reactive Nonreactive [facility] Work Phone: Comment on above: Antibody Results Int erpretation of Immune Status Non Reactive Presumed Non-Immune Equivocal Equivocal Reactive Presumed Immune Urine Barbiturates Screen Negative < 200 ng/mL [facility] Work Phone: Urine Drug Screen Comment [facility] Work Phone: Comment on above: CONFIRMATORY TESTING FOR ALL [...] Urine Methadone Screen Negative < 300 ng/mL [facility] Work Phone: Platelets bldon 12-27-2021 Platelets (Bld) [#/Vol] 313 10*3/uL 150-450 [facility] Work Phone: Serum Treponema species anti body detectionon 12-27-2021 Treponema sp Ab Ql (S) Non-Reactive [facility] Work Phone: Urine phencyclidine (PCP) de tectionon 12-27-2021 Phencyclidine Ql (U) Negative < 25 ng/mL [facility] Work Phone: CNOVon 03-22-2018 CNOV Office Visit ([facility]) [facility]N CH [facility][id number]) [facility] Tdwsfbemtx07/8/18 12:15 PM YAAKOV STOVALL) [facility] During your visit today, we recorded the following information about you: Temperature Pulse Respiration Weight 98.9 degrees 83/minute 16/minute 55 kgYaakov Stovall PA-C 03/22/2018 1:40 PM Uoumzb2103/22/2018Patient presents with:itcht painful rash on arms and [...] (FLONASE) 50 mcg/actuation nasal spray Use 1 Bunker in each nostrildaily at bedtime.norgestimate 0.25 mg-ethinyl [...] Sig: FLUTICASONE 50 MCG/ACTUATION * Use 1 Bunker in each nostril d* NORGESTIMATE 0.25 MG-ETHINYL [...] expectorate) 4 times daily until gone.Letter Keven Stovall PA-C Urgent [id number] [facility] [address]Xlvt: [phone]/8/2018Taryn Fally[address] [place] [id number] Whom it May Concern:This is to certify that Peyton Ch was seen at our office for medicalcare.If you have any questions please feel free to call.Sincerely:JAY JAY ZamoraCEncounter Number: [id number] Status:Closed by YAAKOV STOVALL PA-C on 03/22/18 Normal [facility] PROGRESSon 03-22-2018 Protein mass conc HNO ID: [id number]: Yaakov Andrew) Salinaervice: (none)Author Type: Physician AssistantType: [...] (FLONASE) 50 mcg/actuation nasal spray Use 1 Bunker in eachnostril daily at bedtime.norgestimate 0.25 mg-ethinyl [...] these issues and agrees with theplan. Normal [facility] CBC and Differentialon 01-04 Abs Baso 0.07 k/uL Normal <0.11 [facility] Comment on above: Performed By: #### C BCDIF ####[facility] [address] [place], [place] [id number] Abs [place] 0.61 k/uL Normal <0.87 [facility] Comment on above: Performed By: #### C BCDIF ####[address] Abs Neut 4.83 k/uL Normal 1.45-7.50 [facility] Comment on above: Performed By: #### C BCDIF ####[address] Basophils/100 WBC Auto (Bld) 0.9 % Normal [facility] Comment on above: Performed By: #### C BCDIF ####[address] Eosinophils Auto #/vol (Bld) 0.14 10*3/uL Normal <0.46 [facility] Comment on above: Performed By: #### C BCDIF ####[address]7[address] Eosinophils/100 WBC Auto (Bld) 1.8 % Normal [facility] Comment on above: Performed By: #### C BCDIF ####[address]721[address] Erythrocyte distribution width Auto Ratio (RBC) 13.0 % Normal 11.5-15.0 [facility] Comment on above: Performed By: #### C BCDIF ####[address]721[address]160 Hematocrit Auto Volume Fraction (Bld) 41.5 % Normal 36.0-46.0 [facility] Comment on above: Performed By: #### C BCDIF ####[place] [id number] Hemoglobin mass conc (Bld) 14.0 g/dL Normal 11.5-15.5 [facility] Comment on above: Performed By: #### C BCDIF ####[place] [id number] Lymphocytes Auto #/vol (Bld) 2.01 10*3/uL Normal 1.00-4.00 [facility] Comment on above: Performed By: #### C BCDIF ####[address]721[address] Lymphocytes/100 WBC Auto (Bld) 26.2 % Normal [facility] Comment on above: Performed By: #### C BCDIF ####[address]721[address]160 MCH Auto Entitic mass (RBC) 29.9 pG Normal 26.0-34.0 [facility] Comment on above: Performed By: #### C BCDIF ####[address]721[address]160 MCHC Auto mass conc (RBC) 33.7 g/dL Normal 30.5-36.0 [facility] Comment on above: Performed By: #### C BCDIF ####[address]721[address]160 MCV Auto Entitic volume (RBC) 88.5 fL Normal 80.0-100.0 [facility] Comment on above: Performed By: #### C BCDIF ####[place] [id number] Monocytes/100 WBC Auto (Bld) 8.0 % Normal [facility] Comment on above: Performed By: #### C BCDIF ####[place] [id number] Neutrophils/100 WBC Auto (Bld) 63.1 % Normal [facility] Comment on above: Performed By: #### C BCDIF ####[place] [id number] Platelet mean volume Auto Entitic volume (Bld) 10.4 fL Normal 9.0-12.7 [facility] Comment on above: Performed By: #### Micaela BCDIF ####[place] [id number] Platelets Auto #/vol (Bld) 305 10*3/uL Normal 150-400 [facility] Comment on above: Performed By: #### C BCDIF ####[place] [phone] RBC Auto #/vol (Bld) 4.69 10*6/uL Normal 3.90-5.20 [facility] Comment on above: Performed By: #### C BCDIF ####[place] [phone] WBC Auto #/vol (Bld) 7.66 10*3/uL Normal 3.70-11.00 [facility] Comment on above: Performed By: #### C BCDIF ####[address]21[address] Joseluis 01-04-2018 CNOV Office Visit ([facility]EMDNA) DIMATARYNMckenzie Clemons ([id number]) 89 FDate Time Provider Department01/04/18 9:15 AM LINDSEY PIZARRO During your visit today, we recorded the following information about you: Temperature Pulse Respiration Blood pressure 97.9 degrees 63/minute 20/minute 108/72 Weight Height Last Period 52.2 kg 1.575 m 01/04/18Daselina Pizarro DO 01/04/2018 10:15 AM Tbvhpu80 year old female presents for a routine [...] of either heart problems or sudden Normal [facility] HISTORY PHYSICALon 8 HISTORY PHYSICAL HNO ID: [id number]: Lindsey Lewisrvice: (none)Author Type: PhysicianType: HANDPFiled: 01/04/2018 10:15 AMNote [...] of either heart problems or sudden Normal [facility] CNPTOUTREACHon 10-30-2017 [facility] ([facility]) TARYN CH ([id number]) 89 FDate Time Provider Department10/30/17 LINDSEY PIZARRO [facility] During your visit today, we recorded the following information about you:Juliana Mackenzie Ma 03/26/2018 6:49 AM SignedPEDIATRIC OUTREACHSCHEDULE APPOINTMENTPeyton is overdue for her Well Visit.Please call patient and scheduleOffice Visit with Lindsey Pizarro DO. Please verify PCP and change if needed.Ok to Override Doctors Schedule: Grey Contact info:[phone] (home) [phone] (cell)Please message me directly if there are any issues with scheduling.Thank you!SIGNATURE: Juliana Mackenzie Ma PATIENT NAME: Peyton AmezcuaATE: October 30, 2017 : 3:06 PMAllergies As of Date: 10/30/2017 Noted Allergy Reactionenviromental [Other] 07/14/2005Date Reviewed: 08/24/2017Reviewed by: Juliana Oconnell) DANIEL Carbajal - Fully AssessedReason for Visit: stamp wellness [Other]Prescriptions as of 10/30/2017 Sig:X NORGESTIMATE 0.25 MG-ETHINYL * Take 1 tablet by mouth once d*X NYSTATIN 100,000 UNIT/ML ORAL* Take 5 mL by mouth four times*X AMOXICILLIN 875 MG TABLET Take 1 tablet by mouth twice *X PREDNISOLONE 15 MG/5 ML ORAL * Take 15 mL orally once daily *X FLUTICASONE 50 MCG/ACTUATION * Use 1 Bunker in each nostril d*X ALBUTEROL SULFATE HFA 90 MCG/* Inhale 2 Puffs as instructed *X CLARITIN ORAL Take by mouth.Problem List As Of Date 10/30/2017 Noted Resolved ADD (attention deficit disorder) [F98.8] INVALID FOR* Pain in joint of right shoulder [M25.511] INVALID FOR* Chronic pain of right knee [M25.561, G89.29] INVALID FOR* Status:Closed by Recommendi, PRODUSER on 03/26/18 Normal [facility] PROGRESSon 10-30-2017 Protein mass conc HNO ID: [id number]: Juliana Bustoservice: (none)Author Type: (none)Type: Progress NotesFiled: 03/26/2018 6:49 AMNote Text:PEDIATRIC OUTREACHSCHEDULE Brett is overdue for her Well Visit.Please call patient and scheduleOffice Visit with Lindsey Pizarro DO. Please verify PCP and change ifneeded.Ok to Override Doctors Schedule: Grey Contact info:[phone] (home) [phone] (cell)Please message me directly if there are any issues with scheduling.Thank you!SIGNATURE: Juliana Mackenzie Daniel PATIENT NAME: Peyton AmezcuaATE: October 30, 2017 : 3:06 PM Normal [facility] CNOVon 08-24-2017 CNOV Office Visit ([facility]) TARYN CH ([id number]) 89 FDate Time Provider Department08/24/17 9:00 AM KARIME HOLLOWAY (KAYLIE) [facility] During your visit today, we recorded the following information about you: Temperature Blood pressure Weight Last Period 97.6 degrees 112/64 51.6 kg 08/19/17Karime Holloway CNP, ELECTRIC CONTAINER TESTER.KAYLIE 08/24/2017 9:46 AM Addendum5 to Go!TMHealthy Kids Inside ANDamp; Out5 Eat FIVE fruits and veggies a day4 Give and get FOUR compliments a day3 Consume THREE calcium products a day2 Limit media time to TWO hours a day1 Get at least ONE hour of exercise a day0 Consume ZERO sugar-sweetened drinksGo! Be healthy, inside and out!www.[facility]. org/5toGo5 to Go!TMHealthy Kids Inside ANDamp; Out5 Eat FIVE fruits and veggies a day4 Give and get FOUR compliments a day3 Consume THREE calcium products a day2 Limit media time to TWO hours a day1 Get at least ONE hour of exercise a day0 Consume ZERO sugar-sweetened drinksGo! Be healthy, inside and out!www.[facility]. 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 combination pills are vbcudmqzds08-63% effective in preventing . This pill comes [...] tenderness; and mildfluid retention. There is no halfway eight gain with the use of the [...] for necessary health information.Karime Holloway CNPDepartment of PediatricsThe [phone] KAYLIE Holloway, ELECTRIC CONTAINER TESTER.KAYLIE 08/24/2017 10:57 AM SignedPEDIATRIC CONTRACEPTION INITIAL VISITSERVICE [...] ifneeded.SIGNATURE: Karime Holloway CNP PATIENT NAME: Peyton Clemons DotyDATE: August 24, 2017 : 9:16 AMReferring Provider: SELF [200]Allergies As of Date: 08/24/2017 Noted Allergy Reactionenviromental [Other] 07/14/2005Date Reviewed: 08/24/2017Reviewed by: Juliana Carbajal MA - Fully AssessedReason for Visit: Irregular Menstrual [...] * FLUTICASONE 50 MCG/ACTUATION * Use 1 Bunker in each nostril d* ALBUTEROL SULFATE HFA [...] drinks Go! Be healthy, inside and out! www.[facility].org/ 5toGo 5 to Go!TM Healthy Kids Inside AND Out 5 Eat FIVE fruits and veggies a day 4 Give and get FOUR compliments a day 3 Consume THREE calcium products a day 2 Limit media time to TWO hours a day 1 Get at least ONE hour of exercise a day 0 Consume ZERO sugar-sweetened drinks Go! Be healthy, inside and out! www.[facility].org/ 5toGo Oral Contraceptives: The Pill Pill Benefits [...] less iron deficiency anemia in pill users. FCI use is associated with a decreased incidence [...] and mild fluid retention. There is no intermediate manager eight gain with the use of the [...] information. Karime Holloway CNP Department of Pediatrics [facility] Prescriptions ordered this encounter Disp Refills [...] by KARIME HOLLOWAY CNP on 08/24/17 Normal [facility] PROGRESSon 08-24-2017 Protein mass conc HNO ID: [id number]: Karime (Kaylie) GIA Holloway.CNPService: (none)Author Type: Nurse PractitionerType: Progress NotesFiled: 08/24/2017 10:57 AMNote Text:PEDIATRIC CONTRACEPTION INITIAL VISITSERVICE DATE: 08/24/2017SERVICE TIME: 1000Jessica Kaci Ch is a 16 year old female [...] taking OCP at same time everyday (set alarmon mobile phone) and importance of healthly eating habits-Follow up in 3 months-No evidence of oral thrush noted at this time. Can use the Nystatin ifneeded.SIGNATURE: Karime [place], BROOM HANDLE DIPPER PATIENT NAME: Peyton AmezcuaATE: August 24, 2017 : 9:16 AM Normal [facility] Culture, urine Bacteria identified Cx Nom (U) Culture exhibits no growth. [facility] Work Phone: Vital Signs Date Time Vital Sign Value Performing Clinician Aayush hayes 04-19-2025 14:29-0500 Body height 160.02 cm No Primary Care Physician [facility] 04-19-2025 14:29-0500 Body mass index (BMI) [Ratio] 25.4 kg/m2 No Primary Care Physician [facility] 04-19-2025 14:29-0500 Body weight 65.09 kg No Primary Care Physician [facility] 04-19-2025 14:29-0500 Diastolic blood pressure 83 mm[Hg] No Primary Care Physician [facility] 04-19-2025 14:29-0500 Systolic blood pressure 123 mm[Hg] No Primary Care Physician [facility] 04-04-2025 14:55-0400 Body height 160.02 cm No Primary Care Physician [facility] 04-04-2025 14:55-0400 Body mass index (BMI) [Ratio] 25 kg/m2 No Primary Care Physician [facility] 04-04-2025 14:55-0400 Body weight 64.09 kg No Primary Care Physician [facility] 04-04-2025 14:55-0400 Diastolic blood pressure 70 mm[Hg] No Primary Care Physician [facility] 04-04-2025 14:55-0400 Systolic blood pressure 120 mm[Hg] No Primary Care Physician [facility] 03-28-2025 13:32-0400 Body mass index (BMI) [Ratio] 25 kg/m2 No Primary Care Physician [facility] 03-28-2025 13:32-0400 Body weight 63.95 kg No Primary Care Physician [facility] 03-28-2025 13:32-0400 Diastolic blood pressure 82 mm[Hg] No Primary Care Physician [facility] 03-28-2025 13:32-0400 Systolic blood pressure 119 mm[Hg] No Primary Care Physician [facility] 03-20-2025 09:02-0400 Body height 160.02 cm No Primary Care Physician [facility] 03-20-2025 09:02-0400 Body mass index (BMI) [Ratio] 25 kg/m2 No Primary Care Physician [facility] 03-20-2025 09:02-0400 Body weight 64.21 kg No Primary Care Physician [facility] 03-20-2025 09:02-0400 Diastolic blood pressure 75 mm[Hg] No Primary Care Physician [facility] 03-20-2025 09:02-0400 Systolic blood pressure 121 mm[Hg] No Primary Care Physician [facility] 03-07-2025 09:43-0400 Body height 160.02 cm No Primary Care Physician [facility] 03-07-2025 09:43-0400 Body mass index (BMI) [Ratio] 24.7 kg/m2 No Primary Care Physician [facility] 03-07-2025 09:43-0400 Body weight 63.53 kg No Primary Care Physician [facility] 03-07-2025 09:43-0400 Diastolic blood pressure 72 mm[Hg] No Primary Care Physician [facility] 03-07-2025 09:43-0400 Systolic blood pressure 118 mm[Hg] No Primary Care Physician [facility] 02-16-2025 15:28-0400 Body height 160.02 cm No Primary Care Physician [facility] 02-16-2025 15:28-0400 Body mass index (BMI) [Ratio] 24.5 kg/m2 No Primary Care Physician [facility] 02-16-2025 15:28-0400 Body weight 62.85 kg No Primary Care Physician [facility] 02-16-2025 15:28-0400 Diastolic blood pressure 79 mm[Hg] No Primary Care Physician [facility] 02-16-2025 15:28-0400 Systolic blood pressure 123 mm[Hg] No Primary Care Physician [facility] 01-17-2025 15:34-0400 Body height 160.02 cm No Primary Care Physician [facility] 01-17-2025 15:34-0400 Body mass index (BMI) [Ratio] 23.4 kg/m2 No Primary Care Physician [facility] 01-17-2025 15:34-0400 Body weight 60.1 kg No Primary Care Physician [facility] 01-17-2025 15:34-0400 Diastolic blood pressure 74 mm[Hg] No Primary Care Physician [facility] 01-17-2025 15:34-0400 Systolic blood pressure 113 mm[Hg] No Primary Care Physician [facility] 12-22-2024 10:09-0400 Body height 160.02 cm No Primary Care Physician [facility] 12-22-2024 10:02-0400 Body mass index (BMI) [Ratio] 22.5 kg/m2 No Primary Care Physician [facility] 12-22-2024 10:02-0400 Body weight 57.77 kg No Primary Care Physician [facility] 12-22-2024 10:02-0400 Diastolic blood pressure 71 mm[Hg] No Primary Care Physician [facility] 12-22-2024 10:02-0400 Systolic blood pressure 116 mm[Hg] No Primary Care Physician [facility] 11-21-2024 10:16-0400 Body height 160.02 cm No Primary Care Physician [facility] 11-21-2024 10:16-0400 Body mass index (BMI) [Ratio] 22 kg/m2 No Primary Care Physician [facility] 11-21-2024 10:16-0400 Body weight 56.35 kg No Primary Care Physician [facility] 11-21-2024 10:16-0400 Diastolic blood pressure 86 mm[Hg] No Primary Care Physician [facility] 11-21-2024 10:16-0400 Systolic blood pressure 135 mm[Hg] No Primary Care Physician [facility] 10-25-2024 13:03-0400 Body height 160.02 cm No Primary Care Physician [facility] 10-25-2024 13:03-0400 Body mass index (BMI) [Ratio] 21.2 kg/m2 No Primary Care Physician [facility] 10-25-2024 13:03-0400 Body weight 54.2 kg No Primary Care Physician [facility] 10-25-2024 13:03-0400 Diastolic blood pressure 75 mm[Hg] No Primary Care Physician [facility] 10-25-2024 13:03-0400 Systolic blood pressure 135 mm[Hg] No Primary Care Physician [facility] 07-15-2024 08:48-0500 Body mass index (BMI) [Ratio] 21.7 kg/m2 No Primary Care Physician [facility] 07-15-2024 08:48-0500 Body weight 55.45 kg No Primary Care Physician [facility] 07-15-2024 08:48-0500 Diastolic blood pressure 81 mm[Hg] No Primary Care Physician [facility] 07-15-2024 08:48-0500 Systolic blood pressure 126 mm[Hg] No Primary Care Physician [facility] 07-08-2022 11:54-0500 Body height 160.02 cm No Primary Care Physician [facility] 07-08-2022 11:54-0500 Body mass index (BMI) [Ratio] 25 kg/m2 No Primary Care Physician [facility] 07-08-2022 11:54-0500 Body weight 64.18 kg No Primary Care Physician [facility] 07-08-2022 11:54-0500 Diastolic blood pressure 83 mm[Hg] No Primary Care Physician [facility] 07-08-2022 11:54-0500 Systolic blood pressure 133 mm[Hg] No Primary Care Physician [facility] 06-30-2022 09:32-0500 Body weight 63.41 kg No Primary Care Physician [facility] 06-30-2022 09:32-0500 Diastolic blood pressure 73 mm[Hg] No Primary Care Physician [facility] 06-30-2022 09:32-0500 Systolic blood pressure 122 mm[Hg] No Primary Care Physician [facility] 06-30-2022 08:57-0500 Body height 160.02 cm No Primary Care Physician [facility] 06-24-2022 09:03-0500 Body mass index (BMI) [Ratio] 24.5 kg/m2 No Primary Care Physician [facility] 06-24-2022 09:03-0500 Body weight 62.82 kg No Primary Care Physician [facility] 06-24-2022 09:03-0500 Diastolic blood pressure 83 mm[Hg] No Primary Care Physician [facility] 06-24-2022 09:03-0500 Systolic blood pressure 135 mm[Hg] No Primary Care Physician [facility] 06-17-2022 16:01-0500 Body mass index (BMI) [Ratio] 24.3 kg/m2 No Primary Care Physician [facility] 06-17-2022 16:01-0500 Body weight 62.25 kg No Primary Care Physician [facility] 06-17-2022 16:01-0500 Diastolic blood pressure 67 mm[Hg] No Primary Care Physician [facility] 06-17-2022 16:01-0500 Systolic blood pressure 113 mm[Hg] No Primary Care Physician [facility] 05-26-2022 09:06-0500 Body mass index (BMI) [Ratio] 24.6 kg/m2 No Primary Care Physician [facility] 05-26-2022 09:06-0500 Body weight 63.04 kg No Primary Care Physician [facility] 05-26-2022 09:06-0500 Diastolic blood pressure 62 mm[Hg] No Primary Care Physician [facility] 05-26-2022 09:06-0500 Systolic blood pressure 102 mm[Hg] No Primary Care Physician [facility] 04-30-2022 10:33-0500 Body mass index (BMI) [Ratio] 24.7 kg/m2 No Primary Care Physician [facility] 04-30-2022 10:33-0500 Body weight 63.27 kg No Primary Care Physician [facility] 04-30-2022 10:33-0500 Diastolic blood pressure 68 mm[Hg] No Primary Care Physician [facility] 04-30-2022 10:33-0500 Systolic blood pressure 106 mm[Hg] No Primary Care Physician [facility] 04-14-2022 09:42-0400 Body mass index (BMI) [Ratio] 23.6 kg/m2 No Primary Care Physician [facility] 04-14-2022 09:42-0400 Body weight 60.44 kg No Primary Care Physician [facility] 04-14-2022 09:42-0400 Diastolic blood pressure 76 mm[Hg] No Primary Care Physician [facility] 04-14-2022 09:42-0400 Systolic blood pressure 110 mm[Hg] No Primary Care Physician [facility] 03-21-2022 11:24-0400 Body mass index (BMI) [Ratio] 22.7 kg/m2 No Primary Care Physician [facility] 03-21-2022 11:24-0400 Body weight 58.22 kg No Primary Care Physician [facility] 03-21-2022 11:24-0400 Diastolic blood pressure 69 mm[Hg] No Primary Care Physician [facility] 03-21-2022 11:24-0400 Systolic blood pressure 106 mm[Hg] No Primary Care Physician [facility] 02-19-2022 10:32-0400 Body height 160.02 cm No Primary Care Physician [facility] Work Phone: 02-19-2022 10:32-0400 Body mass index (BMI) [Ratio] 21.5 kg/m2 No Primary Care Physician [facility] Work Phone: 02-19-2022 10:32-0400 Body weight 55.11 kg No Primary Care Physician [facility] Work Phone: 02-19-2022 10:32-0400 Diastolic blood pressure 73 mm[Hg] No Primary Care Physician [facility] Work Phone: 02-19-2022 10:32-0400 Systolic blood pressure 128 mm[Hg] No Primary Care Physician [facility] Work Phone: 01-20-2022 11:48-0400 Body mass index (BMI) [Ratio] 20 kg/m2 No Primary Care Physician [facility] Work Phone: 01-20-2022 11:48-0400 Body weight 51.36 kg No Primary Care Physician [facility] Work Phone: 01-20-2022 11:48-0400 Diastolic blood pressure 60 mm[Hg] No Primary Care Physician [facility] Work Phone: 01-20-2022 11:48-0400 Systolic blood pressure 108 mm[Hg] No Primary Care Physician [facility] Work Phone: 12-27-2021 15:23-0400 Diastolic blood pressure 80 mm[Hg] No Primary Care Physician [facility] Work Phone: 12-27-2021 15:23-0400 Systolic blood pressure 102 mm[Hg] No Primary Care Physician [facility] Work Phone: 12-27-2021 14:25-0400 Body height 160.02 cm No Primary Care Physician [facility] Work Phone: 12-27-2021 14:25-0400 Body mass index (BMI) [Ratio] 19.8 kg/m2 No Primary Care Physician [facility] Work Phone: 12-27-2021 14:25-0400 Body weight 50.8 kg No Primary Care Physician [facility] Work Phone: Encounters Encounter Date Encounter Type Care Provider Facility Start: 04-19-2025 End: 04-19-2025 ambulatory No Primary Care Physician Facility:[facility] Start: 04-04-2025 End: 04-04-[address] Sejal Romero DO -[facility] Work Phone: Start: 04-04-2025 End: 04-04-2025 ambulatory Sejal Romero Facility:[facility] Start: 04-03-2025 End: 04-03-2025 Patient encounter procedure Brenda MELENDEZ -[facility] Work Phone: Start: 04-03-2025 End: 04-03-2025 ambulatory No Primary Care Physician Facility:[facility] Start: 03-28-2025 End: 03-28-2025 Patient encounter procedure Brenda Salazar NP-Micaela -[facility] Work Phone: Start: 03-28-2025 End: 03-28-2025 ambulatory No Primary Care Physician -[facility] Start: 03-20-2025 End: 03-20-2025 Patient encounter procedure Ninfa Bautista CNM -[facility] Work Phone: Start: 03-20-2025 End: 03-20-2025 ambulatory No Primary Care Physician -[facility] Start: 03-07-2025 End: 03-07-2025 Patient encounter procedure Brenda Salazar NP-C -[facility] Work Phone: Start: 03-07-2025 End: 03-07-2025 ambulatory No Primary Care Physician -[facility] Start: 03-07-2025 End: 03-07-2025 ambulatory No Primary Care Physician Facility:[facility] Start: 02-16-2025 End: 02-16-[address] Pricilla Alfaro MD -[facility] Work Phone: Start: 02-16-2025 End: 02-16-2025 ambulatory No Primary Care Physician -[facility] Start: 01-17-2025 End: 01-17-2025 Patient encounter procedure Brenda MELENDEZ -[facility] Work Phone: Start: 01-17-2025 End: 01-17-2025 ambulatory No Primary Care Physician [facility] Start: 01-02-2025 End: 01-02-2025 ambulatory MD NO PRIMARY CARE [facility] Start: 12-22-2024 End: 12-22-[address] Sejal Romero DO -[facility] Work Phone: Start: 12-22-2024 End: 12-22-2024 ambulatory No Primary Care Physician -[facility] Start: 11-21-2024 End: 11-21-2024 Patient encounter procedure Ninfa Bautista CNM -[facility] Work Phone: Start: 11-21-2024 End: 11-21-2024 ambulatory No Primary Care Physician [facility] Work Phone: Start: 11-21-2024 End: 11-21-2024 ambulatory No Primary Care Physician Facility:[facility] Start: 10-25-2024 End: 10-25-2024 ambulatory No Primary Care Physician [facility] Work Phone: Start: 10-25-2024 End: 10-25-2024 Patient encounter procedure Ninfa Bautista CNM -[facility] Work Phone: Start: 10-25-2024 End: 10-25-2024 Patient encounter procedure Ninfa Bautista CNM -[facility] Work Phone: Start: 10-25-2024 End: 10-25-2024 ambulatory No Primary Care Physician [facility] Work Phone: Start: 10-25-2024 End: 10-25-2024 ambulatory No Primary Care Physician Facility:[facility] Start: 07-15-2024 End: 07-15-[address] Sejal Romero DO [facility] Work Phone: Start: 07-15-2024 End: 07-15-2024 ambulatory No Primary Care Physician Facility:[facility] Start: 01-05-2023 End: 01-06-2023 ambulatory HIREN VALENTIN MD Facility:A Start: 01-04-2023 End: 01-05-2023 Emergency department patient visit DR BENJAMIN SHELTON MD Facility:B Start: 07-08-2022 End: 07-08-2022 Patient encounter procedure No Primary Care Physician [facility] Start: 06-30-2022 End: 06-30-2022 Patient encounter procedure No Primary Care Physician [facility] Start: 06-26-2022 End: 06-26-2022 ambulatory No Primary Care Physician [facility] Work Phone: Start: 06-26-2022 End: 06-26-2022 Patient encounter procedure No Primary Care Physician [facility] Start: 06-24-2022 End: 06-24-2022 ambulatory No Primary Care Physician [facility] Work Phone: Start: 06-24-2022 End: 06-24-2022 Patient encounter procedure No Primary Care Physician [facility]-Laboratory, Specimen Start: 06-24-2022 End: 06-24-2022 Patient encounter procedure No Primary Care Physician [facility] Start: 06-17-2022 End: 06-17-2022 Patient encounter procedure No Primary Care Physician [facility] Start: 05-26-2022 End: 05-26-2022 Patient encounter procedure No Primary Care Physician [facility] Start: 04-30-2022 End: 04-30-2022 Patient encounter procedure No Primary Care Physician [facility] Start: 04-14-2022 End: 04-14-2022 ambulatory No Primary Care Physician [facility] Work Phone: Start: 04-14-2022 End: 04-14-2022 Patient encounter procedure No Primary Care Physician [facility] Start: 03-21-2022 End: 03-21-2022 Patient encounter procedure No Primary Care Physician [facility] Start: 03-04-2022 End: 03-04-2022 ambulatory No Primary Care Physician [facility] Work Phone: Start: 03-04-2022 End: 03-04-2022 Patient encounter procedure No Primary Care Physician [facility] Start: 02-19-2022 End: 02-19-2022 Patient encounter procedure No Primary Care Physician [facility] Start: 01-20-2022 End: 01-20-2022 Patient encounter procedure No Primary Care Physician [facility] Start: 12-27-2021 End: 12-27-2021 Patient encounter procedure No Primary Care Physician [facility] Start: 03-22-2018 End: 03-23-2018 Patient encounter KARIME HOLLOWAY [facility] Start: 01-04-2018 End: 01-06-2018 Patient encounter LINDSEY PIZARRO [facility] Start: 08-24-2017 End: 08-25-2017 Patient encounter KARIME HOLLOWAY [facility] Procedures Date Procedure Procedure Detail Performing Clinician Start: 04-03-2025 Ultrasound scan for growth No Primary Care Physician Start: 03-07-2025 Serologic test for syphilis No Primary Care Physician Start: 11-21-2024 Hepatitis C antibody measurement No Primary Care Physician Comment on above: Reactive: Presumptiv e evidence of antibodies to HCV. Follow CDC recommendations for supplemental testing.Non-Reactive: Antibodies to HCV were not detected; does not exclude the possibility of exposure to HCVReactive Results are presumptive evidence of antibodies to HCV. Follow CDC recommendations for supplemental testing.Order confirmation testing: HCV Quant by PCR testing - HCVPCR #[id number] Non Reactive: < 0.8 Equivocal: >/= 0.8 to < 1.0 Reactive: >/= 1.0The CDC requires that a reactive/equivocal HCV antibody result be sent out for confirmation. HCV Quant by PCR testing. Start: 11-21-2024 Procedure No Primary Care Physician Start: 11-21-2024 Rubella IgG measurement No Primary Care Physician Comment on above: Antibody Result: Int erpretationNon-Reactive: Non- ImmuneReactive: ImmuneThe following results were obtained with the [employer] Rubella IgG assay. Results from assays of other manufacturers cannot be used interchangeably. Start: 11-21-2024 Serologic test for syphilis No Primary Care Physician Start: 10-25-2024 Liquid based cervica l cytology screening No Primary Care Physician Comment on above: NEGATIVE FOR INTRAEP ITHELIAL LESION OR MALIGNANCY. This liquid based Th inPrep(R) pap test was screened withthe use of an image guided system. The HPV DNA reflex c riteria were not met with this specimenresult therefore, no HPV testing was performed.Performed at: [facility] [employer] [id number] Director: Melba Britton PhD, Phone: [phone] at: [facility] [id number] Director: Beth España MD, Phone: [phone] Start: 10-25-2024 Urine culture No Primar y Care Physician Start: 06-26-2022 Ultrasound scan for growth No Primary Care Physician Start: 03-04-2022 anatomy study No Primary Care Physician Group B Streptococcu s Culture No Primary Care Physician H/O: section History of section No Primary Care Physician Comment on above: previous for NRFHTs, considering TOLAC- previous for NRFHTs, considering TOLAC. C/S 05/29 JV. H/O: section Status pos t section No Primary Care Physician H/O: section History of section Ninfa Bautista CNM H/O: section History of section Ninfa Bautista CNM H/O: section History of section Dr. Sejal Romero DO H/O: section History of section Brenda Salazar NP-C H/O: section History of section Dr. Pricilla Alfaro MD H/O: section History of section Brenda MELENDEZ H/O: section History of section Ninfa Bautista CNM H/O: section History of section Brenda ESPOSITOC H/O: section History of section Dr. Sejal Romero DO H/O: section History of section Dr. Pricilla Alfaro MD Urine culture No Primary Car e Physician Plan of Treatment Date Care Activity Detail Author Start: 05-29-2025 ambulatory Ambulatory Facility:[facility] Start: 05-29-2025 ambulatory Ambulatory Facility:[facility] Start: 05-01-2025 ambulatory Ambulatory Facility:[facility] Start: 04-19-2025 End: 04-19-2025 Patient encounter procedure Adopted -[facility] Work Phone: Start: 04-04-2025 End: 04-04-2025 Patient encounter procedure Adopted -[facility] Work Phone: Start: 04-03-2025 Ultrasound scan for growth OB Limited With [employer] [facility] Start: 04-03-2025 Patient encounter procedure Registered Clinical [facility] Work Phone: Start: 11-21-2024 CBC W Auto Differential panel - Blood [facility] Start: 11-21-2024 Hepatitis C antibody measurement [facility] Start: 11-21-2024 Procedure [facility] Start: 11-21-2024 Rubella IgG measurement [facility] Start: 11-21-2024 Serologic test for syphilis [facility] Start: 11-21-2024 [facility] Start: 10-25-2024 Liquid based cervical cytology screening [facility] Start: 07-15-2024 Patient referral [facility] Work Phone: Start: 03-04-2022 Transvaginal obstetric ultrasonography Transvaginal w/Preg US [facility] Work Phone: Start: 12-27-2021 [facility] Work Phone: Start: 12-27-2021 Chlamydia deoxyribonucleic acid detection [facility] Work Phone: CBC W Auto Different ial panel - Blood [facility] CBC W Auto Different ial panel - Blood [facility] Chlamydia deoxyribon ucleic acid detection [facility] Erythrocyte mean corpuscular volume determination [facility] Hematocrit [Volume Fraction] of Blood [facility] Hemoglobin [Mass/vol ume] in Blood [facility] Hepatitis B virus centeno rface Ag [Presence] in Serum [facility] Hepatitis C antibody measurement [facility] Leukocytes [#/volume ] in Blood [facility] Liquid based cervica l cytology screening [facility] Mean corpuscular hem oglobin concentration determination [facility] Mean corpuscular hem oglobin determination [facility] Measurement of gluco se 2 hours after glucose challenge for glucose tolerance test [facility] Neisseria gonorrhoea e rRNA [Presence] in Unspecified specimen by [place] with probe detection [facility] Work Phone: Neutrophil count [facility] Neutrophil percent differential count [facility] Patient referral [facility] Work Phone: PCR test for Chlamyd ia trachomatis [facility] Work Phone: Platelets [#/volume] in Blood [facility] Procedure [facility] Red blood cell count [facility] Red cell distributio n width determination [facility] Rubella IgG measurement [facility] Serologic test for syphilis [facility] Serologic test for syphilis [facility] Ultrasound scan for growth [facility] Urine culture Urine Culture [facility] Work Phone: [facility] Immunizations Immunization Date Immunization Notes Care Provider Fa sandra 04-23-2020 influenza, injectable,quadrivalent , preservative free, pediatric No Primary Care Physician [facility] Payers Date Payer Category Payer Unknown [id number] 2024 Self-pay [id number] 2023 Unknown [id number] 1999 Unknown [id number] 2.16.8 [id number] 1999 Unknown [id number] 2.16.8 40.1.412340.3.579.2.627 1999 Unknown [id number] 2.16. 840.1.075739.3.579.2.479 Unknown [id number] Unknown [id number] Unknown [facility] [employer] [employer] [id number] Unknown [id number] 2.16.8 40.1.237404.3.579.2.462 Unknown [id number] 2.16.8 40.1.995071.3.579.2.462 Unknown [id number] 2.16.8 40.1.052337.3.579.2.462 Unknown [id number] 2.16.8 40.1.519565.3.579.2.462 Unknown [id number] 2.16.8 40.1.475030.3.579.2.462 Unknown [id number] 2.16.8 40.1.090452.3.579.2.462 Unknown [id number] 2.16.8 40.1.456322.3.579.2.462 Unknown [id number] 2.16.8 40.1.391136.3.579.2.462 Unknown [id number] 2.16.8 40.1.864210.3.579.2.462 Unknown [id number] 2.16.8 40.1.482924.3.579.2.462 Unknown [id number] 2.16.8 40.1.101936.3.579.2.462 Unknown [id number] 2.16.8 40.1.364079.3.579.2.462 Unknown [id number] 2.16.8 40.1.124568.3.579.2.462 Unknown [id number] 2.16.8 40.1.246888.3.579.2.462 Unknown [id number] 2.16.8 40.1.814700.3.579.2.462 Unknown [id number] 2.16.8 40.1.818961.3.579.2.462 Unknown [id number] 2.16.8 40.1.500525.3.579.2.462 Unknown [id number] 2.16.8 40.1.373660.3.579.2.462 Social History Date Type Detail Facility Start: 12-27-2021 End: 07-08-2022 Tobacco smoking status UTIS Unknown if ever smoked [facility] Start: 2000 Sex Assigned At Female [facility] Start: 10-13-2024 End: 10-13-2024 Tobacco smoking status NHIS Never smoked tobacco (finding) [facility] Sex Female [facility] Clinical Notes 07-15-2024 to 04-04-2025 Note Date & Type Note Facility 04-04-2025 Progress note [facility] 04-04-2025 Progress note Note Date/Time April 04, 2025 4:45pm [facility] [address], [address] [place] [address] OFFICE VISIT Date of Service: 04/04/25 MR#: [id number] Acct: [id number] Name: PEYTON DEVINE GLENROY Rep #: [id number] : 2000 Provider: Dr. Erin Romero DO Age/Sex: 24/F Location: [facility] Status: Signed Intake Vital Signs 03/07/25 09:43 03/28/25 13:41 04/04/25 14:55 04/04/25 14:55 Height 5 ft 3 in 5 ft 3 in 5 ft 3 in 5 ft 3 in Weight: 141 lb 5 oz BMI 25.0 BP 120/70 Intake Visit Reasons: 32wk ob Manager Of Environmental Services Required: No Is patient in pain?: No Allergies No Known Allergies Allergy (Verified 04/04/25 14:55) Medications 3 ?Medication ?Instructions ?Recorded ?Confirmed ?Type ondansetron HCl 4 mg tablet 4 mg PO Q6H PRN nausea and 10/07/24 04/04/25 Rx vomiting #60 tabs PNV 158-iron 13.5 mg-folic 0.5 cap PO 10/13/24 5 History mg-omega 3-dha 150 mg-epa-fish capsule (Natavi PNV) Last Menstrual Period: 08/22/24 Zika: Zika virus screening: Negative : No PFSH PFSH Medical History Desquamated skin Anxiety Adopted Surgical History delivery delivered History of surgery No significant past surgical history Social History adopted: Yes household members: spouse and children housing: house number of children: 2 current occupational status: previously employed current occupation: [employer] current occupational exposures/hazards: No pets and animals: Yes pets and animals: dog(s) history of recent travel: Yes ([place] in August) out of state: Yes out of country: No sexually active: Yes Smoking Status: Never smoker second hand exposure: No alcohol intake: never substance use type: does not use caffeine: No what type of physical activity do you participate in: walking carmen/sabianist: None seatbelt use: always do you feel safe at home: Yes 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 Date Name GA/Weeks Outcome Route Bth Weight Gen Labor Lgth Anesthesia Del Locatn Provider FOB 11/14/20 [place] 41 live - full term Female [facility] Mariusz 07/16/22 Pattie 39 live - full term 8lbs 3oz Female spinal [facility] Dr. Jewell Delivery Date: 11/14/20 Last Updated by: Chloé Lovelace primary c=section for catagory 2 FHT HPI 32wk ob Details: PEYTON DEVINE is a 24 year old who presents for routine OB visit. OB Visit [facility] Calculator Estimated Delivery Date Method Current WG Current Estimate 05/29/25 LMP (Certain) 32w 1d Other Estimates 05/28/25 Ultrasound #1 32w 2d Expected Delivery Route/Plan patient counseled regarding risks/benefits of trial of labor versus repeat . ACOG/uptodate education given to patient. 75.7 % likelihood of success per calculator TOLAC consent form signed: [] Labor Preferences- CB/BF classes: no labor support person: [] labor intervention preferences: [] pain management options preferred: not opposed to epidural cut cord/dad catch: cord : yes PP control planned: discussed discussed possible routes of delivery and associated risks: [] special requests: [] Specific Issue/Plans Covid status: [] Flu vaccine: [] Tdap vaccine: declines Rhogam: na LARC form signed: yes Problem list reviewed and updated with the [...] -?-?-?-?-?-?-?-?-?-?-?-?- KW- no vb/crampi ng. feeling better. [facility] anatomy ordered, labs today. 12/22/24 -?-?-?-?-?-?-?-?-?-?-?-?- 17w 3d 127 lb 6 oz (+8 lb 6 oz) 116/71 Negative -?-?-?-?-?-?-?-?-?-?-?-?- Negative 147 -?-?-?-?-?-?-?-?-?-?-?-?- JV- no lof, vagi nal bleeding, or cramping. questions about today. anatomy at 19 weeks scheduled 01/17/25 -?-?-?-?-?-?-?-?-?-?-?-?- 21w 1d 132 lb 8 oz (+13 lb 8 oz) 113/74 Negative -?-?-?-?-?-?-?-?-?-?-?-?- Negative 146 -?-?--?-?-?-?-?-?-?-?-?-?- MH-NO VB. Feelin g movement. States had spotting day prior to M US but none since. Has questions about circumvallente placenta-will get growth US 36 wk [facility] 02/16/25 -?-?-?-?-?-?-?-?-?-?-?-?- 25w 3d 138 lb 9 oz (+19 lb 9 oz) 123/79 Negative -?-?-?-?-?-?-?-?-?-?-?-?- Negative 140 -?-?-?-?-?-?-?-?-?-?-?-?- SM- no vb lof go od fm no reuglar ctx discussed and placenta 03/07/25 -?-?-?-?-?-?-?-?-?-?-?-?- 28w 1d 140 lb 1 oz (+21 lb 1 oz) 118/72 Negative -?-?-?-?-?-?-?-?-?-?-?-?- Negative 148 -?-?-?-?-?-?-?-?-?-?-?-?- MH-No VB, LOF. G ood FM. Larc. 28 wk labs pending. Declines tdap 03/20/25 -?-?-?-?-?-?-?-?-?-?-?-?- 30w 0d 141 lb 9 oz (+22 lb 9 oz) 121/75 Negative -?-?-?-?-?-?-?-?-?-?-?-?- Negative 140 -?-?-?-?-?-?-?-?-?-?-?-?- KW- no vb/lof/ct x. good fm. growth scan in 2 weeks. will schedule 40 week C/S due to placenta 03/28/25 -?-?-?-?-?-?-?-?-?-?-?-?- 31w 1d 141 lb (+22 lb) 119/82 Negative -?-?-?-?-?-?-?-?-?-?-?-?- Negative 144 31 -?-?-?-?-?-?-?-?-?-?-?-?- -work in for l ast pm had dizziness and elevated BP. Today feels well, normal BPs, no headache or vision changes Good FM. Reassured. 04/04/25 -?-?-?-?-?-?-?-?-?-?-?-?- 32w 1d 141 lb 5 oz (+22 lb 5 oz) 120/70 Negative -?-?-?-?-?-?-?-?-?-?-?-?- Negative 134 32 -?-?-?-?-?-?-?-?-?-?-?-?- JV- discussed vb ac questions today. plan is to repeat growth scan at 36 -37 weeks. if looks same or bigger than last baby wants rpt section. wants delivered by 40 weeks regardless. may augment if already dilated 2-3 cm. ACOG First Trimester First Trimester: Desire for [...] Labor Signs, Postterm Counseling, Infant Feeding No , Family Medical Leave or Disability Forms and Intimate Partner Violence; Discussed Trial of Labor after Counseling and Discussed Circumcision preference Results POC Urinalysis 2 Dip (Clinic) Office Urine Glucose Negative Last Edit by Vianey Rosenberg on 04/04/25 15: 04 Office Urine Protein Negative Last Edit by Vianey Rosenberg on 04/04/25 15: 04 Coding Level of Care Code OB Routine Diagnoses Circumvallate placenta in second trimester O43.112 Trimester: second trimester Supervision of high risk in third trimester O09.93 Trimester: third trimester 32 weeks gestation of Z3A.32 Weeks of gestation: 32 weeks Adopted Z02.82 Family history of cleft palate Z82.79 Desires (vaginal after ) trial O34.219 History of section Z98.891 Assessment and Plan Assessment and Plan (1) Circumvallate placenta: Status: Acute Qualifiers: Trimester: second trimester Qualified Code(s): O43.112 - Circumvallate placenta, second trimester Comment: growth US q 4 weeks in third trimester; 33wk EFW 66%, AC 83% (2) Supervision of high-risk : Status: Acute Qualifiers: Trimester: third trimester Qualified Code(s): O09.93 - Supervision of high risk , unspecified, third trimester Comment: PRR , [facility] 05/29 PC: Pattie Suarez : [employer] (3) : Status: Acute Qualifiers: Weeks of gestation: 32 weeks Qualified Code(s): Z3A.32 - 32 weeks gestation of Comment: NIPT w/ gender & carrier- low risk, nl anatomy (4) Adopted: Status: Acute (5) Family history of cleft palate: Status: Acute Comment: Pt's niece- club foot, cleft palate (6) Desires (vaginal after ) trial: Status: Acute (7) History of section: Status: Acute Comment: previous for NRFHTs, considering TOLAC. C/S 05/29 JV. Orders: Orders POC Urinalysis 2 Dip (Clinic) Today 04/04/25 [id number] <Electronically signed by Sejal Arroyo DO> Date _ [facility] Signature: Date (if applicable) CC: ~ [facility] Work Phone: [phone]) 282-523010-14-2025 [facility] [address] [place] [address], [address] [place] [address] OFFICE VISIT Date of Service: 03/28/25 MR#: [id number] Acct: [id number] Name: PEYTON DEVINE GLENROY Rep #: [id number] : 2000 Provider: AL Salazar Age/Sex: 24/F Location: [facility] Status: Signed Intake Vital Signs 03/20/25 09:02 03/28/25 13:32 03/28/25 13:41 Height 5 ft 3 in 5 ft 3 in 5 ft 3 in Weight: 141 lb 9 oz 141 lb BMI 25.0 25.0 BP 121/75 H 119/82 H Intake Visit Reasons: OB, htn, dizzy Chief Complaint: HTN, Dizzy Manager Of Environmental Services Required: No Is patient in pain?: No Allergies No Known Allergies Allergy (Verified 03/28/25 13:31) Medications ?Medication ?Instructions ?Recorded ?Confirmed ?Type ondansetron HCl 4 mg tablet 4 mg PO Q6H PRN nausea and 10/07/24 03/28/25 Rx vomiting #60 tabs PNV 158-iron 13.5 mg-folic 0.5 cap PO 10/13/24 5 History mg-omega 3-dha 150 mg-epa-fish capsule (Natavi PNV) Last Menstrual Period: 08/22/24 Zika: Zika virus screening: Negative : No PFSH PFSH Medical History Desquamated skin Anxiety Adopted Surgical History delivery delivered History of surgery No significant past surgical history Social History adopted: Yes household members: spouse and children housing: house number of children: 2 current occupational status: previously employed current occupation: [employer] current occupational exposures/hazards: No pets and animals: Yes pets and animals: dog(s) history of recent travel: Yes ([place] in August) out of state: Yes out of country: No sexually active: Yes Smoking Status: Never smoker second hand exposure: No alcohol intake: never substance use type: does not use caffeine: No what type of physical activity do you participate in: walking carmen/sabianist: None seatbelt use: always do you feel [...] 40 live - full term Female [facility] Mariusz 07/16/22 Pattie 39 live - full term 8lbs 3oz Female spinal [facility] Dr. Jewell Delivery Date: 11/14/20 Last Updated by: Chloé Lovelace primary c=section for catagory 2 FHT HPI OB, htn, dizzy Details: PEYTON MULLET is a 24 year old who presents for routine OB visit. OB Visit BRIGIDA Calculator Estimated Delivery Date Method Current WG Current Estimate 05/29/25 LMP (Certain) 31w 1d Other Estimates 05/28/25 Ultrasound #1 31w 2d Expected Delivery Route/Plan patient counseled regarding risks/benefits of trial of labor versus repeat . ACOG/uptodate education given to patient. 75.7 % likelihood of success per calculator TOLAC consent form signed: [] Labor Preferences- CB/BF classes: no labor support person: [] labor intervention preferences: [] pain management options preferred: not opposed to epidural cut cord/dad catch: cord : yes PP control planned: discussed discussed possible routes of delivery and associated risks: [] special requests: [] Specific Issue/Plans Covid status: [] Flu vaccine: [] Tdap vaccine: declines Rhogam: na LARC form signed: yes Problem list reviewed and updated with the [...] -?-?-?-?-?-?-?-?-?-?-?-?- KW- no vb/crampi ng. feeling better. [facility] anatomy ordered, labs today. 12/22/24 -?-?-?-?-?-?-?-?-?-?-?-?- 17w 3d 127 lb 6 oz (+8 lb 6 oz) 116/71 Negative -?-?-?-?-?-?-?-?-?-?-?-?- Negative 147 -?-?-?-?-?-?-?-?-?-?-?-?- JV- no lof, vagi nal bleeding, or cramping. questions about today. anatomy at 19 weeks scheduled 01/17/25 -?-?-?-?-?-?-?-?-?-?-?-?- 21w 1d 132 lb 8 oz (+13 lb 8 oz) 113/74 Negative -?-?-?-?-?-?-?-?-?-?-?-?- Negative 146 -?-?-?-?-?-?-?-?-?-?-?-?- MH-NO VB. Feelin g movement. States had spotting day prior to M US but none since. Has questions about circumvallente placenta-will get growth US 36 wk [facility] 02/16/25 -?-?-?-?-?-?-?-?-?-?-?-?- 25w 3d 138 lb 9 oz (+19 lb 9 oz) 123/79 Negative -?-?-?-?-?-?-?-?-?-?-?-?- Negative 140 -?-?-?-?-?-?-?-?-?-?-?-?- SM- no vb lof go od fm no reuglar ctx discussed and placenta 03/07/25 -?-?-?-?-?-?-?-?-?-?-?-?- 28w 1d 140 lb 1 oz (+21 lb 1 oz) 118/72 Negative -?-?-?-?-?-?-?-?-?-?-?-?- Negative 148 -?-?-?-?-?-?-?-?-?-?-?-?- MH-No VB, LOF. G ood FM. Larc. 28 wk labs pending. Declines tdap 03/20/25 -?-?-?-?-?-?-?-?-?-?-?-?- 30w 0d 141 lb 9 oz (+22 lb 9 oz) 121/75 Negative -?-?-?-?-?-?-?-?-?-?-?-?- Negative 140 -?-?-?-?-?-?-?-?-?-?-?-?- KW- no vb/lof/ct x. good fm. growth scan in 2 weeks. will schedule 40 week C/S due to placenta 03/28/25 -?-?-?-?-?-?-?-?-?-?-?-?- 31w 1d 141 lb (+22 lb) 119/82 Negative -?-?-?-?-?-?-?-?-?-?-?-?- Negative 144 31 -?-?-?-?-?-?-?-?-?-?-?-?- MH-work in for l ast pm had dizziness and elevated BP. Today feels well, normal BPs, no headache or vision changes Good FM. Reassured. ACOG First Trimester First Trimester: Desire for [...] Preeclampsia, Labor Signs, Postterm Counseling, Feeding No , Family Medical Leave or Disability Forms and Intimate Partner Violence; Discussed Trial of Labor after Counseling and Discussed Circumcision preference ROS Const Reports system reviewed and no additional complaints, except as documented GI Denies abdominal pain, Denies nausea and Denies vomiting Exam Const General: cooperative Nutritional Appearance: well nourished GI Palpation: soft, nontender and other (gravid) Results POC Urinalysis 2 Dip (Clinic) Office Urine Glucose Negative Last Edit by Pearl Wyman on 03/28/25 13 :41 Office Urine Protein Negative Last Edit by Pearl Wyman on 03/28/25 13 :41 Coding Level of Care Code OB Routine Diagnoses Supervision of high risk in third trimester O09.93 Trimester: third trimester 31 weeks gestation of Z3A.31 Weeks of gestation: 31 weeks Circumvallate placenta in second trimester O43.112 Trimester: second trimester Adopted Z02.82 Family history of cleft palate Z82.79 Desires (vaginal after ) trial O34.219 History of section Z98.891 Assessment and Plan Assessment and Plan (1) Supervision of high-risk : Status: Acute Qualifiers: Trimester: third trimester Qualified Code(s): O09.93 - Supervision of high risk , unspecified, third trimester Comment: PRR , BRIGIDA 05/29 PC: Pattie Suarez : Davey (2) : Status: Acute Qualifiers: Weeks of gestation: 31 weeks Qualified Code(s): Z3A.31 - 31 weeks gestation of Comment: NIPT w/ gender & carrier- low risk, nl anatomy (3) Circumvallate placenta: Status: Acute Qualifiers: Trimester: second trimester Qualified Code(s): O43.112 - Circumvallate placenta, second trimester Comment: growth US q 4 weeks in third trimester (4) Adopted: Status: Acute (5) Family history of cleft palate: Status: Acute Comment: Pt's niece- club foot, cleft palate (6) Desires (vaginal after ) trial: Status: Acute (7) History of section: Status: Acute Comment: previous for NRFHTs, considering TOLAC. C/S 05/29 JV. Orders: Orders POC Urinalysis 2 Dip (Clinic) Today Plan problem list reviewed and updated for most current plan of care and appropriate orders placed. Relevant counseling for the gestational age appropriate provided and ACOG education checklist updated. Continue routine care and follow up. 03/28/25 1350 s SANITATION WORKER HOSING MACHINERY SANITATION WORKER HOSING MACHINERY-C> Date _ Brenda Salazar SANITATION WORKER HOSING MACHINERY SANITATION WORKER HOSING MACHINERY-C Cosigner Signature: Date (if applicable) CC: ~ [facility]10-06-2025 [facility] [address] [place] [address], [address] [place] [address] OFFICE VISIT Date of Service: 03/20/25 MR#: [id number] Acct: [id number] Name: PEYTON DEVINE GLENROY Rep #: [id number] : 2000 Provider: VICKIE Bautista Age/Sex: 24/F Location: [facility] [place] Status: Signed Intake Vital Signs 01/17/25 15:34 03/07/25 09:43 03/20/25 09:02 Height 5 ft 3 in 5 ft 3 in 5 ft 3 in Weight: 141 lb 9 oz BMI 25.0 BP 121/75 H Intake Visit Reasons: 30 WK OB Chief Complaint: 30wk OB Manager Of Environmental Services Required: No Is patient in pain?: No Allergies No Known Allergies Allergy (Verified 03/20/25 09:00) Medications ?Medication ?Instructions ?Recorded ?Confirmed ?Type ondansetron HCl 4 mg tablet 4 mg PO Q6H PRN nausea and 10/07/24 03/20/25 Rx vomiting #60 tabs PNV 158-iron 13.5 mg-folic 0.5 cap PO 10/13/24 5 History mg-omega 3-dha 150 mg-epa-fish capsule (Natavi PNV) Last Menstrual Period: 08/22/24 PFSH PFSH Medical History Desquamated skin Anxiety Adopted Surgical History delivery delivered History of surgery No significant past surgical history Social History adopted: Yes household members: spouse and children housing: house number of children: 2 current occupational status: previously employed current occupation: [employer] current occupational exposures/hazards: No pets and animals: Yes pets and animals: dog(s) history of recent travel: Yes ([place] in August) out of state: Yes out of country: No sexually active: Yes Smoking Status: Never smoker second hand exposure: No alcohol intake: never substance use type: does not use caffeine: No what type of physical activity do you participate in: walking carmen/sabianist: None seatbelt use: always do you feel [...] 41 live - full term Female [facility] Mariusz 07/16/22 Pattie 39 live - full term 8lbs 3oz Female spinal [facility] Dr. Jewell Delivery Date: 11/14/20 Last Updated by: Chloé Lovelace primary c=section for catagory 2 FHT HPI 30 WK OB Details: PEYTON DEVINE is a 24 year old who presents for routine OB visit. OB Visit BRIGIDA Calculator Estimated Delivery Date Method Current WG Current Estimate 05/29/25 LMP (Certain) 30w 0d Other Estimates 05/28/25 Ultrasound #1 30w 1d Expected Delivery Route/Plan patient counseled regarding risks/benefits of trial of labor versus repeat . ACOG/uptodate education given to patient. 75.7 % likelihood of success per calculator TOLAC consent form signed: [] Labor Preferences- CB/BF classes: no labor support person: [] labor intervention preferences: [] pain management options preferred: not opposed to epidural cut cord/dad catch: cord : yes PP control planned: discussed discussed possible routes of delivery and associated risks: [] special requests: [] Specific Issue/Plans Covid status: [] Flu vaccine: [] Tdap vaccine: declines Rhogam: na LARC form signed: yes Problem list reviewed and updated with the [...] Negative -?-?-?-?-?-?-?-?-?-?-?-?- Negative 155 -?-?-?-?-?-?-?-?-?-?-?-?- KW- no vb/caitlin ng. feeling better. [facility] anatomy ordered, labs today. 12/22/24 -?-?-?-?-?-?-?-?-?-?-?-?- 17w 3d 127 lb 6 oz (+8 lb 6 oz) 116/71 Negative -?-?-?-?-?-?-?-?-?-?-?-?- Negative 147 -?-?-?-?-?-?-?-?-?-?-?-?- JV- no lof, vagi nal bleeding, or cramping. questions about today. anatomy at 19 weeks scheduled 01/17/25 -?-?-?-?-?-?-?-?-?-?-?-?- 21w 1d 132 lb 8 oz (+13 lb 8 oz) 113/74 Negative -?-?-?-?-?-?-?-?-?-?-?-?- Negative 146 -?-?-?-?-?-?-?-?-?-?-?-?- -NO VB. [place]. States had spotting day prior to [facility] US but none since. Has questions about circumvallente placenta-will get growth US 36 wk [facility] 02/16/25 -?-?-?-?-?-?-?-?-?-?-?-?- 25w 3d 138 lb 9 oz (+19 lb 9 oz) 123/79 Negative -?-?-?-?-?-?-?-?-?-?-?-?- Negative 140 -?-?-?-?-?-?-?-?-?-?-?-?- SM- no vb lof go od fm no reuglar ctx discussed and placenta 03/07/25 -?-?-?-?-?-?-?-?-?-?-?-?- 28w 1d 140 lb 1 oz (+21 lb 1 oz) 118/72 Negative -?-?-?-?-?-?-?-?-?-?-?-?- Negative 148 -?-?-?-?-?-?-?-?-?-?-?-?- MH-No VB, LOF. G ood FM. Larc. 28 wk labs pending. Declines tdap 03/20/25 -?-?-?-?-?-?-?-?-?-?-?-?- 30w 0d 141 lb 9 oz (+22 lb 9 oz) 121/75 Negative -?-?-?-?-?-?-?-?-?-?-?-?- Negative 140 -?-?-?-?-?-?-?-?-?-?-?-?- KW- no vb/lof/ct x. good fm. growth scan in 2 weeks. will schedule 40 week C/S due to placenta ACOG First Trimester First Trimester: Desire for , Alcohol, Tobacco Cessation, Illicit/Recreational Drug/Substance Use, Intimate Partner Violence, Barriers to care, Unstable Housing, Communication Barriers, Environmental/Work Hazards, Anticipated Course of Care, Toxoplasmosis Precations, Use of Any med ications, Sexual activity, Exercise, Dental Care, Sauna/Hot tub use, Seat Belt use, Childbirth classes/Hospital facilities, Travel, Indications for Ultrasound and Screening for Aneuploidy Second Trimester Second Trimester: Signs and Symptoms of Labor, Selecting a care provider, Reproductive Life Planning & Contreception, Care Planning, Depression/Anxiety and Intimate Partner Violence; Discussed Tobacco Cessation Third Trimester Third Trimester: Pain Management Plans, Labor support person(s), Immediate Larc, Movement Monitoring, Signs and Symptoms of Preeclampsia, Labor Signs, Postterm Counseling, Infant Feeding, Family Medical Leave or Disability Forms and Intimate Partner Violence; Discussed Trial of Labor after Counseling and [...] Office Urine Glucose Negative Last Edit by Cassie Juarez on 03/20/25 09:07 Office Urine Protein Negative Last Edit by Cassie Juarez on 03/20/25 09:07 Coding Level of Care Code OB Routine Diagnoses Circumvallate placenta in second trimester O43.112 Trimester: second trimester Supervision of high risk in third trimester O09.93 Trimester: third trimester 30 weeks gestation of Z3A.30 Weeks of gestation: 30 weeks Adopted Z02.82 Family history of cleft palate Z82.79 Desires (vaginal after ) trial O34.219 History of section Z98.891 Assessment and Plan Assessment and Plan (1) Circumvallate placenta: Status: Acute Qualifiers: Trimester: second trimester Qualified Code(s): O43.112 - Circumvallate placenta, second trimester Comment: growth US q 4 weeks in third trimester (2) Supervision of high-risk : Status: Acute Qualifiers: Trimester: third trimester Qualified Code(s): O09.93 - Supervision of high risk , unspecified, third trimester Comment: PRR , BRIGIDA 05/29 PC: Pattie Suarez : Davey (3) : Status: Acute Qualifiers: Weeks of gestation: 30 weeks Qualified Code(s): Z3A.30 - 30 weeks gestation of Comment: NIPT w/ gender & carrier- low risk,female( pt does not want to know gender, nl anatomy (4) Adopted: Status: Acute (5) Family history of cleft palate: Status: Acute Comment: Pt's niece- club foot, cleft palate (6) Desires (vaginal after ) trial: Status: Acute (7) History of section: Status: Acute Comment: previous for NRFHTs, considering TOLAC- Orders: Orders POC Urinalysis 2 Dip (Clinic) Today Plan Details Additional Comments: ACOG trimester education reviewed and updated. see problem list details for updated plan management information and see below for orders placed atthis visit. GA appropriate handout given. 03/20/25 0915 s CNM> Date _ Ninfa Bautista CNM Cosigner Signature: Date (if applicable) CC: ~ [facility]09-23-2025 [facility] [address] [place] [address], [address] [place] [address] OFFICE VISIT Date of Service: 03/07/25 MR#: [id number] Acct: [id number] Name: PEYTON DEVINE GLENROY Rep #: [id number] : 2000 Provider: AL Salazar Age/Sex: 24/F Location: [facility] [place] Status: Signed Intake Vital Signs 12/22/24 10:09 01/17/25 15:34 02/16/25 15:28 03/07/25 09:43 Height 5 ft 3 in 5 ft 3 in 5 ft 3 in 5 ft 3 in Weight: 140 lb 1 oz BMI 24.7 BP 118/72 Intake Visit Reasons: 28wk ob/glucose Chief Complaint: 28 Week OB/Glucose Manager Of Environmental Services Required: No Is patient in pain?: No Allergies No Known Allergies Allergy (Verified 03/07/25 09:45) Medications ?Medication ?Instructions ?Recorded ?Confirmed ?Type ondansetron HCl 4 mg tablet 4 mg PO Q6H PRN nausea and 10/07/24 03/07/25 Rx vomiting #60 tabs PNV 158-iron 13.5 mg-folic 0.5 cap PO 10/13/24 5 History mg-omega 3-dha 150 mg-epa-fish capsule (Natavi PNV) Last Menstrual Period: 08/22/24 Zika: Zika virus screening: Negative : Yes [facility] Medical History Desquamated skin Anxiety Adopted Surgical History delivery delivered History of surgery No significant past surgical history Social History adopted: Yes household members: spouse and children housing: house number of children: 2 current occupational status: previously employed current occupation: [employer] current occupational exposures/hazards: No pets and animals: Yes pets and animals: dog(s) history of recent travel: Yes ([place] in August) out of state: Yes out of country: No sexually active: Yes Smoking Status: Never smoker second hand exposure: No alcohol intake: never substance use type: does not use caffeine: No what type of physical activity do you participate in: walking carmen/sabianist: None seatbelt use: always do you feel [...] 41 live - full term Female [facility] Mariusz 07/16/22 Pattie 39 live - full term 8lbs 3oz Female spinal [facility] Dr. Jewell Delivery Date: 11/14/20 Last Updated by: Chloé Lovelace primary c=section for catagory 2 FHT HPI 28wk ob/glucose Details: PEYTON DEVINE is a 24 year old who presents for routine OB visit. OB Visit BRIGIDA Calculator Estimated Delivery Date Method Current WG Current Estimate 05/29/25 LMP (Certain) 28w 1d Other Estimates 05/28/25 Ultrasound #1 28w 2d Expected Delivery Route/Plan patient counseled regarding risks/benefits of trial of labor versus repeat . ACOG/uptodate education given to patient. 75.7 % likelihood of success per calculator TOLAC consent form signed: [] Labor Preferences- CB/BF classes: no labor support person: [] labor intervention preferences: [] pain management options preferred: not opposed to epidural cut cord/dad catch: cord : yes PP control planned: discussed discussed possible routes of delivery and associated risks: [] special requests: [] Specific Issue/Plans Covid status: [] Flu vaccine: [] Tdap vaccine: declines Rhogam: na LARC form signed: yes Problem list reviewed and updated with the most current plan of care details and appropriate ordersplaced. Relevant counseling for the gestational age provided. Continue routine care and follow up unless otherwise noted in visit notes/problem list details Initial Weight: 119 lb Date -?-?-?-?-?-?-?-?-?-?-?-?- EGA Weight BP Urine Prot -?-?-?-?-?-?-?-?-?-?-?-?- Glucose FHR FuHt Pres Dilation -?-?-?-?--?-?-?-?-?-?-?-?- Effaced St Visit Note 10/25/24 -?-?-?-?-?-?-?-?-?-?-?-?- 9w 1d 119 lb 8 oz (+8 oz) 135/75 -?-?-?-?-?-?-?-?-?-?-?-?- 179 -?-?-?-?-?-?-?-?-?-?-?-?- KW- CRL cons wit h dates. accepts NIPT. 11/21/24 -?-?-?-?-?-?-?-?-?-?-?-?- 13w 0d 124 lb 4 oz (+5 lb 4 oz) 135/86 Negative -?-?-?-?-?-?-?-?-?-?-?-?- Negative 155 -?-?-?-?-?-?-?-?-?-?-?-?- KW- no vb/crampi ng. feeling better. MFM anatomy ordered, labs today. 12/22/24 -?-?-?-?-?-?-?-?-?-?-?-?- 17w 3d 127 lb 6 oz (+8 lb 6 oz) 116/71 Negative -?-?-?-?-?-?-?-?-?-?-?-?- Negative 147 -?-?-?-?-?-?-?-?-?-?-?-?- JV- no lof, vagi nal bleeding, or cramping. questions about today. anatomy at 19 weeks scheduled 01/17/25 -?-?-?-?-?-?-?-?-?-?-?-?- 21w 1d 132 lb 8 oz (+13 lb 8 oz) 113/74 Negative -?-?-?-?-?-?-?-?-?-?-?-?- Negative 146 -?-?-?-?-?-?-?-?-?-?-?-?- MH-NO VB. Lannyin g movement. States had spotting day prior to [facility] US but none since. Has questions about circumvallente placenta-will get growth US 36 wk [facility] 02/16/25 -?-?-?-?-?-?-?-?-?-?-?-?- 25w 3d 138 lb 9 oz (+19 lb 9 oz) 123/79 Negative -?-?-?-?-?-?-?-?-?-?-?-?- Negative 140 -?-?-?-?-?-?-?-?-?-?-?-?- SM- no vb lof go od fm no reuglar ctx discussed and placenta 03/07/25 -?-?-?-?-?-?-?-?-?-?-?-?- 28w 1d 140 lb 1 oz (+21 lb 1 oz) 118/72 Negative -?-?-?-?-?-?-?-?-?-?-?-?- Negative 148 -?-?-?-?-?-?-?-?-?--?-?-?- MH-No VB, LOF. G ood FM. Larc. 28 wk labs pending. Declines tdap ACOG First Trimester First Trimester: Desire for , Alcohol, Tobacco Cessation, Illicit/Recreational Drug/Substance Use, Intimate Partner Violence, Barriers to care, Unstable Housing, Communication Barriers, Environmental/Work Hazards, Anticipated Course of Care, Toxoplasmosis Precations, Use of Any med ications, Sexual activity, Exercise, Dental Care, Sauna/Hot tub use, Seat Belt use, Childbirth classes/Hospital facilities, , Travel, Indications for Ultrasound and Screening for Aneuploidy Second Trimester Second Trimester: Signs and Symptoms of Labor, Selecting a care provider, Reproductive Life Planning & Contreception, Care Planning, Depression/Anxiety and Intimate Partner Violence; Discussed Tobacco Cessation Third Trimester Third Trimester: Pain Management Plans, Labor support person(s), Immediate Larc, Movement Monitoring, Signs and Symptoms of Preeclampsia, Labor Signs, Postterm Counseling, Feeding Yes , Family Medical Leave or Disability Forms and Intimate Partner Violence; Discussed Trial of Labor after Counseling and Discussed Circumcision preference ROS Const Reports system reviewed and no additional complaints, except as documented GI Denies abdominal pain, Denies nausea and Denies vomiting Exam Const General: cooperative Nutritional Appearance: well nourished GI Palpation: soft, nontender and other (gravid) Results POC Urinalysis 2 Dip (Clinic) Office Urine Glucose Negative Last Edit by Pearl Wyman on 03/07/25 10 :28 Office Urine Protein Negative Last Edit by Pearl Wyman on 03/07/25 10 :28 Coding Level of Care Code OB Routine Diagnoses Supervision of high risk in third trimester O09.93 Trimester: third trimester 28 weeks gestation of Z3A.28 Weeks of gestation: 28 weeks Circumvallate placenta in second trimester O43.112 Trimester: second trimester Adopted Z02.82 Family history of cleft palate Z82.79 Desires (vaginal after ) trial O34.219 History of section Z98.891 Assessment and Plan Assessment and Plan (1) Supervision of high-risk : Status: Acute Qualifiers: Trimester: third trimester Qualified Code(s): O09.93 - Supervision of high risk , unspecified, third trimester Comment: PRR , BRIGIDA 05/29 PC: Pattie Suarez : Davey (2) : Status: Acute Qualifiers: Weeks of gestation: 28 weeks Qualified Code(s): Z3A.28 - 28 weeks gestation of Comment: NIPT w/ gender & carrier- low risk,female( pt does not want to know gender, nl anatomy (3) Circumvallate placenta: Status: Acute Qualifiers: Trimester: second trimester Qualified Code(s): O43.112 - Circumvallate placenta, second trimester Comment: growth US q 4 weeks in third trimester (4) Adopted: Status: Acute (5) Family history of cleft palate: Status: Acute Comment: Pt's niece- club foot, cleft palate (6) Desires (vaginal after ) trial: Status: Acute (7) History of section: Status: Acute Comment: previous for NRFHTs, considering TOLAC- Orders: Orders POC Urinalysis 2 Dip (Clinic) Today OB Limited With Biometrics 04/03/25 O43.112 - Circumvallate placenta, second trimester OB Limited With Biometrics 05/01/25 O43.112 - Circumvallate placenta, second trimester Plan problem list reviewed and updated for most current plan of care and appropriate orders placed. Relevant counseling for the gestational age appropriate provided and ACOG education checklist updated. Continue routine care and follow up. 03/07/25 1034 s SANITATION WORKER HOSING MACHINERY SANITATION WORKER HOSING MACHINERY-C> Date _ Brenda Salazar SANITATION WORKER HOSING MACHINERY SANITATION WORKER HOSING MACHINERY-C Nuha Signature: Date (if applicable) CC: ~ [facility] [facility] [id number] [facility] [address] [place] [address], [address] [place] [address] OFFICE VISIT Date of Service: 02/16/25 MR#: [id number] Acct: [id number] Name: PEYTON DEVINE Rep #: [id number] : 2000 Provider: Dr. Hi Alfaro MD Age/Sex: 24/F Location: [facility] [place] Status: Signed Intake Vital Signs 12/22/24 10:01/17/25 15:34 02/16/25 15:28 Height 5 ft 3 in 5 ft 3 in 5 ft 3 in Weight: 138 lb 9 oz BMI 24.5 BP 123/79 H Intake Visit Reasons: 25wk ob Manager Of Environmental Services Required: No Is patient in pain?: No Allergies No Known Allergies Allergy (Verified 02/16/25 15:31) Medications ?Medication ?Instructions ?Recorded ?Confirmed ?Type ondansetron HCl 4 mg tablet 4 mg PO Q6H PRN nausea and 10/07/24 02/16/25 Rx vomiting #60 tabs PNV 158-iron 13.5 mg-folic 0.5 cap PO 10/13/24 5 History mg-omega 3-dha 150 mg-epa-fish capsule (Natavi PNV) Last Menstrual Period: 08/22/24 Zika: Zika virus screening: Negative : No PFSH PFSH Medical History Desquamated skin Anxiety Adopted Surgical History delivery delivered History of surgery No significant past surgical history Social History adopted: Yes household members: spouse and children housing: house number of children: 2 current occupational status: previously employed current occupation: [employer] current occupational exposures/hazards: No pets and animals: Yes pets and animals: dog(s) history of recent travel: Yes ([place] in August) out of state: Yes out of country: No sexually active: Yes Smoking Status: Never smoker second hand exposure: No alcohol intake: never substance use type: does not use caffeine: No what type of physical activity do you participate in: walking carmen/sabianist: None seatbelt use: always do you feel [...] 41 live - full term Female [facility] Mariusz 07/16/22 Pattie 39 live - full term 8lbs 3oz Female spinal [facility] Dr. Romero Davey Delivery Date: 11/14/20 Last Updated by: Chloé Lovelace primary c=section for catagory 2 FHT HPI 25wk ob Details: PEYTON DEVINE is a 24 year old who presents for routine OB visit. OB Visit BRIGIDA Calculator Estimated Delivery Date Method Current WG Current Estimate 05/29/25 LMP (Certain) 25w 3d Other Estimates 05/28/25 Ultrasound #1 25w 4d Expected Delivery Route/Plan patient counseled regarding risks/benefits [...] Dilation -?-?-?-?-?-?-?-?-?-?-?-?- Effaced St Visit Note 10/25/24 -?-?-?-?-?-?-?-?-?--?-?-?- 9w 1d 119 lb 8 oz (+8 oz) 135/75 -?-?-?-?-?-?-?-?-?-?-?-?- 179 -?-?-?-?-?-?-?-?-?-?-?-?- KW- CRL cons wit h dates. accepts NIPT. 11/21/24 -?-?-?-?-?-?-?-?-?-?-?-?- 13w 0d 124 lb 4 oz (+5 lb 4 oz) 135/86 Negative -?-?-?-?-?-?-?-?-?-?-?-?- Negative 155 -?-?-?-?-?-?-?-?-?-?-?-?- KW- no vb/crampi ng. feeling better. [facility] anatomy ordered, labs today. 12/22/24 -?-?-?-?-?-?-?-?-?-?-?-?- 17w 3d 127 lb 6 oz (+8 lb 6 oz) 116/71 Negative -?-?-?-?-?-?-?-?-?-?-?-?- Negative 147 -?-?-?-?-?-?-?-?-?-?-?-?- JV- no lof, vagi nal bleeding, or cramping. questions about today. anatomy at 19 weeks scheduled 01/17/25 -?-?-?-?-?-?-?-?-?-?-?-?- 21w 1d 132 lb 8 oz (+13 lb 8 oz) 113/74 Negative -?-?-?-?-?-?-?-?-?-?-?-?- Negative 146 -?-?-?-?-?-?-?-?-?-?-?-?- -NO VB. Feelin g movement. States had spotting day prior to M US but none since. Has questions about circumvallente placenta-will get growth US 36 wk [facility] 02/16/25 -?-?-?-?-?-?-?-?-?-?-?-?- 25w 3d 138 lb 9 oz (+19 lb 9 oz) 123/79 Negative -?-?-?-?-?-?-?-?-?-?-?-?- Negative 140 -?-?-?-?-?-?-?-?-?-?-?-?- SM- no vb lof go od fm no reuglar ctx discussed and placenta ACOG First Trimester First Trimester: Desire for [...] Labor after Counseling and Discussed Circumcision preference Results POC Urinalysis 2 Dip (Clinic) Office Urine Glucose Negative Last Edit by Brenda Gilbert on 02/16/25 15:37 Office Urine Protein Negative Last Edit by Brenda Gilbert on 02/16/25 15:37 Coding Level of Care Code OB Routine Diagnoses Circumvallate placenta in second trimester O43.112 Trimester: second trimester Supervision of high risk in second trimester O09.92 Trimester: second trimester 25 weeks gestation of Z3A.25 Weeks of gestation: 25 weeks Adopted Z02.82 Family history of cleft palate Z82.79 Desires (vaginal after ) trial O34.219 History of section Z98.891 Assessment and Plan Assessment and Plan (1) Circumvallate placenta: Status: Acute Qualifiers: Trimester: second trimester Qualified Code(s): O43.112 - Circumvallate placenta, second trimester Comment: growth US q 4 weeks in third trimester (2) Supervision of high-risk : Status: Acute Qualifiers: Trimester: second trimester Qualified Code(s): O09.92 - Supervision of high risk , unspecified, second trimester Comment: PRR , BRIGIDA 05/29 PC: Pattie Suarez : Davey (3) : Status: Acute Qualifiers: Weeks of gestation: 25 weeks Qualified Code(s): Z3A.25 - 25 weeks gestation of Comment: NIPT w/ gender & carrier- low risk,female( pt does not want to know gender, nl anatomy (4) Adopted: Status: Acute (5) Family history of cleft palate: Status: Acute Comment: Pt's niece- club foot, cleft palate (6) Desires (vaginal after ) trial: Status: Acute (7) History of section: Status: Acute Comment: previous for NRFHTs, considering TOLAC- Orders: Orders POC Urinalysis 2 Dip (Clinic) Today CBC W/Diff, Automated Today O09.92 - Supervision of high risk , unspecified, second trimester Glucose Challenge Gest 1H 50g Today O09.92 - Supervision of high risk , unspecified, second trimester, Z13.1 - Encounter for screening for diabetes mellitus HIV Today O09.92 - Supervision of high risk , unspecified, second trimester Syphilis Antibodies Today O09.92 - Supervision of high risk , unspecified, second trimester 02/16/25 1612 alona SMALL> Date _ [facility] Signature: Date (if applicable) CC: ~ [facility] [id number] Progress note Author Pricilla Alfaro [facility] Note Date/Time February 16, 2025 4:12pm [facility] [address] [place] [address], [address] [place] [address] OFFICE VISIT Date of Service: 02/16/25 MR#: [id number] Acct: [id number] Name: PEYTON DEVINE Rep #: [id number] : 2000 Provider: Dr. Hi Alfaro MD Age/Sex: 24/F Location: [facility] Status: Signed Intake Vital Signs 12/22/24 10:09 01/17/25 15:34 02/16/25 15:28 Height 5 ft 3 in 5 ft 3 in 5 ft 3 in Weight: 138 lb 9 oz BMI 24.5 BP 123/79 H Intake Visit Reasons: 25wk ob Manager Of Environmental Services Required: No Is patient in pain?: No Allergies No Known Allergies Allergy (Verified 02/16/25 15:31) Medications ?Medication ?Instructions ?Recorded ?Confirmed ?Type ondansetron HCl 4 mg tablet 4 mg PO Q6H PRN nausea and 10/07/24 02/16/25 Rx vomiting #60 tabs PNV 158-iron 13.5 mg-folic 0.5 cap PO 10/13/24 5 History mg-omega 3-dha 150 mg-epa-fish capsule (Natavi PNV) Last Menstrual Period: 08/22/24 Zika: Zika virus screening: Negative : No PFSH PFS Medical History Desquamated skin Anxiety Adopted Surgical History delivery delivered History of surgery No significant past surgical history Social History adopted: Yes household members: spouse and children housing: house number of children: 2 current occupational status: previously employed current occupation: [employer] current occupational exposures/hazards: No pets and animals: Yes pets and animals: dog(s) history of recent travel: Yes ([place] in August) out of state: Yes out of country: No sexually active: Yes Smoking Status: Never smoker second hand exposure: No alcohol intake: never substance use type: does not use caffeine: No what type of physical activity do you participate in: walking carmen/sabianist: None seatbelt use: always do you feel [...] 41 live - full term Female [facility] Mariusz 07/16/22 Pattie 39 live - full term 8lbs 3oz Female spinal [facility] Dr. Jewell Delivery Date: 11/14/20 Last Updated by: Clhoé Lovelace primary c=section for catagory 2 FHT HPI 25wk ob Details: PEYTON DEVINE is a 24 year old who presents for routine OB visit. OB Visit BRIGIDA Calculator Estimated Delivery Date Method Current WG Current Estimate 05/29/25 LMP (Certain) 25w 3d Other Estimates 05/28/25 Ultrasound #1 25w 4d Expected Delivery Route/Plan patient counseled regarding risks/benefits [...] Dilation -?-?-?-?-?-?-?-?-?-?-?-?- Effaced St Visit Note 10/25/24 -?-?-?-?-?-?-?-?-?--?-?-?- 9w 1d 119 lb 8 oz (+8 oz) 135/75 -?-?-?-?-?-?-?-?-?-?-?-?- 179 -?-?-?-?-?-?-?-?-?-?-?-?- KW- CRL cons wit h dates. accepts NIPT. 11/21/24 -?-?-?-?-?-?-?-?-?-?-?-?- 13w 0d 124 lb 4 oz (+5 lb 4 oz) 135/86 Negative -?-?-?-?-?-?-?-?-?-?-?-?- Negative 155 -?-?-?-?-?-?-?-?-?-?-?-?- KW- no vb/crampi ng. feeling better. [facility] anatomy ordered, labs today. 12/22/24 -?-?-?-?-?-?-?-?-?-?-?-?- 17w 3d 127 lb 6 oz (+8 lb 6 oz) 116/71 Negative -?-?-?-?-?-?-?-?-?-?-?-?- Negative 147 -?-?-?-?-?-?-?-?-?-?-?-?- JV- no lof, vagi nal bleeding, or cramping. questions about today. anatomy at 19 weeks scheduled 01/17/25 -?-?-?-?-?-?-?-?-?-?-?-?- 21w 1d 132 lb 8 oz (+13 lb 8 oz) 113/74 Negative -?-?-?-?-?-?-?-?-?-?-?-?- Negative 146 -?-?-?-?-?-?-?-?-?-?-?-?- -NO VB. Wero cuellar movement. States had spotting day prior to [facility] US but none since. Has questions about circumvallente placenta-will get growth US 36 wk [facility] 02/16/25 -?-?-?-?-?-?-?-?-?-?-?-?- 25w 3d 138 lb 9 oz (+19 lb 9 oz) 123/79 Negative -?-?-?-?-?-?-?-?-?-?-?-?- Negative 140 -?-?-?-?-?-?-?-?-?-?-?-?- SM- no vb lof go od fm no reuglar ctx discussed and placenta ACOG First Trimester First Trimester: Desire for [...] Labor after Counseling and Discussed Circumcision preference Results POC Urinalysis 2 Dip (Clinic) Office Urine Glucose Negative Last Edit by Brenda Gilbert on 02/16/25 15:37 Office Urine Protein Negative Last Edit by Brenda Gilbert on 02/16/25 15:37 Coding Level of Care Code OB Routine Diagnoses Circumvallate placenta in second trimester O43.112 Trimester: second trimester Supervision of high risk in second trimester O09.92 Trimester: second trimester 25 weeks gestation of Z3A.25 Weeks of gestation: 25 weeks Adopted Z02.82 Family history of cleft palate Z82.79 Desires (vaginal after ) trial O34.219 History of section Z98.891 Assessment and Plan Assessment and Plan (1) Circumvallate placenta: Status: Acute Qualifiers: Trimester: second trimester Qualified Code(s): O43.112 - Circumvallate placenta, second trimester Comment: growth US q 4 weeks in third trimester (2) Supervision of high-risk : Status: Acute Qualifiers: Trimester: second trimester Qualified Code(s): O09.92 - Supervision of high risk , unspecified, second trimester Comment: PRR , BRIGIDA 05/29 PC: Pattie Suarez : Davey (3) : Status: Acute Qualifiers: Weeks of gestation: 25 weeks Qualified Code(s): Z3A.25 - 25 weeks gestation of Comment: NIPT w/ gender & carrier- low risk,female( pt does not want to know gender, nl anatomy (4) Adopted: Status: Acute (5) Family history of cleft palate: Status: Acute Comment: Pt's niece- club foot, cleft palate (6) Desires (vaginal after ) trial: Status: Acute (7) History of section: Status: Acute Comment: previous for NRFHTs, considering TOLAC- Orders: Orders POC Urinalysis 2 Dip (Clinic) Today CBC W/Diff, Automated Today O09.92 - Supervision of high risk , unspecified, second trimester Glucose Challenge Gest 1H 50g Today O09.92 - Supervision of high risk , unspecified, second trimester, Z13.1 - Encounter for screening for diabetes mellitus HIV Today O09.92 - Supervision of high risk , unspecified, second trimester Syphilis Antibodies Today O09.92 - Supervision of high risk , unspecified, second trimester 02/16/25 1612 <Electronically signed by Pricilla sage MD> Date _ Pricilla Alfaro MD Cosigner Signature: Date (if applicable) CC: ~ [facility] [employer] Work Phone: 1(744) 815-603407-10-2025 Evaluation note* Diagnosis Onset Date Resolution Status Admit Date Adopted acute December 22 10:00am Desires (vaginal after ) trial acute December 22, 2024 10:00am Family history of cleft palate acute December 22, 2024 10:00am History of section acute December 22, 2024 10:00am acute December 22 10:00am Supervision of high-risk acute December 22, 2024 10:00am Status post section deleted December 22, 2024 10:00am Adopted acute January 17 3:31pm Circumvallate placenta acute Au 2024 3:31pm Desires (vaginal after ) trial acute January 3:31pm Family history of cleft palate acute January 17, 2025 3:31pm History of section acute January 17, 2025 3:31pm acute January 17 3:31pm Supervision of high-risk acute January 17, 2025 3:31pm Adopted acute February 16, 2025 3:23pm Circumvallate placenta acute Se pt2024 3:23pm Desires (vaginal after ) trial acute February 16, 2025 3:23pm Family history of cleft palate acute February 16, 2025 3:23pm History of section acute February 16, 2025 3:23pm acute February 16, 2025 3:23pm Supervision of high-risk acute February 16 3:23pm Adopted acute February 9:42am Circumvallate placenta acute Se ptember 2024 9:42am Desires (vaginal after ) trial acute March 07, 2025 9:42am Family history of cleft palate acute March 07, 2025 9:42am History of section acute March 07, 2025 9:42am acute February 9:42am Supervision of high-risk acute March 07, 2025 9:42am Adopted acute March 20 8:59am Circumvallate placenta acute Oc tob2024 8:59am Desires (vaginal after ) trial acute March 8:59am Family history of cleft palate acute March 20, 2025 8:59am History of section acute March 20, 2025 8:59am acute March 20 8:59am Supervision of high-risk acute March 20 8:59am Adopted acute March 28, 2025 1:30pm Circumvallate placenta acute Oc tob2024 1:30pm Desires (vaginal after ) trial acute March 282024 1:30pm Family history of cleft palate acute March 28, 2025 1:30pm History of section acute March 28, 2025 1:30pm acute March 28, 2025 1:30pm Supervision of high-risk acute March 28 1:30pm Adopted acute April 04, 2025 2:45pm Circumvallate placenta acute Oc tob2024 2:45pm Desires (vaginal after ) trial acute April 042024 2:45pm Family history of cleft palate acute April 04, 2025 2:45pm History of section acute April 04, 2025 2:45pm acute April 04, 2025 2:45pm Supervision of high-risk acute April 04 2:45pm [facility] Work Phone: 1(911) 331-424107-10-2025 Evaluation note* Diagnosis Onset Date Resolution Status Admit Date Adopted acute December 22 10:00am Desires (vaginal after ) trial acute December 22, 2024 10:00am Family history of cleft palate acute December 22, 2024 10:00am History of section acute December 22, 2024 10:00am acute December 22 10:00am Supervision of high-risk acute December 22, 2024 10:00am Status post section deleted December 22, 2024 10:00am Adopted acute January 17 3:31pm Circumvallate placenta acute Au 2024 3:31pm Desires (vaginal after ) trial acute January 3:31pm Family history of cleft palate acute January 17, 2025 3:31pm History of section acute January 17, 2025 3:31pm acute January 17 3:31pm Supervision of high-risk acute January 17, 2025 3:31pm Adopted acute February 16, 2025 3:23pm Circumvallate placenta acute Se pt2024 3:23pm Desires (vaginal after ) trial acute February 16, 2025 3:23pm Family history of cleft palate acute February 16, 2025 3:23pm History of section acute February 16, 2025 3:23pm acute February 16, 2025 3:23pm Supervision of high-risk acute February 16, 2 025 3:23pm Adopted acute February 9:42am Circumvallate placenta acute Se ptember 2024 9:42am Desires (vaginal after ) trial acute March 07, 2025 9:42am Family history of cleft palate acute March 07, 2025 9:42am History of section acute March 07, 2025 9:42am acute February 9:42am Supervision of high-risk acute March 07, 2025 9:42am Adopted acute March 20 025 8:59am Circumvallate placenta acute Oc 2024 8:59am Desires (vaginal after ) trial acute March 8:59am Family history of cleft palate acute March 20, 2025 8:59am History of section acute March 20, 2025 8:59am acute March 20 8:59am Supervision of high-risk acute March 20 8:59am Adopted acute March 28, 2025 1:30pm Circumvallate placenta acute Oc tob2024 1:30pm Desires (vaginal after ) trial acute March 282024 1:30pm Family history of cleft palate acute March 28, 2025 1:30pm History of section acute March 28, 2025 1:30pm acute March 28, 2025 1:30pm Supervision of high-risk acute March 28 1:30pm Adopted acute April 04, 2025 2:45pm Circumvallate placenta acute Oc 2024 2:45pm Desires (vaginal after ) trial acute April 042024 2:45pm Family history of cleft palate acute April 04, 2025 2:45pm History of section acute April 04, 2025 2:45pm acute April 04, 2025 2:45pm Supervision of high-risk acute April 04 2:45pm Adopted acute April 19, 2025 2:25pm Circumvallate placenta acute No vem2024 2:25pm Desires (vaginal after ) trial acute April 192024 2:25pm Family history of cleft palate acute April 19, 2025 2:25pm History of section acute April 19, 2025 2:25pm acute April 19, 2025 2:25pm Supervision of high-risk acute April 19 2:25pm [facility] Work Phone: 1(953) 195-853107-10-2025 [facility] [address], [address] [place] [address] OFFICE VISIT Date of Service: 12/22/24 MR#: [id number] Acct: [id number] Name: PEYTON DEVINE Rep #: [id number] : 2000 Provider: Dr. Erin Romero DO Age/Sex: 24/F Location: [facility] [place] [facility] Status: Signed Intake Vital Signs 10/25/24 13:03 11/21/24 10:16 12/22/24 10:02 12/22/24 10:09 Height 5 ft 3 in 5 ft 3 in 5 ft 3 in 5 ft 3 in Weight: 127 lb 6 oz BMI 22.5 BP 116/71 Intake Visit Reasons: 17 wk ob Manager Of Environmental Services Required: No Is patient in pain?: No Allergies No Known Allergies Allergy (Verified 12/22/24 10:03) Medications ?Medication ?Instructions ?Recorded ?Confirmed ?Type ondansetron HCl 4 mg tablet 4 mg PO Q6H PRN nausea and 10/07/24 12/22/24 Rx vomiting #60 tabs PNV 158-iron 13.5 [...] current occupational status: previously employed current occupation: [employer] current occupational exposures/hazards: No pets and animals: Yes pets and animals: dog(s) history of recent travel: Yes ([place] in August) out of state: Yes out of country: No sexually active: Yes Smoking Status: Never smoker second hand exposure: No alcohol intake: never substance use type: does not use caffeine: No what type of physical activity do you participate in: walking carmen/sabianist: None seatbelt use: always do you feel [...] 41 live - full term Female [facility] Mariusz 07/16/22 Pattie 39 live - full term 8lbs 3oz Female spinal [facility] Dr. Jewell Delivery Date: 11/14/20 Last Updated by: Chloé Lovelace primary c=section for catagory 2 FHT HPI 17 wk ob Details: PEYTON DEVINE is a 24 year old who presents for routine OB visit. OB Visit BRIG[facility] Calculator Estimated Delivery Date Method Current WG Current Estimate 05/29/25 LMP (Certain) 17w 3d Other Estimates 05/28/25 Ultrasound #1 17w 4d Expected Delivery Route/Plan patient counseled regarding risks/benefits [...] -?-?-?-?-?-?-?-?-?-?-?-?- KW- no vb/crampi ng. feeling better. [facility] anatomy ordered, labs today. 12/22/24 -?-?-?-?-?-?-?-?-?-?-?-?- 17w 3d 127 lb 6 oz (+8 lb 6 oz) 116/71 Negative -?-?-?-?-?-?-?-?-?-?-?-?- Negative 147 -?-?-?-?-?-?-?-?-?-?-?--?- JV- no lof, vagi nal bleeding, or cramping. questions about today. anatomy at 19 weeks scheduled ACOG First Trimester First Trimester: Desire for [...] Labor after Counseling and Discussed Circumcision preference Results POC Urinalysis 2 Dip (Clinic) Office Urine Glucose Negative Last Edit by Brenda Gilbert on 12/22/24 10:10 Office Urine Protein Negative Last Edit by Brenda Gilbert on 12/22/24 10:10 Coding Level of Care Code OB Routine Diagnoses Supervision of high-risk O09.90 17 weeks gestation of Z3A.17 Weeks of gestation: 17 weeks Adopted Z02.82 Family history of cleft palate Z82.79 Desires (vaginal after ) trial O34.219 Status post section Z98.891 History of section Z98.891 Assessment and Plan Assessment and Plan (1) Supervision of high-risk : Status: Acute Comment: PRR (waiting on [facility]) , BRIGIDA 05/29 PC: Pattie Suarez : Davey (2) : Status: Acute Qualifiers: Weeks of gestation: 17 weeks Qualified Code(s): Z3A.17 - 17 weeks gestation of Comment: NIPT w/ gender & carrier- low risk,female( pt does not want to know gender) (3) Adopted: Status: Acute (4) Family history of cleft palate: Status: Acute Comment: Pt's niece- club foot, cleft palate (5) Desires (vaginal after ) trial: Status: Acute (6) Status post section: Status: Acute (7) History of section: Status: Acute Comment: previous for NRFHTs, considering TOLAC- Orders: Orders POC Urinalysis 2 Dip (Clinic) Today 12/22/24 1046 e Velde DO> Date _ Sejal Taylor Kenneth DO Cosigner Signature: Date (if applicable) CC: ~ [facility]06-09-2025 Evaluation note* Diagnosis Onset Date Resolution Status Admit Date Adopted acute November 21, 2024 10:14am Desires (vaginal after ) trial acute November 21, 2024 10:14am Family history of cleft palate acute November 21, 2024 10:14am History of section acute November 21, 2024 10:14am acute November 21, 2024 10:14am Supervision of high-risk acute November 21, 2024 1 0:14am Status post section deleted November 21, 2024 10:14am Adopted acute December 22 10:00am Desires (vaginal after ) trial acute December 22, 2024 10:00am Family history of cleft palate acute December 22, 2024 10:00am History of section acute December 22, 2024 10:00am acute December 22 10:00am Supervision of high-risk acute December 22, 2024 10:00am Status post section deleted December 22, 2024 10:00am Adopted acute January 17 3:31pm Circumvallate placenta acute Au 2024 3:31pm Desires (vaginal after ) trial acute January 3:31pm Family history of cleft palate acute January 17, 2025 3:31pm History of section acute January 17, 2025 3:31pm acute January 17 3:31pm Supervision of high-risk acute January 17, 2025 3:31pm Adopted acute February 16, 2025 3:23pm Circumvallate placenta acute Se ptember , 2025 3:23pm Desires (vaginal after ) trial acute February 16, 2025 3:23pm Family history of cleft palate acute February 16, 2025 3:23pm History of section acute February 16, 2025 3:23pm acute February 16, 2025 3:23pm Supervision of high-risk acute February 16, 025 3:23pm Adopted acute February 9:42am Circumvallate placenta acute Se ptember 2024 9:42am Desires (vaginal after ) trial acute March 07, 2025 9:42am Family history of cleft palate acute March 07, 2025 9:42am History of section acute March 07, 2025 9:42am acute February 9:42am Supervision of high-risk acute March 07, 2025 9:42am [facility] Work Phone: 1(226) 526-225006-09-2025 Evaluation note* Diagnosis Onset Date Resolution Status Admit Date Adopted acute November 21, 2024 10:14am Desires (vaginal after ) trial acute November 21, 2024 10:14am Family history of cleft palate acute November 21, 2024 10:14am History of section acute November 21, 2024 10:14am acute November 21, 2024 10:14am Supervision of high-risk acute November 21, 2024 1 0:14am Status post section deleted November 21, 2024 10:14am Adopted acute December 22 10:00am Desires (vaginal after ) trial acute December 22, 2024 10:00am Family history of cleft palate acute December 22, 2024 10:00am History of section acute December 22, 2024 10:00am acute December 22 10:00am Supervision of high-risk acute December 22, 2024 10:00am Status post section deleted December 22, 2024 10:00am Adopted acute January 17 3:31pm Circumvallate placenta acute Au 2024 3:31pm Desires (vaginal after ) trial acute January 3:31pm Family history of cleft palate acute January 17, 2025 3:31pm History of section acute January 17, 2025 3:31pm acute January 17 3:31pm Supervision of high-risk acute January 17, 2025 3:31pm Adopted acute February 16, 2025 3:23pm Circumvallate placenta acute Se pt2024 3:23pm Desires (vaginal after ) trial acute February 16, 2025 3:23pm Family history of cleft palate acute February 16, 2025 3:23pm History of section acute February 16, 2025 3:23pm acute February 16, 2025 3:23pm Supervision of high-risk acute February 16 3:23pm Adopted acute February 9:42am Circumvallate placenta acute Se ptember 2024 9:42am Desires (vaginal after ) trial acute March 07, 2025 9:42am Family history of cleft palate acute March 07, 2025 9:42am History of section acute March 07, 2025 9:42am acute February 9:42am Supervision of high-risk acute March 07, 2025 9:42am Adopted acute March 20 8:59am Circumvallate placenta acute Oc tob2024 8:59am Desires (vaginal after ) trial acute March 8:59am Family history of cleft palate acute March 20, 2025 8:59am History of section acute March 20, 2025 8:59am acute March 20 8:59am Supervision of high-risk acute March 20 8:59am [facility] Work Phone: 1(378) 368-419006-09-2025 [facility] [address] [place] [address], [address] [place] [address] OFFICE VISIT Date of Service: 11/21/24 MR#: [id number] Acct: [id number] Name: PEYTON DEVINE GLENROY Rep #: [id number] : 2000 Provider: VICKIE Bautista Age/Sex: 24/F Location: [facility] Status: Signed Intake Vital Signs 07/15/24 08:50 10/25/24 13:03 11/21/24 10:16 Height 5 ft 3 in 5 ft 3 in 5 ft 3 in Weight: 124 lb 4 oz BMI 22.0 BP 135/86 H Intake Visit Reasons: 13wk OB Manager Of Environmental Services Required: No Is patient in pain?: No [...] current occupational status: previously employed current occupation: [employer] current occupational exposures/hazards: No pets and animals: Yes pets and animals: dog(s) history of recent travel: Yes ([place] in August) out of state: Yes out of country: No sexually active: Yes Smoking Status: Never smoker second hand exposure: No alcohol intake: never substance use type: does not use caffeine: No what type of physical activity do you participate in: walking carmen/sabianist: None seatbelt use: always do you feel [...] 41 live - full term Female [facility] Mariusz 07/16/22 Pattie 39 live - full term 8lbs 3oz Female spinal [facility] Dr. Jewell Delivery Date: 11/14/20 Last Updated [...] information and see below for orders placed atthis visit. [place] appropriate handout given. 11/21/24 1041 s CNM> Date _ Ninfa Bautista CNM Cosigner Signature: Date (if applicable) CC: ~ [facility]05-13-2025 Evaluation note* Diagnosis Onset Date Resolution Status Admit Date Adopted acute October 25, 2024 12:59pm Desires (vaginal after ) trial acute October 25, 2024 1 2:59pm Family history of cleft palate acute October 25, 2024 12:59pm History of section acute October 25, 2024 12:59pm acute October 25, 2024 12:59pm Supervision of high-risk acute October 25, 2024 1 2:59pm Adopted acute November 21, 2024 10:14am Desires (vaginal after ) trial acute November 21, 2024 1 0:14am Family history of cleft palate acute November 21, 2024 10:14am History of section acute November 21, 2024 10:14am acute November 21, 2024 10:14am Status post section acute November 21, 2024 10:14am Supervision of high-risk acute November 21, 2024 1 0:14am [facility] Work Phone: [phone] Evaluation note* Diagnosis Onset Date Resolution Status Admit Date Adopted acute October 25, 2024 12:59pm Desires (vaginal after ) trial acute October 25, 2024 12:59pm Family history of cleft palate acute October 25, 2024 12:59pm History of section acute October 25, 2024 12:59pm acute October 25, 2024 12:59pm Supervision of high-risk acute October 25, 2024 1 2:59pm Adopted acute November 21, 2024 10:14am Desires (vaginal after ) trial acute November 21, 2024 10:14am Family history of cleft palate acute November 21, 2024 10:14am History of section acute November 21, 2024 10:14am acute November 21, 2024 10:14am Status post section acute November 21, 2024 10:14am Supervision of high-risk acute November 21, 2024 1 0:14am Adopted acute December 22 10:00am Desires (vaginal after ) trial acute December 22, 2024 10:00am Family history of cleft palate acute December 22, 2024 10:00am History of section acute December 22, 2024 10:00am acute December 22 10:00am Status post section acute December 22, 2024 10:00am Supervision of high-risk acute December 22, 2024 10:00am [facility] Work Phone: 1(194) 557-192205-13-2025 Evaluation note* Diagnosis Onset Date Resolution Status Admit Date Adopted acute October 25, 2024 12:59pm Desires (vaginal after ) trial acute October 25, 2024 12:59pm Family history of cleft palate acute October 25, 2024 12:59pm History of section acute October 25, 2024 12:59pm acute October 25, 2024 12:59pm Supervision of high-risk acute October 25, 2024 1 2:59pm Adopted acute November 21, 2024 10:14am Desires (vaginal after ) trial acute November 21, 2024 10:14am Family history of cleft palate acute November 21, 2024 10:14am History of section acute November 21, 2024 10:14am acute November 21, 2024 10:14am Status post section acute November 21, 2024 10:14am Supervision of high-risk acute November 21, 2024 1 0:14am Adopted acute December 22 10:00am Desires (vaginal after ) trial acute December 22, 2024 10:00am Family history of cleft palate acute December 22, 2024 10:00am History of section acute December 22, 2024 10:00am acute December 22 10:00am Status post section acute December 22, 2024 10:00am Supervision of high-risk acute December 22, 2024 10:00am Adopted acute January 17 3:31pm Circumvallate placenta acute Au 2024 3:31pm Desires (vaginal after ) trial acute January 3:31pm Family history of cleft palate acute January 17, 2025 3:31pm History of section acute January 17, 2025 3:31pm acute January 17 3:31pm Status post section acute January 17, 2025 3:31pm Supervision of high-risk acute January 17, 2025 3:31pm [facility] Work Phone: 1([phone]) 981-232705-13-2025 Evaluation note* Diagnosis Onset Date Resolution Status Admit Date Adopted acute October 25, 2024 12:59pm Desires (vaginal after ) trial acute October 25, 2024 12:59pm Family history of cleft palate acute October 25, 2024 12:59pm History of section acute October 25, 2024 12:59pm acute October 25, 2024 12:59pm Supervision of high-risk acute October 25, 2024 1 2:59pm Adopted acute November 21, 2024 10:14am Desires (vaginal after ) trial acute November 21, 2024 10:14am Family history of cleft palate acute November 21, 2024 10:14am History of section acute November 21, 2024 10:14am acute November 21, 2024 10:14am Supervision of high-risk acute November 21, 2024 1 0:14am Status post section deleted November 21, 2024 10:14am Adopted acute December 22 10:00am Desires (vaginal after ) trial acute December 22, 2024 10:00am Family history of cleft palate acute December 22, 2024 10:00am History of section acute December 22, 2024 10:00am acute December 22 10:00am Supervision of high-risk acute December 22, 2024 10:00am Status post section deleted December 22, 2024 10:00am Adopted acute January 17 3:31pm Circumvallate placenta acute Au 2024 3:31pm Desires (vaginal after ) trial acute January 3:31pm Family history of cleft palate acute January 17, 2025 3:31pm History of section acute January 17, 2025 3:31pm acute January 17 3:31pm Supervision of high-risk acute January 17, 2025 3:31pm Adopted acute February 16, 2025 3:23pm Circumvallate placenta acute Se pt2024 3:23pm Desires (vaginal after ) trial acute February 16, 2025 3:23pm Family history of cleft palate acute February 16, 2025 3:23pm History of section acute February 16, 2025 3:23pm acute February 16, 2025 3:23pm Supervision of high-risk acute February 16, 2 025 3:23pm [facility] Work Phone: 1(414) 355-955505-13-2025 [facility] [address] [place] [address], [address] [place] [address] OFFICE VISIT Date of Service: 10/25/24 MR#: [id number] Acct: [id number] Name: PEYTON DEVINE GLENROY Rep #: [id number] : 2000 Provider: VICKIE Bautista Age/Sex: 24/F Location: [facility] [facility] Status: Signed Intake Vital Signs 07/15/24 08:50 10/25/24 13:03 Height 5 ft 3 in 5 ft 3 in Weight: 119 lb 8 oz BMI 21.2 BP 135/75 H Intake Visit Reasons: NOB: LMP 310, BRIGIDA 05/29 Chief Complaint: 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 Is patient in pain?: No [...] current occupational status: previously employed current occupation: [employer] current occupational exposures/hazards: No pets and animals: Yes pets and animals: dog(s) history of recent travel: Yes ([place] in August) out of state: Yes out of country: No sexually active: Yes Smoking Status: Never smoker second hand exposure: No alcohol intake: never substance use type: does not use caffeine: No what type of physical activity do you participate in: walking How many days of moderate to strenuous exercise, like a brisk walk, did you do in the last 7 days: 3 carmen/sabianist: None seatbelt use: always do you feel [...] 41 live - full term Female [facility] Mariusz 07/16/22 Pattie 39 live - full term 8lbs 3oz Female spinal [facility] Dr. Jewell Delivery Date: 11/14/20 Last Updated [...] Pulmonary (e.g.,TB,Asthma), Seasonal allergies, Drug/latex allergies/reactions, Breast, Wirer Maintenance surgery, Anesthetic complications, History of abnormal pap, [...] carrier 10/25/24 1341 s CNM> Date _ Ninfa Breen Signature: Date (if applicable) CC: ~ [facility]01-31-2025 Evaluation note* Diagnosis Onset Date Resolution Status [...] high-risk acute October 25, 2024 1 2:59pm [facility] Work Phone: Evaluation note* Diagnosis Onset Date Resolution Status History of section acute History of oligohydramnios a cute acute Supervision of normal [facility] Work Phone: Evaluation note* Diagnosis Onset Date Resolution Status History of section acute History of oligohydramnios a cute acute Supervision of normal acute History of section acute History of oligohydramnios a cute acute Supervision of normal acute History of section acute History of oligohydramnios a cute acute Supervision of normal [facility] Work Phone: Evaluation note* Diagnosis Onset [...] a cute acute Supervision of normal acute [facility] Work Phone: Evaluation note* Diagnosis Onset [...] a cute acute Supervision of normal acute [facility] Work Phone: Evaluation note* Diagnosis Onset [...] a cute acute Supervision of normal acute [facility] Work Phone: Progress note Author Ninfa Bautista [facility] Note Date/Time October 25, 2024 1:41p m [facility] [address] [place] [address], [address] [place] [address] OFFICE VISIT Date of Service: 10/25/24 MR#: [id number] Acct: [id number] Name: PEYTON DEVINE GLENROY Rep #: [id number] : 2000 Provider: VICKIE Bautista Age/Sex: 24/F Location: [facility] [facility] Status: Signed Intake Vital Signs 07/15/24 08:50 10/25/24 13:03 Height 5 ft 3 in 5 ft 3 in Weight: 119 lb 8 oz BMI 21.2 BP 135/75 H Intake Visit Reasons: NOB: LMP 08/22, BRIGIDA 05/29 Chief Complaint: 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 Is patient in pain?: No [...] current occupational status: previously employed current occupation: [employer] current occupational exposures/hazards: No pets and animals: Yes pets and animals: dog(s) history of recent travel: Yes ([place] in August) out of state: Yes out of country: No sexually active: Yes Smoking Status: Never smoker second hand exposure: No alcohol intake: never substance use type: does not use caffeine: No what type of physical activity do you participate in: walking How many days of moderate to strenuous exercise, like a brisk walk, did you do in the last 7 days: 3 carmen/sabianist: None seatbelt use: always do you feel [...] 41 live - full term Female [facility] Mariusz 07/16/22 Pattie 39 live - full term 8lbs 3oz Female spinal [facility] Dr. Jewell Delivery Date: 11/14/20 Last Updated [...] Pulmonary (e.g.,TB,Asthma), Seasonal allergies, Drug/latex allergies/reactions, Breast, Wirer Maintenance surgery, Anesthetic complications, History of abnormal pap, [...] deformations and chromosomal abnormalities Hepatitis C Antibody 05/01/25 O09.90 - Supervision of high risk , [...] and carrier 10/25/24 1341 <Electronically signed by Ninfa cordova CNM> Date _ Ninfa Bautista CNM Cosigner Signature: Date (if applicable) CC: ~ [facility] Work Phone: Progress note Author Ninfa Bautista [facility] Note Date/Time November 21, 2024 10:41 am [facility] [address] [place] [address], [address] [place] [address] OFFICE VISIT Date of Service: 11/21/24 MR#: [id number] Acct: [id number] Name: PEYTON DEVINE Rep #: [id number] : 2000 Provider: VICKIE Bautista Age/Sex: 24/F Location: [facility] [place] [facility] Status: Signed Intake Vital Signs 07/15/24 08:50 10/25/24 13:03 11/21/24 10:16 Height 5 ft 3 in 5 ft 3 in 5 ft 3 in Weight: 124 lb 4 oz BMI 22.0 BP 135/86 H Intake Visit Reasons: 13wk OB Manager Of Environmental Services Required: No Is patient in pain?: No Allergies No Known Allergies Allergy (Verified 11/21/24 10:16) Medications ?Medication ?Instructions ?Recorded ?Confirmed ?Type ondansetron HCl 4 mg tablet 4 mg PO Q6H PRN nausea and 04/25/25 06/09/25 Rx vomiting #60 tabs PNV 158-iron 13.5 [...] current occupational status: previously employed current occupation: [employer] current occupational exposures/hazards: No pets and animals: Yes pets and animals: dog(s) history of recent travel: Yes ([place] in August) out of state: Yes out of country: No sexually active: Yes Smoking Status: Never smoker second hand exposure: No alcohol intake: never substance use type: does not use caffeine: No what type of physical activity do you participate in: walking carmen/sabianist: None seatbelt use: always do you feel [...] 41 live - full term Female [facility] Mariusz 07/16/22 Pattie 39 live - full term 8lbs 3oz Female spinal [facility] Dr. Jewell Delivery Date: 11/14/20 Last Updated [...] high-risk : Status: Acute Comment: , BRIGIDA / PC: Pattie Suarez : Davey (2) : [...] handout given. 11/21/24 1041 <Electronically signed by Ninfa cordova CNM> Date _ Ninfa Bautista CNM Cosigner Signature: Date (if applicable) CC: ~ [facility] Work Phone: Progress note Author Sejal Cooper [facility] Note Date/Time December 22, 2024 10:4 6am [facility] [address], [address] [place] [address] OFFICE VISIT Date of Service: 12/22/24 MR#: [id number] Acct: [id number] Name: PEYTON DEVINE GLENROY Rep #: [id number] : 2000 Provider: Dr. Erin Romero DO Age/Sex: 24/F Location: [facility] Status: Signed Intake Vital Signs 10/25/24 13:03 11/21/24 10:16 12/22/24 10:02 12/22/24 10:09 Height 5 ft 3 in 5 ft 3 in 5 ft 3 in 5 ft 3 in Weight: 127 lb 6 oz BMI 22.5 BP 116/71 Intake Visit Reasons: 17 wk ob Manager Of Environmental Services Required: No Is patient in pain?: No Allergies No Known Allergies Allergy (Verified 12/22/24 10:03) Medications ?Medication ?Instructions ?Recorded ?Confirmed ?Type ondansetron HCl 4 mg tablet 4 mg PO Q6H PRN nausea and 10/07/24 12/22/24 Rx vomiting #60 tabs PNV 158-iron 13.5 [...] current occupational status: previously employed current occupation: [employer] current occupational exposures/hazards: No pets and animals: Yes pets and animals: dog(s) history of recent travel: Yes ([place] in August) out of state: Yes out of country: No sexually active: Yes Smoking Status: Never smoker second hand exposure: No alcohol intake: never substance use type: does not use caffeine: No what type of physical activity do you participate in: walking carmen/sabianist: None seatbelt use: always do you feel [...] 41 live - full term Female [facility] Mariusz 07/16/22 Pattie 39 live - full term 8lbs 3oz Female spinal [facility] Dr. Jewell Delivery Date: 11/14/20 Last Updated by: Chloé Lovelace primary c=section for catagory 2 FHT HPI 17 wk ob Details: PEYTON DEVINE is a 24 year old who presents for routine OB visit. OB Visit [facility] Calculator Estimated Delivery Date Method Current WG Current Estimate 05/29/25 LMP (Certain) 17w 3d Other Estimates 05/28/25 Ultrasound #1 17w 4d Expected Delivery Route/Plan patient counseled regarding risks/benefits [...] feeling better. MFM anatomy ordered, labs today. 12/22/24 -?-?-?-?-?-?-?-?-?-?-?-?- 17w 3d 127 lb 6 oz (+8 lb 6 oz) 116/71 Negative -?-?-?-?-?-?-?-?-?-?-?-?- Negative 147 -?-?-?-?-?-?-?-?-?-?-?--?- JV- no lof, vagi nal bleeding, or cramping. questions about today. anatomy at 19 weeks scheduled ACOG First Trimester First Trimester: Desire for [...] Labor after Counseling and Discussed Circumcision preference Results POC Urinalysis 2 Dip (Clinic) Office Urine Glucose Negative Last Edit by Brenda Gilbert on 12/22/24 10:10 Office Urine Protein Negative Last Edit by Brenda Gilbert on 12/22/24 10:10 Coding Level of Care Code OB Routine Diagnoses Supervision of high-risk O09.90 17 weeks gestation of Z3A.17 Weeks of gestation: 17 weeks Adopted Z02.82 Family history of cleft palate Z82.79 Desires (vaginal after ) trial O34.219 Status post section Z98.891 History of section Z98.891 Assessment and Plan Assessment and Plan (1) Supervision of high-risk : Status: Acute Comment: PRR (waiting on [facility]) , BRIGIDA 05/29 PC: Pattie Suarez : Davey (2) : Status: Acute Qualifiers: Weeks of gestation: 17 weeks Qualified Code(s): Z3A.17 - 17 weeks gestation of Comment: NIPT w/ gender & carrier- low risk,female( pt does not want to know gender) (3) Adopted: Status: Acute (4) Family history of cleft palate: Status: Acute Comment: Pt's niece- club foot, cleft palate (5) Desires (vaginal after ) trial: Status: Acute (6) Status post section: Status: Acute (7) History of section: Status: Acute Comment: previous for NRFHTs, considering TOLAC- Orders: Orders POC Urinalysis 2 Dip (Clinic) Today 12/22/24 1046 <Electronically signed by Sejal Arroyo DO> Date _ Sejal Romero DO Cosigner Signature: Date (if applicable) CC: ~ [facility] Work Phone: Progress note Author Brenda Salazar [facility] Note Date/Time March 07, 2025 10:01am [facility] [address] [place] [address], [address] [place] [address] OFFICE VISIT Date of Service: 03/07/25 MR#: [id number] Acct: [id number] Name: PEYTON DEVINE GLENROY Rep #: [id number] : 2000 Provider: AL Salazar Age/Sex: 24/F Location: [facility] [place] [facility] Status: Signed Intake Vital Signs 12/22/24 10:09 01/17/25 15:34 02/16/25 15:28 03/07/25 09:43 Height 5 ft 3 in 5 ft 3 in 5 ft 3 in 5 ft 3 in Weight: 140 lb 1 oz BMI 24.7 BP 118/72 Intake Visit Reasons: 28wk ob/glucose Chief Complaint: 28 Week OB/Glucose Manager Of Environmental Services Required: No Is patient in pain?: No Allergies No Known Allergies Allergy (Verified 03/07/25 09:45) Medications ?Medication ?Instructions ?Recorded ?Confirmed ?Type ondansetron HCl 4 mg tablet 4 mg PO Q6H PRN nausea and 10/07/24 03/07/25 Rx vomiting #60 tabs PNV 158-iron 13.5 mg-folic 0.5 cap PO 10/13/24 5 History mg-omega 3-dha 150 mg-epa-fish capsule (Natavi PNV) Last Menstrual Period: 08/22/24 Zika: Zika virus screening: Negative : Yes PFSH PFSH Medical History Desquamated skin Anxiety Adopted Surgical History delivery delivered History of surgery No significant past surgical history Social History adopted: Yes household members: spouse and children housing: house number of children: 2 current occupational status: previously employed current occupation: [employer] current occupational exposures/hazards: No pets and animals: Yes pets and animals: dog(s) history of recent travel: Yes ([place] in August) out of state: Yes out of country: No sexually active: Yes Smoking Status: Never smoker second hand exposure: No alcohol intake: never substance use type: does not use caffeine: No what type of physical activity do you participate in: walking carmen/sabianist: None seatbelt use: always do you feel [...] 41 live - full term Female [facility] Mariusz 07/16/22 Pattie 39 live - full term 8lbs 3oz Female spinal [facility] Dr. Jewell Delivery Date: 11/14/20 Last Updated by: Chloé Lovelace primary c=section for catagory 2 FHT HPI 28wk ob/glucose Details: PEYTON DEVINE is a 24 year old who presents for routine OB visit. OB Visit [facility] Calculator Estimated Delivery Date Method Current WG Current Estimate 05/29/25 LMP (Certain) 28w 1d Other Estimates 05/28/25 Ultrasound #1 28w 2d Expected Delivery Route/Plan patient counseled regarding risks/benefits of trial of labor versus repeat . ACOG/uptodate education given to patient. 75.7 % likelihood of success per calculator TOLAC consent form signed: [] Labor Preferences- CB/BF classes: no labor support person: [] labor intervention preferences: [] pain management options preferred: not opposed to epidural cut cord/dad catch: cord : yes PP control planned: discussed discussed possible routes of delivery and associated risks: [] special requests: [] Specific Issue/Plans Covid status: [] Flu vaccine: [] Tdap vaccine: declines Rhogam: na LARC form signed: yes Problem list reviewed and updated with the most current plan of care details and appropriate orders placed. Relevant counseling for the gestational age provided. Continue routine care and follow up unless otherwise noted in visit notes/problem list details Initial Weight: 119 lb Date -?-?-?-?-?-?-?-?-?-?-?-?- EGA Weight BP Urine Prot -?-?-?-?-?-?-?-?-?-?-?-?- Glucose FHR FuHt Pres Dilation -?-?-?-?--?-?-?-?-?-?-?-?- Effaced St Visit Note 10/25/24 -?-?-?-?-?-?-?-?-?-?-?-?- 9w 1d 119 lb 8 oz (+8 oz) 135/75 -?-?-?-?-?-?-?-?-?-?-?-?- 179 -?-?-?-?-?-?-?-?-?-?-?-?- KW- CRL cons wit h dates. accepts NIPT. 11/21/24 -?-?-?-?-?-?-?-?-?-?-?-?- 13w 0d 124 lb 4 oz (+5 lb 4 oz) 135/86 Negative -?-?-?-?-?-?-?-?-?-?-?-?- Negative 155 -?-?-?-?-?-?-?-?-?-?-?-?- KW- no vb/crampi ng. feeling better. [facility] anatomy ordered, labs today. 12/22/24 -?-?-?-?-?-?-?-?-?-?-?-?- 17w 3d 127 lb 6 oz (+8 lb 6 oz) 116/71 Negative -?-?-?-?-?-?-?-?-?-?-?-?- Negative 147 -?-?-?-?-?-?-?-?-?-?-?-?- JV- no lof, vagi nal bleeding, or cramping. questions about today. anatomy at 19 weeks scheduled 01/17/25 -?-?-?-?-?-?-?-?-?-?-?-?- 21w 1d 132 lb 8 oz (+13 lb 8 oz) 113/74 Negative -?-?-?-?-?-?-?-?-?-?-?-?- Negative 146 -?-?-?-?-?-?-?-?-?-?-?-?- MH-NO VB. Wero cuellar movement. States had spotting day prior to [facility] US but none since. Has questions about circumvallente placenta-will get growth US 36 wk [facility] 02/16/25 -?-?-?-?-?-?-?-?-?-?-?-?- 25w 3d 138 lb 9 oz (+19 lb 9 oz) 123/79 Negative -?-?-?-?-?-?-?-?-?-?-?-?- Negative 140 -?-?-?-?-?-?-?-?-?-?-?-?- SM- no vb lof go od fm no reuglar ctx discussed and placenta 03/07/25 -?-?-?-?-?-?-?-?-?-?-?-?- 28w 1d 140 lb 1 oz (+21 lb 1 oz) 118/72 Negative -?-?-?-?-?-?-?-?-?-?-?-?- Negative 148 -?-?-?-?-?-?-?-?-?--?-?-?- MH-No VB, LOF. G ood FM. Larc. 28 wk labs pending. Declines tdap ACOG First Trimester First Trimester: Desire for , Alcohol, Tobacco Cessation, Illicit/Recreational Drug/Substance Use, Intimate Partner Violence, Barriers to care, Unstable Housing, Communication Barriers, Environmental/Work Hazards, Anticipated Course of Care, Toxoplasmosis Precations, Use of Any medications, Sexual activity, Exercise, Dental Care, Sauna/Hot tub use, Seat Belt use, Childbirth classes/Hospital facilities, , Travel, Indications for Ultrasound and Screening for Aneuploidy Second Trimester Second Trimester: Signs and Symptoms of Labor, Selecting a care provider, Reproductive Life Planning & Contreception, Care Planning, Depression/Anxiety and Intimate Partner Violence; Discussed Tobacco Cessation Third Trimester Third Trimester: Pain Management Plans, Labor support person(s), Immediate Larc, Movement Monitoring, Signs and Symptoms of Preeclampsia, Labor Signs, Postterm Counseling, Infant Feeding Yes , Family Medical Leave or Disability Forms and Intimate Partner Violence; Discussed Trial of Labor after Counseling and Discussed Circumcision preference ROS Const Reports system reviewed and no additional complaints, except as documented GI Denies abdominal pain, Denies nausea and Denies vomiting Exam Const General: cooperative Nutritional Appearance: well nourished GI Palpation: soft, nontender and other (gravid) Results POC Urinalysis 2 Dip (Clinic) Office Urine Glucose Negative Last Edit by Pearl Wyman on 03/07/25 10 :28 Office Urine Protein Negative Last Edit by Pearl Wyman on 03/07/25 10 :28 Coding Level of Care Code OB Routine Diagnoses Supervision of high risk in third trimester O09.93 Trimester: third trimester 28 weeks gestation of Z3A.28 Weeks of gestation: 28 weeks Circumvallate placenta in second trimester O43.112 Trimester: second trimester Adopted Z02.82 Family history of cleft palate Z82.79 Desires (vaginal after ) trial O34.219 History of section Z98.891 Assessment and Plan Assessment and Plan (1) Supervision of high-risk : Status: Acute Qualifiers: Trimester: third trimester Qualified Code(s): O09.93 - Supervision of high risk , unspecified, third trimester Comment: PRR , BRIGIDA 05/29 PC: Pattie Suarez : Davey (2) : Status: Acute Qualifiers: Weeks of gestation: 28 weeks Qualified Code(s): Z3A.28 - 28 weeks gestation of Comment: NIPT w/ gender & carrier- low risk,female( pt does not want to know gender, nl anatomy (3) Circumvallate placenta: Status: Acute Qualifiers: Trimester: second trimester Qualified Code(s): O43.112 - Circumvallate placenta, second trimester Comment: growth US q 4 weeks in third trimester (4) Adopted: Status: Acute (5) Family history of cleft palate: Status: Acute Comment: Pt's niece- club foot, cleft palate (6) Desires (vaginal after ) trial: Status: Acute (7) History of section: Status: Acute Comment: previous for NRFHTs, considering TOLAC- Orders: Orders POC Urinalysis 2 Dip (Clinic) Today OB Limited With Biometrics 04/03/25 O43.112 - Circumvallate placenta, second trimester OB Limited With Biometrics 05/01/25 O43.112 - Circumvallate placenta, second trimester Plan problem list reviewed and updated for most current plan of care and appropriate orders placed. Relevant counseling for the gestational age appropriate provided and ACOG education checklist updated. Continue routine care and follow up. 03/07/25 1034 <Electronically signed by Brenda cordova NP [employer]-C> Date _ Brenda ESPOSITOC Cosigner Signature: Date (if applicable) CC: ~ [facility] Work Phone: Progress note Author Ninfa Bautista [facility] Note Date/Time March 20, 2025 9: 15am [facility] [address] [place] [address], [address] [place] [address] OFFICE VISIT Date of Service: 03/20/25 MR#: [id number] Acct: [id number] Name: PEYTON DEVINE Rep #: [id number] : 2000 Provider: VICIKE Bautista Age/Sex: 24/F [facility] [facility] [place] Status: Signed Intake Vital Signs 01/17/25 15:34 03/07/25 09:43 03/20/25 09:02 Height 5 ft 3 in 5 ft 3 in 5 ft 3 in Weight: 141 lb 9 oz BMI 25.0 BP 121/75 H Intake Visit Reasons: 30 WK OB Chief Complaint: 30wk OB Manager Of Environmental Services Required: No Is patient in pain?: No Allergies No Known Allergies Allergy (Verified 03/20/25 09:00) Medications ?Medication ?Instructions ?Recorded ?Confirmed ?Type ondansetron HCl 4 mg tablet 4 mg PO Q6H PRN nausea and 10/07/24 03/20/25 Rx vomiting #60 tabs PNV 158-iron 13.5 mg-folic 0.5 cap PO 10/13/24 5 History mg-omega 3-dha 150 mg-epa-fish capsule (Natavi PNV) Last Menstrual Period: 08/22/24 PFSH PFSH Medical History Desquamated skin Anxiety Adopted Surgical History delivery delivered History of surgery No significant past surgical history Social History adopted: Yes household members: spouse and children housing: house number of children: 2 current occupational status: previously employed current occupation: [employer] current occupational exposures/hazards: No pets and animals: Yes pets and animals: dog(s) history of recent travel: Yes ([place] in August) out of state: Yes out of country: No sexually active: Yes Smoking Status: Never smoker second hand exposure: No alcohol intake: never substance use type: does not use caffeine: No what type of physical activity do you participate in: walking carmen/sabianist: None seatbelt use: always do you feel [...] 40 live - full term Female [facility] Mariusz 07/16/22 Pattie 39 live - full term 8lbs 3oz Female spinal [facility] Dr. Jewell Delivery Date: 11/14/20 Last Updated by: Chloé Lovelace primary c=section for catagory 2 FHT HPI 30 WK OB Details: PEYTON DEVINE is a 24 year old who presents for routine OB visit. OB Visit BRIGIDA Calculator Estimated Delivery Date Method Current WG Current Estimate 05/29/25 LMP (Certain) 30w 0d Other Estimates 05/28/25 Ultrasound #1 30w 1d Expected Delivery Route/Plan patient counseled regarding risks/benefits of trial of labor versus repeat . ACOG/uptodate education given to patient. 75.7 % likelihood of success per calculator TOLAC consent form signed: [] Labor Preferences- CB/BF classes: no labor support person: [] labor intervention preferences: [] pain management options preferred: not opposed to epidural cut cord/dad catch: cord : yes PP control planned: discussed discussed possible routes of delivery and associated risks: [] special requests: [] Specific Issue/Plans Covid status: [] Flu vaccine: [] Tdap vaccine: declines Rhogam: na LARC form signed: yes Problem list reviewed and updated with the [...] -?-?-?-?-?-?-?-?-?-?-?-?- KW- no vb/crampi ng. feeling better. [facility] anatomy ordered, labs today. 12/22/24 -?-?-?-?-?-?-?-?-?-?-?-?- 17w 3d 127 lb 6 oz (+8 lb 6 oz) 116/71 Negative -?-?-?-?-?-?-?-?-?-?-?-?- Negative 147 -?-?-?-?-?-?-?-?-?-?-?-?- JV- no lof, vagi nal bleeding, or cramping. questions about today. anatomy at 19 weeks scheduled 01/17/25 -?-?-?-?-?-?-?-?-?-?-?-?- 21w 1d 132 lb 8 oz (+13 lb 8 oz) 113/74 Negative -?-?-?-?-?-?-?-?-?-?-?-?- Negative 146 -?-?-?-?-?-?-?-?-?-?-?-?- MH-NO VB. Wero cuellar movement. States had spotting day prior to M US but none since. Has questions about circumvallente placenta-will get growth US 36 wk [facility] 02/16/25 -?-?-?-?-?-?-?-?-?-?-?-?- 25w 3d 138 lb 9 oz (+19 lb 9 oz) 123/79 Negative -?-?-?-?-?-?-?-?-?-?-?-?- Negative 140 -?-?-?-?-?-?-?-?-?-?-?-?- SM- no vb lof go od fm no reuglar ctx discussed and placenta 03/07/25 -?-?-?-?-?-?-?-?-?-?-?-?- 28w 1d 140 lb 1 oz (+21 lb 1 oz) 118/72 Negative -?-?-?-?-?-?-?-?-?-?-?-?- Negative 148 -?-?-?-?-?-?-?-?-?-?-?-?- MH-No VB, LOF. G ood FM. Larc. 28 wk labs pending. Declines tdap 03/20/25 -?-?-?-?-?-?-?-?-?-?-?-?- 30w 0d 141 lb 9 oz (+22 lb 9 oz) 121/75 Negative -?-?-?-?-?-?-?-?-?-?-?-?- Negative 140 -?-?-?-?-?-?-?-?-?-?-?-?- KW- no vb/lof/ct x. good fm. growth scan in 2 weeks. will schedule 40 week C/S due to placenta ACOG First Trimester First Trimester: Desire for , Alcohol, Tobacco Cessation, Illicit/Recreational Drug/Substance Use, Intimate Partner Violence, Barriers to care, Unstable Housing, Communication Barriers, Environmental/Work Hazards, Anticipated Course of Care, Toxoplasmosis Precations, Use of Any medications, Sexual activity, Exercise, Dental Care, Sauna/Hot tub use, Seat Belt use, Childbirth classes/Hospital facilities, Travel, Indications for Ultrasound and Screening for Aneuploidy Second Trimester Second Trimester: Signs and Symptoms of Labor, Selecting a care provider, Reproductive Life Planning & Contreception, Care Planning, Depression/Anxiety and Intimate Partner Violence; Discussed Tobacco Cessation Third Trimester Third Trimester: Pain Management Plans, Labor support person(s), Immediate Larc, Movement Monitoring, Signs and Symptoms of Preeclampsia, Labor Signs, Postterm Counseling, Feeding, Family Medical Leave or Disability Forms and Intimate Partner Violence; Discussed Trial of Labor after Counseling and [...] Office Urine Glucose Negative Last Edit by Cassie Juarez on 03/20/25 09:07 Office Urine Protein Negative Last Edit by Cassie Juarez on 03/20/25 09:07 Coding Level of Care Code OB Routine Diagnoses Circumvallate placenta in second trimester O43.112 Trimester: second trimester Supervision of high risk in third trimester O09.93 Trimester: third trimester 30 weeks gestation of Z3A.30 Weeks of gestation: 30 weeks Adopted Z02.82 Family history of cleft palate Z82.79 Desires (vaginal after ) trial O34.219 History of section Z98.891 Assessment and Plan Assessment and Plan (1) Circumvallate placenta: Status: Acute Qualifiers: Trimester: second trimester Qualified Code(s): O43.112 - Circumvallate placenta, second trimester Comment: growth US q 4 weeks in third trimester (2) Supervision of high-risk : Status: Acute Qualifiers: Trimester: third trimester Qualified Code(s): O09.93 - Supervision of high risk , unspecified, third trimester Comment: PRR , BRIGIDA 05/29 PC: Pattie Suarez : Davey (3) : Status: Acute Qualifiers: Weeks of gestation: 30 weeks Qualified Code(s): Z3A.30 - 30 weeks gestation of Comment: NIPT w/ gender & carrier- low risk,female( pt does not want to know gender, nl anatomy (4) Adopted: Status: Acute (5) Family history of cleft palate: Status: Acute Comment: Pt's niece- club foot, cleft palate (6) Desires (vaginal after ) trial: Status: Acute (7) History of section: Status: Acute Comment: previous for NRFHTs, considering TOLAC- Orders: Orders POC Urinalysis 2 Dip (Clinic) Today Plan Details Additional Comments: ACOG trimester education reviewed and updated. see problem list details for updated plan management information and see below for orders placed at this visit. GA appropriate handout given. 03/20/25 0915 <Electronically signed by Ninfa cordova CNM> Date _ Ninfa Bautista CNM Cosigner Signature: Date (if applicable) CC: ~ [facility] Work Phone: Progress note Author Brenda Salazar [facility] Note Date/Time March 28, 2025 1 :46pm [facility] [address], [address] [place] [address] OFFICE VISIT Date of Service: 03/28/25 MR#: [id number] Acct: [id number] Name: PEYTON DEVINE Rep #: [id number] : 2000 Provider: AL Salazar Age/Sex: 24/F Location: [facility] [place] Status: Signed Intake Vital Signs 03/20/25 09:02 03/28/25 13:32 03/28/25 13:41 Height 5 ft 3 in 5 ft 3 in 5 ft 3 in Weight: 141 lb 9 oz 141 lb BMI 25.0 25.0 BP 121/75 H 119/82 H Intake Visit Reasons: OB, htn, dizzy Chief Complaint: HTN, Dizzy Manager Of Environmental Services Required: No Is patient in pain?: No Allergies No Known Allergies Allergy (Verified 03/28/25 13:31) Medications ?Medication ?Instructions ?Recorded ?Confirmed ?Type ondansetron HCl 4 mg tablet 4 mg PO Q6H PRN nausea and 10/07/24 03/28/25 Rx vomiting #60 tabs PNV 158-iron 13.5 mg-folic 0.5 cap PO 10/13/24 5 History mg-omega 3-dha 150 mg-epa-fish capsule (Natavi PNV) Last Menstrual Period: 08/22/24 Zika: Zika virus screening: Negative : No PFSH PFSH Medical History Desquamated skin Anxiety Adopted Surgical History delivery delivered History of surgery No significant past surgical history Social History adopted: Yes household members: spouse and children housing: house number of children: 2 current occupational status: previously employed current occupation: [employer] current occupational exposures/hazards: No pets and animals: Yes pets and animals: dog(s) history of recent travel: Yes ([place] in August) out of state: Yes out of country: No sexually active: Yes Smoking Status: Never smoker second hand exposure: No alcohol intake: never substance use type: does not use caffeine: No what type of physical activity do you participate in: walking carmen/sabianist: None seatbelt use: always do you feel [...] 41 live - full term Female [facility] Mariusz 07/16/22 Pattie 39 live - full term 8lbs 3oz Female spinal [facility] Dr. Jewell Delivery Date: 11/14/20 Last Updated by: Chloé Lovelace primary c=section for catagory 2 FHT HPI OB, htn, dizzy Details: PEYTON DEVINE is a 24 year old who presents for routine OB visit. OB Visit BRIGIDA Calculator Estimated Delivery Date Method Current WG Current Estimate 05/29/25 LMP (Certain) 31w 1d Other Estimates 05/28/25 Ultrasound #1 31w 2d Expected Delivery Route/Plan patient counseled regarding risks/benefits of trial of labor versus repeat . ACOG/uptodate education given to patient. 75.7 % likelihood of success per calculator TOLAC consent form signed: [] Labor Preferences- CB/BF classes: no labor support person: [] labor intervention preferences: [] pain management options preferred: not opposed to epidural cut cord/dad catch: cord : yes PP control planned: discussed discussed possible routes of delivery and associated risks: [] special requests: [] Specific Issue/Plans Covid status: [] Flu vaccine: [] Tdap vaccine: declines Rhogam: na LARC form signed: yes Problem list reviewed and updated with the [...] -?-?-?-?-?-?-?-?-?-?-?-?- KW- no vb/crampi ng. feeling better. M anatomy ordered, labs today. 12/22/24 -?-?-?-?-?-?-?-?-?-?-?-?- 17w 3d 127 lb 6 oz (+8 lb 6 oz) 116/71 Negative -?-?-?-?-?-?-?-?-?-?-?-?- Negative 147 -?-?-?-?-?-?-?-?-?-?-?-?- JV- no lof, vagi nal bleeding, or cramping. questions about today. anatomy at 19 weeks scheduled 01/17/25 -?-?-?-?-?-?-?-?-?-?-?-?- 21w 1d 132 lb 8 oz (+13 lb 8 oz) 113/74 Negative -?-?-?-?-?-?-?-?-?-?-?-?- Negative 146 -?-?-?-?-?-?-?-?-?-?-?-?- MH-NO VB. Feelin g movement. States had spotting day prior to MFM US but none since. Has questions about circumvallente placenta-will get growth US 36 wk MFM 02/16/25 -?-?-?-?-?-?-?-?-?-?-?-?- 25w 3d 138 lb 9 oz (+19 lb 9 oz) 123/79 Negative -?-?-?-?-?-?-?-?-?-?-?-?- Negative 140 -?-?-?-?-?-?-?-?-?-?-?-?- SM- no vb lof go od fm no reuglar ctx discussed and placenta 03/07/25 -?-?-?-?-?-?-?-?-?-?-?-?- 28w 1d 140 lb 1 oz (+21 lb 1 oz) 118/72 Negative -?-?-?-?-?-?-?-?-?-?-?-?- Negative 148 -?-?-?-?-?-?-?-?-?-?-?-?- -No VB, LOF. G ood FM. Larc. 28 wk labs pending. Declines tdap 03/20/25 -?-?-?-?-?-?-?-?-?-?-?-?- 30w 0d 141 lb 9 oz (+22 lb 9 oz) 121/75 Negative -?-?-?-?-?-?-?-?-?-?-?-?- Negative 140 -?-?-?-?-?-?-?-?-?-?-?-?- KW- no vb/lof/ct x. good fm. growth scan in 2 weeks. will schedule 40 week C/S due to placenta 03/28/25 -?-?-?-?-?-?-?-?-?-?-?-?- 31w 1d 141 lb (+22 lb) 119/82 Negative -?-?-?-?-?-?-?-?-?-?-?-?- Negative 144 31 -?-?-?-?-?-?-?-?-?-?-?-?- -work in for l ast pm had dizziness and elevated BP. Today feels well, normal BPs, no headache or vision changes Good FM. Reassured. ACOG First Trimester First Trimester: Desire for [...] Labor Signs, Postterm Counseling, Infant Feeding No , Family Medical Leave or Disability Forms and Intimate Partner Violence; Discussed Trial of Labor after Counseling and Discussed Circumcision preference ROS Const Reports system reviewed and no additional complaints, except as documented GI Denies abdominal pain, Denies nausea and Denies vomiting Exam Const General: cooperative Nutritional Appearance: well nourished GI Palpation: soft, nontender and other (gravid) Results POC Urinalysis 2 Dip (Clinic) Office Urine Glucose Negative Last Edit by Pearl Wyman on 03/28/25 13 :41 Office Urine Protein Negative Last Edit by Pearl Wyman on 03/28/25 13 :41 Coding Level of Care Code OB Routine Diagnoses Supervision of high risk in third trimester O09.93 Trimester: third trimester 31 weeks gestation of Z3A.31 Weeks of gestation: 31 weeks Circumvallate placenta in second trimester O43.112 Trimester: second trimester Adopted Z02.82 Family history of cleft palate Z82.79 Desires (vaginal after ) trial O34.219 History of section Z98.891 Assessment and Plan Assessment and Plan (1) Supervision of high-risk : Status: Acute Qualifiers: Trimester: third trimester Qualified Code(s): O09.93 - Supervision of high risk , unspecified, third trimester Comment: PRR , BRIGIDA 05/29 PC: Pattie Suarez : Davey (2) : Status: Acute Qualifiers: Weeks of gestation: 31 weeks Qualified Code(s): Z3A.31 - 31 weeks gestation of Comment: NIPT w/ gender & carrier- low risk, nl anatomy (3) Circumvallate placenta: Status: Acute Qualifiers: Trimester: second trimester Qualified Code(s): O43.112 - Circumvallate placenta, second trimester Comment: growth US q 4 weeks in third trimester (4) Adopted: Status: Acute (5) Family history of cleft palate: Status: Acute Comment: Pt's niece- club foot, cleft palate (6) Desires (vaginal after ) trial: Status: Acute (7) History of section: Status: Acute Comment: previous for NRFHTs, considering TOLAC. C/S 05/29 JV. Orders: Orders POC Urinalysis 2 Dip (Clinic) Today Plan problem list reviewed and updated for most current plan of care and appropriate orders placed. Relevant counseling for the gestational age appropriate provided and ACOG education checklist updated. Continue routine care and follow up. 03/28/25 1350 <Electronically signed by Brenda cordova SANITATION WORKER HOSING MACHINERY SANITATION WORKER HOSING MACHINERY-C> Date _ Brenda Salazar NP SANITATION WORKER HOSING MACHINERY-C Cosigner Signature: Date (if applicable) CC: ~ [facility] Work Phone: Reason for referral (narrative)No reason for referral information availableBl[facility]. [facility] Work Phone: Summary Purpose Family History No Family History Records FoundNo Family History Records FoundNo Family History Records FoundNo Family History Records Found Advance Directives Advance Directive Response Recorded Date/ Time Living Will No November 13, 2020 3 :38pm Power of Finished Cloth Examiner No November 13, 2020 3:38pm Advance Directive Response Recorded Date/ Time Living Will No April 14 9:09am Power of Finished Cloth Examiner No April 14, 2022 9:09am Chief Complaint [...] 12:59pm Chief Complaint Admit Date NOB: LMP 08/22, BRIGIDA 05/29October 25, 2024 12:59pm 13wk OB [...] 2024 10:14 am Status post section November 21, 025 10:14am Supervision of high-risk November 21, 2024 10:14am Chief Complaint Admit Date NOB: LMP 3/10, BRIGIDA 05/29October 25, 2024 12:59pm 13wk OB November 21, 2024 10:14 am 17 wk ob December 22, 2024 10:0 0am Reason for Visit Admit Date Adopted October 25, 2024 12:59 pm Desires (vaginal after michael an) trial October 25, 2024 12:59pm Family history of cleft palate October 25, 2024 12:59pm History of section October 25 12:59pm October 25, 2024 12:59 pm Supervision of high-risk October 13 3t2024 12:59pm Adopted November 21, 2024 10:14 am Desires (vaginal after michael an) trial November 21, 2024 10:14am Family history of cleft palate November 21, 2024 10:14am History of section November 21 10:14am November 21, 2024 10:14 am Status post section November 21 10:14am Supervision of high-risk November 21, 2024 10:14am Adopted December 22, 2024 10:0 0am Desires (vaginal after michael an) trial December 22, 2024 10:00am Family history of cleft palate December 10:00am History of section December 22 10:00am December 22, 2024 10:0 0am Status post section December 22, 2024 10:00am Supervision of high-risk December 22, 2024 10:00am Chief Complaint Admit Date NOB: LMP 08/22, BRIGIDA 05/29October 25, 2024 12:59pm 13wk OB November 21, 2024 10:14 am 17 wk ob December 22, 2024 10:0 0am 21wk ob January 17, 2025 3:3 1pm Reason for Visit Admit Date Adopted October 25, 2024 12:59 pm Desires (vaginal after michael an) trial October 25, 2024 12:59pm Family history of cleft palate October 25, 2024 12:59pm History of section October 25 12:59pm October 25, 2024 12:59 pm Supervision of high-risk October 13 3t2024 12:59pm Adopted November 21, 2024 10:14 am Desires (vaginal after michael an) trial November 21, 2024 10:14am Family history of cleft palate November 21, 2024 10:14am History of section November 21 10:14am November 21, 2024 10:14 am Status post section November 21 10:14am Supervision of high-risk November 21, 2024 10:14am Adopted December 22, 2024 10:0 0am Desires (vaginal after michael an) trial December 22, 2024 10:00am Family history of cleft palate December 10:00am History of section December 22 025 10:00am December 22, 2024 10:0 0am Status post section December 22, 2024 10:00am Supervision of high-risk December 22, 2024 10:00am Adopted January 17, 2025 3:3 1pm Circumvallate placenta January 17, 2025 3:31pm Desires (vaginal after michael an) trial January 17, 2025 3:31pm Family history of cleft palate January 3:31pm History of section January 17, 2025 3:31pm January 17, 2025 3:3 1pm Status post section January 17, 2025 3:31pm Supervision of high-risk Augus 2024 3:31pm Chief Complaint Admit Date NOB: LMP 08/22, BRIGIDA 05/29October 25, 2024 12:59pm 13wk OB November 21, 2024 10:14 am 17 wk ob December 22, 2024 10:0 0am 21wk ob January 17, 2025 3:3 1pm 25wk ob February 16, 2025 3:23pm Reason for Visit Admit Date Adopted October [...] 21 10:14am November 21, 2024 10:14 am Supervision of high-risk November 21, 2024 10:14am Status post section November 21 025 10:14am Adopted December 22, 2024 10:0 0am Desires (vaginal after michael an) trial December 22, 2024 10:00am Family history of cleft palate December 10:00am History of section December 22 025 10:00am December 22, 2024 10:0 0am Supervision of high-risk December 22, 2024 10:00am Status post section December 22, 2024 10:00am Adopted January 17, 2025 3:3 1pm Circumvallate placenta January 17, 2025 3:31pm Desires (vaginal after michael an) trial January 17, 2025 3:31pm Family history of cleft palate January 3:31pm History of section January 17, 2025 3:31pm January 17, 2025 3:3 1pm Supervision of high-risk Augus 2024 3:31pm Adopted February 16, 2025 3:23pm Circumvallate placenta February 16 3:23pm Desires (vaginal after michael an) trial February 16, 2025 3:23pm Family history of cleft palate February 16, 2025 3:23pm History of section February 3:23pm February 16, 2025 3:23pm Supervision of high-risk [place] [facility] 2024 3:23pm Chief Complaint Admit Date 13wk OB November 21, 2024 10:14 am 17 wk ob December 22, 2024 10:0 0am 21wk ob January 17, 2025 3:3 1pm 25wk ob February 16, 2025 3:23pm 28wk ob/glucose March 07, 2025 9:42am Reason for Visit Admit Date Adopted November 21, 2024 10:14 am Desires (vaginal after michael an) trial November 21, 2024 10:14am Family history of cleft palate November 21, 2024 10:14am History of section November 21 10:14am November 21, 2024 10:14 am Supervision of high-risk November 21, 2024 10:14am Status post section November 21 025 10:14am Adopted December 22, 2024 10:0 0am Desires (vaginal after michael an) trial December 22, 2024 10:00am Family history of cleft palate December 10:00am History of section December 22 025 10:00am December 22, 2024 10:0 0am Supervision of high-risk December 22, 2024 10:00am Status post section December 22, 2024 10:00am Adopted January 17, 2025 3:3 1pm Circumvallate placenta January 17, 2025 3:31pm Desires (vaginal after michael an) trial January 17, 2025 3:31pm Family history of cleft palate January 3:31pm History of section January 17, 2025 3:31pm January 17, 2025 3:3 1pm Supervision of high-risk Augus 2024 3:31pm Adopted February 16, 2025 3:23pm Circumvallate placenta February 16 3:23pm Desires (vaginal after michael an) trial February 16, 2025 3:23pm Family history of cleft palate February 16, 2025 3:23pm History of section February 3:23pm February 16, 2025 3:23pm Supervision of high-risk [place] 2024 3:23pm Adopted March 07, 2025 9:42am Circumvallate placenta March 07 025 9:42am Desires (vaginal after michael an) trial March 07, 2025 9:42am Family history of cleft palate March 07, 2025 9:42am History of section March 072024 9:42am March 07, 2025 9:42am Supervision of high-risk [place] [employer] 2024 9:42am Chief Complaint Admit Date 13wk OB November 21, 2024 10:14 am 17 wk ob December 22, 2024 10:0 0am 21wk ob January 17, 2025 3:3 1pm 25wk ob February 16, 2025 3:23pm 28wk ob/glucose March 07, 2025 9:42am 30 WK OB March 20, 2025 8: 59am Reason for Visit Admit Date Adopted November 21, 2024 10:14 am Desires (vaginal after michael an) trial November 21, 2024 10:14am Family history of cleft palate November 21, 2024 10:14am History of section November 21 10:14am November 21, 2024 10:14 am Supervision of high-risk November 21, 2024 10:14am Status post section November 21, 2 025 10:14am Adopted December 22, 2024 10:0 0am Desires (vaginal after michael an) trial December 22, 2024 10:00am Family history of cleft palate December 10:00am History of section December 22, 2 025 10:00am December 22, 2024 10:0 0am Supervision of high-risk December 22, 2024 10:00am Status post section December 22, 2024 10:00am Adopted January 17, 2025 3:3 1pm Circumvallate placenta January 17, 2025 3:31pm Desires (vaginal after michael an) trial January 17, 2025 3:31pm Family history of cleft palate January 3:31pm History of section January 17, 2025 3:31pm January 17, 2025 3:3 1pm Supervision of high-risk Augus t 2024 3:31pm Adopted February 16, 2025 3:23pm Circumvallate placenta February 16 3:23pm Desires (vaginal after michael an) trial February 16, 2025 3:23pm Family history of cleft palate February 16, 2025 3:23pm History of section February 3:23pm February 16, 2025 3:23pm Supervision of high-risk Septe mber 2024 3:23pm Adopted March 07, 2025 9:42am Circumvallate placenta March 07, 2 025 9:42am Desires (vaginal after michael an) trial March 07, 2025 9:42am Family history of cleft palate March 07, 2025 9:42am History of section March 072024 9:42am March 07, 2025 9:42am Supervision of high-risk Calixto mber 2024 9:42am Adopted March 20, 2025 8: 59am Circumvallate placenta March 20, 2025 8:59am Desires (vaginal after michael an) trial March 20, 2025 8:59am Family history of cleft palate March 202024 8:59am History of section March 20, 2025 8:59am March 20, 2025 8: 59am Supervision of high-risk Octob 2024 8:59am Chief Complaint Admit Date 17 wk ob December 22, 2024 10:0 0am 21wk ob January 17, 2025 3:3 1pm 25wk ob February 16, 2025 3:23pm 28wk ob/glucose March 07, 2025 9:42am 30 WK OB March 20, 2025 8: 59am OB, htn, dizzy March 28, 2025 1 :30pm growth April 03, 2025 8 :48am 32wk ob April 04, 2025 2 :45pm Reason for Visit Admit Date Adopted December 22, 2024 10:0 0am Desires (vaginal after michael an) trial December 22, 2024 10:00am Family history of cleft palate December 10:00am History of section December 22, 2 025 10:00am December 22, 2024 10:0 0am Supervision of high-risk December 22, 2024 10:00am Status post section December 22, 2024 10:00am Adopted January 17, 2025 3:3 1pm Circumvallate placenta January 17, 2025 3:31pm Desires (vaginal after michael an) trial January 17, 2025 3:31pm Family history of cleft palate January 3:31pm History of section January 17, 2025 3:31pm January 17, 2025 3:3 1pm Supervision of high-risk Augus 2024 3:31pm Adopted February 16, 2025 3:23pm Circumvallate placenta February 16 3:23pm Desires (vaginal after michael an) trial February 16, 2025 3:23pm Family history of cleft palate February 16, 2025 3:23pm History of section February 3:23pm February 16, 2025 3:23pm Supervision of high-risk Septe [facility] 2024 3:23pm Adopted March 07, 2025 9:42am Circumvallate placenta March 07, 025 9:42am Desires (vaginal after michael an) trial March 07, 2025 9:42am Family history of cleft palate March 07, 2025 9:42am History of section March [id number] 9:42am March 07, 2025 9:42am [facility] 2024 9:42am Adopted March 20, 2025 8: 59am Circumvallate placenta March 20, 2025 8:59am Desires (vaginal after michael an) trial March 20, 2025 8:59am Family history of cleft palate March 202024 8:59am History of section March 20, 2025 8:59am March 20, 2025 8: 59am Supervision of high-risk Octob er 2024 8:59am Adopted March 28, 2025 1 :30pm Circumvallate placenta March 28 1:30pm Desires (vaginal after michael an) trial March 28, 2025 1:30pm Family history of cleft palate March [id number] 1:30pm History of section March 1:30pm March 28, 2025 1 :30pm Supervision of high-risk Octob er 2024 1:30pm Adopted April 04, 2025 2 :45pm Circumvallate placenta April 04 2:45pm Desires (vaginal after michael an) trial April 04, 2025 2:45pm Family history of cleft palate March [id number] 2:45pm History of section March 2:45pm April 04, 2025 2 :45pm Supervision of high-risk Octob 2024 2:45pm Chief Complaint Admit Date 17 wk ob December 22, 2024 10:0 0am 21wk ob January 17, 2025 3:3 1pm 25wk ob February 16, 2025 3:23pm 28wk ob/glucose March 07, 2025 9:42am 30 WK OB March 20, 2025 8: 59am OB, htn, dizzy March 28, 2025 1 :30pm growth April 03, 2025 8 :48am 32wk ob April 04, 2025 2 :45pm 34wk ob April 19, 2025 2 :25pm Reason for Visit Admit Date Adopted December 22, 2024 10:0 0am Desires (vaginal after michael an) trial December 22, 2024 10:00am Family history of cleft palate December 10:00am History of section December 22, 025 10:00am December 22, 2024 10:0 0am Supervision of high-risk December 22, 2024 10:00am Status post section December 22, 2024 10:00am Adopted January 17, 2025 3:3 1pm Circumvallate placenta January 17, 2025 3:31pm Desires (vaginal after michael an) trial January 17, 2025 3:31pm Family history of cleft palate January 3:31pm History of section January 17, 2025 3:31pm January 17, 2025 3:3 1pm Supervision of high-risk Augus t 2024 3:31pm Adopted February 16, 2025 3:23pm Circumvallate placenta February 16 3:23pm Desires (vaginal after michael an) trial February 16, 2025 3:23pm Family history of cleft palate February 16, 2025 3:23pm History of section February 3:23pm February 16, 2025 3:23pm Supervision of high-risk Septe mber 2024 3:23pm Adopted March 07, 2025 9:42am Circumvallate placenta March 07, 2 025 9:42am Desires (vaginal after michael an) trial March 07, 2025 9:42am Family history of cleft palate March 07, 2025 9:42am History of section March 072024 9:42am March 07, 2025 9:42am Supervision of high-risk [place] 2024 9:42am Adopted March 20, 2025 8: 59am Circumvallate placenta March 20, 2025 8:59am Desires (vaginal after michael an) trial March 20, 2025 8:59am Family history of cleft palate March 202024 8:59am History of section March 20, 2025 8:59am March 20, 2025 8: 59am Supervision of high-risk Octob er 2024 8:59am Adopted March 28, 2025 1 :30pm Circumvallate placenta March 28 1:30pm Desires (vaginal after michael an) trial March 28, 2025 1:30pm Family history of cleft palate March [id number] 1:30pm History of section March 1:30pm March 28, 2025 1 :30pm Supervision of high-risk Octob er 2024 1:30pm Adopted April 04, 2025 2 :45pm Circumvallate placenta April 04 2:45pm Desires (vaginal after michael an) trial April 04, 2025 2:45pm Family history of cleft palate March [id number] 2:45pm History of section March 2:45pm April 04, 2025 2 :45pm Supervision of high-risk Octob er 2024 2:45pm Adopted April 19, 2025 2 :25pm Circumvallate placenta April 19 2:25pm Desires (vaginal after michael an) trial April 19, 2025 2:25pm Family history of cleft palate April 19, 2025 2:25pm History of section April 2:25pm April 19, 2025 2 :25pm Supervision of high-risk Novem 2024 2:25pm Additional Source Comments INFORMATION SOURCE (unrecogn ized section and content) DATE CREATED AUTHOR 04/28/2018 [facility] DATE CREATED AUTHOR AUTHOR'S OR[facility]IZ ATION [facility] DATE CREATED AUTHOR AUTHOR'S ORGANIZ ATION 01/04/2025 [facility] DATE CREATED AUTHOR AUTHOR'S ORGANIZ ATION 04/21/2025 [facility] Goals (unrecognized section and content) Type Care Experience IOL by 42Labor P references-CB/BF classes: Did online classeslabor support person: Kevinlabor intervention preferences: nonepain management options preferred: epidural cut cord/dad catch: cordbreastfeeding: yesPP control planned: IUDdiscussed possible routes of delivery and associated risks: []special requests: [] Care Experience RLTCS possible TOLAC cs schedule 2/1Labor Preferences-CB/BF classes:nolabor support person: Kevinlabor intervention preferences: []pain management options preferred: epidural if neededcut cord/dad catch: yesbreastfeeding: yesPP control planned: discusseddiscussed possible routes of delivery and associated risks: []special requests: if needs a c/s please provided antiemetic medications, got really sick during first c/s. Care Experience patient counseled re garding risks/benefits of trial of labor versus repeat . ACOG/uptodate education given to patient. 75.7 % likelihood of success per calculatorTOLAC consent form signed: []Labor Preferences-CB/BF classes: nolabor support person: []labor intervention preferences: []pain management options preferred: not opposed to epiduralcut cord/dad catch: cordbreastfeeding: yesPP control planned: discusseddiscussed possible routes of delivery and associated risks: []special requests: [] Type Detail Care Experience IOL by 42Labor P references-CB/BF classes: Did online classeslabor support person: Daveylabor intervention preferences: nonepain management options preferred: epidural cut cord/dad catch: cordbreastfeeding: yesPP control planned: IUDdiscussed possible routes of delivery and associated risks: []special requests: [] Care Experience RLTCS possible TOLAC cs schedule 2/1Labor Preferences-CB/BF classes:nolabor support person: Kevinlabor intervention preferences: []pain management options preferred: epidural if neededcut cord/dad catch: yesbreastfeeding: yesPP control planned: discusseddiscussed possible routes of delivery and associated risks: []special requests: if needs a c/s please provided antiemetic medications, got really sick during first c/s. Care Experience plan TOLACpatient co unseled regarding risks/benefits of trial of labor versus repeat . ACOG/uptodate education given to patient. 75.7 % likelihood of success per calculatorTOLAC consent form signed: 04/19Labor Preferences-CB/BF classes: nolabor support person: []labor intervention preferences: []pain management options preferred: not opposed to epiduralcut cord/dad catch: cordbreastfeeding: yesPP control planned: discusseddiscussed possible routes of delivery and associated risks: []special requests: [] Care Teams (unrecognized sec tion and content) Team Status: Active Member Role Status Dates Dr. Lindsey Pizarro DO Family Provider Active No Primary Care Physician Primary Care Provider Active Team Status: Inactive Member Role Status Dates No Primary Care Physician Primary Care Provider, Refer ring Provider Active Dr. Sejal Romero DO Attending Provider Activ e Team Status: Inactive Member Role Status Dates No Primary Care Physician Primary Care Provider, Refer ring Provider Active Brenda Salazar [employer], [employer]-C Attending Provider Active Team Status: Inactive Member [...] End: July 15, 2024 Dr. Sejal Romero , Attending Provider Activ e Start: July 15, 2024 End: July 15, 2024 Team Status: Inactive Member Role Status Dates No Primary Care Physician Primary Care Provider Active Start: October 25, 2024 End: October 25, 2024 No Primary Care Physician Referring Provider Active Start: October 25, 2024 End: October 25, 2024 Ninfa Bautista CNM Attending Provider Active S tart: October 25, 2024 End: October 25, 2024 Team Status: Active Member Role Status Dates No Primary Care Physician Primary Care Provider Active Team Status: Inactive Member Role Status Dates No Primary Care Physician Primary Care Provider Active Start: October 25, 2024 End: October 25, 2024 Ninfa Bautista CNM Attending Provider Active S tart: October 25, 2024 End: October 25, 2024 Ninfa Bautista CNM Referring Provider Active S tart: October 25, 2024 End: October 25, 2024 Team Status: Inactive Member Role Status Dates No Primary Care Physician Primary Care Provider Active Start: November 21, 2024 End: November 21, 2024 No Primary Care Physician Referring Provider Active Start: November 21, 2024 End: November 21, 2024 Ninfa Bautista CNM Attending Provider Active S tart: November 21, 2024 End: November 21, 2024 Team Status: Active Member Role Status Dates No Primary Care Physician Primary Care Provider Active Start: November 21, 2024 Ninfa Bautista CNM Attending Provider Active S tart: November 21, 2024 Ninfa Bautista CNM Referring Provider Active S tart: November 21, 2024 Team Status: Inactive Member Role Status Dates No Primary Care Physician Primary Care Provider Active Start: November 21, 2024 End: November 21, 2024 Ninfa Bautista CNM Attending Provider Active S tart: November 21, 2024 End: November 21, 2024 Ninfa Bautista CNM Referring Provider Active S tart: November 21, 2024 End: November 21, 2024 Team Status: Active Member Role/Relationship Status Dates No Primary Care Physician Primary Care Provider Active Team Status: Inactive Member Role/Relationship Status Dates No Primary Care Physician Primary Care Provider Active Start: October 25, 2024 End: October 25, 2024 No Primary Care Physician Referring Provider Active Start: October 25, 2024 End: October 25, 2024 Ninfa Bautista CNM Attending Provider Active S tart: October 25, 2024 End: October 25, 2024 Team Status: Inactive Member Role/Relationship Status Dates No Primary Care Physician Primary Care Provider Active Start: October 25, 2024 End: October 25, 2024 Ninfa Bautista CNM Attending Provider Active S tart: October 25, 2024 End: October 25, 2024 Ninfa Bautista CNM Referring Provider Active S tart: October 25, 2024 End: October 25, 2024 Team Status: Inactive Member Role/Relationship Status Dates No Primary Care Physician Primary Care Provider Active Start: November 21, 2024 End: November 21, 2024 No Primary Care Physician Referring Provider Active Start: November 21, 2024 End: November 21, 2024 Ninfa Bautista CNM Attending Provider Active S tart: November 21, 2024 End: November 21, 2024 Team Status: Inactive Member Role/Relationship Status Dates No Primary Care Physician Primary Care Provider Active Start: November 21, 2024 End: November 21, 2024 Ninfa Bautista CNM Attending Provider Active S tart: November 21, 2024 End: November 21, 2024 Ninfa Bautista CNM Referring Provider Active S tart: November 21, 2024 End: November 21, 2024 Team Status: Inactive Member Role/Relationship Status Dates No Primary Care Physician Primary Care Provider Active Start: December 22, 2024 End: December 22, 2024 No Primary Care Physician Referring Provider Active Start: December 22, 2024 End: December 22, 2024 Dr. Sejal Romero , Attending Provider Activ e Start: December 22, 2024 End: December 22, 2024 Team Status: Inactive Member Role/Relationship Status Dates No Primary Care Physician Primary Care Provider Active Start: January 17, 2025 End: January 17, 2025 No Primary Care Physician Referring Provider Active Start: January 17, 2025 End: January 17, 2025 Brenda Salazar NP, [employer]-C Attending Provider Active Start: January 17, 2025 End: January 17, 2025 Team Status: Inactive Member Role/Relationship Status Dates No Primary Care Physician Primary Care Provider Active Start: February 16, 2025 End: February 16, 2025 No Primary Care Physician Referring Provider Active Start: February 16, 2025 End: February 16, 2025 Dr. Pricilla Alfaro MD Attending Provider Active Start: February 16, 2025 End: February 16, 2025 Team Status: Active Member Role/Relationship Status Dates No Primary Care Physician Primary care physician Activ e Team Status: Inactive Member Role/Relationship Status Dates No Primary Care Physician Primary care physician Activ e Start: November 21, 2024 End: November 21, 2024 No Primary Care Physician Referring Provider Active Start: November 21, 2024 End: November 21, 2024 Ninfa Bautista CNM Attending physician Active Start: November 21, 2024 End: November 21, 2024 Team Status: Inactive Member Role/Relationship Status Dates No Primary Care Physician Primary care physician Activ e Start: November 21, 2024 End: November 21, 2024 Ninfa Bautista CNM Attending physician Active Start: November 21, 2024 End: November 21, 2024 Ninfa Bautista CNM Referring Provider Active S tart: November 21, 2024 End: November 21, 2024 Team Status: Inactive Member Role/Relationship Status Dates No Primary Care Physician Primary care physician Activ e Start: December 22, 2024 End: December 22, 2024 No Primary Care Physician Referring Provider Active Start: December 22, 2024 End: December 22, 2024 Dr. Sejal Romero DO Attending physician Acti ve Start: December 22, 2024 End: December 22, 2024 Team Status: Inactive Member Role/Relationship Status Dates No Primary Care Physician Primary care physician Activ e Start: January 17, 2025 End: January 17, 2025 No Primary Care Physician Referring Provider Active Start: January 17, 2025 End: January 17, 2025 Brenda Salazar NP, [employer]-C Attending physician Active Start: January 17, 2025 End: January 17, 2025 Team Status: Inactive Member Role/Relationship Status Dates No Primary Care Physician Primary care physician Activ e Start: February 16, 2025 End: February 16, 2025 No Primary Care Physician Referring Provider Active Start: February 16, 2025 End: February 16, 2025 Dr. Pricilla Alfaro MD Attending physician Active Start: February 16, 2025 End: February 16, 2025 Team Status: Inactive Member Role/Relationship Status Dates No Primary Care Physician Primary care physician Activ e Start: March 07, 2025 End: March 07, 2025 No Primary Care Physician Referring Provider Active Start: March 07, 2025 End: March 07, 2025 Brenda Salazar NP [employer]-C Attending physician Active Start: March 07, 2025 End: March 07, 2025 Team Status: Inactive Member Role/Relationship Status Dates No Primary Care Physician Primary care physician Activ e Start: March 07, 2025 End: March 07, 2025 Dr. Pricilla Alfaro MD Attending physician Active Start: March 07, 2025 End: March 07, 2025 Dr. Pricilla Alfaro MD Referring Provider Active Start: March 07, 2025 End: March 07, 2025 Team Status: Inactive Member Role/Relationship Status Dates No Primary Care Physician Primary care physician Activ e Start: March 20, 2025 End: March 20, 2025 No Primary Care Physician Referring Provider Active Start: March 20, 2025 End: March 20, 2025 Ninfa Bautista CNM Attending physician Active Start: March 20, 2025 End: March 20, 2025 Team Status: Inactive Member Role/Relationship Status Dates No Primary Care Physician Primary care physician Activ e Start: December 22, 2024 End: December 22, 2024 No Primary Care Physician Referring Provider Active Start: December 22, 2024 End: December 22, 2024 Dr. Sejal Romero DO Attending physician Acti ve Start: December 22, 2024 End: December 22, 2024 Team Status: Inactive Member Role/Relationship Status Dates No Primary Care Physician Primary care physician Activ e Start: January 17, 2025 End: January 17, 2025 No Primary Care Physician Referring Provider Active Start: January 17, 2025 End: January 17, 2025 Brenda Salazar NP [employer]-C Attending physician Active Start: January 17, 2025 End: January 17, 2025 Team Status: Inactive Member Role/Relationship Status Dates No Primary Care Physician Primary care physician Activ e Start: February 16, 2025 End: February 16, 2025 No Primary Care Physician Referring Provider Active Start: February 16, 2025 End: February 16, 2025 Dr. Pricilla Alfaro MD Attending physician Active Start: February 16, 2025 End: February 16, 2025 Team Status: Inactive Member Role/Relationship Status Dates No Primary Care Physician Primary care physician Activ e Start: March 07, 2025 End: March 07, 2025 No Primary Care Physician Referring Provider Active Start: March 07, 2025 End: March 07, 2025 Brenda Salazar NP, [employer]-C Attending physician Active Start: March 07, 2025 End: March 07, 2025 Team Status: Inactive Member Role/Relationship Status Dates No Primary Care Physician Primary care physician Activ e Start: March 07, 2025 End: March 07, 2025 Dr. Pricilla Alfaro MD Attending physician Active Start: March 07, 2025 End: March 07, 2025 Dr. Pricilla Alfaro MD Referring Provider Active Start: March 07, 2025 End: March 07, 2025 Team Status: Inactive Member Role/Relationship Status Dates No Primary Care Physician Primary care physician Activ e Start: March 20, 2025 End: March 20, 2025 No Primary Care Physician Referring Provider Active Start: March 20, 2025 End: March 20, 2025 Ninfa Bautista CNM Attending physician Active Start: March 20, 2025 End: March 20, 2025 Team Status: Inactive Member Role/Relationship Status Dates No Primary Care Physician Primary care physician Activ e Start: March 28, 2025 End: March 28, 2025 No Primary Care Physician Referring Provider Active Start: March 28, 2025 End: March 28, 2025 Brenda Salazar NP, [employer]-C Attending physician Active Start: March 28, 2025 End: March 28, 2025 Team Status: Active Member Role/Relationship Status Dates No Primary Care Physician Primary care physician Activ e Start: April 03, 2025 Brenda Salazar NP, [employer]-C Attending physician Active Start: April 03, 2025 Brenda Salazar NP, [employer]-C Referring Provider Active Start: April 03, 2025 Team Status: Inactive Member Role/Relationship Status Dates No Primary Care Physician Primary care physician Activ e Start: April 04, 2025 End: April 04, 2025 No Primary Care Physician Referring Provider Active Start: April 04, 2025 End: April 04, 2025 Dr. Sejal Romero DO Attending physician Acti ve Start: April 04, 2025 End: April 04, 2025 Team Status: Inactive Member Role/Relationship Status Dates No Primary Care Physician Primary care physician Activ e Start: April 03, 2025 End: April 03, 2025 Brenda Salazar NP, JOSHUA-C Attending physician Active Start: April 03, 2025 End: April 03, 2025 Brenda Salazar NP, NP-C Referring Provider Active Start: April 03, 2025 End: April 03, 2025 Team Status: Inactive Member Role/Relationship Status Dates No Primary Care Physician Primary care physician Activ e Start: April 19, 2025 End: April 19, 2025 No Primary Care Physician Referring Provider Active Start: April 19, 2025 End: April 19, 2025 Dr. Pricilla Alfaro MD Attending physician Active Start: April 19, 2025 End: April 19, 2025 FOR RECORDS PERTAINING TO PATIENTS WHO ARE [...] BE BASED ON THE PRIMARY CLINICAL RECORDS. [employer] provides no warranty or guarantee of the accuracy or completeness of information in this document.
[2025-05-22] MEDS: Lactated Ringers 1,000 ML 999 ML IV (05:50)
--- NOTE | 2025-05-22 05:52 | HP.PCM.OB_ITS ---
HPI - General General Date of Admission: 05/22/25 HPI Narrative KATERINE DEVINE, is a 24 F who presents for RLTCS at 39 weeks no vb lof good fm no regular ctx. Maternal Data Information BRIGIDA Calculator Estimated Delivery Date Method Current WG Current Estimate 05/29/25 LMP (Certain) 39w 0d Other Estimates 05/28/25 Ultrasound #1 39w 1d PFSH PFSH Medical History (Updated 05/22/25 @ 05:51 by Marley Briceño) Placental abnormality Desquamated skin Anxiety Adopted Home Medications ?Medication ?Instructions ?Recorded ?Last Taken ?Type PNV 158-iron 13.5 mg-folic 0.5 1 cap PO DAILY pregnanc y 10/13/24 05/21/25 History mg-omega 3-dha 150 mg-epa-fish capsule (Natavi PNV) Allergy/AdvReac Type Severity Reaction Status Date / Time No Known Allergies Allergy Verified 05/15/25 09:04 Surgical History (Updated 05/22/25 @ 05:[address] Pricilla Alfaro MD) Hx of tonsillectomy delivery delivered History of surgery No significant past surgical history Social History adopted: Yes household members: spouse and children housing: house number of children: 2 current occupational status: previously employed current occupation: [employer] current occupational exposures/hazards: No pets and animals: Yes pets and animals: dog(s) history of recent travel: Yes ([place] in August) out of state: Yes out of country: No sexually active: Yes Smoking Status: Never smoker second hand exposure: No alcohol intake: never substance use type: does not use caffeine: No what type of physical activity do you participate in: walking carmen/taoism: None seatbelt use: always do you feel safe at home: Yes 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 Date Name GA/Weeks Outcome Route Bth Weight Infant Gen Labor Lgth Anesthesia Del Locatn Provider FOB 11/14/20 Haven 41 live - full term Female [facility] Mariusz 07/16/22 Pattie 39 live - full term 8lbs 3oz Female spinal [facility] Dr. Jewell Delivery Date: 11/14/20 Last Updated by: Chloé Lovelace primary c=section for catagory 2 FHT Visit Details Expected Delivery Route/Plan plan TOLAC patient counseled regarding risks/benefits of trial of labor versus repeat . ACOG/uptodate education given to patient. 75.7 % likelihood of success per calculator TOLAC consent form signed: 04/19 Labor Preferences- CB/BF classes: no labor support person: [] labor intervention preferences: [] pain management options preferred: not opposed to epidural cut cord/dad catch: cord : yes PP control planned: discussed discussed possible routes of delivery and associated risks: [] special requests: [] Plans Covid status: [] Flu vaccine: declined Tdap vaccine: declines Rhogam: na LARC form signed: yes movement and labor precautions reviewed. Problem list reviewed and updated with the most current plan of care details and appropriate orders placed. Relevant counseling for the gestational age provided. Continue routine care and follow up unless otherwise noted in visit notes/problem list details OB Flowsheet Initial Weight: 119 lb Date -?-?-?-?-?-?-?-?-?-?-?-?- EGA Weight BP Urine Prot -?-?-?-?-?-?-?-?-?-?-?-?- Glucose FHR FuHt Pres Dilation -?-?-?-?-?-?-?-?-?-?-?-?- Effaced St Visit Note 10/25/24 -?-?-?-?-?-?-?-?-?-?-?-?- 9w 1d 119 lb 8 oz (+8 oz) 135/75 -?-?-?-?-?-?-?-?-?-?-?-?- 179 -?-?-?-?-?-?-?-?-?-?-?-?- KW- CRL cons wit h dates. accepts NIPT. 11/21/24 -?-?-?-?-?-?-?-?-?-?-?-?- 13w 0d 124 lb 4 oz (+5 lb 4 oz) 135/86 Negative -?-?-?-?-?-?-?-?-?-?-?-?- Negative 155 -?-?-?-?-?-?-?-?-?-?-?-?- KW- no vb/crampi ng. feeling better. [facility] anatomy ordered, labs today. 12/22/24 -?-?-?-?-?-?-?-?-?-?-?-?- 17w 3d 127 lb 6 oz (+8 lb 6 oz) 116/71 Negative -?-?-?-?-?-?-?-?-?-?-?-?- Negative 147 -?-?-?-?-?-?-?-?-?-?-?-?- JV- no lof, vagi nal bleeding, or cramping. questions about today. anatomy at 19 weeks scheduled 01/17/25 -?-?-?-?-?-?-?-?-?-?-?-?- 21w 1d 132 lb 8 oz (+13 lb 8 oz) 113/74 Negative -?-?-?-?-?-?-?-?-?-?-?-?- Negative 146 -?-?-?-?-?-?-?-?-?-?-?-?- MH-NO VB. Feelin g movement. States had spotting day prior to M US but none since. Has questions about circumvallente placenta-will get growth US 36 wk [facility] 02/16/25 -?-?-?-?-?-?-?-?-?-?-?-?- 25w 3d 138 lb 9 oz (+19 lb 9 oz) 123/79 Negative -?-?-?-?-?-?-?-?-?-?-?-?- Negative 140 -?-?-?-?-?-?-?-?-?-?-?-?- SM- no vb lof go od fm no reuglar ctx discussed and placenta 03/07/25 -?-?-?-?-?-?-?-?-?-?-?-?- 28w 1d 140 lb 1 oz (+21 lb 1 oz) 118/72 Negative -?-?-?-?-?-?-?-?-?-?-?-?- Negative 148 -?-?-?-?-?-?-?-?-?-?-?-?- MH-No VB, LOF. G ood FM. Larc. 28 wk labs pending. Declines tdap 03/20/25 -?-?-?-?-?-?-?-?-?-?-?-?- 30w 0d 141 lb 9 oz (+22 lb 9 oz) 121/75 Negative -?-?-?-?-?-?-?-?-?-?-?-?- Negative 140 -?-?-?-?-?-?-?-?-?-?-?-?- KW- no vb/lof/ct x. good fm. growth scan in 2 weeks. will schedule 40 week C/S due to placenta 03/28/25 -?-?-?-?-?-?-?-?-?-?-?-?- 31w 1d 141 lb (+22 lb) 119/82 Negative -?-?-?-?-?-?-?-?-?-?-?-?- Negative 144 31 -?-?-?-?-?-?-?-?-?-?-?-?- MH-work in for l ast pm had dizziness and elevated BP. Today feels well, normal BPs, no headache or vision changes Good FM. Reassured. 04/04/25 -?-?-?-?-?-?-?-?-?-?-?-?- 32w 1d 141 lb 5 oz (+22 lb 5 oz) 120/70 Negative -?-?-?-?-?-?-?-?-?-?-?-?- Negative 134 32 -?-?-?--?-?-?-?-?-?-?-?-?- JV- discussed vb ac questions today. plan is to repeat growth scan at 36 -37 weeks. if looks same or bigger than last baby wants rpt section. wants delivered by 40 weeks regardless. may augment if already dilated 2-3 cm. 04/19/25 -?-?-?-?-?-?-?-?-?-?-?-?- 34w 2d 143 lb 8 oz (+24 lb 8 oz) 123/83 Negative -?-?-?-?-?-?-?-?-?-?-?-?- Negative 130 33 -?-?-?-?-?-?-?-?-?-?-?-?- SM- no vb lof go od fm no reuglar ctx 05/03/25 -?-?-?-?-?-?-?-?-?-?-?-?- 36w 2d 145 lb 4 oz (+26 lb 4 oz) 112/74 Negative -?-?-?-?-?-?-?-?-?-?-?-?- Negative 135 36 Cephalic 0 .5 -?-?-?-?-?-?-?-?-?-?-?-?- 30 -2 KW- no vb/ lof/ctx. good fm. TRACY was 7.6 on 05/01. repeat next week 05/08/25 -?-?-?-?-?-?-?-?-?-?-?-?- 37w 0d 145 lb 2 oz (+26 lb 2 oz) 127/84 Negative -?-?-?-?-?-?-?-?-?-?-?-?- Negative 135 37 Cephalic 1 -?-?-?-?-?-?-?-?-?-?-?-?- 30 -3 SM- tracy 10 cm at bedside. no vb lof although has increased discharge. good fm no regular ctx but some carey randle 05/15/25 -?-?-?-?-?-?-?-?-?-?-?-?- 38w 0d 147 lb 4 oz (+28 lb 4 oz) 121/76 Negative -?-?-?-?-?-?-?-?-?-?-?-?- Negative 129 37 Cephalic 1 -?-?-?-?-?-?-?-?-?-?-?-?- 30 -3 JV- TRACY is 9.5. she really wants to but cervix is very thick and posterior. I can get one finger to the presenting part. placenta is calcified but to be expected. Has circumvallate. will discuss delivery plan next week if no delivery. She may be a candidate to go to 40 weeks. NST FHR Rate Baby A Baseline: 130 Variability:: Moderate Accelerations:: 15 x 15 Decelerations:: None NST Reactive:: Yes FHR Category:: Category I Uterine Activity:: irregular ROS Constitutional Constitutional: Reports systems reviewed and no addt'l complaints, except as documented Eyes Eyes: Denies change in vision ENT HEENT: Reports systems reviewed and no addt'l complaints, except as documented; Denies headache(s) Cardiovascular Cardiovascular: Reports systems reviewed and no addt'l complaints, except as documented; Denies chest pain or dyspnea Respiratory/Chest Respiratory/Chest: Reports systems reviewed and no addt'l complaints, except as documented Gastrointestinal Gastrointestinal: Reports systems reviewed and no addt'l complaints, except as documented; Denies abdominal pain Genitourinary Genitourinary: Reports systems reviewed and no addt'l complaints, except as documented, contractions Details: present (irregular) and movement Details: present; Denies dysuria or genital lesions Musculoskeletal Musculoskeletal: Reports systems reviewed and no addt'l complaints, except as documented Neurologic Neurologic: Reports systems reviewed and no addt'l complaints, except as documented Endocrine Endocrinology: Reports systems reviewed and no addt'l complaints, except as documented Vital Signs Vital Signs Vital Signs: Weight Weight: 147 lb Body Mass Index (BMI) 26.0 Physical Exam Const alert, oriented x3, no apparent distress and healthy appearing HEENT normocephalic and moist oral mucous membranes Head and Scalp: atraumatic Neck full ROM, no lymphadenopathy, supple and thyroid normal General: trachea midline Lymph Lymphatic: no lymphadenopathy noted Chest inspection of chest normal Resp normal respiratory effort Cardio regular rate GI soft to palpation and non-tender GI Narrative: gravid Inspection: gravid external exam normal Manual OB Exam: estimated gestational size appropriate, presentation cephalic, dilated, effaced and station Extremity normal to inspection General Extremity: Negative for edema Skin no rashes or lesions noted Neuro no focal motor deficits and deep tendon reflexes 2+ bilaterally Motor Exam: strength 5/5 throughout and clonus absent Psych mental status grossly normal Labs Labs Labs: Blood Type O POSITIVE Antibody Screen NEGATIVE Hct, (37-47) 36.3 % L Hgb, (12.0-15.0) 12.0 g/dL Obstetrics Ultrasound Syphilis Total Ab, (Nonreactive) Nonreactive Rubella IgG Antibody, (Nonreactive) REAC Hep Bs Antigen, (Nonreactive) Nonreactive Hepatitis C Antibody, (Nonreactive) Nonreactive Chlamydia DNA ([place]), (Negative) Negative N.gonorrhoeae DNA ([place]), (Negative) Negative HIV 1&2 Antibody, (Nonreactive) Nonreactive Glucose 1 Hr 50 gm, (70-140) 117 mg/dL Rhogam given: No Miscellaneous Test Assessment & Plan (1) Circumvallate placenta: QUALIFIERS: Trimester: second trimester Qualified Code(s): O43.112 - Circumvallate placenta, second trimester COMMENT: growth US q 4 weeks in third trimester; 33wk EFW 66%, AC 83%; 36 w: EFW 61%, AC 75% (2) Supervision of high-risk : QUALIFIERS: Trimester: third trimester Qualified Code(s): O09.93 - Supervision of high risk , unspecified, third trimester COMMENT: PRR , BRIGIDA [birth year]29 girl Harish [facility]: Pattie Suarez : Davey (3) : QUALIFIERS: Weeks of gestation: 38 weeks Qualified Code(s): Z3A.38 - 38 weeks gestation of COMMENT: GBS neg, NIPT w/ gender & carrier- low risk, nl anatomy (4) Family history of cleft palate: COMMENT: Pt's niece- club foot, cleft palate (5) Desires (vaginal after ) trial: COMMENT: now wants scheduled 05/22 (6) History of section: COMMENT: previous for NRFHTs, considering TOLAC. (7) Adopted: PLAN: Plan plan RLTCS
[2025-05-22] MEDS: Lactated Ringers 1,000 ML 150 ML IV (06:06)
[2025-05-22 06:07] LABS: Hematocrit 32.8 % (37-47); Hemoglobin 10.6 g/dL (12.0-15.0); Immature Granulocytes Count 0.200 X10^3/uL (0.0-0.0); Mean Corp Hgb Conc 32.3 g/dL (32-36); Mean Corpuscular Volume 83.9 fL (81-99); Mean Platelet Vol. 11.5 fl (6.2-12.0); NRBC Flagged by Analyzer 0 % (0-5); Platelet Count 230 K/mm3 (150-450); RBC Distribution Width CV 13.0 % (11.6-14.6); RBC Distribution Width SD 39.0 fl (35.1-43.9); Red Blood Count 3.91 M/mm3 (4.2-5.4); White Blood Count 9.5 K/mm3 (4.4-11.0)
[2025-05-22 06:29] LABS: Syphilis Antibodies Nonreactive (Nonreactive)
--- OUTSIDE RECORDS SUMMARY | 2025-05-22 06:35 | XMS RPT_ITS | CCD ---
Author Organization [facility] Care Team Providers Care Leather Case Finisher Name Role Phone KARIME HOLLOWAY (PRACTICE CONSULTANT) Unavailable Unavailable LINDSEY PIZARRO Unavailable Unavailable LINDSEY PIZARRO Unavailable Unavailable Care Physician, No Primary Primary Care Provider Unavailable Care Physician, No Primary Referring Provider Un available Dr. Pricilla Alfaro Attending Provider [phone] Marie RN ACCESS, RN ACCESS-C Brenda Attending Provider [phone] Dr. Sejal Romero Attending Provider [phone] Care Physician, No Primary Primary Care Provider Unavailable Care Physician, No Primary Referring Provider Un available Dr. Pricilla Alfaro Attending Provider [phone] Marie RN ACCESSAL Attending Provider [phone] Dr. Sejal Romero Attending Provider 1( [phone]) Care Physician, No Primary Primary Care Provider Unavailable Care Physician, No Primary Referring Provider Un available Dr. Sejal Romero Attending Provider 1( [phone] Marie RN ACCESS, RN ACCESS-C Brenda Attending Provider [phone] Dr. Pricilla Alfaro Attending Provider [phone] VICKIE Richey Attending Provider [phone] HOMERO SMALL, HIREN [employer]heta Consulting Unavailabbi GORDON MD, MELINDA Attending Marisa LEON MD, DR CHUY Cleomns Admitting Unavailable MISHA SMALL, DR HEMALATHA Cordova [...] Attending Unavailable NINFA BAUTISTA Referring Unavailable Marie RN ACCESS-C, Brenda Attending Provider [phone] Angelina SMALL, Dr. Pleitez Attending Provider [phone] Care Physician, No Primary Primary Care Physicia n Unavailable Care Physician, No Primary Referring Provider Un available Ninfa Bautista CNM Attending Physician [phone] Kai JOHNSTON, Ninfa Referring Provider [phone] Brandon Cooper DO, Dr. Post Attending Physician Marie RN ACCESS-C, Brenda Attending Physician [phone] Angelina SMALL, Dr. Pleitez Attending Physician Dr. Pricilla Alfaro MD Referring Provider [phone] Care Physician, No Primary Primary Care Physicia n Unavailable Care Physician, No Primary Referring Provider Un available Ninfa Bautista CNM Attending Physician [phone] [place] RN ACCESS-C, Brenda Referring Provider [phone] Care Physician, No Primary Primary Care Unava ilable Ninfa Bautista Referring Unavailable Ninfa Bautista Attending Unavailable Care Physician, No Primary Primary Care Unava ilable Care Physician, No Primary Referring Unava ilable Sejal Romero Attending Unavailabl e Care Physician, No Primary Primary Care Unava ilable [place] RN ACCESS, Brenda Referring Unavailable Marie RN ACCESS, Brenda Attending Unavailable Care Physician, No Primary Primary Care Unava ilable Pricilla Alfaro Referring Unavailable Pricilla Alfaro Attending Unavailable Care Physician, No Primary Primary Care Unava ilable Marie RN ACCESS, Brenda Referring Unavailable [place] RN ACCESS, Brenda Attending Unavailable eSjal Romero Attending Unavailabl e Sejal Romero Admitting [...] Physician, No Primary Primary Care Unava ilable [place] RN ACCESS, Brenda Attending Unavailable Care Physician, No Primary Referring Unava ilable Care Physician, No Primary Referring Unava ilable Care Physician, No Primary Primary Care Unava ilable Ninfa Bautista Attending Unavailable Care Physician, No Primary Referring Unava ilable Care Physician, No Primary Primary Care Unava ilable Marie RN ACCESS, Brenda Attending Unavailable Brandon VelSejal deluna Attending [...] Physician, No Primary Referring Unava ilable Marie RN ACCESS, Brenda Attending Unavailable Care Physician, No Primary Primary Care Unava ilable Ninfa Bautista Attending Unavailable Ninfa Bauitsta Referring Unavailable Care Physician, No Primary Primary Care Physicia n Unavailable Care Physician, No Primary Referring Provider Un available Dr. Sejal Romero DO Attending Physician Marie RN ACCESS-CBrenda Attending Physician [phone] Dr. Pricilla Alfaro MD Attending Physician Dr. Pricilla Alfaro MD Referring Provider Ninfa Bautista CNM Attending Physician [phone] Marie RN ACCESS-CBrenda Referring Provider [phone] Allergies Allergy Classification Reported Allergen(s) Allergy Type Date of Onset Reaction(s) Facility (1 source) OTHER; Translations: [OTHER] Propensity to adverse reactions (disorder) 6 [facility] Repository Medications Current Medications Medication Drug Class(es) Dates Sig (Normalized) Sig (Original) Iron (12 sources) Start: 10-13-2024 Gjs360-Renh-Cb -O3-Dha -Epa-Fish (Natavi Pnv) 13.5 mg iron- 0.5 mg-150 mg capsule Active NMA PO October 12, 2024 11:00pm Complies with drug therapy Start: 10-13-2024 Van358-Wvkc-Sr -X3-Ikr-Lyo-Fish (Natavi Pnv) 13.5 mg iron- 0.5 mg-150 mg capsule Active NMA PO October 13, 2024 12:00am Complies with drug therapy Start: 10-13-2024 Start: 10-13-2024 Fqh430-Jnhu-Vj -J2-Whi-Knw-Fish (Natavi Pnv) 13.5 mg iron- 0.5 mg-150 [...] 2024 12:00am October 13, 2024 7:22am Multivit 71-Knmw-Nwjauh 1-Dha (Pnv-Dha) 27 mg iron-1 mg -300 mg capsule (17 sources) Start: 03-19-2020 End: 07-15-2024 Multivit 15-Rnie-Qktrrg 1-Dha (Pnv-Dha) 27 mg iron-1 mg -300 mg capsule Discontinued 1 NMA PO DAILY March 18, 2020 11:00pm July 15, 2024 8:52am Start: 03-19-2020 End: 07-15-2024 Multivit 73-Gqzq-Vcbjqf 1-Dh a (Pnv-Dha) 27 mg iron-1 mg -300 mg capsule Discontinued 1 NMA PO DAILY March 19, 2020 12:00am July 15, 2024 9:52am Start: 03-19-2020 End: 07-15-2024 Multivit 41-Uhlq-Pkxwus 1-Dh a (Pnv-Dha) 27 mg iron-1 mg -300 mg capsule Discontinued 1 NMA PO DAILY March 19, 2020 12:00am July 15, 2024 9:52am Start: 03-19-2020 take 1 capsule by mo ut once daily Multivit 04-Mphb-Argjjn 1-Dha (Pnv-Dha) 27 mg iron-1 mg -300 mg capsule Active 1 CAP PO DAILY March 18, 2020 11:00pm Start: 03-19-2020 take 1 capsule by mo uth once daily Multivit 76-Uegi-Tnypfl 1-Dha (Pnv-Dha) 27 mg iron-1 mg -300 [...] Comment on above: No PA needed. Ref#23 [id number] present Other complications of (17 sources) Uterine size for dates discrepancy; Translations: [Uterine size-date discrepancy, third trimester] 11-08-2020 Episodic Comment on above: growth us ordered Other complications of (20 sources) High risk ; Translations: [Supervision of high risk , unspecified, unspecified trimester] 10-13-2024 Episodic Comment on above: , BRIGIDA 05/29 PC: Pattie Suarez : Davey BRANDT (waiting on [facility]) , BRIGIDA 05/29 PC: Pattie Suarez : [...] Alfaro on 04-19-2025 Glucose Ql (U) Negative [facility] - UrinalysisOrder ed By: Pricilla Alfaro on 04-19-2025 Protein Ql (U) Negative [facility] Curing Oven Tender Office Visit Reporton 04-19-2025 Curing Oven Tender Office Visit Report [facility] [address], [address] [place] [address] OFFICE VISIT Date of Service: 04/19/25 MR#: [id number] Acct: [id number] Name: PEYTON DEVINE GLENROY Rep #: [id number] : 2000 Provider: Dr. Pricilla santana MD Age/Sex: 24/F [place] [facility] [place]: Signed Intake Vital Signs 03/07/25 09:43 04/04/25 14:55 04/19/25 14:29 Height 5 ft 3 in 5 ft 3 in 5 ft 3 in Weight: 143 lb 8 oz BMI 25.4 BP 123/83 H Intake Visit Reasons: 34wk ob 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 Is patient in pain?: No [...] current occupational status: previously employed current occupation: [employer] current occupational exposures/hazards: No pets and animals: Yes pets and animals: dog(s) history of recent travel: Yes ([place] in August) out of state: Yes out of country: No sexually active: Yes Smoking Status: Never smoker second hand exposure: No alcohol intake: never substance use type: does not use caffeine: No what type of physical activity do you participate in: walking carmen/yazidism: None seatbelt use: always do you feel [...] Haven 41 live - full term Female [facility] Pr okop 07/16/22 Pattie 39 live - full term 8lbs 3oz Female spinal [facility] Dr. Jewell Delivery Date: 11/14/20 Last [...] amping. feelin (more content not included)... Normal [facility] - Chemistry and C hemistry - challengeOrdered By: Sejal Cooper on 04-04-2025 Glucose Ql (U) Negative [facility] - UrinalysisOrder ed By: Sejal Cooper on 04-04-2025 Protein Ql (U) Negative [facility] Curing Oven Tender Office Visit Reporton 04-04-2025 Curing Oven Tender Office Visit Report [facility] [address], [address] [place] [address] OFFICE VISIT Date of Service: 04/04/25 MR#: [id number] Acct: [id number] Name: PEYTON DEVINE GLENROY Rep #: [id number] : 2000 Provider: Dr. Sejal Rascon, Age/Sex: 24/F Location: [facility] [place] Status: Signed Intake Vital Signs 03/07/25 09:43 03/28/25 13:41 04/04/25 14:55 04/04/25 14:55 Height 5 ft 3 in 5 ft 3 in 5 ft 3 in 5 ft 3 in Weight: 141 lb 5 oz BMI 25.0 BP 120/70 Intake Visit Reasons: 32wk ob 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 Is patient in pain?: No [...] Zika: Zika virus screening: Negative : No [facility] Medical History Desquamated skin Anxiety Adopted Surgical History delivery delivered History of surgery No significant past surgical history Social History adopted: Yes household members: spouse and children housing: house number of children: 2 current occupational status: previously employed current occupation: [employer] current occupational exposures/hazards: No pets and animals: Yes pets and animals: dog(s) history of recent travel: Yes ([place] in August) out of state: Yes out of country: No sexually active: Yes Smoking Status: Never smoker second hand exposure: No alcohol intake: never substance use type: does not use caffeine: No what type of physical activity do you participate in: walking carmen/yazidism: None seatbelt use: always do you feel [...] Haven 41 live - full term Female [facility] Pr okop 07/16/22 Pattie 39 live - full term 8lbs 3oz Female spinal [facility] Dr. Jewell Delivery Date: 11/14/20 Last Updated by: Chloé Lovelace primary c=section for catagory 2 FHT HPI 32wk ob Details: PEYTON EDVINE is a 24 year old who presents [...] labs t (more content not included)... Normal [facility] OB Limited With Biometricson 04-03-2025 OB Limited With Biometrics [facility] Imaging Services [address] [place] [address] OB Limited With Biometrics MR#: [id number] Acct: [id number] Name: PEYTON DEVINE GLENROY Rep #: [id number] : 2000 F 24 From: Ethan hernandez MD PCP: Care Physician,No Primary Status: [facility] Study: OB Limited With Biometrics Date of Exam: 04/03 Exam# [id number] Ordering Dr: Brenda Salazar RN ACCESS RN ACCESS -C PROCEDURE: OB LIMITED WITH BIOMETRICS 04/03/2025 [...] 33 weeks and 2 days. Reading Location: [place] [address] CC: AL Salazar; No Primary Care Physician Consumer Loan Manager: Signed Normal [facility] - Chemistry and C hemistry - challengeOrdered By: Brenda Salazar on 03-28-2025 Glucose Ql (U) Negative [facility] - UrinalysisOrder ed By: Brenda Salazar on 03-28-2025 Protein Ql (U) Negative [facility] Curing Oven Tender Office Visit Reporton 03-28-2025 Curing Oven Tender Office Visit Report [facility] [address], [address] [place] [address] OFFICE VISIT Date of Service: 03/28/25 MR#: [id number] Acct: [id number] Name: TAYLOR DEVINEICA GLENROY Rep #: [id number] : 2000 Provider: AL dickson Age/Sex: 24/F [place] [facility] [place]: Signed Intake Vital Signs 03/20/25 09:02 03/28/25 13:32 03/28/25 13:41 Height 5 ft 3 in 5 ft 3 in 5 ft 3 in Weight: 141 lb 9 oz 141 lb BMI 25.0 25.0 BP 121/75 H 119/82 H Intake Visit Reasons: OB, htn, dizzy Chief Complaint: HTN, Dizzy 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 Is patient in pain?: No [...] current occupational status: previously employed current occupation: [employer] current occupational exposures/hazards: No pets and animals: Yes pets and animals: dog(s) history of recent travel: Yes ([place] in August) out of state: Yes out of country: No sexually active: Yes Smoking Status: Never smoker second hand exposure: No alcohol intake: never substance use type: does not use caffeine: No what type of physical activity do you participate in: walking carmen/yazidism: None seatbelt use: always do you feel [...] Haven 41 live - full term Female [facility] Pr okop 07/16/22 Pattie 39 live - full term 8lbs 3oz Female spinal [facility] Dr. Jewell Delivery Date: 11/14/20 Last [...] feeling b (more content not included)... Normal [facility] - Chemistry and C hemistry - challengeOrdered By: Ninfa Bautista on 03-20-2025 Glucose Ql (U) Negative [facility] - UrinalysisOrder ed By: Ninfa Bautista on 03-20-2025 Protein Ql (U) Negative [facility] Curing Oven Tender Office Visit Reporton 03-20-2025 Curing Oven Tender Office Visit Report [facility] [address] [facility] [facility], [address] [place] [address] OFFICE VISIT Date of Service: 03/20/25 MR#: [id number] Acct: [id number] Name: PEYTON DEVINE Rep #: [id number] : 2000 Provider: VICKIE Tavares ams Age/Sex: 24/F Location[place] [facility] [place] Status: Signed Intake Vital Signs 01/17/25 15:34 03/07/25 09:43 03/20/25 09:02 Height 5 ft 3 in 5 ft 3 in 5 ft 3 in Weight: 141 lb 9 oz BMI 25.0 BP 121/75 H Intake Visit Reasons: 30 WK OB 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 Is patient in pain?: No [...] current occupational status: previously employed current occupation: [employer] current occupational exposures/hazards: No pets and animals: Yes pets and animals: dog(s) history of recent travel: Yes ([place] in August) out of state: Yes out of country: No sexually active: Yes Smoking Status: Never smoker second hand exposure: No alcohol intake: never substance use type: does not use caffeine: No what type of physical activity do you participate in: walking carmen/yazidism: None seatbelt use: always do you feel [...] Haven 41 live - full term Female [facility] Pr okop 07/16/22 Pattie 39 live - full term 8lbs 3oz Female spinal [facility] Dr. Jewell Delivery Date: 11/14/20 Last [...] 17w 3d (more content not included)... Normal [facility] Absolute lymphocyte countOrd ered By: Pricilla Alfaro on 03-07-2025 Lymphocytes Auto (Unsp spec) [#/Vol] 1.59 10*3/uL 0.83-4.51 [facility] Absolute neutrophil countOrd ered By: Pricilla Alfaro on 03-07-2025 Neutrophils (Bld) [#/Vol] 7.0 10*3/uL 2.0-7.7 [facility] Automated lymphocyte count a s percentage of total leukocytesOrdered By: Pricilla Alfaro on 03-07-2025 Lymphocytes/100 WBC Auto (Unsp spec) 17.0 % Low 19-41 [facility] Basophil percentageOrdered B y: Pricilla Alfaro on 03-07-2025 Basophils/100 WBC (Bld) 0.7 % 0-1 [facility] CBC W/Diff, Automatedon 02-14 Absolute Lymph 1.59 X10 3/uL Normal 0.83-4.51 [facility] Comment on above: Performed By: #### L 509.8002, L100.0100, L501.0250, L3890.6006 #### [facility] [address] [place], [address] Absolute Neut 7.0 X10 3/uL Normal 2.0-7.7 [facility] Comment on above: Performed By: #### L 509.8002, L100.0100, L501.0250, L3890.6006 #### [facility] [address] [place], [address] Basophils/100 WBC (Bld) 0.7 % Normal 0-1 [facility] Comment on above: Performed By: #### L 509.8002, L100.0100, L501.0250, L3890.6006 #### [facility] [address] [place], [address] Eosinophils/100 WBC (Bld) 0.3 % Normal 0-5 [facility] Comment on above: Performed By: #### L 509.8002, L100.0100, L501.0250, L3890.6006 #### [facility] [address] [place], [address] Erythrocyte distribution width (RBC) [Ratio] 11.9 % Normal 11.6-14.6 [facility] Comment on above: Performed By: #### L 509.8002, L100.0100, L501.0250, L3890.6006 #### [facility] [address] [place], [address] Hematocrit (Bld) [Volume fraction] 36.3 % Low 37-47 [facility] Comment on above: Performed By: #### L 509.8002, L100.0100, L501.0250, L3890.6006 #### [facility] [address] [place], [address] Hemoglobin (Bld) [Mass/Vol] 12.0 g/dL Normal 12.0-15.0 [facility] Comment on above: Performed By: #### L 509.8002, L100.0100, L501.0250, L3890.6006 #### [facility] [address] [place], [address] IG% 1.700 High 0.0-0.9 [facility] Comment on above: Result Comment: IG% - Immature Granulocytes (promyelocytes, myelocytes and metamyelocytes) > 1% indicates that a LEFT SHIFT is Present. Performed By: #### L 509.8002, L100.0100, L501.0250, L3890.6006 #### [facility] [address] [place], [address] Lymphocytes/100 WBC (Bld) 17.0 % Low 19-41 [facility] Comment on above: Performed By: #### L 509.8002, L100.0100, L501.0250, L3890.6006 #### [facility] [address] [place], [address] MCH (RBC) [Entitic mass] 30.2 pg Normal 27.0-32.0 [facility] Comment on above: Performed By: #### L 509.8002, L100.0100, L501.0250, L3890.6006 #### [facility] [address] [place], [address] MCHC (RBC) [Mass/Vol] 33.1 g/dL Normal 32-36 [facility] Comment on above: Performed By: #### L 509.8002, L100.0100, L501.0250, L3890.6006 #### [facility] [address] [place], [address] MCV (RBC) [Entitic vol] 91.4 fL Normal 81-99 [facility] Comment on above: Performed By: #### L 509.8002, L100.0100, L501.0250, L3890.6006 #### [facility] [address] [place], [address] Monocytes/100 WBC (Bld) 5.9 % Normal 0-10 [facility] Comment on above: Performed By: #### L 509.8002, L100.0100, L501.0250, L3890.6006 #### [facility] [address] [place], [address] Neutrophils/100 WBC (Bld) 74.4 % High 47-70 [facility] Comment on above: Performed By: #### L 509.8002, L100.0100, L501.0250, L3890.6006 #### [facility] [address] [place], [address] Nucleated RBC (Bld) [#/Vol] 0 10*3/uL Normal 0-5 [facility] Comment on above: Performed By: #### L 509.8002, L100.0100, L501.0250, L3890.6006 #### [facility] [address] [place], [address] Platelet mean volume (Bld) [Entitic vol] 11.5 fL Normal 6.2-12.0 [facility] Comment on above: Performed By: #### L 509.8002, L100.0100, L501.0250, L3890.6006 #### [facility] [address] [place], [address] Platelets (Bld) [#/Vol] 226 10*3/uL Normal 150-450 [facility] Comment on above: Performed By: #### L 509.8002, L100.0100, L501.0250, L3890.6006 #### [facility] [address] [place], [address] RBC (Bld) [#/Vol] 3.97 10*6/uL Low 4.2-5.4 [facility] Comment on above: Performed By: #### L 509.8002, L100.0100, L501.0250, L3890.6006 #### [facility] [address] [place], [address] RDW SD 40.0 fl Normal 35.1-43.9 [facility] Comment on above: Performed By: #### L 509.8002, L100.0100, L501.0250, L3890.6006 #### [facility] [address] [place], [address] WBC (Bld) [#/Vol] 9.4 10*3/uL Normal 4.4-11.0 [facility] Comment on above: Performed By: #### L 509.8002, L100.0100, L501.0250, L3890.6006 #### [facility] [address] [place], [place], [address] Eosinophil percentageOrdered By: Pricilla Yedonaldo on 03-07-2025 Eosinophils/100 WBC (Bld) 0.3 % 0-5 [facility] Erythrocyte distribution wid th ratioOrdered By: Pricilla Yedonaldo on 03-07-2025 Erythrocyte distribution width (RBC) [Ratio] 11.9 % 11.6-14.6 [facility] Erythrocyte distribution wid th standard deviationOrdered By: Pricilla Alfaro on 03-07-2025 Erythrocyte distribution width (RBC) [Ratio] 40.0 fl 35.1-43.9 [facility] Glucose Challenge Gest 1H 50 citlalli 03-07-2025 GLU GEST 50g 1H 119 mg/dL Normal 70-140 [facility] Comment on above: Result Comment: AMENDED REPORT 03/07/25 1349 GLU GEST 50g 1H previously reported as: 119 mg/dL Performed By: #### L 509.8002, L100.0100, L501.0250, L3890.6006 #### [facility] [address] [place], [place], [address] Glucose measurement at 2 matt rs post-dose gestational glucose tolerance testOrdered By: Pricilla Alfaro on 03-07-2025 Glucose [Mass/Vol] 117 mg/dL 70-140 [facility] Comment on above: Previous reported re sult: 119 mg/dLEdited by: AUTOINS on 03/07/25:1349 AMENDED REPORT 03/07/25 1349 GLU GEST 50g 1H previously reported as: 119 mg/dL HIVon 03-07-2025 HIV Non-Reactive Normal Nonreactive [facility] Comment on above: Result Comment: Non- Reactive Reactive Repeatedly reactive samples must be confirmed according to CDC recommended confirmatory algorithms. The subresults for either HIVAG or AHIV can be used as an aid in the selection of the confirmation algorithm for reactive samples. Send out specimens with Reactive results to [facility] for confirmation. Order the HIV antibody detection and differentiation: #[id number] Performed By: #### L 509.8002, L100.0100, L501.0250, L3890.6006 #### [facility] [address] [place], [address] Hematocrit Auto (Bld) [Volum e fraction]Ordered By: Pricilla Alfaro on 03-07-2025 Hematocrit (Bld) [Volume fraction] 36.3 % Low 37-47 [facility] Hemoglobin measurementOrdere d By: Pricilla Alfaro on 03-07-2025 Hemoglobin (Bld) [Mass/Vol] 12.0 g/dL 12.0-15.0 [facility] Immature granulocytes/100 WB C Auto (Bld)Ordered By: Pricilla Alfaro on 03-07-2025 Immature granulocytes/100 WBC (Bld) 1.700 % High 0.0-0.9 [facility] Comment on above: IG% - Immature Granu locytes (promyelocytes, myelocytes and metamyelocytes) > 1% indicates that a LEFT SHIFT is Present. Laboratory - Chemistry and C hemistry - challengeOrdered By: Brenda Salazar on 03-07-2025 Glucose Ql (U) Negative [facility] - UrinalysisOrder ed By: Brenda Salazar on 03-07-2025 Protein Ql (U) Negative [facility] MCV (mean corpuscular volume ) determinationOrdered By: Pricilla Alfaro on 03-07-2025 MCV (RBC) [Entitic vol] 91.4 fL 81-99 [facility] Mean corpuscular hemoglobin (MCH) determinationOrdered By: Pricilla Alfaro on 03-07-2025 MCH (RBC) [Entitic mass] 30.2 pg 27.0-32.0 [facility] Mean corpuscular hemoglobin concentration (MCHC) determinationOrdered By: Pricilla Alfaro on 03-07-2025 MCHC (RBC) [Mass/Vol] 33.1 g/dL 32-36 [facility] Mean platelet volume determi nationOrdered By: Pricilla Alfaro on 03-07-2025 Platelet mean volume (Bld) [Entitic vol] 11.5 fL 6.2-12.0 [facility] Monocyte percentageOrdered B y: Pricilla Alfaro on 03-07-2025 Monocytes/100 WBC (Bld) 5.9 % 0-10 [facility] Neutrophil percentageOrdered By: Pricilla Alfaro on 03-07-2025 Neutrophils/100 WBC (Bld) 74.4 % High 47-70 [facility] No Panel InformationOrdered By: Pricilla Alfaro on 03-07-2025 HIV (1&2) Antibody Non-Reactive Nonreactive [facility] Comment on above: Non-ReactiveReactive Repeatedly reactive samples must be confirmed according to CDC recommended confirmatory algorithms. The subresults for either HIVAG or AHIV can be used as an aid in the selection of the confirmation algorithm for reactive samples.Send out specimens with Reactive results to [facility] for confirmation.Order the HIV antibody detection and differentiation: #[id number] Nucleated red blood cell per centageOrdered By: Pricilla Alfaro on 03-07-2025 Nucleated RBC/100 WBC (Bld) [Ratio] 0 % 0-5 [facility] Curing Oven Tender Office Visit Reporton 03-07-2025 Curing Oven Tender Office Visit Report [facility] [facility] [address], [address] [place] [address] OFFICE VISIT Date of Service: 03/07/25 MR#: [id number] Acct: [id number] Name: PEYTON DEVINE GLENROY Rep #: [id number] 1 : 2000 Provider: AL dickson Age/Sex: 24/F [place] [facility] [place]: Signed Intake Vital Signs 12/22/24 10:09 01/17/25 15:34 02/16/25 15:28 03/07/25 09:43 Height 5 ft 3 in 5 ft 3 in 5 ft 3 in 5 ft 3 in Weight: 140 lb 1 oz BMI 24.7 BP 118/72 Intake Visit Reasons: 28wk ob/glucose Chief Complaint: 28 Week OB/Glucose 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 Is patient in pain?: No [...] current occupational status: previously employed current occupation: [employer] current occupational exposures/hazards: No pets and animals: Yes pets and animals: dog(s) history of recent travel: Yes ([place] in August) out of state: Yes out of country: No sexually active: Yes Smoking Status: Never smoker second hand exposure: No alcohol intake: never substance use type: does not use caffeine: No what type of physical activity do you participate in: walking carmen/yazidism: None seatbelt use: always do you feel [...] Haven 41 live - full term Female [facility] Pr okop 07/16/22 Pattie 39 live - full term 8lbs 3oz Female spinal [facility] Dr. Jewell Delivery Date: 11/14/20 Last [...] vb/cr am (more content not included)... Normal [facility] Platelet countOrdered By: Shaq Alfaro on 03-07-2025 Platelets (Bld) [#/Vol] 226 10*3/uL 150-450 [facility] RBC Auto (Bld) [#/Vol]Ordere d By: Pricilla Alfaro on 03-07-2025 RBC (Bld) [#/Vol] 3.97 10*6/uL Low 4.2-5.4 [facility] Syphilis Antibodieson 2024 Syphilis Abs Non-Reactive Normal Nonreactive [facility] Comment on above: Performed By: #### L 509.8002, L100.0100, L501.0250, L3890.6006 #### [facility] [address] [place], [place], [id number] White blood cell (WBC) count Ordered By: Pricilla Alfaro on 03-07-2025 WBC (Bld) [#/Vol] 9.4 10*3/uL 4.4-11.0 [facility] - Chemistry and C hemistry - challengeOrdered By: Pricilla Alfaro on 02-16-2025 Glucose Ql (U) Negative [facility] - UrinalysisOrder ed By: Pricilla Alfaro on 02-16-2025 Protein Ql (U) Negative [facility] Curing Oven Tender Office Visit Reporton 02-16-2025 Curing Oven Tender Office Visit Report [facility] [address], [address] [place] [address] OFFICE VISIT Date of Service: 02/16/25 MR#: [id number] Acct: [id number] Name: PEYTON DEVINE Rep #: [id number] 4 : 2000 Provider: Dr. 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 Is patient in pain?: No [...] current occupational status: previously employed current occupation: [employer] current occupational exposures/hazards: No pets and animals: Yes pets and animals: dog(s) history of recent travel: Yes ([place] in August) out of state: Yes out of country: No sexually active: Yes Smoking Status: Never smoker second hand exposure: No alcohol intake: never substance use type: does not use caffeine: No what type of physical activity do you participate in: walking carmen/yazidism: None seatbelt use: always do you feel [...] Haven 41 live - full term Female [facility] Pr okop 07/16/22 Pattie 39 live - full term 8lbs 3oz Female spinal [facility] Dr. Jewell Delivery Date: 11/14/20 Last [...] -???-???-???-???-???-??? - (more content not included)... Normal [facility] - Chemistry and C hemistry - challengeOrdered By: Brenda Salazar on 01-17-2025 Glucose Ql (U) Negative [facility] - UrinalysisOrder ed By: Brenda Salazar on 01-17-2025 Protein Ql (U) Negative [facility] Curing Oven Tender Office Visit Reporton 01-17-2025 Curing Oven Tender Office Visit Report [facility] [address], [address] [place] [address] OFFICE VISIT Date of Service: 01/17/25 MR#: [id number] Acct: [id number] Name: PEYTON DEVINE GLENROY Rep #: [id number] 4 : 2000 Provider: AL dickson Age/Sex: 24/F [place] [facility] [place]: Signed Intake Vital Signs 12/22/24 10:09 01/17/25 15:34 Height 5 ft 3 in 5 ft 3 in Weight: 132 lb 8 oz BMI 23.4 BP 113/74 Intake Visit Reasons: 21wk ob Chief Complaint: 21 Week OB 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 Is patient in pain?: No [...] current occupational status: previously employed current occupation: [employer] current occupational exposures/hazards: No pets and animals: Yes pets and animals: dog(s) history of recent travel: Yes ([place] in August) out of state: Yes out of country: No sexually active: Yes Smoking Status: Never smoker second hand exposure: No alcohol intake: never substance use type: does not use caffeine: No what type of physical activity do you participate in: walking carmen/yazidism: None seatbelt use: always do you feel [...] Haven 41 live - full term Female [facility] Pr okop 07/16/22 Pattie 39 live - full term 8lbs 3oz Female spinal [facility] Dr. Jewell Delivery Date: 11/14/20 Last [...] - Neg (more content not included)... Normal [facility] - Chemistry and C hemistry - challengeOrdered By: Sejal Cooper on 12-22-2024 Glucose Ql (U) Negative [facility] - UrinalysisOrder ed By: Sejal Cooper on 12-22-2024 Protein Ql (U) Negative [facility] Curing Oven Tender Office Visit Reporton 12-22-2024 Curing Oven Tender Office Visit Report [facility] [address] [place] [address], [address] [place] [address] OFFICE VISIT Date of Service: 12/22/24 MR#: [id number] Acct: [id number] Name: PEYTON DEVINE GLENROY Rep #: [id number] 7 : 2000 Provider: Dr. Sejal Rascon, Age/Sex: 24/F Location[place] [facility] [place]: Signed Intake Vital Signs 10/25/24 13:03 11/21/24 10:16 12/22/24 10:02 12/22/24 10:09 Height 5 ft 3 in 5 ft 3 in 5 ft 3 in 5 ft 3 in Weight: 127 lb 6 oz BMI 22.5 BP 116/71 Intake Visit Reasons: 17 wk ob 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 Is patient in pain?: No [...] current occupational status: previously employed current occupation: [employer] current occupational exposures/hazards: No pets and animals: Yes pets and animals: dog(s) history of recent travel: Yes ([place] in August) out of state: Yes out of country: No sexually active: Yes Smoking Status: Never smoker second hand exposure: No alcohol intake: never substance use type: does not use caffeine: No what type of physical activity do you participate in: walking carmen/yazidism: None seatbelt use: always do you feel [...] Haven 41 live - full term Female [facility] Pr okop 07/16/22 Pattie 39 live - full term 8lbs 3oz Female spinal [facility] Dr. Jewell Delivery Date: 11/14/20 Last [...] -???-???-???-???-???-??? -???- (more content not included)... Normal [facility] Absolute lymphocyte countOrd ered By: Ninfa Bautista on 11-21-2024 Lymphocytes Auto (Unsp spec) [#/Vol] 1.67 10*3/uL 0.83-4.51 [facility] Absolute neutrophil countOrd ered By: Ninfa Bautista on 11-21-2024 Neutrophils (Bld) [#/Vol] 6.8 10*3/uL 2.0-7.7 [facility] Automated lymphocyte count a s percentage of total leukocytesOrdered By: Ninfa Bautista on 11-21-2024 Lymphocytes/100 WBC Auto (Unsp spec) 18.2 % Low 19-41 [facility] Basophil percentageOrdered B y: Ninfa Bautista on 11-21-2024 Basophils/100 WBC (Bld) 0.5 % 0-1 [facility] CBC W/Diff, Automatedon 06-0 Absolute Lymph 1.67 X10 3/uL Normal 0.83-4.51 [facility] Comment on above: Performed By: #### L 3890.6102, L509.8002, L509.4006, BTS, L3890.6301, L900.0098, L100.0100, L3890.6006 #### [facility] [address] [place], [place], [id number] Absolute Neut 6.8 X10 3/uL Normal 2.0-7.7 [facility] Comment on above: Performed By: #### L 3890.6102, L509.8002, L509.4006, BTS, L3890.6301, L900.0098, L100.0100, L3890.6006 #### [facility] [address] [place], [address] Basophils/100 WBC (Bld) 0.5 % Normal 0-1 [facility] Comment on above: Performed By: #### L 3890.6102, L509.8002, L509.4006, BTS, L3890.6301, L900.0098, L100.0100, L3890.6006 #### [facility] [address] [place], [address] Eosinophils/100 WBC (Bld) 1.1 % Normal 0-5 [facility] Comment on above: Performed By: #### L 3890.6102, L509.8002, L509.4006, BTS, L3890.6301, L900.0098, L100.0100, L3890.6006 #### [facility] [address] [place], [address] Erythrocyte distribution width (RBC) [Ratio] 12.7 % Normal 11.6-14.6 [facility] Comment on above: Performed By: #### L 3890.6102, L509.8002, L509.4006, BTS, L3890.6301, L900.0098, L100.0100, L3890.6006 #### [facility] [address] [place], [address] Hematocrit (Bld) [Volume fraction] 40.2 % Normal 37-47 [facility] Comment on above: Performed By: #### L 3890.6102, L509.8002, L509.4006, BTS, L3890.6301, L900.0098, L100.0100, L3890.6006 #### [facility] [address] [place], [address] Hemoglobin (Bld) [Mass/Vol] 13.7 g/dL Normal 12.0-15.0 [facility] Comment on above: Performed By: #### L 3890.6102, L509.8002, L509.4006, BTS, L3890.6301, L900.0098, L100.0100, L3890.6006 #### [facility] [address] [place], [address] IG% 0.700 Normal 0.0-0.9 [facility] Comment on above: Result Comment: IG% - Immature Granulocytes (promyelocytes, myelocytes and metamyelocytes) > 1% indicates that a LEFT SHIFT is Present. Performed By: #### L 3890.6102, L509.8002, L509.4006, BTS, L3890.6301, L900.0098, L100.0100, L3890.6006 #### [facility] [address] [place], [address] Lymphocytes/100 WBC (Bld) 18.2 % Low 19-41 [facility] Comment on above: Performed By: #### L 3890.6102, L509.8002, L509.4006, BTS, L3890.6301, L900.0098, L100.0100, L3890.6006 #### [facility] [address] [place], [address] MCH (RBC) [Entitic mass] 30.0 pg Normal 27.0-32.0 [facility] Comment on above: Performed By: #### L 3890.6102, L509.8002, L509.4006, BTS, L3890.6301, L900.0098, L100.0100, L3890.6006 #### [facility] [address] [place], [address] MCHC (RBC) [Mass/Vol] 34.1 g/dL Normal 32-36 [facility] Comment on above: Performed By: #### L 3890.6102, L509.8002, L509.4006, BTS, L3890.6301, L900.0098, L100.0100, L3890.6006 #### [facility] [address] [place], [address] MCV (RBC) [Entitic vol] 88.0 fL Normal 81-99 [facility] Comment on above: Performed By: #### L 3890.6102, L509.8002, L509.4006, BTS, L3890.6301, L900.0098, L100.0100, L3890.6006 #### [facility] [address] [place], [address] Monocytes/100 WBC (Bld) 4.8 % Normal 0-10 [facility] Comment on above: Performed By: #### L 3890.6102, L509.8002, L509.4006, BTS, L3890.6301, L900.0098, L100.0100, L3890.6006 #### [facility] [address] [place], [address] Neutrophils/100 WBC (Bld) 74.7 % High 47-70 [facility] Comment on above: Performed By: #### L 3890.6102, L509.8002, L509.4006, BTS, L3890.6301, L900.0098, L100.0100, L3890.6006 #### [facility] [address] [place], [address] Nucleated RBC (Bld) [#/Vol] 0 10*3/uL Normal 0-5 [facility] Comment on above: Performed By: #### L 3890.6102, L509.8002, L509.4006, BTS, L3890.6301, L900.0098, L100.0100, L3890.6006 #### [facility] [address] [place], [address] ( Platelet mean volume (Bld) [Entitic vol] 10.7 fL Normal 6.2-12.0 [facility] Comment on above: Performed By: #### L 3890.6102, L509.8002, L509.4006, BTS, L3890.6301, L900.0098, L100.0100, L3890.6006 #### [facility] [address] [place], [address] (942 Platelets (Bld) [#/Vol] 283 10*3/uL Normal 150-450 [facility] Comment on above: Performed By: #### L 3890.6102, L509.8002, L509.4006, BTS, L3890.6301, L900.0098, L100.0100, L3890.6006 #### [facility] [address] [facility] [place], [address] (624 RBC (Bld) [#/Vol] 4.57 10*6/uL Normal 4.2-5.4 [facility] Comment on above: Performed By: #### L 3890.6102, L509.8002, L509.4006, BTS, L3890.6301, L900.0098, L100.0100, L3890.6006 #### [facility] [address] [place], [address] (087 RDW SD 39.9 fl Normal 35.1-43.9 [facility] Comment on above: Performed By: #### L 3890.6102, L509.8002, L509.4006, BTS, L3890.6301, L900.0098, L100.0100, L3890.6006 #### [facility] [address] [place], [address] WBC (Bld) [#/Vol] 9.2 10*3/uL Normal 4.4-11.0 [facility] Comment on above: Performed By: #### L 3890.6102, L509.8002, L509.4006, BTS, L3890.6301, L900.0098, L100.0100, L3890.6006 #### [facility] [address] [place], [address] Eosinophil percentageOrdered By: Ninfa Bautista on 11-21-2024 Eosinophils/100 WBC (Bld) 1.1 % 0-5 [facility] Erythrocyte distribution wid th ratioOrdered By: Ninfa Bautista on 11-21-2024 Erythrocyte distribution width (RBC) [Ratio] 12.7 % 11.6-14.6 [facility] Erythrocyte distribution wid th standard deviationOrdered By: Ninfa Bautista on 11-21-2024 Erythrocyte distribution width (RBC) [Ratio] 39.9 fl 35.1-43.9 [facility] HIVon 11-21-2024 HIV Non-Reactive Normal Nonreactive [facility] Comment on above: Result Comment: Non- Reactive Reactive Repeatedly reactive samples must be confirmed according to CDC recommended confirmatory algorithms. The subresults for either HIVAG or AHIV can be used as an aid in the selection of the confirmation algorithm for reactive samples. Send out specimens with Reactive results to [facility] for confirmation. Order the HIV antibody detection and differentiation: lc#[id number] Performed By: #### L 509.8002, L100.0100, L501.0250, L3890.6006 #### [facility] [address] [place], [address] Hematocrit Auto (Bld) [Volum e fraction]Ordered By: Ninfa Bautista on 11-21-2024 Hematocrit (Bld) [Volume fraction] 40.2 % 37-47 [facility] Hemoglobin measurementOrdere d By: Ninfa Bautista on 11-21-2024 Hemoglobin (Bld) [Mass/Vol] 13.7 g/dL 12.0-15.0 [facility] Hepatitis C Antibodyon 11-21 Hepatitis C Ab Non-Reactive Normal Nonreactive [facility] Comment on above: Result Comment: Reac tive: Presumptive evidence of antibodies to HCV. Follow CDC recommendations for supplemental testing. Non-Reactive: Antibodies to HCV were not detected; does not exclude the possibility of exposure to HCV Reactive Results are presumptive evidence of antibodies to HCV. Follow CDC recommendations for supplemental testing. Order confirmation testing: HCV Quant by PCR testing - HCVPCR #[id number] Non Reactive: < 0.8 Equivocal: >/= 0.8 to < 1.0 Reactive: >/= 1.0 The [facility] requires that a reactive/equivocal HCV antibody result be sent out for confirmation. HCV Quant by PCR testing. Performed By: #### L 509.8002, L100.0100, L501.0250, L3890.6006 #### [facility] [address] [facility] [place], [place], [address] Immature granulocytes/100 WB C Auto (Bld)Ordered By: Ninfa Bautista on 11-21-2024 Immature granulocytes/100 WBC (Bld) 0.700 % 0.0-0.9 [facility] Comment on above: IG% - Immature Granu locytes (promyelocytes, myelocytes and metamyelocytes) > 1% indicates that a LEFT SHIFT is Present. L3890.6102on 11-21-2024 HEP B Surf Ag Non-Reactive Normal Nonreactive [facility] Comment on above: Result Comment: Reac tive: Presumptive evidence of HBV. Repeatedly reactive samples must be confirmed using a neutralization test ([employer] HBsAg Confirmatory Test) Non-Reactive: HBsAg not detected; does not exclude the possibility of exposure to HBV Performed By: #### L 509.8002, L100.0100, L501.0250, L3890.6006 #### [facility] [address] [facility] [facility] [place], [place], [address] L509.4006on 11-21-2024 Rubella IgG REAC Normal Nonreactive [facility] Comment on above: Result Comment: Anti body Result: Interpretation Non-Reactive: Non-Immune Reactive: Immune The following results were obtained with the [employer] Rubella IgG assay. Results from assays of other manufacturers cannot be used interchangeably. Performed By: #### L 3890.6102, L509.8002, L509.4006, BTS, L3890.6301, L900.0098, L100.0100, L3890.6006 #### [facility] [address] [place], [address] Laboratory - Chemistry and C hemistry - challengeOrdered By: Ninfa Bautista on 11-21-2024 Glucose Ql (U) Negative [facility] Laboratory - Microbiology an d Antimicrobial susceptibilityOrdered By: Ninfa Bautista on 11-21-2024 HBV surface Ag Ql (S) Non-Reactive Nonreactive [facility] Comment on above: Reactive: Presumptiv e evidence of HBV. Repeatedly reactive samples must be confirmed using a neutralization test ([employer] HBsAg Confirmatory Test)Non-Reactive: HBsAg not detected; does not exclude the possibility of exposure to HBV Laboratory - UrinalysisOrder ed By: Ninfa Bautista on 11-21-2024 Protein Ql (U) Negative [facility] MCV (mean corpuscular volume ) determinationOrdered By: Ninfa Bautista on 11-21-2024 MCV (RBC) [Entitic vol] 88.0 fL 81-99 [facility] Mean corpuscular hemoglobin (MCH) determinationOrdered By: iNnfa Bautista on 11-21-2024 MCH (RBC) [Entitic mass] 30.0 pg 27.0-32.0 [facility] Mean corpuscular hemoglobin concentration (MCHC) determinationOrdered By: Ninfa Bautista on 11-21-2024 MCHC (RBC) [Mass/Vol] 34.1 g/dL 32-36 [facility] Mean platelet volume determi nationOrdered By: Ninfa Bautista on 11-21-2024 Platelet mean volume (Bld) [Entitic vol] 10.7 fL 6.2-12.0 [facility] Monocyte percentageOrdered B y: Ninfa Bautista on 11-21-2024 Monocytes/100 WBC (Bld) 4.8 % 0-10 [facility] NATERAon 11-21-2024 NATURA SEE SCANNED REPORT Normal [facility] Comment on above: Performed By: #### L 3890.6102, L509.8002, L509.4006, BTS, L3890.6301, L900.0098, L100.0100, L3890.6006 #### [facility] [address] [place], [address] Neutrophil percentageOrdered By: Ninfa Bautista on 11-21-2024 Neutrophils/100 WBC (Bld) 74.7 % High 47-70 [facility] No Panel InformationOrdered By: Ninfa Bautista on 11-21-2024 HIV (1&2) Antibody Non-Reactive Nonreactive [facility] Comment on above: Non-ReactiveReactive Repeatedly reactive samples must be confirmed according to CDC recommended confirmatory algorithms. The subresults for either HIVAG or AHIV can be used as an aid in the selection of the confirmation algorithm for reactive samples.Send out specimens with Reactive results to [facility] for confirmation.Order the HIV antibody detection and differentiation: #[id number] Nucleated red blood cell per centageOrdered By: Ninfa Bautista on 11-21-2024 Nucleated RBC/100 WBC (Bld) [Ratio] 0 % 0-5 [facility] Curing Oven Tender Office Visit Reporton 11-21-2024 Curing Oven Tender Office Visit Report [facility], [address] [place] [address] OFFICE VISIT Date of Service: 11/21/24 MR#: [id number] Acct: [id number] Name: PEYTON DEVINE GLENROY Rep #: [id number] 4 : 2000 Provider: VICKIE Tavares ams Age/Sex: 24/F [place] [facility] [place] Status: Signed Intake Vital Signs 07/15/24 08:50 10/25/24 13:03 11/21/24 10:16 Height 5 ft 3 in 5 ft 3 in 5 ft 3 in Weight: 124 lb 4 oz BMI 22.0 BP 135/86 H Intake Visit Reasons: 13wk OB 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 Is patient in pain?: No [...] current occupational status: previously employed current occupation: [employer] current occupational exposures/hazards: No pets and animals: Yes pets and animals: dog(s) history of recent travel: Yes ([place] in August) out of state: Yes out of country: No sexually active: Yes Smoking Status: Never smoker second hand exposure: No alcohol intake: never substance use type: does not use caffeine: No what type of physical activity do you participate in: walking carmen/yazidism: None seatbelt use: always do you feel [...] Haven 41 live - full term Female [facility] Pr okop 07/16/22 Pattie 39 live - full term 8lbs 3oz Female spinal [facility] Dr. Jewell Delivery Date: 11/14/20 Last [...] Negative 155 (more content not included)... Normal [facility] Platelet countOrdered By: Rickie Bautista on 11-21-2024 Platelets (Bld) [#/Vol] 283 10*3/uL 150-450 [facility] RBC Auto (d) [#/Vol]Ordere d By: Ninfa Bautista on 11-21-2024 RBC (Bld) [#/Vol] 4.57 10*6/uL 4.2-5.4 [facility] Syphilis Antibodieson 2024 Syphilis Abs Non-Reactive Normal Nonreactive [facility] Comment on above: Performed By: #### L 3890.6102, L509.8002, L509.4006, BTS, L3890.6301, L900.0098, L100.0100, L3890.6006 #### [facility] [place], [address] Type AND Screenon 11-21-2024 ABO and Rh group Nom (Bld) Blood group O Rh(D) positive Normal [facility] Comment on above: Order Comment: PN Performed By: #### L 3890.6102, L509.8002, L509.4006, BTS, L3890.6301, L900.0098, L100.0100, L3890.6006 #### [facility] [address] [place], [address] White blood cell (WBC) count Ordered By: Ninfa Bautista on 11-21-2024 WBC (Bld) [#/Vol] 9.2 10*3/uL 4.4-11.0 [facility] PAP I-G w/rfx hrHPV-Aptimaon 11-01-2024 ADEQ Comment Normal . [facility] Comment on above: Order Comment: Speci men Comment: [id number] Comment: No. of containers..01 ThinPrep Vial Result Comment: Sati sfactory for evaluation. No endocervical component is identified. Performed By: #### L 509.8002, L100.0100, L501.0250, L3890.6006 #### [facility] [address] [place], [place], [address] COMM . Normal . [facility] Comment on above: Order Comment: Kalli huynh Comment: [id number] Comment: No. of containers..01 ThinPrep Vial Performed By: #### L 509.8002, L100.0100, L501.0250, L3890.6006 #### [facility] [address] [place], [address] COMMENT Comment Normal . [facility] Comment on above: Order Comment: Speci men Comment: [id number] Comment: No. of containers..01 ThinPrep Vial Result Comment: This liquid based ThinPrep(R) pap test was screened with the use of an image guided system. Performed By: #### L 509.8002, L100.0100, L501.0250, L3890.6006 #### [facility] [address] [place], [place], [address] DIAG Comment Normal . [facility] Comment on above: Order Comment: Speci men Comment: [id number] Comment: No. of containers..01 ThinPrep Vial Result Comment: NEGA TIVE FOR INTRAEPITHELIAL LESION OR MALIGNANCY. Performed By: #### L 509.8002, L100.0100, L501.0250, L3890.6006 #### [facility] [address] [place], [place], [address] HPV RFLX Comment Normal . [facility] Comment on above: Order Comment: Speci men Comment: [id number] Comment: No. of containers..01 ThinPrep Vial Result Comment: The HPV DNA reflex criteria were not met with this specimen result therefore, no HPV testing was performed. Performed at: [address] [id number] Sports Intern: Melba Britton PhD, Phone: [phone] Performed at: [facility] [address] [id number] Sports Intern: Beth España MD, Phone: [phone] Performed By: #### L 509.8002, L100.0100, L501.0250, L3890.6006 #### [facility] [address] [place], [place], [id number] PAPSMR Comment Normal . [facility] Comment on above: Order Comment: Speci men Comment: [id number] Comment: No. of containers..01 ThinPrep Vial Result [...] #### L 509.8002, L100.0100, L501.0250, L3890.6006 #### [facility] [address] [place], [address] PERFORM Comment Normal . [facility] Comment on above: Order Comment: Speci men Comment: [id number] Comment: No. of containers..01 ThinPrep Vial Result Comment: Josy Leavitt, Lead Housekeeper (ASCP) Performed By: #### L 509.8002, L100.0100, L501.0250, L3890.6006 #### [facility] [address] [place], [address] Chlamydia/GC [place] aptimaon CHLAMY,NUC ACID Negative Normal Negative [facility] Comment on above: Performed By: #### L 509.8002, L100.0100, L501.0250, L3890.6006 #### [facility] [address] [place], [address] GC BY NUC ACID Negative Normal Negative [facility] Comment on above: Result Comment: Perf ormed at: =G - [facility] [address] [id number] Sports Intern: Beth España MD, Phone: [phone] Performed By: #### L 509.8002, L100.0100, L501.0250, L3890.6006 #### [facility] [address] [place], [address] Urine Cultureon 10-26-2024 URC Culture exhibits no growth. Normal [facility] Comment on above: Performed By: #### L 509.8002, L100.0100, L501.0250, L3890.6006 #### [facility] [address] [place], [address] Cervical or vagninal specime n microscopic examination by cytology stain (reported asOrdered By: Ninfa Bautista on 10-25-2024 Cytology report Cyto stain Doc (Cvx/Vag) Comment . [facility] Comment on above: The Pap smear is a s creening test designed to aid in thedetection of premalignant and malignant conditions of theuterine cervix. It is not a diagnostic procedure andshould not be used as the sole means of detecting cervicalcancer. Both false-positive and false-negative reports dooccur. Chlamydia trachomatis rRNA d etection by probe and target amplification methodOrdered By: Ninfa Bautitsa on 10-25-2024 C. trachomatis rRNA KY+probe Ql (Unsp spec) Negative Negative [facility] - CytologyOrdered By: Ninfa Bautista on 10-25-2024 Lead Housekeeper Cyto stain Nom (Cvx/Vag) [ID] Comment . [facility] Comment on above: Sarah Leavitt, Lead Housekeeper (ASCP) Laboratory - Miscellaneous t estsOrdered By: Ninfa Bautista on 10-25-2024 Service comment (Unsp spec) [Interp] . . [facility] Neisseria gonorrhoeae nuclei c acid detection by amplified probe techniqueOrdered By: Ninfa Bautista on 10-25-2024 N. gonorrhoeae DNA [place]+probe Ql (Unsp spec) Negative Negative [facility] Comment on above: Performed at: =[address] [id number] Director: Beth España MD, Phone: [phone] No Panel InformationOrdered By: Ninfa Bautista on 10-25-2024 Pap Smear Specimen Adequacy Comment . [facility] Comment on above: Satisfactory for melba luation. No endocervical component is identified. Curing Oven Tender Office Visit Reporton 10-25-2024 Curing Oven Tender Office Visit Report [facility] [address], [address] [place] [address] OFFICE VISIT Date of Service: 10/25/24 MR#: [id number] Acct: [id number] Name: NIGELJASONPEYTON ANN Rep #: [id number] : 2000 Provider: VICKIE Tavares ams Age/Sex: 24/F Location: [facility] [place] Status: Signed Intake Vital Signs 07/15/24 08:50 10/25/24 13:03 Height 5 ft 3 in 5 ft 3 in Weight: 119 lb 8 oz BMI 21.2 BP 135/75 H Intake Visit Reasons: NOB: LMP 3/10, BRIGIDA 05/29 Chief Complaint: New OB 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 Is patient in pain?: No [...] current occupational status: previously employed current occupation: [employer] current occupational exposures/hazards: No pets and animals: Yes pets and animals: dog(s) history of recent travel: Yes ([place] in August) out of state: Yes out of country: No sexually active: Yes Smoking Status: Never smoker second hand exposure: No alcohol intake: never substance use type: does not use caffeine: No what type of physical activity do you participate in: walking How many days of moderate to strenuous exercise, like a brisk walk, did you do in the last 7 days: 3 carmen/yazidism: None seatbelt use: always do you feel [...] Haven 41 live - full term Female [facility] Pr okop 07/16/22 Pattie 39 live - full term 8lbs 3oz Female spinal [facility] Dr. Romero Davey Delivery Date: 11/14/20 [...] -???-???-???-???-???-??? - (more content not included)... Normal [facility] Urine cultureOrdered By: Capo Bautista on 10-25-2024 Bacteria identified Cx Nom (U) Culture exhibits no growth. [facility] Curing Oven Tender Office Visit Reporton 07-15-2024 Curing Oven Tender Office Visit Report [facility] [address], [address] [place] [address] OFFICE VISIT Date of Service: 07/15/24 MR#: [id number] Acct: [id number] Name: PEYTON CH GLENROY Rep #: [id number] : 2000 Provider: Dr. 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 Her leather stitcher was not helpful to her. History 2 Elective abortions Hx Para 2 Spontaneous abortions Hx # Term Pregnancies 2 Ectopic pregnancies Hx # Pregnancies Multiple births # of living children 2 Past Pregnancies Del. Date Name GA/Weeks Outcome Route Bth Weight Infant Gen Labor Lgth Anesthesia Del Locatn Provider FOB 11/14/20 Haven 41 live - full term Female [facility] Pr okop 07/16/22 Pattie 39 live - full term 8lbs 3oz Female spinal [facility] Dr. Jewell Delivery Date: 11/14/20 Last [...] normal Coding Level of Care Code Attention Tick Inspector Diagnoses Encounter for IUD removal Z30.432 Desquamated [...] effect of brith control. Will consult with [place] [facility] 07/15/24 0916 Date Sejal Romero DO [facility] Signature: Date (if applicable) CC: Normal [facility] .Auto Diffon 01-06-2023 Basophil, Absolute 0.1 10 3/mcL Normal 0.0-0.3 [facility] ([place] Comment on above: Performed By: #### A DIFF, CBC, ANEU ####[address] [address] Basophils/100 WBC (Bld) 1.2 % Normal 0.0-2.5 [facility] ([place]) Comment on above: Performed By: #### A DIFF, CBC, ANEU ####[place] [id number] [address] [place] [address] Eosinophil, Absolute 0.2 10 3/mcL Normal 0.0-0.7 [facility] ([place]) Comment on above: Performed By: #### A DIFF, CBC, ANEU ####[address] [address] Eosinophils/100 WBC (Bld) 5.0 % Normal 0.0-6.0 [facility] ([place]) Comment on above: Performed By: #### A DIFF, CBC, ANEU ####[address] [address] Lymphocyte, Absolute 2.0 10 3/mcL Normal 0.9-4.3 [facility] ([place]) Comment on above: Performed By: #### A DIFF, CBC, ANEU ####[address] [address] Lymphocytes/100 WBC (Bld) 40.4 % High 20.0-40.0 [facility] ([place]) Comment on above: Performed By: #### A DIFF, CBC, ANEU ####[address] [address] Monocyte, Absolute 0.5 10 3/mcL Normal 0.1-1.4 [facility] ([place]) Comment on above: Performed By: #### A DIFF, CBC, ANEU ####[address] [address] Monocytes/100 WBC (Bld) 9.5 % Normal 2.0-13.0 [facility] ([place]) Comment on above: Performed By: #### A DIFF, CBC, ANEU ####[address] [address] Neutrophils/100 WBC (Bld) 43.9 % Low 50.0-75.0 [facility] ([place]) Comment on above: Performed By: #### A DIFF, CBC, ANEU ####[address] [address] Basophil, Absolute 0.0 10 3/mcL Normal 0.0-0.3 [facility] ([place]) Comment on above: Performed By: #### C BC, ANEU, ADIFF #### [address] [address] Basophils/100 WBC (Bld) 0.7 % Normal 0.0-2.5 [facility] ([place]) Comment on above: Performed By: #### C BC, ANEU, ADIFF #### [address] [address] Eosinophil, Absolute 0.2 10 3/mcL Normal 0.0-0.7 [facility] ([place]) Comment on above: Performed By: #### C BC, ANEU, ADIFF #### [address] [address] Eosinophils/100 WBC (Bld) 4.1 % Normal 0.0-6.0 [facility] ([place]) Comment on above: Performed By: #### C BC, ANEU, ADIFF #### [address] [address] Lymphocyte, Absolute 1.7 10 3/mcL Normal 0.9-4.3 [facility] ([place]) Comment on above: Performed By: #### C BC, ANEU, ADIFF #### [address] [address] Lymphocytes/100 WBC (Bld) 36.6 % Normal 20.0-40.0 [facility] ([place]) Comment on above: Performed By: #### C BC, ANEU, ADIFF #### [address] [address] Monocyte, Absolute 0.6 10 3/mcL Normal 0.1-1.4 [facility] ([place] Comment on above: Performed By: #### C BC, ANEU, ADIFF #### [address] [address] Monocytes/100 WBC (Bld) 12.5 % Normal 2.0-13.0 [facility] ([place]) Comment on above: Performed By: #### C BC, ANEU, ADIFF #### [address] [address] Neutrophils/100 WBC (Bld) 46.1 % Low 50.0-75.0 [facility] ([place]) Comment on above: Performed By: #### C BC, ANEU, ADIFF #### [address] [address] .GFRon 01-06-2023 GFR >60 Normal [facility] ([place]) Comment on above: Result Comment: GFR Population [...] By: #### C BC, ANEU, ADIFF #### [address] [address] GFR Non- >60 Normal [facility] ([place]) Comment on above: Result Comment: GFR Population [...] By: #### C BC, ANEU, ADIFF #### [address] [address] .NEUABSon 01-06-2023 Neutrophil, Absolute 2.1 10 3/mcL Low 2.3-8.1 [facility] ([place] Comment on above: Performed By: #### A DIFF, CBC, ANEU ####[address] [address] Neutrophil, Absolute 2.2 10 3/mcL Low 2.3-8.1 [facility] ([place]) Comment on above: Performed By: #### C BC, ANEU, ADIFF #### [address] [address] CBCon 01-06-2023 Erythrocyte distribution width (RBC) [Ratio] 12.6 % Normal 11.5-15.5 [facility] ([place]) Comment on above: Performed By: #### A DIFF, CBC, ANEU ####[address] [address] Hematocrit (Bld) [Volume fraction] 37.3 % Normal 34.0-46.0 [facility] ([place]) Comment on above: Performed By: #### A DIFF, CBC, ANEU ####[place] [address] Hgb 12.5 G/dL Normal 12.0-16.0 [facility] ([place] Comment on above: Performed By: #### A DIFF, CBC, ANEU ####[address] [address] MCH (RBC) [Entitic mass] 29.3 pg Normal 27.0-33.0 [facility] ([place]) Comment on above: Performed By: #### A DIFF, CBC, ANEU ####[place] [address] MCHC 33.4 G/dL Normal 32.0-36.0 [facility] ([place] Comment on above: Performed By: #### A DIFF, CBC, ANEU ####[address] [address] MCV (RBC) [Entitic vol] 87.8 fL Normal 80.0-99.0 [facility] ([place]) Comment on above: Performed By: #### A DIFF, CBC, ANEU ####[address] [address] Platelet 298 10 3/mcL Normal 150-450 [facility] ([place]) Comment on above: Performed By: #### A DIFF, CBC, ANEU ####[address] [address] Platelet mean volume (Bld) [Entitic vol] 8.0 fL Normal 6.6-10.5 [facility] ([place]) Comment on above: Performed By: #### A DIFF, CBC, ANEU ####[facility] [place] [address] RBC 4.25 10 6/mcL Normal 4.10-5.30 [facility] ([place]) Comment on above: Performed By: #### A DIFF, CBC, ANEU ####[facility] [place] [address] WBC 4.8 10 3/mcL Normal 4.5-10.8 [facility] ([place]) Comment on above: Performed By: #### A DIFF, CBC, ANEU ####[facility] [place] [address] Erythrocyte distribution width (RBC) [Ratio] 12.9 % Normal 11.5-15.5 [facility] ([place] Comment on above: Performed By: #### C BC, ANEU, ADIFF #### [address] [address] Hematocrit (Bld) [Volume fraction] 35.5 % Normal 34.0-46.0 [facility] ([place] Comment on above: Performed By: #### C BC, ANEU, ADIFF #### [address] [address] Hgb 11.8 G/dL Low 12.0-16.0 [facility] ([place] Comment on above: Performed By: #### C BC, ANEU, ADIFF #### [address] [address] MCH (RBC) [Entitic mass] 29.3 pg Normal 27.0-33.0 [facility] ([place] Comment on above: Performed By: #### C BC, ANEU, ADIFF #### [address] [address] MCHC 33.2 G/dL Normal 32.0-36.0 [facility] ([place] Comment on above: Performed By: #### C BC, ANEU, ADIFF #### [address] [address] MCV (RBC) [Entitic vol] 88.4 fL Normal 80.0-99.0 [facility] ([place]) Comment on above: Performed By: #### C ELMIRA DUDLEY, ADIFF #### [address] [address] Platelet 282 10 3/mcL Normal 150-450 [facility] ([place] Comment on above: Performed By: #### C ELMIRA DUDLEY, ADIFF #### [address] [address] Platelet mean volume (Bld) [Entitic vol] 7.9 fL Normal 6.6-10.5 [facility] ([place] Comment on above: Performed By: #### C ELMIRA DUDLEY, ADIFF #### [address] [address] RBC 4.02 10 6/mcL Low 4.10-5.30 [facility] ([place] Comment on above: Performed By: #### C ELMIRA DUDLEY, ADIFF #### [address] [address] WBC 4.8 10 3/mcL Normal 4.5-10.8 [facility] ([place] Comment on above: Performed By: #### C ELMIRA DUDLEY, ADIFF #### [address] [address] CMPon 01-06-2023 BUN/Creatinine Ratio Unable to Calculate Normal 10.0-2 2.0 [facility] ([place]) Comment on above: Result Comment: Unab le to calculate this test result accurately. Results used to calculate this test are outside the reportable range. Performed By: #### C ELMIRA DUDLEY, ADIFF #### [address] [address] Urea nitrogen [Mass/Vol] mg/dL Low 8.0-22.0 [facility] ([place] Comment on above: Performed By: #### C ELMIRA DUDLEY, ADIFF #### [address] [address] Albumin Level 2.9 G/dL Low 3.2-4.8 [facility] ([place] Comment on above: Performed By: #### C ELMIRA DUDLEY, ADIFF #### [address] [address] Albumin/Globulin [Mass ratio] 1.1 {ratio} Normal 0.9-1.6 [facility] ([place] Comment on above: Performed By: #### C ELMIRA DUDLEY, ADIFF #### [address] [address] ALP [Catalytic activity/Vol] 60 U/L Normal 38-126 [facility] ([place]) Comment on above: Performed By: #### C ELMIRA DUDLEY, ADIFF #### [address] [address] ALT [Catalytic activity/Vol] 11 U/L Normal 10-49 [facility] ([place]) Comment on above: Performed By: #### C ELMIRA DUDLEY, ADIFF #### [address] [address] AST [Catalytic activity/Vol] 13 U/L Normal 8-34 [facility] ([place]) Comment on above: Performed By: #### C ELMIRA DUDLEY, ADIFF #### [address] [address] Bili Total 0.30 mg/dL Normal 0.20-1.20 [facility] ([place]) Comment on above: Result Comment: Use of this assay is not recommended for patients undergoing treatment with eltrombopag due to the potential for falsely elevated results. Performed By: #### C ELMIRA DUDLEY, ADIFF #### [address] [address] Calcium [Mass/Vol] 8.4 mg/dL Low 8.7-10.4 [facility] ([place]) Comment on above: Performed By: #### C ELMIRA DUDLEY, ADIFF #### [address] [address] Chloride [Moles/Vol] 106 mmol/L Normal 98-110 [facility] ([place]) Comment on above: Performed By: #### C ELMIRA DUDLEY, ADIFF #### [address] [address] CO2 [Moles/Vol] 23 mmol/L Normal 22-32 [facility] ([place]) Comment on above: Performed By: #### C BC, ANEU, ADIFF #### [address] [address] Creatinine [Mass/Vol] 0.46 mg/dL Low 0.50-1.20 [facility] ([place]) Comment on above: Performed By: #### C BC, ANEU, ADIFF #### [address] [address] Electrolyte Balance 12.0 mEq/L Normal 4.0-15.0 [facility] ([place]) Comment on above: Performed By: #### C BC, ANEU, ADIFF #### [address] [address] Globulin 2.7 G/dL Normal 1.5-3.8 [facility] ([place] Comment on above: Performed By: #### C BC, ANEU, ADIFF #### [address] [address] Glucose [Mass/Vol] 65 mg/dL Low 70-110 [facility] ([place] Comment on above: Performed By: #### C BC, ANEU, ADIFF #### [address] [address] Potassium [Moles/Vol] 3.5 mmol/L Normal 3.5-5.0 [facility] ([place] Comment on above: Result Comment: Spec imen slightly hemolyzed. Performed By: #### C BC, ANEU, ADIFF #### [address] [address] Sodium [Moles/Vol] 141 mmol/L Normal 136-145 [facility] ([place] Comment on above: Performed By: #### C BC, ANEU, ADIFF #### [address] [address] Total Protein 5.6 G/dL Low 5.7-8.2 [facility] ([place]) Comment on above: Result Comment: No te - New Reference Range in effect 20 Performed By: #### C BC, ANEU, ADIFF #### [address] [address] .Auto Diffon 01-05-2023 Basophil, Absolute 0.0 10 3/mcL Normal 0.0-0.3 [facility] ([place] Comment on above: Performed By: #### C OCTAVIA, ANEU, ADIFF #### [address] [address] Basophils/100 WBC (Bld) 0.6 % Normal 0.0-2.5 [facility] ([place]) Comment on above: Performed By: #### C OCTAVIA, ANEU, ADIFF #### [address] [address] Eosinophil, Absolute 0.1 10 3/mcL Normal 0.0-0.7 [facility] ([place]) Comment on above: Performed By: #### C OCTAVIA, ANEU, ADIFF #### [address] [address] Eosinophils/100 WBC (Bld) 1.0 % Normal 0.0-6.0 [facility] ([place]) Comment on above: Performed By: #### C OCTAVIA, ANEU, ADIFF #### [address] [address] Lymphocyte, Absolute 1.6 10 3/mcL Normal 0.9-4.3 [facility] ([place]) Comment on above: Performed By: #### C OCTAVIA, ANEU, ADIFF #### [address] [address] Lymphocytes/100 WBC (Bld) 21.2 % Normal 20.0-40.0 [facility] ([place]) Comment on above: Performed By: #### C BC, ANEU, ADIFF #### [address] [address] Monocyte, Absolute 0.7 10 3/mcL Normal 0.1-1.4 [facility] ([place]) Comment on above: Performed By: #### C BC, ANEU, ADIFF #### [address] [address] Monocytes/100 WBC (Bld) 9.9 % Normal 2.0-13.0 [facility] ([place]) Comment on above: Performed By: #### C BC, ANEU, ADIFF #### [address] [address] Neutrophils/100 WBC (Bld) 67.3 % Normal 50.0-75.0 [facility] ([place] Comment on above: Performed By: #### C BC, ANEU, ADIFF #### [address] [address] Basophil, Absolute 0.1 10 3/mcL Normal 0.0-0.2 [facility] ([place]) Comment on above: Performed By: #### C BC, ADIFF, ANEU, CMP, LIP, GFR, MDW #### [address] [address] Basophils/100 WBC (Bld) 0.8 % Normal 0.0-2.5 [facility] ([place]) Comment on above: Performed By: #### C BC, ADIFF, ANEU, CMP, LIP, GFR, MDW #### [address] [address] Eosinophil, Absolute 0.1 10 3/mcL Normal 0.0-0.4 [facility] ([place]) Comment on above: Performed By: #### C BC, ADIFF, ANEU, CMP, LIP, GFR, MDW #### [address] [address] Eosinophils/100 WBC (Bld) 1.3 % Normal 0.0-7.0 [facility] ([place] Comment on above: Performed By: #### C BC, ADIFF, ANEU, CMP, LIP, GFR, MDW #### [address] [address] Lymphocyte, Absolute 1.8 10 3/mcL Normal 0.8-3.9 [facility] ([place] Comment on above: Performed By: #### C BC, ADIFF, ANEU, CMP, LIP, GFR, MDW #### [address] [address] Lymphocytes/100 WBC (Bld) 23.3 % Normal 10.0-50.0 [facility] ([place] Comment on above: Performed By: #### C BC, ADIFF, ANEU, CMP, LIP, GFR, W #### [address] [address] Monocyte, Absolute 1.1 10 3/mcL High 0.2-1.0 [facility] ([place] Comment on above: Performed By: #### C BC, ADIFF, ANEU, CMP, LIP, GFR, JW #### [address] [address] Monocytes/100 WBC (Bld) 15.0 % High 1.7-13.0 [facility] ([place]) Comment on above: Performed By: #### C BC, ADIFF, ANEU, CMP, LIP, GFR, JW #### [address] [address] Neutrophils/100 WBC (Bld) 59.6 % Normal 37.0-80.0 [facility] ([place] Comment on above: Performed By: #### C BC, ADIFF, ANEU, CMP, LIP, GFR, W #### [address] [address] .GFRon 01-05-2023 GFR >60 Normal [facility] ([place] Comment on above: Result Comment: GFR Population [...] By: #### C BC, ANEU, ADIFF #### [address] [address] GFR Non- >60 Normal [facility] ([place]) Comment on above: Result Comment: GFR Population [...] By: #### C OCTAVIA, BARON KU #### [address] [address] GFR 135 ml/min/1.73sqm Normal [facility] ([place] Comment on above: Result Comment: GFR Population [...] BC, ADIFF, ANEU, CMP, LIP, GFR, MDW ####[facility] [place], [place] [address] GFR Non- 111 ml/min/1.73sqm Normal [facility] ([place] Comment on above: Result Comment: GFR Population [...] BC, ADIFF, ANEU, CMP, LIP, GFR, W ####[place] [address] .MDWon 01-05-2023 Monocyte Distribution Width 22.41 High 0.00-20.00 [facility] ([place] Comment on above: Result Comment: For adults in ED, MDW>20.0 may be associated with a higher risk of sepsis during the first 12hrs of hospital admission Performed By: #### C BC, ADIFF, ANEU, CMP, LIP, GFR, W #### [place] [address] .NEUABSon 01-05-2023 Neutrophil, Absolute 5.0 10 3/mcL Normal 2.3-8.1 [facility] ([place]) Comment on above: Performed By: #### C OCTAVIA ANEU, BARON #### [address] [address] Neutrophil, Absolute 4.6 10 3/mcL Normal 2.9-6.2 [facility] ([place]) Comment on above: Performed By: #### C BC, ADIFF, ANEU, CMP, LIP, GFR, JW #### [place] [id number] .Urinalysis Microscopic (AO) on 01-05-2023 UA Bacteria 2+ /hpf Abnormal [facility] ([place] Comment on above: Performed By: #### P REGU, UA, UAMICAO ####[place] [address] [place] [address] UA Mucous 3+ /hpf Normal [facility] ([place] Comment on above: Performed By: #### P REGU, UA, UAMICAO ####[place] [address] [place] [id number] UA RBC 0-5 Abnormal None Seen [facility] ([place] Comment on above: Performed By: #### P REGU, UA, UAMICAO ####[address] [place] [place], [place] [address] UA Squam Epithelial 5-10 Abnormal None Seen [facility] ([place] Comment on above: Performed By: #### P REGU, UA, UAMICAO ####[address] [place], [place] [address] UA WBC 0-5 Abnormal None Seen [facility] ([place] Comment on above: Performed By: #### P REGU, UA, UAMICAO ####[id number] [place], [place] [address] APTTon 01-05-2023 aPTT Coag (Bld) [Time] 29.0 s Normal 25.0-35.0 [facility] ([place] Comment on above: Result Comment: For Heparin anticoagulation therapy, the recommended therapeutic range is: 54-77 seconds (APTT Correlation with Anti-Xa therapeutic range of 0.3-0.7 units/ml). PLEASE REFERENCE THE PHARMACY PROTOCOL FOR DOSING. Performed By: #### C ELMIRA DUDLEY ADIFF #### [address] [address] Heparin dose (APTT) Unknown Normal [facility] ([place]) Comment on above: Performed By: #### C ELMIRA DUDLEY ADIFF #### [address] [address] CBCon 01-05-2023 Erythrocyte distribution width (RBC) [Ratio] 12.7 % Normal 11.5-15.5 [facility] ([place] Comment on above: Performed By: #### C ELMIRA DUDLEY ADIFF #### [address] [address] Hematocrit (Bld) [Volume fraction] 34.9 % Normal 34.0-46.0 [facility] [facility] ([place] Comment on above: Performed By: #### C ELMIRA DUDLEY, ADIFF #### [address] [address] Hgb 11.5 G/dL Low 12.0-16.0 [facility] ([place]) Comment on above: Performed By: #### C ELMIRA DUDLEY ADIFF #### [address] [address] MCH (RBC) [Entitic mass] 29.3 pg Normal 27.0-33.0 [facility] ([place]) Comment on above: Performed By: #### C ELMIRA DUDLEY, ADIFF #### [address] [address] MCHC 33.1 G/dL Normal 32.0-36.0 [facility] ([place] Comment on above: Performed By: #### C ELMIRA DUDLEY ADIFF #### [place] [id number] MCV (RBC) [Entitic vol] 88.5 fL Normal 80.0-99.0 [facility] ([place]) Comment on above: Performed By: #### C ELMIRA DUDLEY, ADIFF #### [place] [address] Platelet 287 10 3/mcL Normal 150-450 [facility] ([place]) Comment on above: Performed By: #### C ELMIRA DUDLEY ADIFF #### [place] [address] Platelet mean volume (Bld) [Entitic vol] 8.2 fL Normal 6.6-10.5 [facility] ([place]) Comment on above: Performed By: #### C ELMIRA DUDLEY, ADIFF #### [place] [id number] RBC 3.94 10 6/mcL Low 4.10-5.30 [facility] ([place] Comment on above: Performed By: #### C ELMIRA DUDLEY ADIFF #### [address] [address] WBC 7.4 10 3/mcL Normal 4.5-10.8 [facility] ([place] Comment on above: Performed By: #### C ELMIRA DUDLEY, ADIFF #### [place] [phone] Erythrocyte distribution width (RBC) [Ratio] 12.3 % Normal 11.5-14.5 [facility] ([place]) Comment on above: Performed By: #### C BC, ADIFF, ANEU, CMP, LIP, GFR, W #### [address] [address] Hematocrit (Bld) [Volume fraction] 37.4 % Normal 37.0-47.0 [facility] ([place] Comment on above: Performed By: #### C BC, ADIFF, ANEU, CMP, LIP, GFR, MDW #### [address] [address] Hgb 12.4 G/dL Normal 12.0-16.0 [facility] ([place] Comment on above: Performed By: #### C BC, ADIFF, ANEU, CMP, LIP, GFR, MDW #### [address] [address] MCH (RBC) [Entitic mass] 28.7 pg Normal 27.0-31.2 [facility] ([place] Comment on above: Performed By: #### C BC, ADIFF, ANEU, CMP, LIP, GFR, JW #### [address] [address] MCHC 33.2 G/dL Normal 33.0-37.0 [facility] ([place] Comment on above: Performed By: #### C BC, ADIFF, ANEU, CMP, LIP, GFR, W #### [address] [address] MCV (RBC) [Entitic vol] 86.4 fL Normal 80.0-94.0 [facility] ([place]) Comment on above: Performed By: #### C BC, ADIFF, ANEU, CMP, LIP, GFR, W #### [address] [address] Platelet 261 10 3/mcL Normal 130-400 [facility] ([place] Comment on above: Performed By: #### C BC, ADIFF, ANEU, CMP, LIP, GFR, MDW #### [address] [address] Platelet mean volume (Bld) [Entitic vol] 8.2 fL Normal 7.4-10.4 [facility] ([place] Comment on above: Performed By: #### C BC, ADIFF, ANEU, CMP, LIP, GFR, W #### [address] [address] RBC 4.32 10 6/mcL Normal 4.20-5.40 [facility] ([place] Comment on above: Performed By: #### C BC, ADIFF, ANEU, CMP, LIP, GFR, W #### [address] [address] WBC 7.7 10 3/mcL Normal 4.6-10.8 [facility] ([place] Comment on above: Performed By: #### C BC, ADIFF, ANEU, CMP, LIP, GFR, JW #### [address] [address] CMPon 01-05-2023 Albumin Level 2.9 G/dL Low 3.2-4.8 [facility] ([place]) Comment on above: Performed By: #### C BC ANEU, ADIFF #### [address] [address] Albumin/Globulin [Mass ratio] 1.1 {ratio} Normal 0.9-1.6 [facility] ([place] Comment on above: Performed By: #### C BC, ANEU, ADIFF #### [address] [address] ALP [Catalytic activity/Vol] 61 U/L Normal 38-126 [facility] ([place] Comment on above: Performed By: #### C BC, ANEU, ADIFF #### [address] [address] ALT [Catalytic activity/Vol] 11 U/L Normal 10-49 [facility] ([place] Comment on above: Performed By: #### C BC, ANEU, ADIFF #### [address] [address] AST [Catalytic activity/Vol] 11 U/L Normal 8-34 [facility] ([place]) Comment on above: Performed By: #### C ELMIRA DUDLEY, ADIFF #### [address] [address] Bili Total 0.30 mg/dL Normal 0.20-1.20 [facility] ([place]) Comment on above: Result Comment: Use of this assay is not recommended for patients undergoing treatment with eltrombopag due to the potential for falsely elevated results. Performed By: #### C ELMIRA DUDLEY, ADIFF #### [address] [address] BUN/Creatinine Ratio 13.7 ratio Normal 10.0-22.0 [facility] ([place]) Comment on above: Performed By: #### C ELMIRA DUDLEY, ADIFF #### [place] [address] Calcium [Mass/Vol] 7.9 mg/dL Low 8.7-10.4 [facility] ([place]) Comment on above: Performed By: #### C ELMIRA DUDLEY, ADIFF #### [address] [address] Chloride [Moles/Vol] 108 mmol/L Normal 98-110 [facility] ([place]) Comment on above: Performed By: #### C ELMIRA DUDLEY, ADIFF #### [place] [phone] CO2 [Moles/Vol] 23 mmol/L Normal 22-32 [facility] ([place] Comment on above: Performed By: #### C OCTAVIA ANEU, ADIFF #### [address] [address] Creatinine [Mass/Vol] 0.51 mg/dL Normal 0.50-1.20 [facility] ([place]) Comment on above: Performed By: #### C OCTAVIA ANEU, ADIFF #### [address] [address] Electrolyte Balance 12.0 mEq/L Normal 4.0-15.0 [facility] ([place]) Comment on above: Performed By: #### C ELMIRA DUDLEY, ADIFF #### [address] [address] Globulin 2.7 G/dL Normal 1.5-3.8 [facility] ([place]) Comment on above: Performed By: #### C BC, ANEU, ADIFF #### [address] [address] Glucose [Mass/Vol] 150 mg/dL High 70-110 [facility] ([place]) Comment on above: Performed By: #### C BC, ANEU, ADIFF #### [address] [address] Potassium [Moles/Vol] 3.4 mmol/L Low 3.5-5.0 [facility] ([place]) Comment on above: Performed By: #### C BC, ANEU, ADIFF #### [address] [address] Sodium [Moles/Vol] 143 mmol/L Normal 136-145 [facility] ([place] Comment on above: Performed By: #### C BC, ANEU, ADIFF #### [address] [address] Total Protein 5.6 G/dL Low 5.7-8.2 [facility] ([place]) Comment on above: Result Comment: No te - New Reference Range in effect 20 Performed By: #### C BC, ANEU, ADIFF #### [address] [address] Urea nitrogen [Mass/Vol] 7.0 mg/dL Low 8.0-22.0 [facility] ([place]) Comment on above: Performed By: #### C BC, ANEU, ADIFF #### [address] [address] Albumin Level 3.2 G/dL Low 3.5-5.0 [facility] ([place]) Comment on above: Performed By: #### C BC, ADIFF, ANEU, CMP, LIP, GFR, MDW ####[address] [place], [place] [address] Albumin/Globulin [Mass ratio] 1.0 {ratio} Low 1.1-2.5 [facility] ([place]) Comment on above: Performed By: #### C BC, ADIFF, ANEU, CMP, LIP, GFR, JW ####[address] [place], [place] [address] ALP [Catalytic activity/Vol] 73 U/L Normal 40-135 [facility] ([place]) Comment on above: Performed By: #### C BC, ADIFF, ANEU, CMP, LIP, GFR, JW ####[address] [place], [place] [address] ALT [Catalytic activity/Vol] 16 U/L Normal 14-59 [facility] ([place]) Comment on above: Performed By: #### C BC, ADIFF, ANEU, CMP, LIP, GFRJW ####[address] [place], [place] [address] AST [Catalytic activity/Vol] 15 U/L Normal 10-40 [facility] ([place]) Comment on above: Performed By: #### C BC, ADIFF, ANEU, CMP, LIP, GFRJW ####[address] [place], [place] [address] Bili Total 0.2 mg/dL Normal 0.2-1.0 [facility] ([place]) Comment on above: Result Comment: Use of this assay is not recommended for patients undergoing treatment with eltrombopag due to the potential for falsely elevated results. Performed By: #### C BC, ADIFF, ANEU, CMP, LIP, GFR, JW ####[address] [place], [place] [address] BUN/Creatinine Ratio 18 ratio Normal 7-27 [facility] ([place]) Comment on above: Performed By: #### C BC, ADIFF, ANEU, CMP, LIP, GFRJW ####[address] [place], [place] [address] Calcium [Mass/Vol] 8.6 mg/dL Normal 8.4-10.2 [facility] ([place] Comment on above: Performed By: #### C BC, ADIFF, ANEU, CMP, LIP, GFR, MDW ####[address] [place], [place] [address] Chloride [Moles/Vol] 106 mmol/L Normal 98-107 [facility] ([place]) Comment on above: Performed By: #### C BC, ADIFF, ANEU, CMP, LIP, GFR, MDW ####[address] [place], [place] [address] CO2 [Moles/Vol] 27 mmol/L Normal 22-29 [facility] ([place] Comment on above: Performed By: #### C BC, ADIFF, ANEU, CMP, LIP, GFR, MDW ####[address] [place], [place] [address] Creatinine [Mass/Vol] 0.66 mg/dL Normal 0.55-1.02 [facility] ([place] Comment on above: Performed By: #### C BC, ADIFF, ANEU, CMP, LIP, GFR, W ####[address] [place], [place] [address] Electrolyte Balance 9.0 mEq/L Normal 4.0-15.0 [facility] ([place]) Comment on above: Performed By: #### C BC, ADIFF, ANEU, CMP, LIP, GFR, JW ####[address] [place], [place] [address] Globulin 3.2 G/dL Normal [facility] ([place] Comment on above: Performed By: #### C BC, ADIFF, ANEU, CMP, LIP, GFR, W ####[address] [place], [place] [address] Glucose [Mass/Vol] 91 mg/dL Normal 70-105 [facility] ([place] Comment on above: Performed By: #### C BC, ADIFF, ANEU, CMP, LIP, GFR, W ####[address] [place], [place] [address] Potassium [Moles/Vol] 3.7 mmol/L Normal 3.5-5.1 [facility] ([place] Comment on above: Performed By: #### C BC, ADIFF, ANEU, CMP, LIP, GFR, MDW ####[address] [place], [place] [address] Sodium [Moles/Vol] 142 mmol/L Normal 136-145 [facility] ([place] Comment on above: Performed By: #### C BC, ADIFF, ANEU, CMP, LIP, GFR, MDW ####[address] [place], [place] [address] Total Protein 6.4 G/dL Normal 6.4-8.2 [facility] ([place]) Comment on above: Performed By: #### C BC, ADIFF, ANEU, CMP, LIP, GFR, MDW ####[address] [place], [place] [address] Urea nitrogen [Mass/Vol] 12 mg/dL Normal 7-18 [facility] ([place] Comment on above: Performed By: #### C BC, ADIFF, ANEU, CMP, LIP, GFR, W ####[address] [place], [place] [address] CT ABD/PELVIS W/ IV CONTRAST ONLYon 01-05-2023 [...] Date: 01/04/2023 11:49:43 PM Ordering Provider: BENJAMIN SHELTNO Normal [facility]) HGBon 01-05-2023 Hgb 10.6 G/dL Low 12.0-16.0 [facility]) Comment on above: Performed By: #### H GB #### [address] [address] LIPon 01-05-2023 Lipase Level 35 U/L Normal 16-77 [facility]) Comment on above: Performed By: #### C BARON DUDLEY, ELMIRA, CMP, LIP, GFR, MDW ####[facility] [place], [place] [address] MGon 01-05-2023 Magnesium [Mass/Vol] 1.5 mg/dL Low 1.6-2.4 [facility]) Comment on above: Performed By: #### C ELMIRA DUDLEY ADIFF #### [address] [address] PHOSon 01-05-2023 Phosphate [Mass/Vol] 3.1 mg/dL Normal 2.4-5.1 [facility]) Comment on above: Result Comment: No te - New Reference Range in effect 20 Performed By: #### C ELMIRA DUDLEY ADIFF #### [facility] [address] [place] [address] PREGUon 01-05-2023 HCG ( test) Ql (U) Negative Normal [facility] ([place]) Comment on above: Performed By: #### P REGU, UA, UAMICAO ####[address] [place], [place] [address] test (u) int Not detected Invalid Interpretation Code [facility] ([place]) Comment on above: Performed By: #### P REGU, UA, UAMICAO ####[address] [place], [place] [address] PROon 01-05-2023 INR Coag (PPP) [Relative time] 1.0 {INR} Normal [facility] ([place]) Comment on above: Result Comment: The [employer] (CHEST, 1992, 102:[id number]) recommended therapeutic range for oral anticoagulant therapy is: LOW RISK: Prophylaxis of venous thrombosis INR: 2.0-3.0 Treatment of pulmonary embolism 2.0-3.0 Prevention of systemic embolism 2.0-3.0 HIGH RISK: Mechanical prosthetic valves 2.5-3.5 Performed By: #### C ELMIRA DUDLEY, ADIFF #### [facility] [address] [place] [address] PT Coag (PPP) [Time] 12.2 s Normal 9.0-14.8 [facility] ([place]) Comment on above: Result Comment: Effe ctive 12/28/07, Protime results may be affected by some antibiotics (i.e. Ciprofloxacin, Azithromycin, Bactrim) which may potentiate the action of oral anticoagulants, with further increases in Protime/INR. Performed By: #### C ELMIRA DUDLEY, ADIFF #### [facility] [address] [place] [address] UAon 01-05-2023 Color (U) Yellow Normal [facility] ([place]) Comment on above: Performed By: #### U A ####[facility] [place] [address] Glucose (U) [Mass/Vol] Negative Normal Negative [facility] ([place]) Comment on above: Performed By: #### U A ####[place] [address] Ketones Ql (U) 80 mg/dL Abnormal Neg-Trace [facility] ([place]) Comment on above: Performed By: #### U A ####[place] [address] UA Appear Clear Normal Clear [facility] ([place]) Comment on above: Performed By: #### U A ####[place] [address] UA Blood Negative Normal Neg-Trace [facility] ([place]) Comment on above: Performed By: #### U A ####[place] [address] UA Leuk Est Negative Normal Negative [facility] ([place]) Comment on above: Performed By: #### U A ####[place] [address] UA Nitrite Negative Normal Negative [facility] ([place]) Comment on above: Performed By: #### U A ####[place] [address] UA pH 5.5 Normal 5.0 - 8.0 [facility] ([place]) Comment on above: Performed By: #### U A ####[place] [address] UA Protein Trace Normal Negative [facility] ([place]) Comment on above: Performed By: #### U A ####[place] [address] UA Spec Grav 1.020 Normal 1.006-1.029 [facility] ([place]) Comment on above: Performed By: #### U A ####[place] [address] UA Specimen Type Clean Catch Normal [facility] ([place]) Comment on above: Performed By: #### U A ####[place] [address] UA Urobilinogen 0.2 E.U./dL Normal 0.2-1.0 [facility] ([place]) Comment on above: Performed By: #### U A ####[address] [address] Urobilinogen (U) [Mass/Vol] Negative Normal Neg-Trace [facility] ([place] Comment on above: Performed By: #### U A ####[place] [address] Color (U) Yellow Normal [facility] ([place] Comment on above: Performed By: #### P REGU, UA, UAMICAO ####[address] [place] [address] Glucose (U) [Mass/Vol] Negative Normal Negative [facility] ([place]) Comment on above: Performed By: #### P REGU, UA, UAMICAO ####[address] [place] [address] Ketones Ql (U) 15 mg/dL Abnormal Negative [facility] ([place] Comment on above: Performed By: #### P REGU, UA, UAMICAO ####[address] [place], [place] [address] UA Appear Slightly Cloudy Abnormal Clear [facility] ([place] Comment on above: Performed By: #### P REGU, UA, UAMICAO ####[address] [place], [place] [address] UA Bili Small Abnormal Negative [facility] ([place] Comment on above: Performed By: #### P REGU, UA, UAMICAO ####[address] [place], [place] [address] UA Blood Negative Normal Negative [facility] ([place] Comment on above: Performed By: #### P REGU, UA, UAMICAO ####[address] [place], [place] [address] UA Leuk Est Negative Normal Negative [facility] ([place] Comment on above: Performed By: #### P REGU, UA, UAMICAO ####[address] [place], [place] [address] UA Nitrite Negative Normal Negative [facility] ([place] Comment on above: Performed By: #### P REGU, UA, UAMICAO ####[address] [place], [place] [address] UA pH 6.0 Normal 5.0 - 8.0 [facility] ([place]) Comment on above: Performed By: #### P REGU, UA, UAMICAO ####[address] [place], [place] [address] UA Protein 30 mg/dL Normal Negative [facility] ([place] Comment on above: Performed By: #### P REGU, UA, UAMICAO ####[address] [place], [place] [address] UA Spec Grav >=1.030 Abnormal 1.015-1.025 [facility] ([place]) Comment on above: Performed By: #### P REGU, UA, UAMICAO ####[address] [place], [place] [address] UA Specimen Type Clean Catch Normal [facility] ([place] Comment on above: Performed By: #### P REGU, UA, UAMICAO ####[address] [place], [place] [address] UA Urobilinogen 0.2 E.U./dL Normal 0.2-1.0 [facility] ([place] Comment on above: Performed By: #### P REGU, UA, UAMICAO ####[address] [place], [place] [address] US ABDOMEN LIMITEDon 023 US ABDOMEN LIMITED [...] 01/05/2023 2:13:15 AM Ordering Provider: BENJAMIN SHELTON [facility] ([place]) Laboratory - Chemistry and C hemistry - challengeon 06-30-2022 Glucose Ql (U) Negative [facility] Laboratory - Urinalysison Protein Ql (U) Negative [facility] No Panel InformationOrdered By: Dr. Cooper on 06-26-2022 Group B Streptococcus Culture Group B Beta Streptococcus is not isolated. [facility] Laboratory - Chemistry and C hemistry - challengeon 06-24-2022 Glucose Ql (U) Negative [facility] Laboratory - Urinalysison Protein Ql (U) Negative [facility] Laboratory - Chemistry and C hemistry - challengeon 06-17-2022 Glucose Ql (U) Negative [facility] Laboratory - Urinalysison Protein Ql (U) Negative [facility] Laboratory - Chemistry and C hemistry - challengeon 05-26-2022 Glucose Ql (U) Negative [facility] Laboratory - Urinalysison Protein Ql (U) Negative [facility] Laboratory - Chemistry and C hemistry - challengeon 04-30-2022 Glucose Ql (U) Negative [facility] Laboratory - Urinalysison Protein Ql (U) Negative [facility] Absolute lymphocyte countOrd ered By: Dr. Cooper on 04-14-2022 Lymphocytes Auto (Unsp spec) [#/Vol] 2.09 10*3/uL 0.83-4.51 [facility] Basophil percentageOrdered B y: Dr. Cooper on 04-14-2022 Basophils/100 WBC (Bld) 0.4 % 0-1 [facility] Eosinophils/100 WBC (Bld) 0.7 % 0-5 [facility] Neutrophils (Bld) [#/Vol] 7.2 10*3/uL 2.0-7.7 [facility] Neutrophils/100 WBC (Bld) 70.8 % 47-70 [facility] WBC (Bld) [#/Vol] 10.2 10*3/uL 4.4-11.0 [facility] Blood erythrocytes count (nu mber/volume)Ordered By: Dr. Cooper on 04-14-2022 RBC (Bld) [#/Vol] 3.68 10*6/uL 4.2-5.4 [facility] Blood hemoglobin measurement (mass/volume)Ordered By: Dr. Cooper on 04-14-2022 Hemoglobin (Bld) [Mass/Vol] 11.7 g/dL 12.0-15.0 [facility] Blood lymphocytes/100 leukoc ytesOrdered By: Dr. Cooper on 04-14-2022 Lymphocytes/100 WBC (Bld) 20.5 % 19-41 [facility] Blood monocytes/100 leukocyt esOrdered By: Dr. Cooper on 04-14-2022 Monocytes/100 WBC (Bld) 6.7 % 0-10 [facility] Blood platelet mean volumeOr dered By: Dr. oCoper on 04-14-2022 Platelet mean volume (Bld) [Entitic vol] 10.3 fL 6.2-12.0 [facility] Determination of erythrocyte mean corpuscular volume (MCV)Ordered By: Dr. Cooper on 04-14-2022 MCV (RBC) [Entitic vol] 92.1 fL 81-99 [facility] Gestational diabetes screen 1-hour screen with 50g oral glucose loadOrdered By: Dr. Cooper on 04-14-2022 Glucose 1 Hr post 50 g glucose PO [Mass/Vol] 106 mg/dL 70-140 [facility] Hematocrit Auto (Bld) [Volum e fraction]Ordered By: Dr. Cooper on 04-14-2022 Hematocrit (Bld) [Volume fraction] 33.9 % 37-47 [facility] Laboratory - Chemistry and C hemistry - challengeon 04-14-2022 Glucose Ql (U) Negative [facility] Laboratory - Hematology and Cell countsOrdered By: Dr. Cooper on 04-14-2022 Erythrocyte distribution width (RBC) [Entitic vol] 43.6 fL 35.1-43.9 [facility] Erythrocyte distribution width (RBC) [Ratio] 13.0 % 11.6-14.6 [facility] Immature granulocytes/100 WBC (Bld) 0.900 % 0.0-0.9 [facility] Comment on above: IG% - Immature Granu locytes (promyelocytes, myelocytes and metamyelocytes) > 1% indicates that a LEFT SHIFT is Present. MCH (RBC) [Entitic mass] 31.8 pg 27.0-32.0 [facility] Nucleated RBC/100 WBC (Bld) [Ratio] 0 % 0-5 [facility] Laboratory - Urinalysison Protein Ql (U) Negative [facility] MCHC Auto (RBC) [Mass/Vol]Or dered By: Dr. Cooper on 04-14-2022 MCHC (RBC) [Mass/Vol] 34.5 g/dL 32-36 [facility] Platelets bldOrdered By: Dr. Cooper on 04-14-2022 Platelets (Bld) [#/Vol] 243 10*3/uL 150-450 [facility] Laboratory - Chemistry and C hemistry - challengeon 03-21-2022 Glucose Ql (U) Negative [facility] Laboratory - Urinalysison Protein Ql (U) Negative [facility] Laboratory - Chemistry and C hemistry - challengeon 02-19-2022 Glucose Ql (U) Negative [facility] Work Phone: Laboratory - Urinalysison Protein Ql (U) Negative [facility] Work Phone: Laboratory - Chemistry and C hemistry - challengeon 01-20-2022 Glucose Ql (U) Negative [facility] Work Phone: Laboratory - Urinalysison Protein Ql (U) Negative [facility] Work Phone: Absolute lymphocyte counton 12-27-2021 Lymphocytes Auto (Unsp spec) [#/Vol] 1.99 10*3/uL 0.83-4.51 [facility] Work Phone: Basophil percentageon 2021 Basophils/100 WBC (Bld) 0.2 % 0-1 [facility] Work Phone: Eosinophils/100 WBC (Bld) 1.1 % 0-5 [facility] Work Phone: Neutrophils (Bld) [#/Vol] 6.1 10*3/uL 2.0-7.7 [facility] Work Phone: Neutrophils/100 WBC (Bld) 69.2 % 47-70 [facility] Work Phone: WBC (Bld) [#/Vol] 8.9 10*3/uL 4.4-11.0 [facility]: Blood erythrocytes count (nu mber/volume)on 12-27-2021 RBC (Bld) [#/Vol] 4.33 10*6/uL 4.2-5.4 [facility] Work Phone: Blood hemoglobin measurement (mass/volume)on 12-27-2021 Hemoglobin (Bld) [Mass/Vol] 12.6 g/dL 12.0-15.0 [facility] Work Phone: Blood lymphocytes/100 leukoc yteson 12-27-2021 Lymphocytes/100 WBC (Bld) 22.4 % 19-41 [facility] Work Phone: Blood monocytes/100 leukocyt eson 12-27-2021 Monocytes/100 WBC (Bld) 6.6 % 0-10 [facility] Work Phone: Blood platelet mean volumeon 12-27-2021 Platelet mean volume (Bld) [Entitic vol] 10.4 fL 6.2-12.0 [facility] Work Phone: Chlamydia trachomatis rRNA d etection by probe and target amplification methodon 12-27-2021 C. trachomatis rRNA [place]+probe Ql (Unsp spec) Negative Negative [facility] Work Phone: Determination of erythrocyte mean corpuscular volume (MCV)on 12-27-2021 MCV (RBC) [Entitic vol] 86.6 fL 81-99 [facility] Work Phone: HIV 1 and HIV-2 antibody ass ay with HIV-1 p24 antigen detectionon 12-27-2021 HIV 1+2 Ab+HIV1 p24 Ag IA Ql Non-Reactive Nonreactive [facility] Work Phone: Hematocrit Auto (Bld) [Volum e fraction]on 12-27-2021 Hematocrit (Bld) [Volume fraction] 37.5 % 37-47 [facility] Work Phone: Laboratory - Drug toxicology on 12-27-2021 Amphetamines Ql (U) Negative <1000 ng/mL [facility] [place] [facility] Work Phone: Benzodiazepines Ql (U) Negative < 200 ng/mL [facility] Work Phone: Cannabinoids Screen Ql (U) Negative < 50 ng/mL [facility] Work Phone: Cocaine Ql (U) Negative < 300 ng/mL [facility] Work Phone: Opiates Ql (U) Negative < 300 ng/mL [facility] Work Phone: Laboratory - Hematology and Cell countson 12-27-2021 Erythrocyte distribution width (RBC) [Entitic vol] 39.7 fL 35.1-43.9 [facility] Work Phone: Erythrocyte distribution width (RBC) [Ratio] 12.8 % 11.6-14.6 [facility] Work Phone: Immature granulocytes/100 WBC (Bld) 0.500 % 0.0-0.9 [facility] Work Phone: Comment on above: IG% - Immature Granu locytes (promyelocytes, myelocytes and metamyelocytes) > 1% indicates that a LEFT SHIFT is Present. MCH (RBC) [Entitic mass] 29.1 pg 27.0-32.0 [facility] Work Phone: Nucleated RBC/100 WBC (Bld) [Ratio] 0 % 0-5 [facility] Work Phone: Laboratory - Microbiology an d Antimicrobial susceptibilityon 12-27-2021 N. gonorrhoeae DNA [place]+probe Ql (Unsp spec) Negative Negative [facility] Work Phone: Comment on above: Performed at: =G - L [address] [id number] Director: Beth España MD, Phone: [phone] MCHC Auto (RBC) [Mass/Vol]on 12-27-2021 MCHC (RBC) [Mass/Vol] 33.6 g/dL 32-36 [facility] Work Phone: No Panel Informationon 12-27 Hepatitis B Surface Antigen Non-Reactive Nonreactive [facility] Work Phone: Hepatitis C Antibody Non-Reactive Nonreactive [facility] Work Phone: Comment on above: Non Reactive: < 0.8 Equivocal: >/= 0.8 to < 1.0 Reactive: >/= 1.0The CDC recommends that a reactive/equivocal HCV antibody result be followed up by the HCV Nucleic Acid Amplificationtest (516722) MDMA (Ecstasy) Screen Negative < 500 ng/mL [facility] Work Phone: Miscellaneous Test Comment MAILED SPECIMEN [facility] Work Phone: Rubella IgG Antibody Reactive Nonreactive [facility] Work Phone: Comment on above: Antibody Results Int erpretation of Immune Status Non Reactive Presumed Non-Immune Equivocal Equivocal Reactive Presumed Immune Urine Barbiturates Screen Negative < 200 ng/mL [facility] Work Phone: Urine Drug Screen Comment [facility] Work Phone: Comment on above: CONFIRMATORY TESTING [...] Methadone Screen Negative < 300 ng/mL [facility] Work Phone: Platelets bldon 12-27-2021 Platelets (Bld) [#/Vol] 313 10*3/uL 150-450 [facility] Work Phone: Serum Treponema species anti body detectionon 12-27-2021 Treponema sp Ab Ql (S) Non-Reactive [facility] Work Phone: Urine phencyclidine (PCP) de tectionon 12-27-2021 Phencyclidine Ql (U) Negative < 25 ng/mL [facility] Work Phone: CNOVon 03-22-2018 CNOV Office Visit (UCWSTR) TARYN CH ([id number]) [address] [facility] Fxjmhwdfhk94/8/18 12:15 PM YAAKOV STOVALL) UCWSTR During your visit today, we recorded the following information about you: Temperature Pulse Respiration Weight 98.9 degrees 83/minute 16/minute 55 kgYaakov Stovall PA-C 03/22/2018 1:40 PM Fgyrtn7003/22/2018Patient presents with:itcht painful rash on arms and [...] (FLONASE) 50 mcg/actuation nasal spray Use 1 [place] in each nostrildaily at bedtime.norgestimate 0.25 mg-ethinyl [...] Sig: FLUTICASONE 50 MCG/ACTUATION * Use 1 [place] in each nostril d* NORGESTIMATE 0.25 MG-ETHINYL [...] daily until gone.Letter Keven Stovall PA-C Urgent Efyx2523 [facility] [address]Syru: [phone]/8/2018Taryn Fally[address] [place] [address]Jh Whom it May Concern:This is to certify that Peyton Ch was seen at our office for medicalcare.If you have any questions please feel free to call.Sincerely:JAY JAY ZamoraCEncounter Number: [id number] Status:Closed by YAAKOV STOVALL PA-C on 03/22/[address] [facility] PROGRESSon 03-22-2018 Protein mass conc HNO ID: [id number]: Yaakov Andrew) Salinaervice: (none)Author Type: Physician AssistantType: [...] (FLONASE) 50 mcg/actuation nasal spray Use 1 [place] in eachnostril daily at bedtime.norgestimate 0.25 mg-ethinyl [...] these issues and agrees with theplan. Normal [facility] CBC and Differentialon 01-04 Abs Baso 0.07 k/uL Normal <0.11 [facility] Comment on above: Performed By: #### C BCDIF ####[facility] [address] [place], [place] [id number] Abs [place] 0.61 k/uL Normal <0.87 [facility] Comment on above: Performed By: #### C BCDIF ####[address] Abs Neut 4.83 k/uL Normal 1.45-7.50 [facility] Comment on above: Performed By: #### C BCDIF ####[address] Basophils/100 WBC Auto (Bld) 0.9 % Normal [facility] Comment on above: Performed By: #### C BCDIF ####[address] Eosinophils Auto #/vol (Bld) 0.14 10*3/uL Normal <0.46 [facility] Comment on above: Performed By: #### C BCDIF ####[phone] Eosinophils/100 WBC Auto (Bld) 1.8 % Normal [facility] Comment on above: Performed By: #### C BCDIF ####[phone] Erythrocyte distribution width Auto Ratio (RBC) 13.0 % Normal 11.5-15.0 [facility] Comment on above: Performed By: #### C BCDIF ####[phone] Hematocrit Auto Volume Fraction (Bld) 41.5 % Normal 36.0-46.0 [facility] Comment on above: Performed By: #### C BCDIF ####[place] [id number] Hemoglobin mass conc (Bld) 14.0 g/dL Normal 11.5-15.5 [facility] Comment on above: Performed By: #### C BCDIF ####[place] [id number] Lymphocytes Auto #/vol (Bld) 2.01 10*3/uL Normal 1.00-4.00 [facility] Comment on above: Performed By: #### C BCDIF ####[phone] Lymphocytes/100 WBC Auto (Bld) 26.2 % Normal [facility] Comment on above: Performed By: #### C BCDIF ####[phone] MCH Auto Entitic mass (RBC) 29.9 pG Normal 26.0-34.0 [facility] Comment on above: Performed By: #### C BCDIF ####[phone] MCHC Auto mass conc (RBC) 33.7 g/dL Normal 30.5-36.0 [facility] Comment on above: Performed By: #### C BCDIF ####[phone] MCV Auto Entitic volume (RBC) 88.5 fL Normal 80.0-100.0 [facility] Comment on above: Performed By: #### C BCDIF ####[place] [id number] Monocytes/100 WBC Auto (Bld) 8.0 % Normal [facility] Comment on above: Performed By: #### C BCDIF ####[place] [address] Neutrophils/100 WBC Auto (Bld) 63.1 % Normal [facility] Comment on above: Performed By: #### C BCDIF ####[place] [address] Platelet mean volume Auto Entitic volume (Bld) 10.4 fL Normal 9.0-12.7 [facility] Comment on above: Performed By: #### Micaela BCDIF ####[place] [id number] Platelets Auto #/vol (Bld) 305 10*3/uL Normal 150-400 [facility] Comment on above: Performed By: #### C BCDIF ####[place] [address] RBC Auto #/vol (Bld) 4.69 10*6/uL Normal 3.90-5.20 [facility] Comment on above: Performed By: #### C BCDIF ####[place] [id number] WBC Auto #/vol (Bld) 7.66 10*3/uL Normal 3.70-11.00 [facility] Comment on above: Performed By: #### C BCDIF ####[phone] Joseluis 01-04-2018 CNOV Office Visit (PEMDNA) DIMATARYNMckenzie Clemons ([id number]) 89 FDate Time Provider Department01/04/18 9:15 AM LINDSEY PIZARRO During your visit today, we recorded the following information about you: Temperature Pulse Respiration Blood pressure 97.9 degrees 63/minute 20/minute 108/72 Weight Height Last Period 52.2 kg 1.575 m 01/04/18Daselina Pizarro DO 01/04/2018 10:15 AM Fsrrvt12 year old female presents for a routine [...] of either heart problems or sudden Normal [facility] HISTORY PHYSICALon 8 HISTORY PHYSICAL HNO ID: [id number]: Lindsey Lewisrvice: (none)Author Type: PhysicianType: HANDPFiled: 01/04/2018 [...] of either heart problems or sudden Normal [facility] CNPTOUTREACHon 10-30-2017 [facility] Patient Outreach (PEMDNA) TARYN CH ([id number]) 89 FDate Time Provider Department10/30/17 LINDSEY PIZARRO PEMDNA During your visit today, we recorded the following information about you:Juliana Mackenzie Ma 03/26/2018 6:49 AM SignedPEDIATRIC OUTREACHSCHEDULE APPOINTMENTPeyton is overdue for her Well Visit.Please call patient and scheduleOffice Visit with Lindsey Pizarro DO. Please verify PCP and change if needed.Ok to Override Doctors Schedule: Grey Contact info:[phone] (home) [phone] (cell)Please message me directly if there are [...] *X FLUTICASONE 50 MCG/ACTUATION * Use 1 [place] in each nostril d*X ALBUTEROL SULFATE HFA 90 MCG/* Inhale 2 Puffs as instructed *X CLARITIN ORAL Take by mouth.Problem List As Of Date 10/30/2017 Noted Resolved ADD (attention deficit disorder) [F98.8] INVALID FOR* Pain in joint of right shoulder [M25.511] INVALID FOR* Chronic pain of right knee [M25.561, G89.29] INVALID FOR* Status:Closed by ProNoxis, PRODUSER on 03/26/[address] [facility] PROGRESSon 10-30-2017 Protein mass conc HNO ID: [id number]: Juliana Bustoservice: (none)Author Type: (none)Type: Progress NotesFiled: 03/26/2018 6:49 AMNote Text:PEDIATRIC OUTREACHSCHEDULE Brett is overdue for her Well Visit.Please call patient and scheduleOffice Visit with Lindsey Pizarro DO. Please verify PCP and change ifneeded.Ok to Override Doctors Schedule: [place] Contact info:[phone] (home) [phone] (cell)Please message me directly if there are any issues with scheduling.Thank you!SIGNATURE: Juliana Mackenzie Daniel PATIENT NAME: Peyton AmezcuaATE: October 30, 2017 : 3:[address] [facility] CNOVon 08-24-2017 CNOV Office Visit (PEMDNA) TARYN CH ([id number]) 89 FDate Time Provider Department08/24/17 9:00 AM KARIME HOLLOWAY (KAYLIE) PEMDNA During your visit today, we recorded the following information about you: Temperature Blood pressure Weight Last Period 97.6 degrees 112/64 51.6 kg 08/19/17Karime Holloway CNP, DAIRY QUALITY ASSURANCE OFFICER.KAYLIE 08/24/2017 9:46 AM Addendum5 to Go!TMHealthy Kids [...] is less iron deficiency anemia in pill users.superintendent container terminal use is associated with a decreased incidence [...] both estrogen and progesterone. combination pills are ezvagvfpbw57-71% effective in preventing . This pill comes [...] tenderness; and mildfluid retention. There is no skilled nursing eight gain with the use of the [...] for necessary health information.Karime Holloway CNPDepartment of PediatricsMemorial Health [phone] KAYLIE Holloway, DAIRY QUALITY ASSURANCE OFFICER.KAYLIE 08/24/2017 10:57 AM SignedPEDIATRIC CONTRACEPTION INITIAL VISITSERVICE [...] * FLUTICASONE 50 MCG/ACTUATION * Use 1 [place] in each nostril d* ALBUTEROL SULFATE HFA [...] less iron deficiency anemia in pill users. MCFP use is associated with a decreased incidence [...] and mild fluid retention. There is no roasterman eight gain with the use of the [...] information. Karime Holloway CNP Department of Pediatrics [facility] Prescriptions ordered this encounter Disp Refills Start [...] by KARIME HOLLOWAY CNP on 08/24/[address] [facility] PROGRESSon 08-24-2017 Protein mass conc HNO ID: [id number]: Karime (Kaylie) GIA Holloway.CNPService: (none)Author Type: Nurse [...] time. Can use the Nystatin ifneeded.SIGNATURE: Karime Tama, PRACTICE CONSULTANT PATIENT NAME: Peyton AmezcuaATE: August 24, 2017 : 9:[address] [facility] Culture, urine Bacteria identified Cx Nom (U) Culture exhibits no growth. [facility] Work Phone: Vital Signs Date Time Vital Sign Value Performing Clinician Aayush hayes 04-19-2025 14:29-0500 Body height 160.02 cm No Primary Care Physician [facility] 04-19-2025 14:29-0500 Body mass index (BMI) [Ratio] 25.4 kg/m2 No Primary Care Physician [facility] 04-19-2025 14:29-0500 Body weight 65.09 kg No Primary Care Physician [facility] 04-19-2025 14:29-0500 Diastolic blood pressure 83 mm[Hg] No Primary Care Physician [facility] 04-19-2025 14:29-0500 Systolic blood pressure 123 mm[Hg] No Primary Care Physician [facility] 04-04-2025 14:55-0400 Body height 160.02 cm No Primary Care Physician [facility] 04-04-2025 14:55-0400 Body mass index (BMI) [Ratio] 25 kg/m2 No Primary Care Physician [facility] 04-04-2025 14:55-0400 Body weight 64.09 kg No Primary Care Physician [facility] 04-04-2025 14:55-0400 Diastolic blood pressure 70 mm[Hg] No Primary Care Physician [facility] 04-04-2025 14:55-0400 Systolic blood pressure 120 mm[Hg] No Primary Care Physician [facility] 03-28-2025 13:32-0400 Body mass index (BMI) [Ratio] 25 kg/m2 No Primary Care Physician [facility] 03-28-2025 13:32-0400 Body weight 63.95 kg No Primary Care Physician [facility] 03-28-2025 13:32-0400 Diastolic blood pressure 82 mm[Hg] No Primary Care Physician [facility] 03-28-2025 13:32-0400 Systolic blood pressure 119 mm[Hg] No Primary Care Physician [facility] 03-20-2025 09:02-0400 Body height 160.02 cm No Primary Care Physician [facility] 03-20-2025 09:02-0400 Body mass index (BMI) [Ratio] 25 kg/m2 No Primary Care Physician [facility] 03-20-2025 09:02-0400 Body weight 64.21 kg No Primary Care Physician [facility] 03-20-2025 09:02-0400 Diastolic blood pressure 75 mm[Hg] No Primary Care Physician [facility] 03-20-2025 09:02-0400 Systolic blood pressure 121 mm[Hg] No Primary Care Physician [facility] 03-07-2025 09:43-0400 Body height 160.02 cm No Primary Care Physician [facility] 03-07-2025 09:43-0400 Body mass index (BMI) [Ratio] 24.7 kg/m2 No Primary Care Physician [facility] 03-07-2025 09:43-0400 Body weight 63.53 kg No Primary Care Physician [facility] 03-07-2025 09:43-0400 Diastolic blood pressure 72 mm[Hg] No Primary Care Physician [facility] 03-07-2025 09:43-0400 Systolic blood pressure 118 mm[Hg] No Primary Care Physician [facility] 02-16-2025 15:28-0400 Body height 160.02 cm No Primary Care Physician [facility] 02-16-2025 15:28-0400 Body mass index (BMI) [Ratio] 24.5 kg/m2 No Primary Care Physician [facility] 02-16-2025 15:28-0400 Body weight 62.85 kg No Primary Care Physician [facility] 02-16-2025 15:28-0400 Diastolic blood pressure 79 mm[Hg] No Primary Care Physician [facility] 02-16-2025 15:28-0400 Systolic blood pressure 123 mm[Hg] No Primary Care Physician [facility] 01-17-2025 15:34-0400 Body height 160.02 cm No Primary Care Physician [facility] 01-17-2025 15:34-0400 Body mass index (BMI) [Ratio] 23.4 kg/m2 No Primary Care Physician [facility] 01-17-2025 15:34-0400 Body weight 60.1 kg No Primary Care Physician [facility] 01-17-2025 15:34-0400 Diastolic blood pressure 74 mm[Hg] No Primary Care Physician [facility] 01-17-2025 15:34-0400 Systolic blood pressure 113 mm[Hg] No Primary Care Physician [facility] 12-22-2024 10:09-0400 Body height 160.02 cm No Primary Care Physician [facility] 12-22-2024 10:02-0400 Body mass index (BMI) [Ratio] 22.5 kg/m2 No Primary Care Physician [facility] 12-22-2024 10:02-0400 Body weight 57.77 kg No Primary Care Physician [facility] 12-22-2024 10:02-0400 Diastolic blood pressure 71 mm[Hg] No Primary Care Physician [facility] 12-22-2024 10:02-0400 Systolic blood pressure 116 mm[Hg] No Primary Care Physician [facility] 11-21-2024 10:16-0400 Body height 160.02 cm No Primary Care Physician [facility] 11-21-2024 10:16-0400 Body mass index (BMI) [Ratio] 22 kg/m2 No Primary Care Physician [facility] 11-21-2024 10:16-0400 Body weight 56.35 kg No Primary Care Physician [facility] 11-21-2024 10:16-0400 Diastolic blood pressure 86 mm[Hg] No Primary Care Physician [facility] 11-21-2024 10:16-0400 Systolic blood pressure 135 mm[Hg] No Primary Care Physician [facility] 10-25-2024 13:03-0400 Body height 160.02 cm No Primary Care Physician [facility] 10-25-2024 13:03-0400 Body mass index (BMI) [Ratio] 21.2 kg/m2 No Primary Care Physician [facility] 10-25-2024 13:03-0400 Body weight 54.2 kg No Primary Care Physician [facility] 10-25-2024 13:03-0400 Diastolic blood pressure 75 mm[Hg] No Primary Care Physician [facility] 10-25-2024 13:03-0400 Systolic blood pressure 135 mm[Hg] No Primary Care Physician [facility] 07-15-2024 08:48-0500 Body mass index (BMI) [Ratio] 21.7 kg/m2 No Primary Care Physician [facility] 07-15-2024 08:48-0500 Body weight 55.45 kg No Primary Care Physician [facility] 07-15-2024 08:48-0500 Diastolic blood pressure 81 mm[Hg] No Primary Care Physician [facility] 07-15-2024 08:48-0500 Systolic blood pressure 126 mm[Hg] No Primary Care Physician [facility] 07-08-2022 11:54-0500 Body height 160.02 cm No Primary Care Physician [facility] 07-08-2022 11:54-0500 Body mass index (BMI) [Ratio] 25 kg/m2 No Primary Care Physician [facility] 07-08-2022 11:54-0500 Body weight 64.18 kg No Primary Care Physician [facility] 07-08-2022 11:54-0500 Diastolic blood pressure 83 mm[Hg] No Primary Care Physician [facility] 07-08-2022 11:54-0500 Systolic blood pressure 133 mm[Hg] No Primary Care Physician [facility] 06-30-2022 09:32-0500 Body weight 63.41 kg No Primary Care Physician [facility] 06-30-2022 09:32-0500 Diastolic blood pressure 73 mm[Hg] No Primary Care Physician [facility] 06-30-2022 09:32-0500 Systolic blood pressure 122 mm[Hg] No Primary Care Physician [facility] 06-30-2022 08:57-0500 Body height 160.02 cm No Primary Care Physician [facility] 06-24-2022 09:03-0500 Body mass index (BMI) [Ratio] 24.5 kg/m2 No Primary Care Physician [facility] 06-24-2022 09:03-0500 Body weight 62.82 kg No Primary Care Physician [facility] 06-24-2022 09:03-0500 Diastolic blood pressure 83 mm[Hg] No Primary Care Physician [facility] 06-24-2022 09:03-0500 Systolic blood pressure 135 mm[Hg] No Primary Care Physician [facility] 06-17-2022 16:01-0500 Body mass index (BMI) [Ratio] 24.3 kg/m2 No Primary Care Physician [facility] 06-17-2022 16:01-0500 Body weight 62.25 kg No Primary Care Physician [facility] 06-17-2022 16:01-0500 Diastolic blood pressure 67 mm[Hg] No Primary Care Physician [facility] 06-17-2022 16:01-0500 Systolic blood pressure 113 mm[Hg] No Primary Care Physician [facility] 05-26-2022 09:06-0500 Body mass index (BMI) [Ratio] 24.6 kg/m2 No Primary Care Physician [facility] 05-26-2022 09:06-0500 Body weight 63.04 kg No Primary Care Physician [facility] 05-26-2022 09:06-0500 Diastolic blood pressure 62 mm[Hg] No Primary Care Physician [facility] 05-26-2022 09:06-0500 Systolic blood pressure 102 mm[Hg] No Primary Care Physician [facility] 04-30-2022 10:33-0500 Body mass index (BMI) [Ratio] 24.7 kg/m2 No Primary Care Physician [facility] 04-30-2022 10:33-0500 Body weight 63.27 kg No Primary Care Physician [facility] 04-30-2022 10:33-0500 Diastolic blood pressure 68 mm[Hg] No Primary Care Physician [facility] 04-30-2022 10:33-0500 Systolic blood pressure 106 mm[Hg] No Primary Care Physician [facility] 04-14-2022 09:42-0400 Body mass index (BMI) [Ratio] 23.6 kg/m2 No Primary Care Physician [facility] 04-14-2022 09:42-0400 Body weight 60.44 kg No Primary Care Physician [facility] 04-14-2022 09:42-0400 Diastolic blood pressure 76 mm[Hg] No Primary Care Physician [facility] 04-14-2022 09:42-0400 Systolic blood pressure 110 mm[Hg] No Primary Care Physician [facility] 03-21-2022 11:24-0400 Body mass index (BMI) [Ratio] 22.7 kg/m2 No Primary Care Physician [facility] 03-21-2022 11:24-0400 Body weight 58.22 kg No Primary Care Physician [facility] 03-21-2022 11:24-0400 Diastolic blood pressure 69 mm[Hg] No Primary Care Physician [facility] 03-21-2022 11:24-0400 Systolic blood pressure 106 mm[Hg] No Primary Care Physician [facility] 02-19-2022 10:32-0400 Body height 160.02 cm No Primary Care Physician [facility] Work Phone: 02-19-2022 10:32-0400 Body mass index (BMI) [Ratio] 21.5 kg/m2 No Primary Care Physician [facility] Work Phone: 02-19-2022 10:32-0400 Body weight 55.11 kg No Primary Care Physician [facility] Work Phone: 02-19-2022 10:32-0400 Diastolic blood pressure 73 mm[Hg] No Primary Care Physician [facility] Work Phone: 02-19-2022 10:32-0400 Systolic blood pressure 128 mm[Hg] No Primary Care Physician [facility] Work Phone: 01-20-2022 11:48-0400 Body mass index (BMI) [Ratio] 20 kg/m2 No Primary Care Physician [facility] Work Phone: 01-20-2022 11:48-0400 Body weight 51.36 kg No Primary Care Physician [facility] Work Phone: 01-20-2022 11:48-0400 Diastolic blood pressure 60 mm[Hg] No Primary Care Physician [facility] Work Phone: 01-20-2022 11:48-0400 Systolic blood pressure 108 mm[Hg] No Primary Care Physician [facility] Work Phone: 12-27-2021 15:23-0400 Diastolic blood pressure 80 mm[Hg] No Primary Care Physician [facility] Work Phone: 12-27-2021 15:23-0400 Systolic blood pressure 102 mm[Hg] No Primary Care Physician [facility] Work Phone: 12-27-2021 14:25-0400 Body height 160.02 cm No Primary Care Physician [facility] Work Phone: 12-27-2021 14:25-0400 Body mass index (BMI) [Ratio] 19.8 kg/m2 No Primary Care Physician [facility] Work Phone: 12-27-2021 14:25-0400 Body weight 50.8 kg No Primary Care Physician [facility] Work Phone: Encounters Encounter Date Encounter Type Care Provider Facility Start: 04-19-2025 End: 04-19-2025 ambulatory No Primary Care Physician Facility:[facility] Start: 04-04-2025 End: 04-04-[address] Sejal Romero DO -[facility] Work Phone: Start: 04-04-2025 End: 04-04-2025 ambulatory Sejal Romero Facility:[facility] Start: 04-03-2025 End: 04-03-2025 Patient encounter procedure Brenda MELENDEZ -[facility] Work Phone: Start: 04-03-2025 End: 04-03-2025 ambulatory No Primary Care Physician Facility:[facility] Start: 03-28-2025 End: 03-28-2025 Patient encounter procedure Brenda Salazar NP-Micaela -[facility] Work Phone: Start: 03-28-2025 End: 03-28-2025 ambulatory No Primary Care Physician -[facility] Start: 03-20-2025 End: 03-20-2025 Patient encounter procedure Ninfa Bautista CNM -[facility] Work Phone: Start: 03-20-2025 End: 03-20-2025 ambulatory No Primary Care Physician -[facility] Start: 03-07-2025 End: 03-07-2025 Patient encounter procedure Brenda Salazar NP-C -[facility] Work Phone: Start: 03-07-2025 End: 03-07-2025 ambulatory No Primary Care Physician -[facility] Start: 03-07-2025 End: 03-07-2025 ambulatory No Primary Care Physician Facility:[facility] Start: 02-16-2025 End: 02-16-[address] Pricilla Alfaro MD -[facility] Work Phone: Start: 02-16-2025 End: 02-16-2025 ambulatory No Primary Care Physician -[facility] Start: 01-17-2025 End: 01-17-2025 Patient encounter procedure Brenda MELENDEZ -[facility] Work Phone: Start: 01-17-2025 End: 01-17-2025 ambulatory No Primary Care Physician [facility] Start: 01-02-2025 End: 01-02-2025 ambulatory MD NO PRIMARY CARE [facility] Start: 12-22-2024 End: 12-22-[address] Sejal Romero DO -[facility] Work Phone: Start: 12-22-2024 End: 12-22-2024 ambulatory No Primary Care Physician -[facility] Start: 11-21-2024 End: 11-21-2024 Patient encounter procedure Ninfa Bautista CNM -[facility] Work Phone: Start: 11-21-2024 End: 11-21-2024 ambulatory No Primary Care Physician [facility] Work Phone: Start: 11-21-2024 End: 11-21-2024 ambulatory No Primary Care Physician Facility:[facility] Start: 10-25-2024 End: 10-25-2024 ambulatory No Primary Care Physician [facility] Work Phone: Start: 10-25-2024 End: 10-25-2024 Patient encounter procedure Ninfa Bautista CNM -[facility] Work Phone: Start: 10-25-2024 End: 10-25-2024 Patient encounter procedure Ninfa Bautista CNM -[facility] Work Phone: Start: 10-25-2024 End: 10-25-2024 ambulatory No Primary Care Physician [facility] Work Phone: Start: 10-25-2024 End: 10-25-2024 ambulatory No Primary Care Physician Facility:[facility] Start: 07-15-2024 End: 07-15-[address] Sejal Romero DO [facility] Work Phone: Start: 07-15-2024 End: 07-15-2024 ambulatory No Primary Care Physician Facility:[facility] Start: 01-05-2023 End: 01-06-2023 ambulatory HIREN VALENTIN MD Facility:[facility] Start: 01-04-2023 End: 01-05-2023 Emergency department patient visit DR BENJAMIN SHELTON MD Facility:[facility] Start: 07-08-2022 End: 07-08-2022 Patient encounter procedure No Primary Care Physician [facility] Start: 06-30-2022 End: 06-30-2022 Patient encounter procedure No Primary Care Physician [facility] Start: 06-26-2022 End: 06-26-2022 ambulatory No Primary Care Physician [facility] Work Phone: Start: 06-26-2022 End: 06-26-2022 Patient encounter procedure No Primary Care Physician [facility]-Ultrasound, [facility] Start: 06-24-2022 End: 06-24-2022 ambulatory No Primary Care Physician [facility] Work Phone: Start: 06-24-2022 End: 06-24-2022 Patient encounter procedure No Primary Care Physician [facility]-Laboratory, Specimen Start: 06-24-2022 End: 06-24-2022 Patient encounter procedure No Primary Care Physician [facility] Start: 06-17-2022 End: 06-17-2022 Patient encounter procedure No Primary Care Physician [facility] Start: 05-26-2022 End: 05-26-2022 Patient encounter procedure No Primary Care Physician [facility] Start: 04-30-2022 End: 04-30-2022 Patient encounter procedure No Primary Care Physician [facility] Start: 04-14-2022 End: 04-14-2022 ambulatory No Primary Care Physician [facility] Work Phone: Start: 04-14-2022 End: 04-14-2022 Patient encounter procedure No Primary Care Physician [facility] Start: 03-21-2022 End: 03-21-2022 Patient encounter procedure No Primary Care Physician [facility] Start: 03-04-2022 End: 03-04-2022 ambulatory No Primary Care Physician [facility] Work Phone: Start: 03-04-2022 End: 03-04-2022 Patient encounter procedure No Primary Care Physician [facility] Start: 02-19-2022 End: 02-19-2022 Patient encounter procedure No Primary Care Physician [facility] Start: 01-20-2022 End: 01-20-2022 Patient encounter procedure No Primary Care Physician [facility] Start: 12-27-2021 End: 12-27-2021 Patient encounter procedure No Primary Care Physician [facility] Start: 03-22-2018 End: 03-23-2018 Patient encounter [address]ARIME HOLLOWAY [facility] Start: 01-04-2018 End: 01-06-2018 Patient encounter LINDSEY PIZARRO [facility] Start: 08-24-2017 End: 08-25-2017 Patient encounter KARIME HOLLOWAY [facility] Procedures Date Procedure Procedure Detail Performing [...] HCV Quant by PCR testing - HCVPCR #[id number] Non Reactive: < 0.8 Equivocal: >/= 0.8 [...] therefore, no HPV testing was performed.Performed at: [facility] [address] [id number] Director: Melba Britton PhD, Phone: [phone] at: [facility] [address] [id number] Director: Beth España MD, Phone: [phone] Start: 10-25-2024 Urine culture No Primar y [...] Activity Detail Author Start: 05-29-2025 ambulatory Ambulatory Facility:[facility] Start: 05-29-2025 ambulatory Ambulatory Facility:[facility] Start: 05-01-2025 ambulatory Ambulatory Facility:[facility] Start: 04-19-2025 End: 04-19-2025 Patient encounter procedure Adopted -[facility] Work Phone: Start: 04-04-2025 End: 04-04-2025 Patient encounter procedure Adopted -[facility] Work Phone: Start: 04-03-2025 Ultrasound scan for growth OB Limited With [employer] [facility] Start: 04-03-2025 Patient encounter procedure Registered Clinical -[facility] Work Phone: Start: 11-21-2024 CBC W Auto Differential panel - Blood [facility] Start: 11-21-2024 Hepatitis C antibody measurement [facility] Start: 11-21-2024 Procedure [facility] Start: 11-21-2024 Rubella IgG measurement [facility] Start: 11-21-2024 Serologic test for syphilis [facility] Start: 11-21-2024 [facility] Start: 10-25-2024 Liquid based cervical cytology screening [facility] Start: 07-15-[address] [facility] Work Phone: Start: 03-04-2022 Transvaginal obstetric ultrasonography Transvaginal w/Preg US [facility] Work Phone: Start: 12-27-2021 [facility] Work Phone: Start: 12-27-2021 Chlamydia deoxyribonucleic acid detection [facility] Work Phone: CBC W Auto Different ial panel - Blood [facility] CBC W Auto Different ial panel - Blood [facility] Chlamydia deoxyribon ucleic acid detection [facility] Erythrocyte mean corpuscular volume determination [facility] Hematocrit [Volume Fraction] of Blood [facility] Hemoglobin [Mass/vol ume] in Blood [facility] Hepatitis B virus centeno rface Ag [Presence] in Serum [facility] Hepatitis C antibody measurement [facility] Leukocytes [#/volume ] in Blood [facility] Liquid based cervica l cytology screening [facility] Mean corpuscular hem oglobin concentration determination [facility] Mean corpuscular hem oglobin determination [facility] Measurement of gluco se 2 hours after glucose challenge for glucose tolerance test [facility] Neisseria gonorrhoea e rRNA [Presence] in Unspecified specimen by [place] with probe detection [facility] Work Phone: Neutrophil count [facility] Neutrophil percent differential count [facility] Patient referral [facility] Work Phone: PCR test for Chlamyd ia trachomatis [facility] Work Phone: Platelets [#/volume] in Blood [facility] Procedure [facility] Red blood cell count [facility] Red cell distributio n width determination [facility] Rubella IgG measurement [facility] Serologic test for syphilis [facility] Serologic test for syphilis [facility] Ultrasound scan for growth [facility] Urine culture Urine Culture [facility] Work Phone: [facility] Immunizations Immunization Date Immunization Notes Care Provider Fa sandra 04-23-2020 influenza, injectable,quadrivalent , preservative free, pediatric No Primary Care Physician [facility] Payers Date Payer Category Payer Unknown [id number] 2024 Self-pay [id number] 2023 Unknown [id number] 1999 Unknown [id number] 2.16.8 [id number] 1999 Unknown [id number] 2.16.8 40.1.510117.3.579.2.627 1999 Unknown [id number] 2.16. 840.1.048535.3.579.2.479 Unknown [id number] Unknown [id number] Unknown [facility] PACKAGE PLAN [id number] Unknown [id number] 2.16.8 40.1.642017.3.579.2.462 Unknown [id number] 2.16.8 40.1.338482.3.579.2.462 Unknown [id number] 2.16.8 40.1.715300.3.579.2.462 Unknown [id number] 2.16.8 40.1.653424.3.579.2.462 Unknown [id number] 2.16.8 40.1.525728.3.579.2.462 Unknown [id number] 2.16.8 40.1.901694.3.579.2.462 Unknown [id number] 2.16.8 40.1.850342.3.579.2.462 Unknown [id number] 2.16.8 40.1.166528.3.579.2.462 Unknown [id number] 2.16.8 40.1.604241.3.579.2.462 Unknown [id number] 2.16.8 40.1.003803.3.579.2.462 Unknown [id number] 2.16.8 40.1.089056.3.579.2.462 Unknown [id number] 2.16.8 40.1.668878.3.579.2.462 Unknown [id number] 2.16.8 40.1.619304.3.579.2.462 Unknown [id number] 2.16.8 40.1.961060.3.579.2.462 Unknown [id number] 2.16.8 40.1.979575.3.579.2.462 Unknown [id number] 2.16.8 40.1.983083.3.579.2.462 Unknown [id number] 2.16.8 40.1.496775.3.579.2.462 Unknown [id number] 2.16.8 40.1.172391.3.579.2.462 Social History Date Type Detail Facility Start: 12-27-2021 End: 07-08-2022 Tobacco smoking status FLIS Unknown if ever smoked [facility] Start: 2000 Sex Assigned At Female [facility] Start: 10-13-2024 End: 10-13-2024 Tobacco smoking status NHIS Never smoked tobacco (finding) [facility] Sex Female [facility] Clinical Notes 07-15-2024 to 04-04-2025 Note Date & Type Note Facility 04-04-2025 Progress note [facility] 04-04-2025 Progress note Note Date/Time April 04, 2025 4:45pm [facility] [address], [address] [place] [address] OFFICE VISIT Date of Service: 04/04/25 MR#: [id number] Acct: [id number] Name: PEYTON DEVINE GLENROY Rep #: [id number] : 2000 Provider: Dr. 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 Is patient in pain?: No [...] current occupational status: previously employed current occupation: [employer] current occupational exposures/hazards: No pets and animals: Yes pets and animals: dog(s) history of recent travel: Yes ([place] in August) out of state: Yes out of country: No sexually active: Yes Smoking Status: Never smoker second hand exposure: No alcohol intake: never substance use type: does not use caffeine: No what type of physical activity do you participate in: walking carmen/yazidism: None seatbelt use: always do you feel [...] Haven 41 live - full term Female [facility] Mariusz 07/16/22 Pattie 39 live - full term 8lbs 3oz Female spinal [facility] Dr. Jewell Delivery Date: 11/14/20 Last [...] -?-?-?-?-?-?-?-?-?-?-?-?- KW- no vb/crampi ng. feeling better. [facility] anatomy ordered, labs today. 12/22/24 -?-?-?-?-?-?-?-?-?-?-?-?- [...] circumvallente placenta-will get growth US 36 wk [facility] 02/16/25 -?-?-?-?-?-?-?-?-?-?-?-?- 25w 3d 138 lb [...] POC Urinalysis 2 Dip (Clinic) Today 04/04/25 2146 <Electronically signed by Sejal Arroyo DO> Date _ Sejal Romero DO [facility] Signature: Date (if applicable) CC: ~ [facility] Work Phone: 1(952) 667-164810-14-2025 Progress [facility] [address] [place] [address], [address] [place] [address] OFFICE VISIT Date of Service: 03/28/25 MR#: [id number] Acct: [id number] Name: PEYTON DEVINE GLENROY Rep #: [id number] : 2000 Provider: AL Salazar Age/Sex: 24/F Location[place] [facility] Status: Signed Intake Vital Signs 03/20/25 09:02 03/28/25 13:32 03/28/25 13:41 Height 5 ft 3 in 5 ft 3 in 5 ft 3 in Weight: 141 lb 9 oz 141 lb BMI 25.0 25.0 BP 121/75 H 119/82 H Intake Visit Reasons: OB, htn, dizzy Chief Complaint: HTN, Dizzy 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 Is patient in pain?: No [...] current occupational status: previously employed current occupation: [employer] current occupational exposures/hazards: No pets and animals: Yes pets and animals: dog(s) history of recent travel: Yes ([place] in August) out of state: Yes out of country: No sexually active: Yes Smoking Status: Never smoker second hand exposure: No alcohol intake: never substance use type: does not use caffeine: No what type of physical activity do you participate in: walking carmen/yazidism: None seatbelt use: always do you feel [...] Haven 41 live - full term Female [facility] Mariusz 07/16/22 Pattie 39 live - full term 8lbs 3oz Female spinal [facility] Dr. Jewell Delivery Date: 11/14/20 Last [...] -?-?-?-?-?-?-?-?-?-?-?-?- KW- no vb/crampi ng. feeling better. [facility] anatomy ordered, labs today. 12/22/24 -?-?-?-?-?-?-?-?-?-?-?-?- [...] circumvallente placenta-will get growth US 36 wk [facility] 02/16/25 -?-?-?-?-?-?-?-?-?-?-?-?- 25w 3d 138 lb [...] care and follow up. 03/28/25 1350 s RN ACCESS RN ACCESS-C> Date _ Brenda Salazar RN ACCESS RN ACCESS-C Cosigner Signature: Date (if applicable) CC: ~ [facility]10-06-2025 [facility] [address] [place] [address], [address] [place] [address] OFFICE VISIT Date of Service: 03/20/25 MR#: [id number] Acct: [id number] Name: PEYTON DEVINE GLENROY Rep #: [id number] : 2000 Provider: VICKIE Bautista Age/Sex: 24/F Location: [facility] Status: Signed Intake Vital Signs 01/17/25 15:34 03/07/25 09:43 03/20/25 09:02 Height 5 ft 3 in 5 ft 3 in 5 ft 3 in Weight: 141 lb 9 oz BMI 25.0 BP 121/75 H Intake Visit Reasons: 30 WK OB 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 Is patient in pain?: No [...] current occupational status: previously employed current occupation: [employer] current occupational exposures/hazards: No pets and animals: Yes pets and animals: dog(s) history of recent travel: Yes ([place] in August) out of state: Yes out of country: No sexually active: Yes Smoking Status: Never smoker second hand exposure: No alcohol intake: never substance use type: does not use caffeine: No what type of physical activity do you participate in: walking carmen/yazidism: None seatbelt use: always do you feel [...] Haven 41 live - full term Female [facility] Mariusz 07/16/22 Pattie 39 live - full term 8lbs 3oz Female spinal [facility] Dr. Jewell Delivery Date: 11/14/20 Last [...] -?-?-?-?-?-?-?-?-?-?-?-?- KW- no vb/caitlin ng. feeling better. [facility] anatomy ordered, labs today. 12/22/24 -?-?-?-?-?-?-?-?-?-?-?-?- [...] woods. States had spotting day prior to [facility] US but none since. Has questions about circumvallente placenta-will get growth US 36 wk [facility] 02/16/25 -?-?-?-?-?-?-?-?-?-?-?-?- 25w 3d 138 lb [...] Cosigner Signature: Date (if applicable) CC: ~ [facility]09-23-2025 [facility] [address] [place] [address], [address] [place] [address] OFFICE VISIT Date of Service: 03/07/25 MR#: [id number] Acct: [id number] Name: PEYTON DEVINE GLENROY Rep #: [id number] : 2000 Provider: AL Salazar Age/Sex: 24/F Location: [facility] Status: Signed Intake Vital Signs 12/22/24 10:09 01/17/25 15:34 02/16/25 15:28 03/07/25 09:43 Height 5 ft 3 in 5 ft 3 in 5 ft 3 in 5 ft 3 in Weight: 140 lb 1 oz BMI 24.7 BP 118/72 Intake Visit Reasons: 28wk ob/glucose Chief Complaint: 28 Week OB/Glucose 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 Is patient in pain?: No [...] Zika: Zika virus screening: Negative : Yes [facility] Medical History Desquamated skin Anxiety Adopted Surgical History delivery delivered History of surgery No significant past surgical history Social History adopted: Yes household members: spouse and children housing: house number of children: 2 current occupational status: previously employed current occupation: [employer] current occupational exposures/hazards: No pets and animals: Yes pets and animals: dog(s) history of recent travel: Yes ([place] in August) out of state: Yes out of country: No sexually active: Yes Smoking Status: Never smoker second hand exposure: No alcohol intake: never substance use type: does not use caffeine: No what type of physical activity do you participate in: walking carmen/yazidism: None seatbelt use: always do you feel [...] Haven 41 live - full term Female [facility] Mariusz 07/16/22 Pattie 39 live - full term 8lbs 3oz Female spinal [facility] Dr. Jewell Delivery Date: 11/14/20 Last [...] circumvallente placenta-will get growth US 36 wk [facility] 02/16/25 -?-?-?-?-?-?-?-?-?-?-?-?- 25w 3d 138 lb [...] care and follow up. 03/07/25 1034 s RN ACCESS RN ACCESS-C> Date _ Brenda Salazar RN ACCESS RN ACCESS-C Nuha Signature: Date (if applicable) CC: ~ [facility] [id number] [facility] [address] [place] [address], [address] [place] [address] OFFICE VISIT Date of Service: 02/16/25 MR#: [id number] Acct: [id number] Name: PEYTON DEVINE Rep #: [id number] : 2000 Provider: Dr. Hi Alfaro MD Age/Sex: 24/F Location: [facility] Status: Signed Intake Vital Signs 12/22/24 10:01/17/25 15:34 02/16/25 15:28 Height 5 ft 3 in 5 ft 3 in 5 ft 3 in Weight: 138 lb 9 oz BMI 24.5 BP 123/79 H Intake Visit Reasons: 25wk ob 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 Is patient in pain?: No [...] current occupational status: previously employed current occupation: [employer] current occupational exposures/hazards: No pets and animals: Yes pets and animals: dog(s) history of recent travel: Yes ([place] in August) out of state: Yes out of country: No sexually active: Yes Smoking Status: Never smoker second hand exposure: No alcohol intake: never substance use type: does not use caffeine: No what type of physical activity do you participate in: walking carmen/yazidism: None seatbelt use: always do you feel [...] Haven 41 live - full term Female [facility] Mariusz 07/16/22 Pattie 39 live - full term 8lbs 3oz Female spinal [facility] Dr. Romero Davey Delivery Date: 11/14/20 [...] -?-?-?-?-?-?-?-?-?-?-?-?- KW- no vb/crampi ng. feeling better. [facility] anatomy ordered, labs today. 12/22/24 -?-?-?-?-?-?-?-?-?-?-?-?- [...] circumvallente placenta-will get growth US 36 wk [facility] 02/16/25 -?-?-?-?-?-?-?-?-?-?-?-?- 25w 3d 138 lb [...] alona SMALL> Date _ Pricilla Alfaro MD [facility] Signature: Date (if applicable) CC: ~ [facility] [id number] Progress note Author Pricilla Alfaro [facility] Note Date/Time February 16, 2025 4:12pm [facility] [address] [place] [address], [address] [place] [address] OFFICE VISIT Date of Service: 02/16/25 MR#: [id number] Acct: [id number] Name: PEYTON DEVINE Rep #: [id number] : 2000 Provider: Dr. Hi Alfaro MD Age/Sex: 24/F Location: [facility] Status: Signed Intake Vital Signs 12/22/24 10:09 01/17/25 15:34 02/16/25 15:28 Height 5 ft 3 in 5 ft 3 in 5 ft 3 in Weight: 138 lb 9 oz BMI 24.5 BP 123/79 H Intake Visit Reasons: 25wk ob 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 Is patient in pain?: No [...] current occupational status: previously employed current occupation: [employer] current occupational exposures/hazards: No pets and animals: Yes pets and animals: dog(s) history of recent travel: Yes ([place] in August) out of state: Yes out of country: No sexually active: Yes Smoking Status: Never smoker second hand exposure: No alcohol intake: never substance use type: does not use caffeine: No what type of physical activity do you participate in: walking carmen/yazidism: None seatbelt use: always do you feel [...] Haven 41 live - full term Female [facility] Mariusz 07/16/22 Pattie 39 live - full term 8lbs 3oz Female spinal [facility] Dr. Jewell Delivery Date: 11/14/20 Last [...] -?-?-?-?-?-?-?-?-?-?-?-?- KW- no vb/crampi ng. feeling better. [facility] anatomy ordered, labs today. 12/22/24 -?-?-?-?-?-?-?-?-?-?-?-?- [...] movement. States had spotting day prior to [facility] US but none since. Has questions about circumvallente placenta-will get growth US 36 wk [facility] 02/16/25 -?-?-?-?-?-?-?-?-?-?-?-?- 25w 3d 138 lb [...] Cosigner Signature: Date (if applicable) CC: ~ [facility] Work Phone: 1(147) 330-404207-10-2025 Evaluation note* Diagnosis Onset Date Resolution Status [...] Supervision of high-risk acute April 04 2:45pm [facility] Work Phone: 1(872) 622-459207-10-2025 Evaluation note* Diagnosis Onset Date Resolution Status [...] Supervision of high-risk acute April 19 2:25pm [facility] Work Phone: 1(853) 283-568907-10-2025 [facility] [address] [facility], [address] [place] [address] OFFICE VISIT Date of Service: 12/22/24 MR#: [id number] Acct: [id number] Name: PEYTON DEVINE Rep #: [id number] : 2000 Provider: Dr. Erin Romero DO Age/Sex: 24/F Location: [facility] Status: Signed Intake Vital Signs 10/25/24 13:03 11/21/24 10:16 12/22/24 10:02 12/22/24 10:09 Height 5 ft 3 in 5 ft 3 in 5 ft 3 in 5 ft 3 in Weight: 127 lb 6 oz BMI 22.5 BP 116/71 Intake Visit Reasons: 17 wk ob 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 Is patient in pain?: No [...] current occupational status: previously employed current occupation: [employer] current occupational exposures/hazards: No pets and animals: Yes pets and animals: dog(s) history of recent travel: Yes ([place] in August) out of state: Yes out of country: No sexually active: Yes Smoking Status: Never smoker second hand exposure: No alcohol intake: never substance use type: does not use caffeine: No what type of physical activity do you participate in: walking carmen/yazidism: None seatbelt use: always do you feel [...] Haven 41 live - full term Female [facility] Mariusz 07/16/22 Pattie 39 live - full term 8lbs 3oz Female spinal [facility] Dr. Jewell Delivery Date: 11/14/20 Last [...] -?-?-?-?-?-?-?-?-?-?-?-?- KW- no vb/crampi ng. feeling better. [facility] anatomy ordered, labs today. 12/22/24 -?-?-?-?-?-?-?-?-?-?-?-?- [...] : Status: Acute Comment: PRR (waiting on [facility]) , BRIGIDA 05/29 PC: Pattie Suarez : [...] Cosigner Signature: Date (if applicable) CC: ~ [facility]06-09-2025 Evaluation note* Diagnosis Onset Date Resolution Status [...] of high-risk acute March 07, 2025 9:42am [facility] Work Phone: 1(803) [phone] Evaluation note* Diagnosis Onset Date Resolution Status [...] Supervision of high-risk acute March 20 8:59am [facility] Work Phone: 1([phone]) 727-122506-09-2025 [facility] [address] [place] [address], [address] [place] [address] OFFICE VISIT Date of Service: 11/21/24 MR#: [id number] Acct: [id number] Name: PEYTON DEVINE GLENROY Rep #: [id number] : 2000 Provider: VICKIE Bautista Age/Sex: 24/F Location: [facility] Status: Signed Intake Vital Signs 07/15/24 08:50 10/25/24 13:03 11/21/24 10:16 Height 5 ft 3 in 5 ft 3 in 5 ft 3 in Weight: 124 lb 4 oz BMI 22.0 BP 135/86 H Intake Visit Reasons: 13wk OB 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 Is patient in pain?: No [...] current occupational status: previously employed current occupation: [employer] current occupational exposures/hazards: No pets and animals: Yes pets and animals: dog(s) history of recent travel: Yes ([place] in August) out of state: Yes out of country: No sexually active: Yes Smoking Status: Never smoker second hand exposure: No alcohol intake: never substance use type: does not use caffeine: No what type of physical activity do you participate in: walking carmen/yazidism: None seatbelt use: always do you feel [...] Haven 41 live - full term Female [facility] Mariusz 07/16/22 Pattie 39 live - full term 8lbs 3oz Female spinal [facility] Dr. Jewell Delivery Date: 11/14/20 Last [...] Cosigner Signature: Date (if applicable) CC: ~ [facility]05-13-2025 Evaluation note* Diagnosis Onset Date Resolution Status [...] high-risk acute November 21, 2024 1 0:14am [facility] Work Phone: [phone] Evaluation note* Diagnosis Onset Date Resolution Status [...] of high-risk acute December 22, 2024 10:00am [facility] Work Phone: 1(844) 985-288905-13-2025 Evaluation note* Diagnosis Onset Date Resolution Status [...] of high-risk acute January 17, 2025 3:31pm [facility] Work Phone: 1(162) 288-257205-13-2025 Evaluation note* Diagnosis Onset Date Resolution Status [...] high-risk acute February 16, 2 025 3:23pm [facility] Work Phone: 1(372) 605-833905-13-2025 [facility] [address] [place] [address], [address] [place] [address] OFFICE VISIT Date of Service: 10/25/24 MR#: [id number] Acct: [id number] Name: PEYTON DEVINE GLENROY Rep #: [id number] : 2000 Provider: VICKIE Bautista Age/Sex: 24/F [place] [facility] [place]: Signed Intake Vital Signs 07/15/24 08:50 10/25/24 13:03 Height 5 ft 3 in 5 ft 3 in Weight: 119 lb 8 oz BMI 21.2 BP 135/75 H Intake Visit Reasons: NOB: LMP 310, BRIGIDA 05/29 Chief Complaint: New OB 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 Is patient in pain?: No [...] current occupational status: previously employed current occupation: [employer] current occupational exposures/hazards: No pets and animals: Yes pets and animals: dog(s) history of recent travel: Yes ([place] in August) out of state: Yes out of country: No sexually active: Yes Smoking Status: Never smoker second hand exposure: No alcohol intake: never substance use type: does not use caffeine: No what type of physical activity do you participate in: walking How many days of moderate to strenuous exercise, like a brisk walk, did you do in the last 7 days: 3 carmen/yazidism: None seatbelt use: always do you feel [...] Haven 41 live - full term Female [facility] Mariusz 07/16/22 Pattie 39 live - full term 8lbs 3oz Female spinal [facility] Dr. Jewell Delivery Date: 11/14/20 Last [...] Pulmonary (e.g.,TB,Asthma), Seasonal allergies, Drug/latex allergies/reactions, Breast, Transit Manager surgery, Anesthetic complications, History of abnormal pap, [...] Breen Signature: Date (if applicable) CC: ~ [facility]01-31-2025 Evaluation note* Diagnosis Onset Date Resolution [...] high-risk acute October 25, 2024 1 2:59pm [facility] Work Phone: Evaluation note* Diagnosis Onset Date Resolution Status History of section acute History of oligohydramnios a cute acute Supervision of normal [facility] Work Phone: Evaluation note* Diagnosis Onset Date Resolution Status History of section acute History of oligohydramnios a cute acute Supervision of normal acute History of section acute History of oligohydramnios a cute acute Supervision of normal acute History of section acute History of oligohydramnios a cute acute Supervision of normal [facility] Work Phone: Evaluation note* Diagnosis Onset [...] a cute acute Supervision of normal acute [facility] Work Phone: Evaluation note* Diagnosis Onset Date [...] a cute acute Supervision of normal acute [facility] Work Phone: Evaluation note* Diagnosis Onset Date [...] a cute acute Supervision of normal acute [facility] Work Phone: Progress note Author Ninfa Bautista [facility] Note Date/Time October 25, 2024 1:41p m [facility] [address] [place] [address], [address] [place] [address] OFFICE VISIT Date of Service: 10/25/24 MR#: [id number] Acct: [id number] Name: PEYTON DEVINE GLENROY Rep #: [id number] : 2000 Provider: VICKIE Bautista Age/Sex: 24/F [place] [facility] [place]: Signed Intake Vital Signs 07/15/24 08:50 10/25/24 13:03 Height 5 ft 3 in 5 ft 3 in Weight: 119 lb 8 oz BMI 21.2 BP 135/75 H Intake Visit Reasons: NOB: LMP 08/22, BRIGIDA 05/29 Chief Complaint: New OB 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 Is patient in pain?: No [...] current occupational status: previously employed current occupation: [employer] current occupational exposures/hazards: No pets and animals: Yes pets and animals: dog(s) history of recent travel: Yes ([place] in August) out of state: Yes out of country: No sexually active: Yes Smoking Status: Never smoker second hand exposure: No alcohol intake: never substance use type: does not use caffeine: No what type of physical activity do you participate in: walking How many days of moderate to strenuous exercise, like a brisk walk, did you do in the last 7 days: 3 carmen/yazidism: None seatbelt use: always do you feel [...] Haven 41 live - full term Female [facility] Mariusz 07/16/22 Pattie 39 live - full term 8lbs 3oz Female spinal [facility] Dr. Jewell Delivery Date: 11/14/20 Last [...] Pulmonary (e.g.,TB,Asthma), Seasonal allergies, Drug/latex allergies/reactions, Breast, Transit Manager surgery, Anesthetic complications, History of abnormal pap, [...] Cosigner Signature: Date (if applicable) CC: ~ [facility] Work Phone: Progress note Author Ninfa Bautista [facility] Note Date/Time November 21, 2024 10:41 am [facility] [address] [place] [address], [address] [place] [address] OFFICE VISIT Date of Service: 11/21/24 MR#: [id number] Acct: [id number] Name: PEYTON DEVINE Rep #: [id number] : 2000 Provider: VICKIE Bautista Age/Sex: 24/F [place] [facility] [place]: Signed Intake Vital Signs 07/15/24 08:50 10/25/24 13:03 11/21/24 10:16 Height 5 ft 3 in 5 ft 3 in 5 ft 3 in Weight: 124 lb 4 oz BMI 22.0 BP 135/86 H Intake Visit Reasons: 13wk OB 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 Is patient in pain?: No [...] current occupational status: previously employed current occupation: [employer] current occupational exposures/hazards: No pets and animals: Yes pets and animals: dog(s) history of recent travel: Yes ([place] in August) out of state: Yes out of country: No sexually active: Yes Smoking Status: Never smoker second hand exposure: No alcohol intake: never substance use type: does not use caffeine: No what type of physical activity do you participate in: walking carmen/yazidism: None seatbelt use: always do you feel [...] Haven 41 live - full term Female [facility] Mariusz 07/16/22 Pattie 39 live - full term 8lbs 3oz Female spinal [facility] Dr. Jewell Delivery Date: 11/14/20 Last [...] Cosigner Signature: Date (if applicable) CC: ~ [facility] Work Phone: Progress note Author Sejal Cooper [facility] Note Date/Time December 22, 2024 10:4 6am [facility] [address], [address] [place] [address] OFFICE VISIT Date of Service: 12/22/24 MR#: [id number] Acct: [id number] Name: PEYTON DEVINE GLENROY Rep #: [id number] : 2000 Provider: Dr. Erin Romero DO Age/Sex: 24/F Location: [facility] [place] Status: Signed Intake Vital Signs 10/25/24 13:03 11/21/24 10:16 12/22/24 10:02 12/22/24 10:09 Height 5 ft 3 in 5 ft 3 in 5 ft 3 in 5 ft 3 in Weight: 127 lb 6 oz BMI 22.5 BP 116/71 Intake Visit Reasons: 17 wk ob 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 Is patient in pain?: No [...] current occupational status: previously employed current occupation: [employer] current occupational exposures/hazards: No pets and animals: Yes pets and animals: dog(s) history of recent travel: Yes ([place] in August) out of state: Yes out of country: No sexually active: Yes Smoking Status: Never smoker second hand exposure: No alcohol intake: never substance use type: does not use caffeine: No what type of physical activity do you participate in: walking carmen/yazidism: None seatbelt use: always do you feel [...] Haven 41 live - full term Female [facility] Mariusz 07/16/22 Pattie 39 live - full term 8lbs 3oz Female spinal [facility] Dr. Jewell Delivery Date: 11/14/20 Last [...] : Status: Acute Comment: PRR (waiting on [facility]) , BRIGIDA 05/29 PC: Pattie Suarez : [...] Cosigner Signature: Date (if applicable) CC: ~ [facility] Work Phone: Progress note Author Brenda Salazar [facility] Note Date/Time March 07, 2025 10:01am [facility] [address] [place] [address], [address] [place] [address] OFFICE VISIT Date of Service: 03/07/25 MR#: [id number] Acct: [id number] Name: PEYTON DEVINE GLENROY Rep #: [id number] : 2000 Provider: AL Salazar Age/Sex: 24/F Location[place] [facility] [place] Status: Signed Intake Vital Signs 12/22/24 10:09 01/17/25 15:34 02/16/25 15:28 03/07/25 09:43 Height 5 ft 3 in 5 ft 3 in 5 ft 3 in 5 ft 3 in Weight: 140 lb 1 oz BMI 24.7 BP 118/72 Intake Visit Reasons: 28wk ob/glucose Chief Complaint: 28 Week OB/Glucose 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 Is patient in pain?: No [...] current occupational status: previously employed current occupation: [employer] current occupational exposures/hazards: No pets and animals: Yes pets and animals: dog(s) history of recent travel: Yes ([place] in August) out of state: Yes out of country: No sexually active: Yes Smoking Status: Never smoker second hand exposure: No alcohol intake: never substance use type: does not use caffeine: No what type of physical activity do you participate in: walking carmen/yazidism: None seatbelt use: always do you feel [...] Haven 41 live - full term Female [facility] Mariusz 07/16/22 Pattie 39 live - full term 8lbs 3oz Female spinal [facility] Dr. Jewell Delivery Date: 11/14/20 Last [...] -?-?-?-?-?-?-?-?-?-?-?-?- KW- no vb/crampi ng. feeling better. [facility] anatomy ordered, labs today. 12/22/24 -?-?-?-?-?-?-?-?-?-?-?-?- [...] movement. States had spotting day prior to [facility] US but none since. Has questions about circumvallente placenta-will get growth US 36 wk [facility] 02/16/25 -?-?-?-?-?-?-?-?-?-?-?-?- 25w 3d 138 lb [...] 1034 <Electronically signed by Brenda cordova NP RN ACCESS-C> Date _ Brenda ESPOSITOC Cosigner Signature: Date (if applicable) CC: ~ [facility] Work Phone: Progress note Author Ninfa Bautista [facility] Note Date/Time March 20, 2025 9: 15am [facility] [address] [place] [address], [address] [place] [address] OFFICE VISIT Date of Service: 03/20/25 MR#: [id number] Acct: [id number] Name: PEYTON DEVINE Rep #: [id number] : 2000 Provider: VICKIE Bautista Age/Sex: 24/F Location[place] [facility] [place] Status: Signed Intake Vital Signs 01/17/25 15:34 03/07/25 09:43 03/20/25 09:02 Height 5 ft 3 in 5 ft 3 in 5 ft 3 in Weight: 141 lb 9 oz BMI 25.0 BP 121/75 H Intake Visit Reasons: 30 WK OB 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 Is patient in pain?: No [...] current occupational status: previously employed current occupation: [employer] current occupational exposures/hazards: No pets and animals: Yes pets and animals: dog(s) history of recent travel: Yes ([place] in August) out of state: Yes out of country: No sexually active: Yes Smoking Status: Never smoker second hand exposure: No alcohol intake: never substance use type: does not use caffeine: No what type of physical activity do you participate in: walking carmen/yazidism: None seatbelt use: always do you feel [...] Haven 41 live - full term Female [facility] Mariusz 07/16/22 Pattie 39 live - full term 8lbs 3oz Female spinal [facility] Dr. Jewell Delivery Date: 11/14/20 Last [...] -?-?-?-?-?-?-?-?-?-?-?-?- KW- no vb/crampi ng. feeling better. [facility] anatomy ordered, labs today. 12/22/24 -?-?-?-?-?-?-?-?-?-?-?-?- 17w 3d 127 lb 6 oz (+8 lb 6 oz) 116/71 Negative -?-?-?-?-?-?-?-?-?-?-?-?- Negative 147 -?-?-?-?-?-?-?-?-?-?-?-?- JV- no lof, vagi nal bleeding, or cramping. questions about today. anatomy at 19 weeks scheduled 01/17/25 -?-?-?-?-?-?-?-?-?-?-?-?- 21w 1d 132 lb 8 oz (+13 lb 8 oz) 113/74 Negative -?-?-?-?-?-?-?-?-?-?-?-?- Negative 146 -?-?-?-?-?-?-?-?-?-?-?-?- MH-NO VB. Wero cuelalr movement. States had spotting day prior to [facility] US but none since. Has questions about circumvallente placenta-will get growth US 36 wk [facility] 02/16/25 -?-?-?-?-?-?-?-?-?-?-?-?- 25w 3d 138 lb [...] Cosigner Signature: Date (if applicable) CC: ~ [facility] Work Phone: Progress note Author Brenda Salazar [facility] Note Date/Time March 28, 2025 1 :46pm [facility] [address] [facility], [address] [place] [address] OFFICE VISIT Date of Service: 03/28/25 MR#: [id number] Acct: [id number] Name: PEYTON DEVINE Rep #: [id number] : 2000 Provider: AL Salazar Age/Sex: 24/F Location: [facility] [place] Status: Signed Intake Vital Signs 03/20/25 09:02 03/28/25 13:32 03/28/25 13:41 Height 5 ft 3 in 5 ft 3 in 5 ft 3 in Weight: 141 lb 9 oz 141 lb BMI 25.0 25.0 BP 121/75 H 119/82 H Intake Visit Reasons: OB, htn, dizzy Chief Complaint: HTN, Dizzy 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 Is patient in pain?: No [...] current occupational status: previously employed current occupation: [employer] current occupational exposures/hazards: No pets and animals: Yes pets and animals: dog(s) history of recent travel: Yes ([place] in August) out of state: Yes out of country: No sexually active: Yes Smoking Status: Never smoker second hand exposure: No alcohol intake: never substance use type: does not use caffeine: No what type of physical activity do you participate in: walking carmen/yazidism: None seatbelt use: always do you feel [...] Haven 41 live - full term Female [facility] Mariusz 07/16/22 Pattie 39 live - full term 8lbs 3oz Female spinal [facility] Dr. Jewell Delivery Date: 11/14/20 Last [...] 03/28/25 1350 <Electronically signed by Brenda cordova RN ACCESS RN ACCESS-C> Date _ Brenda Salazar NP RN ACCESS-C Cosigner Signature: Date (if applicable) CC: ~ [facility] Work Phone: Reason for referral (narrative)No reason for referral information availableBlMer[facility] Work Phone: Summary Purpose Family History No Family History Records FoundNo Family History Records FoundNo Family History Records FoundNo Family History Records Found Advance Directives Advance Directive Response Recorded Date/ Time Living Will No November 13, 2020 3 :38pm Power of Grain Manager No November 13, 2020 3:38pm Advance Directive Response Recorded Date/ Time Living Will No April 14 9:09am Power of Grain Manager No April 14, 2022 9:09am Chief Complaint [...] 21, 2024 10:14 am Desires (vaginal after micheal an) trial November 21, 2024 10:14am Family [...] 16, 2025 3:23pm Supervision of high-risk Septe [facility] 2024 3:23pm Adopted March 07, 2025 9:42am Circumvallate placenta March 07, 025 9:42am Desires (vaginal after michael an) trial March 07, 2025 9:42am Family history of cleft palate March 07, 2025 9:42am History of section March 072024 9:42am March 07, 2025 9:42am [facility] 2024 9:42am Adopted March 20, 2025 8: [...] DATE CREATED AUTHOR AUTHOR'S ORGANIZ ATION [facility] DATE CREATED AUTHOR AUTHOR'S ORGANIZ ATION 01/04/2025 [facility] DATE CREATED AUTHOR AUTHOR'S ORGANIZ ATION 04/21/2025 [facility] Goals (unrecognized section and content) Type Care [...] Provider, Refer ring Provider Active Brenda Salazar RN ACCESS, RN ACCESS-C Attending Provider Active Team Status: Inactive Member [...] End: January 17, 2025 Brenda Salazar NP, RN ACCESS-C Attending Provider Active Start: January 17, 2025 [...] End: January 17, 2025 Brenda Salazar NP, RN ACCESS-C Attending physician Active Start: January 17, 2025 [...] End: March 07, 2025 Brenda Salazar NP RN ACCESS-C Attending physician Active Start: March 07, 2025 [...] End: January 17, 2025 Brenda Salazar NP RN ACCESS-C Attending physician Active Start: January 17, 2025 [...] End: March 07, 2025 Brenda Salazar NP, RN ACCESS-C Attending physician Active Start: March 07, 2025 [...] End: March 28, 2025 Brenda Salazar NP, RN ACCESS-C Attending physician Active Start: March 28, 2025 End: March 28, 2025 Team Status: Active Member Role/Relationship Status Dates No Primary Care Physician Primary care physician Activ e Start: April 03, 2025 Brenda Salazar NP, RN ACCESS-C Attending physician Active Start: April 03, 2025 Brenda Salazar NP, RN ACCESS-C Referring Provider Active Start: April 03, 2025 [...] BE BASED ON THE PRIMARY CLINICAL RECORDS. [employer] provides no warranty or guarantee of the accuracy or completeness of information in this document.
[2025-05-22] MEDS: Cefazolin 1 GM/5 ML Vial 2 GM IV (07:21)
[2025-05-22] MEDS: morphine PF (epidural) 5 MG/10 ML Vial IV (07:29)
[2025-05-22] MEDS: 0.9% Normal Saline (1000mL) 350 ML IV (08:00)
--- NOTE | 2025-05-22 08:40 | PCM.POST.ANE ---
Anesthesia: Postop Eval I Current Vital Signs Temperature: 97 F Pulse Rate: 84 Blood Pressure: 108/63 Respiratory Rate: 16 Pulse Ox: 100 Oxygen Delivery Method: Room Air Assessment Airway patent: Yes Spontaneous unlabored respirations: Yes Mental status: Awake and Calm nausea: No Vomiting: No Anesthesia Complication: No Fluid Hydration Crystalloid volume administer (ml): 1,050 Total IV fluid infused: 1,050 Progress Note Anesthesia document: Postop Eval 1 completed: Yes
--- NOTE | 2025-05-22 08:48 | POSTOPAN2_ITS ---
Anesthesia Postop Eval I Sum Postop Eval Completion status Anesthesia document: Postop Eval 1 completed: Yes Anesthesia Postop Eval I Summary Anesthesia Postop Eval I Summary: Anesthesia Postop Eval I: Assessment Summary Airway patent Yes 05/22/25 08:41 MOTORIZED SQUAD COMMANDING OFFICER.MDOT Spontaneous unlabored Yes 05/22/25 08:41 MOTORIZED SQUAD COMMANDING OFFICER.MDOT respirations Mental status Awake,Calm 05/22/25 08:41 MOTORIZED SQUAD COMMANDING OFFICER.MDOT nausea No 05/22/25 08:41 MOTORIZED SQUAD COMMANDING OFFICER.MDOT Vomiting No 05/22/25 08:41 MOTORIZED SQUAD COMMANDING OFFICER.MDOT Anesthesia Postop Eval I: Fluid Summary Crystalloid volume administer 1,050 05/22/25 08:41 MOTORIZED SQUAD COMMANDING OFFICER.MDOT (ml) Colloids volume administered ( ml) Blood Product volume administered (ml) Total IV fluid infused 1,050 05/22/25 08:41 MOTORIZED SQUAD COMMANDING OFFICER.MDOT Anesthesia Postop Eval I: Summary Notes Anesthesia Complication No 05/22/25 08:41 MOTORIZED SQUAD COMMANDING OFFICER.MDOT Anesthesia Complication Comment: Post-operative progress note Anesthesia: Postop Eval II Evaluation Mental status: Awake and Calm Pain Level: 0 nausea: No Vomiting: No Complications Anesthesia Complication: No
--- NOTE | 2025-05-22 08:48 | PCM.POSTANE2 ---
Anesthesia Postop Eval I Sum Postop Eval Completion status Anesthesia document: Postop Eval 1 completed: Yes Anesthesia Postop Eval I Summary Anesthesia Postop Eval I Summary: Anesthesia Postop Eval I: Assessment Summary Airway patent Yes 05/22/25 08:41 FONDANT MACHINE OPERATOR.MDOT Spontaneous unlabored Yes 05/22/25 08:41 FONDANT MACHINE OPERATOR.MDOT respirations Mental status Awake,Calm 05/22/25 08:41 FONDANT MACHINE OPERATOR.MDOT nausea No 05/22/25 08:41 FONDANT MACHINE OPERATOR.MDOT Vomiting No 05/22/25 08:41 FONDANT MACHINE OPERATOR.MDOT Anesthesia Postop Eval I: Fluid Summary Crystalloid volume administer 1,050 05/22/25 08:41 FONDANT MACHINE OPERATOR.MDOT (ml) Colloids volume administered ( ml) Blood Product volume administered (ml) Total IV fluid infused 1,050 05/22/25 08:41 FONDANT MACHINE OPERATOR.MDOT Anesthesia Postop Eval I: Summary Notes Anesthesia Complication No 05/22/25 08:41 FONDANT MACHINE OPERATOR.MDOT Anesthesia Complication Comment: Post-operative progress note Anesthesia: Postop Eval II Evaluation Mental status: Awake and Calm Pain Level: 0 nausea: No Vomiting: No Complications Anesthesia Complication: No
[2025-05-22] MEDS: Oxytocin 15 Units/NS 250ml 15 UNITS/250 ML IV.SOLN 83 UNITS IV (08:55)
--- NOTE | 2025-05-22 09:20 | EX.PCM.OBRPT ---
Assessment & Plan (1) Circumvallate placenta: QUALIFIERS: Trimester: second trimester Qualified Code(s): O43.112 - Circumvallate placenta, second trimester COMMENT: growth US q 4 weeks in third trimester; 33wk EFW 66%, AC 83%; 36 w: EFW 61%, AC 75% (2) Supervision of high-risk : QUALIFIERS: Trimester: third trimester Qualified Code(s): O09.93 - Supervision of high risk , unspecified, third trimester COMMENT: PRR , BRIGIDA 05/29 kassy Moreira PC: Daniela Pattie : Davey (3) : QUALIFIERS: Weeks of gestation: 38 weeks Qualified Code(s): Z3A.38 - 38 weeks gestation of COMMENT: GBS neg, NIPT w/ gender & carrier- low risk, nl anatomy (4) Family history of cleft palate: COMMENT: Pt's niece- club foot, cleft palate (5) Desires (vaginal after ) trial: COMMENT: now wants scheduled 05/22 (6) History of section: COMMENT: previous for NRFHTs, considering TOLAC. (7) Adopted: (8) S/P : COMMENT: RLTCS 39 girl zenaida Maternal Data Information BRIGIDA Calculator Estimated Delivery Date Method Current WG Current Estimate 05/29/25 LMP (Certain) 39w 0d Other Estimates 05/28/25 Ultrasound #1 39w 1d Operative Report (OB) Procedure Details Date of Procedure: 05/22/25 Procedure Start Time: 07:44 Pre-Operative Diagnosis: Other Other Pre-Operative diagnosis: see a/p comments Post-Operative Diagnosis: Same as Pre-operative diagnosis Classification: Scheduled Type of Anesthesia: Spinal Special Medications: none Antibiotic Given: Ancef 2 grams IV x1 Drain: Spencer to straight drain Estimated Blood Loss: 900 Fluids Replaced: crystalloid Findings Description of surgery: spinal anesthesia was placed without difficulty. Spencer catheter was placed. The patient was placed in the dorsal supine position with leftward tilt. Patient was prepped and draped in the normal sterile fashion. Pfannenstiel skin incision was made with the scalpel and carried through to the underlying layer of fascia with the scalpel. Fascia was nicked in the midline and the incision extended laterally. The rectus bellies were dissected off superiorly and inferiorly with out complication both sharply and bluntly. The peritoneum was entered digitally. some uterine adhesions noted but overall WNL. The incision was stretched and a low transverse uterine incision was made with the scalpel. The infant's head was delivered atraumatically followed by the anterior and posterior shoulders without complication the rest of the infant delivered. The cord was clamped and cut and the infant was handed off to awaiting nurse. The placenta was delivered spontaneously immediately following and was noted to be intact and have a three-vessel cord. The uterus was exteriorized cleared of all clots and debris, and the incision was closed in a single layer closure using #1 Monocryl. The ovaries and fallopian tubes were noted to be within normal limits. hemoblast and an additional figure of eight used for hemostasis. The uterus was returned to the maternal abdomen and gutters were cleared of all clots and debris. The peritoneum was closed with 3-0 Monocryl in a running fashion. Gloves were changed prior to fascial closure. Fascia was closed with 0 PDS in a running fashion. Subcutaneous tissue was copiously irrigated and the skin was closed with 3-0 Monocryl in a subcuticular fashion. Mepilex dressing was applied without complication. Patient was taken to recovery in stable condition. Surgical findings: minimal scarring, some vesicouterine adhesions Presentation: Vertex Amniotic Membrane Rupture Type: Artificial Amniotic Fluid Description: Clear Specimen collected: Yes Description of specimen(s) removed: placenta and baby Cord Vessel Description: 3 Vessels Delayed Cord Clamping: Yes Corporate Consultant java lead architect: Yes Quebracho Tanner: Josefina Hill Tasks completed by environmental engineering assistant: Opening & closing, Retracting and Other (assisting in delivery of the ) Additional sales operations assistant?: No Complications Complications: No Admit VTE Documentation VTE Present on Admission: No VTE Mechan Device Prophylaxis: SCD's Procedures Urinary/Genital [id number]: [id number] Delivery [facility]
[2025-05-22] MEDS: Ketorolac 30 MG/ML Syringe IV ×3 (09:57→22:00)
[2025-05-22] MEDS: Lactated Ringers 1,000 ML 100 ML IV (12:14)
[2025-05-22] MEDS: Senna/Docusate Sodium 1 Tablet PO (12:14)
--- NOTE | 2025-05-22 12:30 | DCINST_ITS ---
Discharge Instructions DC O2, CPAP, BIPAP needs Home O2 Discharge instructions: No Dressing / Incision Discharge Activity: May Not Drive (for 2 weeks or while taking narcotic pain medications.), May Shower and May Take a Tub Bath (in 7 days) May shower in (days): 0 May resume sexual activity in: 4-6 weeks Weight Bearing Status: Full weight bearing Lifting Restrictions: 20 pounds Dressing / Incision Call your doctor if your incision/area has: Continuous Slow Oozing, Sudden Increased Bleeding, Increased Pain/ Swelling, Increased Redness and Foul Smelling Discharge Call your doctor if you observe: Fever of 101 or Higher and Using more than 1 pad per hour (for 2 hours) Suture Line Care: Avoid Pulling/Pushing and Avoid Pinching/Bending Cleanse incision/area with: Soap & Water and Keep Dressing Clean & Dry Follow Up Care Please Follow Up With: Pricilla Alfaro MD When: Call [phone] to make an appointment for an incision check in 1-2 weeks. Test Results: Test results from this visit will be discussed in further detail at your follow- up appointment, if applicable. Discharge Plan Admission Admit Date/Time: 05/22/25 05:29 Attending Provider: Pricilla Alfaro Primary Care Provider: Care Physician,Aleksandra Primary Discharge Orders/Prescriptions Prescriptions: New oxycodone-acetaminophen [Percocet] 5-325 mg tablet 1 tab PO Q4H PRN (Reason: pain) 7 Days Qty: 20 0RF naproxen 500 mg tablet 500 mg PO BID PRN PRN (Reason: Pain) Qty: 30 1RF No Action Natavi PNV 13.5 mg iron- 0.5 mg-150 mg capsule 1 cap PO DAILY Referrals / Follow Up: Care Physician,Aleksandra Primary [Primary Care Provider, Medical] Disposition Disposition (needs filled in before D/C Order can be placed): Home, Self Care
[2025-05-22] MEDS: 0.9% Saline Lock 10 ML Syringe IV ×2 (16:10→22:00)
--- NOTE | 2025-05-22 21:20 | NURSING ---
RN called to room, patient states Mepilex had a cut in it, got saturated from shower and dressing pieces were falling out. RN and medical charge entry specialist carefully changed new 10 inch regular Mepilex, dry and intact at this time.
[2025-05-23 00:03] VITALS: BP 107/71; PULSE 90; RESP 16; TEMP 36.8; O2SAT 96
[2025-05-23 04:00] VITALS: BP 103/60; PULSE 77; RESP 14; TEMP 36.6; O2SAT 100
[2025-05-23] MEDS: Ketorolac 30 MG/ML Syringe IV (04:01)
[2025-05-23] MEDS: 0.9% Saline Lock 10 ML Syringe IV (04:01)
[2025-05-23 06:34] LABS: Hematocrit 28.5 % (37-47); Hemoglobin 9.0 g/dL (12.0-15.0); Mean Corp Hgb Conc 31.6 g/dL (32-36); Mean Corpuscular Volume 84.8 fL (81-99); Mean Platelet Vol. 10.9 fl (6.2-12.0); Platelet Count 207 K/mm3 (150-450); RBC Distribution Width CV 13.0 % (11.6-14.6); RBC Distribution Width SD 40.1 fl (35.1-43.9); Red Blood Count 3.36 M/mm3 (4.2-5.4); White Blood Count 8.2 K/mm3 (4.4-11.0)
[2025-05-23 09:29] VITALS: BP 113/75; PULSE 86; RESP 16; TEMP 36.9; O2SAT 98
[2025-05-23] MEDS: Senna/Docusate Sodium 1 Tablet PO (09:34)
--- NOTE | 2025-05-23 11:06 | PN.OBGYN_ITS ---
Subjective Subjective Patient doing well without complaints. Tolerating PO. Ambulating and voiding without difficulty. feeding well. Denies chest pain, shortness of breath, calf pain/swelling, fevers, chills, lightheadedness. Objective Data Objective Data Vital Signs: Vital Signs Temp Pulse Resp BP Pulse Ox O2 Del Method 98.5 F 86 16 113/75 98 Room Air 05/23/25 09:29 05/23/25 09:29 05/23/25 09:29 05/23/25 09:29 05/23/25 09:29 05/23/25 09:29 Oxygen Delivery Method Room Air Weight: 147 lb Body Mass Index (BMI) 26.0 Intake & Output: Intake and Output for Last 24 Hours 05/21/25 05/22/25 05/23/25 23:59 23:59 23:59 Intake Total 2656.67 / 2656.67 Output Total 1850 / 1850 Balance 806.67 / 806.67 Lab / Micro Data 05/23/25 06:15 Labs: Laboratory Results - last 24 hr 05/23/25 06:15: WBC 8.2, RBC 3.36 L, Hgb 9.0 L, Hct 28.5 L, MCV 84.8, MCH 26.8 L , MCHC 31.6 L, RDW Std Deviation 40.1, RDW Coeff of April 13.0, Plt Count 207, MPV 10.9 ROS Constitutional Constitutional: Reports systems reviewed and no addt'l complaints, except as documented Cardiovascular Cardiovascular: Reports systems reviewed and no addt'l complaints, except as documented Respiratory/Chest Respiratory/Chest: Reports systems reviewed and no addt'l complaints, except as documented Gastrointestinal Gastrointestinal: Reports systems reviewed and no addt'l complaints, except as documented Physical Exam Const alert, oriented x3 and no apparent distress HEENT Head and Scalp: atraumatic Resp normal respiratory effort GI soft to palpation and non-tender Inspection: incision intact, healing well and drainage (none) Bimanual Exam - Vag & Uterus: uterus non-tender Uterus Palpation: uterus fundus firm (below Umbilicus) Assessment & Plan (1) S/P : COMMENT: RLTCS 39 girl zenaida PLAN: Plan s/p LTCS PPD # 1 1. routine post care 2. breast feeding- support given 3. rh positive 4. rubella immune
--- NOTE | 2025-05-23 15:26 | CASEMGMT ---
Social Work Assessment Labor and Delivery Unit Patient Address: [address] [place] [address] Phone number: [phone] Date of Referral: 05/22/25 Time of Referral:? 1522 Referred By: Dr. Alfaro Date of Intervention: ??05/23/25 Time of Intervention:? 1045 Reason for Referral:? hx anxiety Sw completed chart review and acknowledges social work consult due to maternal mental health. Sw presented to bedside and introduced self to mother of baby, VEENA- Peyton and father of baby, ISACC- Davey. Sw explained reason for sw involvement and completed psychosocial assessment. History obtained from: medical records, MOB and FOB Household composition: Currently residing in the home is VEENA, ISACC, their two older children: Daniela (4) and Pattie (2). baby to be included in residence when ready for discharge. Parents deny any problems or concerns with housing, stating that it is safe and secure. Patient's parent/guardian status:? VEENA and FOJosias have been together for five years. baby is their third child together. No concerns reported of domestic violence or intimate partner violence. ? Medical History: VEENA is 24 year old female who is 3, para 2- now 3 following labor and delivery of . VEENA received routine care during with [facility]. VEENA presented to hospital and had repeat at 39 weeks gestation on 05/22/25. Baby girl, named Harihs Florez, was born weighing 8lbs 5oz and had apgars of 8 and 9 at one and five minutes of life, respectfully. VEENA is breast feeding and states that baby will be followed by Dr. Elizalde for pediatric care and follow up. ? Educational Status:? MOB graduated from high school and FOB completed 10th grade. No problems with reading, learning or comprehension reported. Financial Status: FOB is employed outside of the home working as a van driver. MOB is a stay at home mom. Infant Supplies:??All necessary baby supplies obtained, including: car seat, safe sleep space, clothes, diapers and wipes. Childcare/Caregiver(s):?MOB will be the primary caregiver to baby. Transportation:?? Both parents have their drivers license and reliable means of transportation, no barriers. Programs/Agencies Involved: ?Parents are not connected to any community resources that provide financial assistance ?? Children Services/Legal Issues:?NO history of children services involvement, no issues or concerns warranting referral to be made at this time ?? Behavioral Health Issues: ??Mental Health History: FOB denies mental health history. VEENA has been diagnosed with anxiety. MOB states that she has done well with her anxiety, but typically struggles with some anxiety at the beginning of . MOB states that she is not currently prescribed medication and is not connected to any community mental health resources. ??? Substance Use History:?Parents deny substance use prior to and during . ? Family History:??No family history of addiction or significant mental health history. ??? Drug Screens: ??NO drug screens observed while completing chart review. Family/Social Stressors:? Parents deny any issues, stressors or concerns. Support Systems: MOB states that both sets of parents are their biggest supports. Depression/Shaken Baby/Safe Sleeping:? Sw educated parents on signs and symptoms of baby blues and mood and anxiety symptoms to be mindful of during this period. MOB states that she has heard the terms and is familiar with what symptoms to be on the lookout for. MOB reports she has not struggled following her other deliveries with symptoms. MOB states that currently she feels like herself, is happy, thankful that baby is healthy and feels a bishop/ connection with her. FOB states that if MOB were to struggle with any depression or anxiety during this period he would be able to recognize it and would know how to help and support her. Sw expressed importance of safe sleep inside and outside of the bedroom. Sw educated MOB on always placing baby in bedside bassinet and not sleeping with baby in bed with her. Sw explained that baby's bassinet should be free of any blankets, pillows or stuffed animals. And baby should be sleeping in a onsie and a sleep sack/ swaddle sack for sleep. MOB expressed understanding. Sw discouraged sleeping with baby on a couch or in a reclining chair explaining that sleep accidents also happen in those areas as well. Sw educated MOB on shaken baby prevention. MOB expressed understanding. ASSESSMENT:? MOB and baby admitted following labor and delivery. MOB with mental health history of anxiety, and denies history of symptoms. MOB reports to feeling like herself so far after delivery. MOB and FOB both present during completion of assessment. FOB observed sitting in chair and holding baby. FOB looked at baby lovingly and was attentive to her. MOB sat on bed and answered most of questions asked. Parents open to discuss concerns about MOB's mental health and the importance of recognizing and talking about any symptoms that she may have during this period. PLAN:? No other services requested or indicated. MOB and baby to be discharged when medically ready. Parents were provided literature regarding: signs and symptoms of baby blues and mood and anxiety disorders, Help Me Grow, shaken baby prevention, ABCs of safe sleep and a list of county resources that are available for them should any needs present themselves. Kenn Vance, CAREER SERVICES ASSISTANT, MANAGEMENT SERVICES TECHNICIAN
== END 2025-05-23 12:50 | disposition home or self-care (01) | DRG 788 ==
PROVIDERS: Admitting Provider Obstetrics & Gynecology; Referring Provider Obstetrics & Gynecology; Visit Provider Obstetrics & Gynecology
PROC: 10D00Z1 Extraction of Products of Conception, Low, Open Approach (ICD-10-PCS; CPT 59514; principal; 2025-05-22 07:00)
DX: O43.113 Circumvallate placenta, third trimester (principal); N73.6 Female pelvic peritoneal adhesions (postinfective); O99.892 Other specified diseases and conditions complicating childbirth; O34.211 Maternal care for low transverse scar from previous cesarean delivery; Z37.0 Single live birth; Z3A.39 39 weeks gestation of pregnancy
CPT/HCPCS: 36415; 59025; 59050; 85025; 85027; 86780; 86850; 86900; 86901; 99221; A4216; G0378; J2405